=== PATIENT | male | born 1935 | race Caucasian/White ===

== ENCOUNTER 2024-01-05 01:02 | Emergency (ER) | payer MEDICARE, SELFPAY ==
[2024-01-05] VITALS (10 sets, daily range): BP systolic 138–168; BP diastolic 85–94; PULSE 66–81; TEMP 36.4; O2SAT 95–99; BMI 26.4
--- NOTE | 2024-01-05 01:16 | ECG_ITS ---
The [facility] Test Date: 2024-01-05 Pat Name: Thaddeus Marroquin Department: Room: - Gender: Male Ophthalmic Lens Inspector: : 1935 Requested By: Beatriz Almonte Order Number: [id number] Reading MD: AGUEDA LIN Measurements Intervals [place] Rate: 72 P: 43 OK: 208 QRS: -83 QRSD: 144 T: 55 QT: 440 QTc: 464 Interpretive Statements 1100 Sinus rhythm 1102 Sinus arrhythmia 2450 Right bundle branch block 2630 Left anterior fascicular block 9150 abnormal ECG No previous ECG available for comparison Electronically Signed On 01-05-2024 7:04:31 EDT by AGUEDA LIN
--- NOTE | 2024-01-05 01:17 | XR_ITS ---
The [address] [address] Patient Name: JACY NAVARRO MRN: [id number] date: 1935 Sex: M Assigned Patient Location: ER Current Patient Location: Accession/Order Number: [id number] Exam Date: 01/05/2024 01:32 Report Date: 01/05/2024 03:46 At the request of: PRANAV SAPP Procedure: XR chest 1V EXAM: XR chest 1V HISTORY: SOB COMPARISON: None. TECHNIQUE: One view of the chest was obtained. FINDINGS: The cardiac silhouette is normal in size. Aortic atherosclerotic disease is seen. There is no significant pneumothorax or pleural effusion. No acute osseous abnormality is seen. There are medial right basilar opacities. XR/XR chest 1V IMPRESSION: 1. Medial right basilar opacities that are felt to represent atelectasis. Otherwise, the lungs are clear. Electronically authenticated by: Eduard TURNER Date: 01/05/2024 03:46
--- NOTE | 2024-01-05 01:17 | ED.GENADUL1 ---
HPI HPI - General Adult General Chief complaint: Shortness of Breath/Dyspnea Stated complaint: sob Time Seen by Provider: 01/05/24 01:04 Source: patient Mode of arrival: Wheelchair Limitations: no limitations History of Present Illness HPI narrative: 88-year-old male presents for shortness of breath. He states it woke him up during the night. During the day yesterday he was outside working in the yard all day trimming branches with his son. He has not had a fever or cough and he denies any pain. He states he does not believe he has a history of any heart or lung problems. Related Data Home Medications ?Medication ?Instructions ?Recorded ?Confirmed amlodipine 5 mg tablet 5 mg PO DAILY 01/05/24 01/05/24 donepezil 10 mg tablet 10 mg PO BEDTIME 01/05/24 01/05/24 fluticasone propionate 50 2 spray intranasal DAILY 01/05/24 01/05/24 mcg/actuation nasal spray,suspension ketoconazole 2 % shampoo 1 applic topical Q14D 01/05/24 01/05/24 memantine 5 mg tablet 5 mg PO BID 01/05/24 01/05/24 rosuvastatin 5 mg tablet 5 mg PO DAILY 01/05/24 01/05/24 sulfasalazine 500 mg 0.5 g PO Q12H 01/05/24 01/05/24 tablet,delayed release Allergies Allergy/AdvReac Type Severity Reaction Status Date / Time No Known Drug Allergies Allergy Verified 01/05/24 01:05 Opioid HPI Opioid Management Most Recent Opioid Data: No Data to Display Review of Systems ROS Narrative A ten point review of systems is negative except as noted above. PFSH PFSH Social History Little interest or pleasure in doing things: not at all Feeling down, depressed, or hopeless: not at all Exam Narrative Exam Narrative: Nurses note and vital signs reviewed and patient is not hypoxic. General: The patient appears in no apparent distress. Patient is resting comfortably on cart. Skin: Warm, dry, no pallor noted. There is no rash noted. Head: Normocephalic, atraumatic Eye: Normal conjunctiva, no drainage Ears, Nose, Mouth, and Throat: oral mucosa is moist. Nares patent. Cardiovascular: Regular Rate and Rhythm Respiratory: Patient is in no distress, no accessory muscle use, lungs are clear to auscultation, no wheezing, rales or rhonchi Back: non-tender GI: Soft and nontender Musculoskeletal: The patient has no evidence of calf tenderness, no pitting edema, symmetrical pulses noted bilaterally Neurological: A&O, normal speech Psychiatric: Cooperative Constitutional Vital Signs, click to edit/add: Last Vital Signs Temp 97.6 F 01/05/24 01:05 Pulse 66 01/05/24 02:00 Resp 14 01/05/24 02:00 BP 140/85 01/05/24 02:00 Pulse Ox 95 01/05/24 02:00 O2 Del Method Room Air 01/05/24 01:19 Course Vital Signs Vital signs: Vital Signs Temperature 97.6 F 01/05/24 01:05 Pulse Rate 75 01/05/24 01:05 Respiratory Rate 14 01/05/24 01:05 Blood Pressure 168/87 H 01/05/24 01:05 Pulse Oximetry 97 01/05/24 01:05 Oxygen Delivery Method Room Air 01/05/24 01:05 Temperature 97.6 F 01/05/24 01:05 Pulse Rate 66 01/05/24 02:00 Respiratory Rate 14 01/05/24 02:00 Blood Pressure 140/85 01/05/24 02:00 Pulse Oximetry 95 01/05/24 02:00 Oxygen Delivery Method Room Air 01/05/24 01:19 Medical Decision Making MDM Narrative Medical decision making narrative: The patient's work appears negative. No evidence of pneumonia or heart failure or acute coronary syndrome. COVID and influenza test are negative. Without intervention his symptoms resolved completely and he is no longer short of breath at all. The possibility of anxiety was discussed with the patient. At this point I do not suspect a pulmonary embolism. He is able to be discharged home. Treatment diagnosis and follow-up were discussed with the patient. Differential Diagnosis Differential Diagnosis: Pneumonia, COVID, influenza, pneumothorax Lab Data Lab results reviewed: Yes I reviewed the patient's lab results Labs: Lab Results 01/05/24 01/05/24 Range/Units 01:16 01:17 WBC 6.0 (4.0-11.0) 10^3/uL RBC 3.68 L (4.70-6.10) 10^6/uL Hgb 11.8 L (14.0-18.0) g/dL Hct 35.3 L (42.0-54.0) % MCV 95.9 H (80.0-94.0) fL MCH 32.1 (25.9-34.0) pg MCHC 33.4 (29.9-35.2) g/dL RDW 12.7 (11.0-15.0) % Plt Count 187 (150-450) 10^3/uL MPV 9.4 L (9.5-13.5) fL Neut % (Auto) 48.5 (43.0-75.0) % Lymph % (Auto) 37.1 (20.5-60.0) % [place] % (Auto) 11.8 (1.7-12.0) % Eos % (Auto) 1.5 (0.9-7.0) % Baso % (Auto) 0.8 (0.2-2.0) % Neut # (Auto) 2.9 (1.4-6.5) 10^3/uL Lymph # (Auto) 2.2 (1.2-3.8) 10^3/uL [place] # (Auto) 0.7 (0.3-0.8) 10^3/uL Eos # (Auto) 0.1 (0.0-0.7) 10^3/uL Baso # (Auto) 0.1 (0.0-0.1) 10^3/uL Abs Immat Gran (auto) 0.02 (0.00-0.03) 10^3/uL Imm/Tot Granulo (auto) 0.3 (0.0-0.5) % Sodium 141 (136-145) mmol/L Potassium 3.7 (3.5-5.1) mmol/L Chloride 106 (98-107) mmol/L Carbon Dioxide 26.9 (21.0-32.0) mmol/L Anion Gap 11.8 BUN 13.0 (7.0-18.0) mg/dL Creatinine 0.94 (0.70-1.30) mg/dL Est GFR ( Amer) >60 (>=60 mL/min/1.73m^2) Est GFR (Non-Af Amer) >60 (>=60 mL/min/1.73m^2) BUN/Creatinine Ratio 13.8 Glucose 104 (74-106) mg/dL Calcium 9.1 (8.5-10.1) mg/dL Troponin I High Sens 16.1 (4.0-76.1) pg/mL NT-Pro-B Natriuret Pep 273.0 (<=1800.0) pg/mL Influenza Type A Ag Negative Influenza Type B Ag Negative SARS-CoV-2 Ag (CV2AG) Negative (NEGATIVE) Imaging Data Chest x-ray: My impression: No acute findings ECG Data Attestation: I personally reviewed and interpreted this ECG as follows: (EKG on my interpretation shows sinus rhythm with rate of 72 and a right bundle branch block) Discharge Plan Discharge Chief Complaint: Shortness of Breath/Dyspnea Clinical Impression: Dyspnea Patient Disposition: Home, Self-Care Time of Disposition Decision: 02:15 Condition: Good Mode of Transportation: Private Vehicle Prescriptions / Home Meds: No Action amlodipine 5 mg tablet 5 mg PO DAILY donepezil 10 mg tablet 10 mg PO BEDTIME fluticasone propionate 50 mcg/actuation spray,suspension 2 spray INTRANASAL DAILY ketoconazole 2 % shampoo 1 applic TOPICAL Q14D memantine 5 mg tablet 5 mg PO BID rosuvastatin 5 mg tablet 5 mg PO DAILY sulfasalazine 500 mg tablet,delayed release (DR/EC) 0.5 g PO Q12H Print Language: Guamanian Instructions: Dyspnea (ED) Referrals: MAYA CARSON [Primary Care Provider] - 1 week
[2024-01-05 01:25] LABS: Basophils Absolute Auto 0.1 10^3/uL (0.0-0.1); Basophils Percent Auto 0.8 % (0.2-2.0); Eosinophils Absolute Auto 0.1 10^3/uL (0.0-0.7); Eosinophils Percent Auto 1.5 % (0.9-7.0); Hematocrit 35.3 % (42.0-54.0); Hemoglobin 11.8 g/dL (14.0-18.0); Immature Granulocytes Abs Auto 0.02 10^3/uL (0.00-0.03); Immature Granulocytes Pct Auto 0.3 % (0.0-0.5); Lymphocytes Absolute Auto 2.2 10^3/uL (1.2-3.8); Lymphocytes Percent Auto 37.1 % (20.5-60.0); Mean Corpuscular HGB Conc 33.4 g/dL (29.9-35.2); Mean Corpuscular Hemoglobin 32.1 pg (25.9-34.0); Mean Corpuscular Volume 95.9 fL (80.0-94.0); Mean Platelet Volume 9.4 fL (9.5-13.5); Monocytes Absolute Auto 0.7 10^3/uL (0.3-0.8); Monocytes Percent Auto 11.8 % (1.7-12.0); Neutrophils Absolute Auto 2.9 10^3/uL (1.4-6.5); Neutrophils Percent Auto 48.5 % (43.0-75.0); Platelet Count 187 10^3/uL (150-450); Red Blood Count 3.68 10^6/uL (4.70-6.10); Red Cell Distribution Width 12.7 % (11.0-15.0)
[2024-01-05 01:33] LABS: Anion Gap 11.8; BUN Creatinine Ratio 13.8; Calcium 9.1 mg/dL (8.5-10.1); Carbon Dioxide 26.9 mmol/L (21.0-32.0); Chloride 106 mmol/L (98-107); Estimated GFR (African America >60 (>=60 mL/min/1.73m^2); Estimated GFR (Non-African Ame >60 (>=60 mL/min/1.73m^2); Glucose 104 mg/dL (74-106); Potassium 3.7 mmol/L (3.5-5.1); Sodium 141 mmol/L (136-145)
[2024-01-05 01:36] LABS: Influenza Virus A Antigen Negative; Influenza Virus B Antigen Negative; Internal Control Within Normal Limits; SARS-CoV-2 Ag NEGATIVE (NEGATIVE)
[2024-01-05 01:51] LABS: Troponin I High Sensitivity 16.1 pg/mL (4.0-76.1)
== END 2024-01-05 02:29 | disposition home or self-care (01) ==
PROVIDERS: Emergency Provider Emergency Medicine; PCP Family Medicine
DX: R06.00 Dyspnea, unspecified (principal); Z20.822 Contact with and (suspected) exposure to COVID-19
CPT/HCPCS: 36415; 71045; 80048; 83880; 84484; 85025; 87804; 87811; 93005; 99285

== ENCOUNTER 2024-08-11 10:12 | Outpatient (OUT) | payer MEDICARE, SELFPAY ==
--- OUTSIDE RECORDS SUMMARY | 2024-08-02 08:30 | XMS_ITS | Encounter Summary ---
Author Organization [facility] Address [address] [place] [address] Care Team Providers Care Edge Runner Name Role Phone Beatriz Almonte MD Unavailable [phone] Beatriz Almonte MD Primary Care Provider [phone] Reason for Visit * Rehabilitation - Outpatient (Routine) - Authorized Specialty Diagnoses / Procedures Referred By Wong ramsey Referred To Contact Physical Therapy Diagnoses Piriformis syndrome of right side Pain in right buttock Procedures [place] OFFICE/OUTPATIENT [facility] 60 MINUTES Marielena Herrera, DIRECTOR SOFTWARE QUALITY ASSURANCE [address] [place] [address] Phone: tel: fax: Dax Wolf, PT [address] [address] Phone: tel: fax: Referral ID Status Reason Start Date Expiration Date Visits Requested Visits Authorized [id number] Authorized Specialty Services Required 07/08/2024 03/23/2025 99 99 Encounter Details Date Type Department Care Team (Late st Contact Info) Description 08/02/2024 8:30 AM EDT Treatment [facility] [address] [facility] [address] [place] [address] Dax Wolf, PT [address] [address] Piriformis syndrome of right side (Primary Dx); Pain in right buttock; Acute bilateral low back pain without sciatica Social History Tobacco Use Types Packs/Day Years Used Date Smoking Tobacco: Never Passive Smoke Exposure: Past Smokeless Tobacco: Never Alcohol Use Standard Drinks/Week Comments Yes 0 (1 standard drink = 0.6 oz pur e alcohol) PHQ-2 Answer Date Recorded Patient Health Questionnaire-2 Score 0 03/01/2024 Sex and Gender Information Value Date Recorded Sex Assigned at Not on file Legal Sex Male 8:35 PM EDT Gender Identity Not on file Sexual Orientation Not on file documented as of this encounter Progress Notes * Dax Wolf, PT - 08/02/2024 8:30 AM EDT Images from the original note were not included. Physical Therapy Evaluation Visit Patient Name: Thaddeus Marroquin Today's Date: 08/02/2024 Encounter Diagnoses Name Primary? Piriformis syndrome of right side Yes Pain in right buttock Acute bilateral low back pain without sciatica Visit number: 3 Timed Code Treatment Minutes: 40 minutes Total Treatment Time: 40 minutes Time In: 0830 Time Out: 0910 History: Pt. Presents to PT with c/c right piriformis syndrome which started 2 months ago. No LEONIDAS. Pt. Reports of increased pain at night. Denies N/T. Pt. Reports he works out 4x per week. Precautions: as tolerated Subjective: Pt. Reports of bilateral butt pain today. Pain is limiting his ability to play golf. Pain: 3/10 Objective: PT Evaluation (07/14/24) Lumbar ROM: WFL Hip ROM: decreased hip ER/IR Flexibility: moderate - piriformis muscle tightness, normal hamstring Strength: core 5/5, lateral hip 4/5, extension 4+/5 Palpation: TTP piriformis at sacrum Treatment: PT evaluation Education: HEP education with demonstration, Educated on Eval Findings and POC Manual Therapy: (26 minutes) piriformis stretching; Passive ROM, Joint mobilization, Soft Tissue Mobilization, Myofascial Release, Muscle Energy Technique, Neural Mobilization, Myofascial Cupping, Dry Needling, IASTM, and Scar mobilization Therapeutic Exercise: (14 minutes) exercises in grid; Strength, Endurance, Flexibility, ROM, HEP, Neural Mobilization, Power, and Core Stability Therapeutic Activity: Exercises to improve dynamic activities, functional tasks, functional mobility to return to prior activity level Neuromuscular re-education: Balance Training, Muscle Facilitation, Dynamic Stability, Core Stabilization, and Blood Flow Restriction Training (BFRT) Modalities: Heat, Ice, Electrical Stimulation, Ultrasound, Cervical Mechanical Traction, Lumbar Mechanical Traction, Iontophoresis, and Fluidotherapy Assessment: Pt. Has participated in 3 PT session with start of POC on 07/14/24 for piriformis muscle tightness.Pt. Will benefit from skilled PT services. Performed more manual techniques to lumbar spine today to help decrease piriformis symptoms today. Outcome Measure: in chart Short Term Goal: To be met in 2 weeks Goal 1: Pt to be instructed in home exercise program. Halfway Goals: To be met in 10 weeks Goal 1: Pt to report independence and compliance with home program. Goal 2: Pt. Will report of 0/10 right piriformis muscle pain while performing daily tasks. Goal 3: Pt. Will demonstrate normal piriformis muscle flexibility to help decrease pain. Goal 4: Pt. Will demonstrate 5/5 right lateral hip strength to help decrease pain. Plan: Pt. Will be placed on hold for up to 30 days. Pt. Is compliant with HEP. Pt will benefit from skilled PT for 1-2x/week from 07/14/24 to 09/22/24 to address the above impairments. I hereby deem this POC medically necessary. Please sign below. Date: documented in this encounter Plan of Treatment Upcoming Encounters Date Type Department Care Team (Late st Contact Info) Description 08/13/2024 8:30 AM EDT Ancillary Procedure [facility] [address] [place] [address] 08/18/2024 8:00 AM EDT Treatment [facility] [address] [facility] [address] [place] [address] Dax Wolf, PT [address] [place] [address] [place] [address] 08/19/2024 8:00 AM EDT Office Visit [facility] [address] [place] [address] Michael Patel MD [address], [place] [address] 08/20/2024 1:30 PM EDT Office Visit [facility] [address] [place] [phone] Marielena Herrera NP [address] [place] [address] documented as of this encounter Visit Diagnoses Diagnosis Piriformis syndrome of right side- Primary Pain in right buttock Unspecified myalgia and myositis Acute bilateral low back pain without sciatica documented in this encounter Care Teams Edge Runner Relationship Specialty Start Date End Date Beatriz Almonte MD [address] [facility] [place] [address] PCP - [employer] 03/24/22 Beatriz Almonte MD [address] [facility] [place] [address] PCP - General Family Medicine 08/23/22 documented as of this encounter
--- OUTSIDE RECORDS SUMMARY | 2024-08-02 14:00 | XMS_ITS | Encounter Summary ---
Author Organization [facility] Address [address] [facility] [place] [address] Care Team Providers Care Tufting Machine Operator Single Needle Name Role Phone Beatriz Almonte MD Unavailable [phone] Beatriz Almonte MD Primary Care Provider [phone] Reason for Visit * Imaging (Routine) - Closed Specialty Diagnoses / Procedures Referred By Wong ramsey Referred To Contact Radiology Diagnoses Occlusion and stenosis of bilateral carotid arteries Procedures Vascular US carotid artery duplex bilateral Marielena Herrera CLUB LOUNGE ATTENDANT [address] [place] [address] Phone: tel: fax: [facility] [address] [facility] [address] [place] [address] Phone: tel: fax: Referral ID Status Reason Start Date Expiration Date Visits Re quested Visits Authorized [id number] Closed 07/07/2024 01/03/2025 1 1 Encounter Details Date Type Department Care Team (Latest Contact Info) Description 08/02/2024 2:00 PM EDT Ancillary Procedure [facility] [address] [facility] [address] [place] [address] Occlusion and stenosis of bilateral carotid arteries Social History Tobacco Use Types Packs/Day Years [...] on file documented as of this encounter Plan of Treatment Upcoming Encounters Date Type Department Care Team (Late st Contact Info) Description 08/13/2024 8:30 AM EDT Ancillary Procedure [facility] [address] [facility] [address] [place] [address] 08/18/2024 8:00 AM EDT Treatment [facility] [address] [facility] [address] [place] [address] Dax Wolf, PT [address] [facility] [address] [place] [address] 08/19/2024 8:00 AM EDT Office Visit [facility] [address] [facility] [address] [place] [address] Michael Patle MD [address] [address] 08/20/2024 1:30 PM EDT Office Visit [facility] [address] [place] [phone] Marielena Herrera NP [address] [place] [address] documented as of this encounter Procedures Procedure Name Priority Date/Time Associated Diagnosis Comments [facility] US CAROTID ARTERY DUPLEX BILATERAL Routine 08/02/2024 2:29 PM EDT Occlusion and stenosis of bilateral carotid arteries documented in this encounter Results * Vascular US carotid artery duplex bilateral (08/02/2024 2:29 PM EDT) Anatomical Region Laterality Modality Neck Ultrasound 08/03/2024 4:40 PM EDT Narrative 08/03/2024 4:40 PM EDT EXAM: Carotid Artery Ultrasound: REASON FOR EXAM: Stenosis. COMPARISON: None. TECHNIQUE: Longitudinal and transverse grayscale, color Doppler, and spectral wave analysis of extracranial carotid vertebral systems obtained. FINDINGS: Diffuse intimal thickening. Scattered foci of hypoechoic and echogenic shadowing plaque present. Velocities, ratios and waveforms are normal. Vertebral artery flow is antegrade bilaterally. Carotid Velocities in cm/sec: Right Peak Systole/End Diastole RCCA: 57.77/18.68 BULB: 42.13/11.73 KRISTA: Prox: 55.17/16.94 Mid: 97.73/35.18 Dist: 90.35/31.71 RECA: 0.63/9.73 RT VERT: 50.39/17.81, antegrade KRISTA/CCA RATIO = 1.69 Left Peak Systole/End Diastole LCCA: 55.17/13.03 BULB: 42.57/12.16 LICA: Prox: 62.12/18.68 Mid: 61.25/24.32 Dist: 63.85/23.46 LECA: 64.72/9.12 LT VERT: 36.49/18.47, antegrade LICA/CCA RATIO = 1.16 IMPRESSION: 1. Mild diffuse atheromatous disease. No hemodynamically significant stenosis sonographically. 2. Vertebral artery flow is antegrade bilaterally. This report is generated using voice recognition reporting ([employer]). On occasion, [employer] erroneously drops words from the report or replaces the spoken word with a similar sounding word. Please call with any questions/concerns regarding the report. Dictated and transcribed 08/03/2024/jf This report has been electronically signed and approved by the interpreting radiologist. Procedure Note Adrián Nolasco MD - 08/03/2024 EXAM: Carotid Artery Ultrasound: REASON FOR EXAM: Stenosis. COMPARISON: None. TECHNIQUE: Longitudinal and transverse grayscale, color Doppler, andspectral wave analysis of extracranial carotid vertebral systems obtained. FINDINGS: Diffuse intimal thickening. Scattered foci of hypoechoic and echogenicshadowing plaque present. Velocities, ratios and waveforms are normal. Vertebral artery flow is antegrade bilaterally. Carotid Velocities in cm/sec: Right Peak Systole/End Diastole RCCA: 57.77/18.68 BULB: 42.13/11.73 KRISTA: Prox: 55.17/16.94 Mid: 97.73/35.18 Dist: 90.35/31.71 RECA: 0.63/9.73 RT VERT: 50.39/17.81, antegrade KRISTA/CCA RATIO = 1.69 Left Peak Systole/End Diastole LCCA: 55.17/13.03 BULB: 42.57/12.16 LICA: Prox: 62.12/18.68 Mid: 61.25/24.32 Dist: 63.85/23.46 LECA: 64.72/9.12 LT VERT: 36.49/18.47, antegrade LICA/CCA RATIO = 1.16 IMPRESSION: 1. Mild diffuse atheromatous disease. No hemodynamically significantstenosis sonographically. 2. Vertebral artery flow is antegrade bilaterally. This report is generated using voice recognition reporting ([employer]).On occasion, [employer] erroneously drops words from the report orreplaces the spoken word with a similar sounding word. Please call withany questions/concerns regarding the report. Dictated and transcribed 08/03/2024/alex This report has been electronically signed and approved by theinterpreting radiologist. us Marielena Herrera NP IMG US PROCEDURES Final Res ult documented in this encounter Visit Diagnoses Diagnosis Occlusion and stenosis of bilateral carotid arteries documented in this encounter Care Teams Tufting Machine Operator Single Needle Relationship Specialty Start Date End Date Beatriz Almonte MD [address] [place] [address] PCP - [employer] 03/24/22 Beatriz Almonte MD [address] [place] [address] PCP - General Family Medicine 08/23/22 documented as of this encounter
--- OUTSIDE RECORDS SUMMARY | 2024-08-10 09:30 | XMS_ITS | Encounter Summary ---
Author Organization [facility] Address [address] [place] [address] Care Team Providers Care Machine Container Washer Name Role Phone Beatriz Almonte MD Unavailable [phone] Beatriz Almonte MD Primary Care Provider [phone] Reason for Visit * Rehabilitation - Outpatient (Routine) - Authorized Specialty Diagnoses / Procedures Referred By Wong ramsey Referred To Contact Physical Therapy Diagnoses Piriformis syndrome of right side Pain in right buttock Procedures [place] OFFICE/OUTPATIENT [facility] 60 MINUTES Marielena Herrera, BOAT CARPENTER [address] [place] [address] Phone: tel: fax: Dax Wolf, PT [address] [address] Phone: tel: fax: Referral ID Status Reason Start Date Expiration Date Visits Requested Visits Authorized [id number] Authorized Specialty Services Required 07/08/2024 03/23/2025 99 99 Encounter Details Date Type Department Care Team (Late st Contact Info) Description 08/10/2024 9:30 AM EDT Treatment [facility] [address] [facility] [address] [place] [address] Dax Wolf, PT [address] [address] Piriformis syndrome of right side (Primary Dx); [...] Progress Notes * Dax Wolf, PT - 08/10/2024 9:30 AM EDT Images from the original note were not included. Physical Therapy Treatment Visit Patient Name: Thaddeus Marroquin Today's Date: 08/10/2024 Encounter Diagnoses Name Primary? Piriformis syndrome of right side Yes Pain in right buttock Acute bilateral low back pain without sciatica Visit number: 4 Timed Code Treatment Minutes: 40 minutes Total Treatment Time: 70 minutes Time In: 0910 Time Out: 1020 History: Pt. Presents to PT with c/c right piriformis syndrome which started 2 months ago. No LEONIDAS. Pt. Reports of increased pain at night. Denies N/T. Pt. Reports he works out 4x per week. Precautions: as tolerated Subjective: Pt. Reports of bilateral butt pain today. Pain is affecting his ability to sleep throughout the night. Increased right shoulder pain which is limiting his ability to play golf. Pt. Is going to take 2 weeks off from golfing. Pain: 5/10 sacrum pain, 7/10 right shoulder pain. Objective: PT Evaluation (07/14/24) Lumbar ROM: WFL [...] and Blood Flow Restriction Training (BFRT) Modalities: (15 minutes) prone: IFC with MHP to lumbar spine; Heat, Ice, Electrical Stimulation, Ultrasound, Cervical Mechanical Traction, Lumbar Mechanical Traction, Iontophoresis, and Fluidotherapy DN: right shoulder, 4x needles with 10 minute rest. Lateral deltoid Assessment: Pt. Has participated in 4 PT session with start of POC on 07/14/24 for piriformis muscle tightness.Pt. Will benefit from skilled PT services. Performed more manual techniques to lumbar spine today to help decrease piriformis symptoms today. Trial of DN to right shoulder to help decrease pain. TTP b ilateral sacrum today and L5/S1 segment. Outcome Measure: in chart Short Term Goal: To be met in 2 weeks Goal 1: Pt to be instructed in home exercise program. Penitentiary Goals: To be met in 10 weeks [...] Ancillary Procedure [facility] [address] [facility] [address] [facility] [address] 08/18/2024 8:00 AM EDT Treatment [facility] [address] [facility] [address] [place] [address] Dax Wolf, PT [address] [facility] [address] [place] [address] 08/19/2024 8:00 AM EDT Office Visit [facility] [address] [facility] [address] [place] [address] Michael Patel MD [address] [facility] [address] [facility] [place] [address] 08/20/2024 1:30 PM EDT Office Visit [facility] [address] [facility] [place] [address] Marielena Herrera BOAT CARPENTER [address] [facility] [place] [address] documented as of this encounter Visit Diagnoses Diagnosis Piriformis syndrome of right side- Primary Pain in right buttock Unspecified myalgia and myositis Acute bilateral low back pain without sciatica documented in this encounter Care Teams Machine Container Washer Relationship Specialty Start Date End Date Beatriz Almonte MD [address] [facility] [place] [address] PCP - [employer] 03/24/22 Beatriz Almonte MD [address] [facility] [place] [address] PCP - General Family Medicine 08/23/22 documented as of this encounter
--- OUTSIDE RECORDS SUMMARY | 2024-08-11 10:16 | XMS_ITS ---
Author Organization [employer] Address [id number] [address] 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 Primary hypertension 03/14/2022 Hyperlipidemia 03/14/2022 Nephrolithiasis 03/14/2022 Paroxysmal atrial fibrillation 02/22/2022 Iliac artery aneurysm, left 08/13/2021 Abdominal aortic aneurysm (AAA) without rupture 08/13/2021 Overweight 09/26/2019 07/23/2022 Age-related cognitive decline 02/01/2019 Chronic rhinitis 11/26/2018 07/23/2022 Mild left ventricular hypertrophy 07/27/2018 07/23/2022 Right bundle branch block 07/02/20182022 Bilateral sensorineural hearing loss 03/04/2018 07/23/2022 Reactive depression (situational) 12/19/2017 07/23/2022 Prostate cancer 07/16/2017 Cancer Staging:Clinical: cT1b, cN0, cM0, Grade Group: 4 - Signed by Lyndon Marquez MD on 07/16/2017 Overview (10/16/2021): 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 plan to check psa in Feb prior to leaving for [place]. 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 Past Treatment and Therapy Plans INFUSION TREATMENT Plan Name Start Date Discontinue Date Treatment Medications Discontinue Reason Plan Provider LEUPROLIDE 45 MG EVERY 6 MONTHS (LUPRON DEPOT) 09/03/2017 07/26/2022 leuprolide (LUPRON) Other Lyndon Marquez MD Radiation Treatments * Course C1 07/28/2017 - 04/27/2018 Treatment Period Energy Fraction Dose Fractions Total Dose Plans Planned prostate and seminal vesicles [Pros and SV] 04/27/2018 - 04/27/2018 250 28 / 28 7,000 Reference Points Delivered Rx prostate 04/27/2018 - 04/27/2018 7,000
--- OUTSIDE RECORDS SUMMARY | 2024-08-11 10:16 | XMS_ITS | Clinical Summary ---
Author Organization [employer] tem Address [id number] [address] [place] [address] Care Team Providers Care Livestock Brands Inspector Name Role Phone Beatriz Almonte MD Primary Care Provider [phone] Allergies No known active allergies Medications amLODIPine (NORVASC) 5 mg tablet Take 1 tablet (5 mg total) by mouth in the morning. Active M-17/NETTLE/PUM PK/SAW PALMET (PROSTATE THERAPY ORAL) Take by mouth. A ctive multivitamin (THERAGRAN) tablet Take 1 tablet by mouth in the morning. Active donepezil (ARICEPT) 5 mg tablet Take 2 tablets (10 mg total) by mouth nightly. Active acetaminophen (TYLENOL) 325 mg tablet Take 2 tablets (650 mg total) by mouth every 6 (six) hours as needed for pain. Active montelukast (SINGULAIR) 10 mg tablet Take 1 tablet (10 mg total) by mouth nightly. Active sulfaSALAzine (AZULFIDINE) 500 mg EC tablet Take 200 mg by mouth in the morning and 200 mg at noon and 200 mg in the evening. Active fluticasone propionate (FLONASE) 50 mcg/actuation nasal spray Administer 1 spray into each nostril in the morning. Active rosuvastatin (CRESTOR) 5 mg tablet Take 1 tablet (5 mg total) by mouth in the morning. Active Active Problems Problem Noted Date Diagnosed Date [...] psa in Feb prior to leaving for [place]. 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 07/23/2022 Disseminated idiopathic skeletal hyperostosis 07/23/2022 Anxiety 08/01/2015 07/23/2022 Family History Medical History Relation Name Comments Dementia Father No Known Problems Mother Relation Name Status Comments Brother Father Maternal Aunt Maternal Grandfather Maternal Grandmother Maternal Uncle Mother Paternal Aunt Paternal Grandfather Paternal Grandmother Paternal Uncle Sister Alive Social History Tobacco Use Types Packs/Day Years Used Date Smoking Tobacco: Never Smokeless Tobacco: Never Tobacco Cessation:Counseling Given: Not Answered Alcohol Use Standard Drinks/Week Comments Yes 0 (1 standard drink = 0.6 oz pur e alcohol) socially [employer] Utilities Answer Date Recorded In the past 12 months has th e electric, gas, oil, or water company threatened to shut off services in your home? No 11/02/2023 Social Connection and Isolat ion Panel [NHANES] Answer Date Recorded In a typical week, how many times do you talk on the phone with family, friends, or neighbors? Three times a week 11/06/2022 How often do you get togethe r with friends or relatives? Three times a week 11/06/2022 How often do you attend chur ch or congregational services? More than 4 times per year 11/06/2022 Do you belong to any clubs o r organizations such as jehovah's witness groups, unions, fraternal or athletic groups, or school groups? Yes 11/06/2022 How often do you attend meet ings of the clubs or organizations you belong to? More than 4 times per year 11/06/2022 Are you , , di vorced, , never , or living with a partner? 11/06/2022 AUDIT-C Answer Date Recorded Q1: How often do you have a drink containing alcohol? Monthly or less 11/06/2022 Q2: How many drinks containi ng alcohol do you have on a typical day when you are drinking? Patient does not drink Q3: How often do you have si x or more drinks on one occasion? Never 11/06/2022 Overall Financial Resource Strain (CARDIA) Answe r Date Recorded How hard is it for you to pa y for the very basics like food, housing, medical care, and heating? Not hard at all 11/06/2022 PHQ-2 Answer Date Recorded Total Score 0 11/06/2022 [facility] Occupat ional Health - Occupational Stress Questionnaire Answer Date Recorded Do you feel stress - tense, restless, nervous, or anxious, or unable to sleep at night because your mind is troubled all the time - these days? Not at all 11/06/2022 Exercise Vital Sign Answer Date Recorde d On average, how many days pe r week do you engage in moderate to strenuous exercise (like a brisk walk)? 3 days 11/06/2022 On average, how many minutes do you engage in exercise at this level? 90 min 11/06/2022 PRAPARE - Transportation Answer Date Re corded In the past 12 months, has l ack of transportation kept you from medical appointments or from getting medications? No 10/22 In the past 12 months, has l ack of transportation kept you from meetings, work, or from getting things needed for daily living? No 11/02/2023 Housing Instability Answer Date Recorde d Are you worried or concerned that in the next two months you may not have stable housing that you own, rent or stay in as a part of a household? No 11/02/2023 Childcare Answer Date Recorded Do problems getting child ca re make it difficult for you to work or study? No 11/06/2022 Employment Answer Date Recorded Do you need help finding a [employer] career center and/or a training program? No 11/06/2022 Hunger Screening Answer Date Recorded Within the past 12 months we worried whether our food would run out before we got money to buy more. Never True 02/28/2024 Within the past 12 months th e food we bought just didn't last and we didn't have money to get more. Never True 02/28/2024 Purpose - Life Answer Date Recorded I have a purpose and direction in my life. Strogarcia gly Agree 11/06/2022 Sex and Gender Information Value Date Recorded Sex Assigned at Not on file Legal Sex Male 11:45 AM EDT Gender Identity Not on file Sexual Orientation Not on file Last Filed Vital Signs Vital Sign Reading Time Taken Comments Blood Pressure 162/80 02/28/2024 10:38 AM EST Pulse 102 02/28/2024 10:38 AM EST Temperature 36.2 C (97.2 F) 02/28/2024 10:38 AM EST Respiratory Rate 20 02/28/2024 10:38 AM EST Oxygen Saturation 94% 02/28/2024 10:38 AM EST Inhaled Oxygen Concentration - - Weight 90.7 kg (200 lb) 02/28/2024 10:38 AM EST Height 182.9 cm (6') 02/28/2024 10:38 AM EST Body Mass Index 27.12 02/28/2024 10:38 AM EST Plan of Treatment Health Maintenance Due Date Last Done Comments Fall Risk Screening 2002 Depression Screening 11/07/2023 11/06/2022 COVID-19 Vaccine (7 - 2023-2 5 season) 2024 01/05/2024, 01/01/2023, 12/28/2021, Additional history exists Influenza Vaccine 11/22/2024 01/05/2024, , 12/03/2021, Additional history exists Tobacco Screening 02/27/2025 02/28/2024 DTaP,Tdap and Td Vaccines (4 - Td or Tdap) 07/01/2032 07/01/2022, 07/12/2020, 01/22/2010 Zoster (Shingles) Vaccine Completed 09/19/2022, 12/2022 Goals Goal Patient Goal Type Associated Problems Recent Progress Patient-Stated? Author home General Yes Rosalva Haynes LSW Note: Evaluation of progress towards goal: feeling better, hopes to go [place] today Medical Devices Not on file Insurance [employer] MEDICARE Advance Directives * Full Code (Latest Code Status on File) Date Activated Date Inactivated Comments 11/03/2023 9:21 AM 11/04/2023 3:18 PM * Full Code Date Activated Date Inactivated Comments 11/06/2022 11:46 AM 11/07/2022 5:30 PM Care Teams Livestock Brands Inspector Relationship Specialty Start Date End Date Beatriz Almonte MD [address] [place] [address] PCP - General Family Medicine 10/15/21
--- OUTSIDE RECORDS SUMMARY | 2024-08-11 10:16 | XMS_ITS ---
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 Atherosclerosis of aorta 05/22/2023 Hemorrhoids 05/22/2023 Diverticulosis 11/13/2022 Pulmonary nodule 11/13/2022 Renal cyst, left 11/13/2022 Alzheimer's dementia 11/06/2022 Dry eyes 09/03/2022 PCO (posterior capsular opacification), bilatera l 09/03/2022 Chronic low back pain 07/23/2022 Hip pain 07/23/2022 Gastroesophageal reflux disease 04/15/2022 Piriformis syndrome of right side 04/15/2022 Dizziness 04/15/2022 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 plan to check psa in Feb prior to leaving for [place]. 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 Past Treatment and Therapy Plans No past plan information found. Lifetime Dose Tracking * Chemical Lifetime Dose Automatic Entry Manual Entr y Radiation 20.97 mSv 20.97 mSv 0 mSv Resolved Problems Problem Noted Date Diagnosed Date Resolved Date Acute hypoxic respiratory failure 11/02/2023 11/11/2023 COVID-19 11/02/2023 03/01/2024 Backache 10/27/2023 03/01/2024 Right knee pain 10/27/2023 03/01/2024 Unsteadiness on feet 10/27/2023 024 Acute maxillary sinusitis 11/06/2022 Blepharitis of upper and low er eyelids of both eyes 09/03/2022 03/01/2024 Calculus of kidney 03/14/2022 equipment operator intermodal yard current use of ant icoagulant therapy 07/02/2018 12/16/2022 Paroxysmal atrial fibrillation 06/10/2018 12/16/2022
--- OUTSIDE RECORDS SUMMARY | 2024-08-11 10:16 | XMS_ITS | Encounter Summary ---
Author Organization [employer] Address [id number] [address] [place] [address] Care Team Providers Care Auditor Name Role Phone Beatriz Almonte MD Primary Care Provider [phone] Reason for Visit * Reason Onset Date Comments Medical Update 03/07/2022 Encounter Details Date Type Department Care Team (Late st Contact Info) Description 03/07/2022 Telephone [facility] [address] [place] [phone] Lamin Marques Medical Update Social History Tobacco Use Types Packs/Day Years Used Date Smoking Tobacco: Never Smokeless Tobacco: Never Alcohol Use Standard Drinks/Week Comments Yes 0 (1 standard drink = 0.6 oz pur e alcohol) socially Childcare Answer Date Recorded Childcare Unknown 09/02/2018 Employment Answer Date Recorded Employment Unknown 09/02/2018 Purpose - Life Answer Date Recorded Purpose and direction in life Unknown Sex and Gender Information Value Date Recorded Sex Assigned at Not on file Legal Sex Male 11:45 AM EDT Gender Identity Not on file Sexual Orientation Not on file COVID-19 Exposure Response Date Recorded In the last month, have you been in contact with someone who was confirmed or suspected to have Coronavirus / COVID-19? No / Unsure 02/22/2022 10:58 AM EST documented as of this encounter Miscellaneous Notes * Telephone Encounter - Lamin Marques - 03/07/2022 11:10 AM EST , Inés, wanted to give some of the symptoms: Short tempered Moving feet a lot Jerking Not remembering things A lot of things has changed. Daughter will like to speak to physician about patient as well: Silvia German: [phone] BROKER appt: 03/13/22 * Telephone Encounter - Jessica Banda CMA - 03/07/2022 11:10 AM EST From daughter as a FYI for visit: Fingertip to forehead when mad, will break things, being mean towards the ,unhealthy spending on things he thinks will help that he sees on the tv, comments about killing himself daughter states he wouldn't actually do it though, he continues to mess with his phone and nob's on the radio while d riving, he will joke as if everything is fine with his health. Daughter Silvia son Abhijit Cade And Inés will be at visit. * Telephone Encounter - Zaira Levi MD - 03/07/2022 11:10 AM EST This will be helpful when they eventually see me in clinic. Thanks documented in this encounter Plan of Treatment Not on file documented as of this encounter Visit Diagnoses Not on filedocumented in this encounter Additional Health Concerns Infection Onset Date Last Indicated Resolved Time COVID-19 Rule-Out 11/02/2023 11/02/2023 11/02/2023 7:13 AM EDT COVID-19 Positive 11/02/2023 11/02/2023 11/23/2023 11:13 PM EDT documented as of this encounter Care Teams Auditor Relationship Specialty Start Date End Date Gage, Beatriz Bush MD [address] [place] [address] PCP - General Family Medicine 10/15/21 documented as of this encounter
--- OUTSIDE RECORDS SUMMARY | 2024-08-11 10:16 | XMS_ITS | Encounter Summary ---
Author Organization [facility] Address [address] [facility] [place] [address] Care Team Providers Care Microphone Boom Operator Name Role Phone Beatriz Almonte MD Unavailable [phone] Beatriz Almonte MD Primary Care Provider [phone] Encounter Details Date Type Department Care Team (Latest Contact Info) Description 08/10/2024 Travel Social History Tobacco Use Types Packs/Day Years [...] ULTRASOUND [address] [place] [address] 08/18/2024 8:00 AM EDT Treatment [facility] [address] [facility] [address] [place] [address] Dax Wolf, PT [address] [place] [address] 08/19/2024 8:00 AM EDT Office Visit [facility] [address] [facility] Alexy Rust [address] [place] [phone] Michael Patel MD [address] [facility] [address] [place] [address] 08/20/2024 1:30 PM EDT Office Visit [facility] [address] [place] [phone] Marielena Herrera PRICE ACCURACY SUPERVISOR [address] [place] [address] documented as of this encounter Visit Diagnoses Not on filedocumented in this encounter Care Teams Microphone Boom Operator Relationship Specialty Start Date End Date Beatriz Almonte MD [address] [place], [place] [phone] PCP - [employer] 03/24/22 Beatriz Almonte MD [address] [place], [place] [phone] PCP - General Family Medicine 08/23/22 documented as of this encounter
--- OUTSIDE RECORDS SUMMARY | 2024-08-11 10:16 | XMS_ITS | Encounter Summary ---
Author Organization [facility] Address [address] [place] [address] Care Team Providers Care Oil Well Logger Name Role Phone Beatriz Almonte MD Unavailable [phone] Beatriz Almonte MD Primary Care Provider [phone] Encounter Details Date Type Department Care Team (Late Contact Info) Description 08/10/2024 Bamboo flowsheet [facility] [address] [facility] [address] [place] [address] Dax Wolf, PT [address] [facility] [address] [place] [address] Social History Tobacco Use Types Packs/Day Years [...] Encounters Date Type Department Care Team (Late Contact Info) Description 08/13/2024 8:30 AM EDT Ancillary Procedure [facility] [address] [place] [address] 08/18/2024 8:00 AM EDT Treatment [facility] [address] [facility] [address] [place] [address] Dax Wolf, PT [address] [facility] [address] [place] [address] 08/19/2024 8:00 AM EDT Office Visit [facility] [address] [facility] [address] [place] [address] Michael Patel MD [address] [facility] [address] [place] [address] 08/20/2024 1:30 PM EDT Office Visit [facility] [address] [place] [phone] Marielena Herrera, PROCESS LINE OPERATOR [address] [place] [address] documented as of this encounter Visit Diagnoses Not on filedocumented in this encounter Care Teams Oil Well Logger Relationship Specialty Start Date End Date Beatriz Almonte MD [address] [place] [address] PCP - [employer] 03/24/22 Beatriz Almonte MD [address] [place] [address] PCP - General Family Medicine 08/23/22 documented as of this encounter
--- OUTSIDE RECORDS SUMMARY | 2024-08-11 10:16 | XMS_ITS | Encounter Summary ---
Author Organization [employer] Address [id number] [address] [place] [address] Care Team Providers Care Cell Geneticist Name Role Phone Beatriz Almonte MD Primary Care Provider [phone] Encounter Details Date Type Department Care Team (Late st Contact Info) Description 02/12/2022 Orders Only [facility] [address] [facility] [address] [place] [address] External, Scanning Provider Social History Tobacco Use Types Packs/Day Years [...] have Coronavirus / COVID-19? No / Unsure 01/30/2022 10:54 AM EST documented as of this encounter Plan of Treatment Not on file documented as of this encounter Procedures Procedure Name Priority Date/Time Associated Diagnosis Comments ECHO DOPPLER Routine 03/25/2013 NUC STRESS EXERCISE Routine 02/04/2013 documented in this encounter Results * Echo Doppler (03/25/2013) Anatomical Region Laterality Modality Chest N/A Ultrasound us Scanning Provider External CV ECHO ORDERABLES Fi nal Result * Nuc stress exercise (02/04/2013) Anatomical Region Laterality Modality Chest N/A Nuclear Medicine us Scanning Provider External CV STRESS ORDERABLES Final Result documented in this encounter Visit Diagnoses Not on filedocumented in this encounter Additional Health Concerns Infection Onset Date Last Indicated Resolved Time COVID-19 Rule-Out 11/02/2023 11/02/2023 11/02/2023 7:13 AM EDT COVID-19 Positive 11/02/2023 11/02/2023 11/23/2023 11:13 PM EDT documented as of this encounter Care Teams Cell Geneticist Relationship Specialty Start Date End Date Beatriz Almonte MD [address] [place] [address] PCP - General Family Medicine 10/15/21 documented as of this encounter
--- OUTSIDE RECORDS SUMMARY | 2024-08-11 10:16 | XMS_ITS | Encounter Summary ---
Author Organization [employer] Address [id number] [address] [place] [address] Care Team Providers Care Abstract Checker Name Role Phone Beatriz Almonte MD Primary Care Provider [phone] Encounter Details Date Type Department Care Team (Late st Contact Info) Description 10/19/2021 [facility] [address] [place] [phone] External, Scanning Provider Social History Tobacco Use [...] have Coronavirus / COVID-19? No / Unsure 10/15/2021 11:58 AM EDT documented as of this encounter Plan of Treatment Not on file documented as of this encounter Procedures Procedure Name Priority Date/Time Associated Diagnosis Comments PROSTATIC SPECIFIC ANTIGEN, DIAGNOSTIC Routine 03/19/2017 documented in this encounter Results * Prostatic specific antigen, diagnostic (03/19/2017) Psa 5.010 MANUALLY TRANSCRIBED RESULTS 03/19/2017 us Scanning Provider External LAB BLOOD ORDERABLES Final Result MANUALLY TRANSCRIBED RESULTS documented in this encounter Visit Diagnoses Not on filedocumented in this encounter Additional Health Concerns Infection Onset Date Last Indicated Resolved Time COVID-19 Rule-Out 11/02/2023 11/02/2023 11/02/2023 7:13 AM EDT COVID-19 Positive 11/02/2023 11/02/2023 11/23/2023 11:13 PM EDT documented as of this encounter Care Teams Abstract Checker Relationship Specialty Start Date End Date Beatriz Almonte MD [address] [place] [address] PCP - General Family Medicine 10/15/21 documented as of this encounter
--- OUTSIDE RECORDS SUMMARY | 2024-08-11 10:16 | XMS_ITS | Encounter Summary ---
Author Organization [email or web address] Address [id number] [address] [place] [address] Care Team Providers Care Admissions Rn Name Role Phone Beatriz Almonte MD Primary Care Provider [phone] Encounter Details Date Type Department Care Team (Late st Contact Info) Description 08/08/2021 Telephone [facility] [address] [place] [phone] Yan Garcia MD [address] [facility] [place] [address] Social History Tobacco Use Types Packs/Day Years [...] Exposure Response Date Recorded In the last 10 days, have yo u been in contact with someone who was confirmed or suspected to have Coronavirus/COVID-19? No / Unsure 08/07/2021 9:06 AM EDT documented as of this encounter Miscellaneous Notes * Telephone Encounter - Aishwarya Chaudhary - 08/08/2021 8:52 AM EDT LMOM for the patient to call and schedule their new pt appointment with PPC. documented in this encounter Plan of Treatment Not on file documented as of this encounter Visit Diagnoses Not on filedocumented in this encounter Additional Health Concerns Infection Onset Date Last Indicated Resolved Time COVID-19 Rule-Out 08/20/2021 08/20/2021 08/20/2021 2:36 PM EDT COVID-19 Rule-Out 11/02/2023 11/02/2023 11/02/2023 7:13 AM EDT COVID-19 Positive 11/02/2023 11/02/2023 11/23/2023 11:13 PM EDT documented as of this encounter Care Teams Admissions Rn Relationship Specialty Start Date End Date Gage, Beatriz Bush MD [address] [place] [address] PCP - General Family Medicine 10/15/21 documented as of this encounter
--- OUTSIDE RECORDS SUMMARY | 2024-08-11 10:16 | XMS_ITS | Clinical Summary ---
Author Organization [facility] Address [address] [place] [id number] Care Team Providers Care Tubing Oiler Name Role Phone Beatriz Almonte MD Primary Care Provider [phone] Allergies No known active allergies Social History Tobacco Use Types Packs/Day Years Used Date Smoking Tobacco: Never Assessed Area Deprivation Index Answer Date Red rded National Score (1-100), lower number is lower ri sk 74 03/18/2023 State Score (1-10), lower number is lower risk 6 03/18/2023 Data from: https://www.neighborhoodatlas.medicine.[facility]/. Last address used for calculation [address] 03/18/2023 Sex and Gender Information Value Date Recorded Sex Assigned at Not on file Legal Sex Male 1:03 AM EST Gender Identity Not on file Sexual Orientation Not on file Last Filed Vital Signs Vital Sign Reading Time Taken Comments Blood Pressure 152/74 03/17/2023 3:00 AM EST Pulse 68 03/17/2023 3:00 AM EST Temperature 36.5 C (97.7 F) 03/17/2023 3:00 AM EST Respiratory Rate 18 03/17/2023 3:00 AM EST Oxygen Saturation 95% 03/17/2023 1:38 AM EST Inhaled Oxygen Concentration - - Weight 91 kg (200 lb 11.2 oz) 03/17/2023 1:38 AM EST Height - - Body Mass Index - - Plan of Treatment Health Maintenance Due Date Last Done Comments Anxiety Screening 1953 Depression Screening 1953 Pneumococcal Vaccine: 50+ (1 of 1 - PCV) 1987 RSV Vaccine (1 - 1-dose 75+ series) 2012 DTaP,Tdap,Td Vaccine (1 - Tdap) 07/13/2020 Covid-19 Vaccine (2023-2 5 season) 2023 01/01/2023, 12/28/2021, 07/17/2021, Additional history exists Advance Directive Discussion 03/24/2024 Influenza Vaccine (Season Ended) 2024 12/18/2022, 12/03/2021, 01/10/2021, Additional history exists Diabetes Screening 03/17/2026 03/17/2023, 0 11/07/2022, 11/06/2022, Additional history exists Shingrix Vaccine Completed 09/19/2022, 07/01/2022 Procedures Procedure Name Priority Date/Time Associated Diagnosis Comments BASIC METABOLIC PANEL STAT 03/17/2023 1:59 AM EST from Last 3 Months or Most Recently Relevant to Health Maintenance Results * (ABNORMAL) BASIC METABOLIC PNL (03/17/2023 1:59 AM EST) [facility] Signature Glucose 107(H) 74 - 99 mg/dL 03/17/2023 2:38 AM EST [facility] Comment: The [place] Diabetes Association (ADA) provides guidance for cutoff values for fasting glucose and random glucose. The ADA defines fasting as no caloric intake for at least 8 hours. Fasting plasma glucose results between 100 to 125 mg/dL indicate increased risk for diabetes (prediabetes). Fasting plasma glucose results greater than or equal to 126 mg/dL meet the criteria for diagnosis of diabetes. In the absence of unequivocal hyperglycemia, results should be confirmed by repeat testing. In a patient with classic symptoms of hyperglycemia or hyperglycemic crisis, random plasma glucose results greater than or equal to 200 mg/dL meet the criteria for diagnosis of diabetes. Reference: Standards of Medical Care in Diabetes 2016, [place] Diabetes Association. Diabetes Care. 2016.39(Suppl 1). BUN 16 9 - 24 mg/dL 03/17/2023 2:38 AM EST [facility] Creatinine 0.76 0.73 - 1.22 mg/dL 03/17/2023 2:38 AM EST [facility] Sodium 139 136 - 144 mmol/L 03/17/2023 2:38 AM EST [facility] Potassium 3.5(L) 3.7 - 5.1 mmol/L 03/17/2023 2:38 AM EST [facility] Chloride 104 97 - 105 mmol/L 03/17/2023 2:38 AM EST [facility] CO2 27 22 - 30 mmol/L 03/17/2023 2:38 AM EST [facility] Anion Gap 8(L) 9 - 18 mmol/L 03/17/2023 2:38 AM EST [facility] Calcium, Total 9.5 8.5 - 10.2 mg/dL 03/17/2023 2:38 AM EST [facility] Estimated Glomerular Filtration Rate 88 >=60 mL/min/1. 73m 03/17/2023 2:38 AM EST [facility] Comment:Estimated Glomerular Filtration Rate (eGFR) is calculated using the 2020 CKD-EPI creatinine equation. This equation utilizes serum creatinine, sex, and age as parameters. The creatinine assay has traceable calibration to isotope dilution- mass spectrometry. Refer to KDIGO guidelines for clinical interpretation. In patients with unstable renal function, e.g. those with acute kidney injury, the eGFR may not accurately reflect actual GFR. Blood BLOOD SPECIMEN / Unknown Venipuncture / Unknown 03/17/2023 1:59 AM EST 03/17/2023 2:19 AM EST us Karla Boyd DO LABORATORY Final Result [facility] [address] [place] [address], from Last 3 Months or Most Recently Relevant to Health Maintenance Insurance [employer] MEDICARE Care Teams Tubing Oiler Relationship Specialty Start Date End Date Wonderly, Beatriz Garcia MD [address] [place] [address] PCP - General Family Medicine 03/17/23
--- OUTSIDE RECORDS SUMMARY | 2024-08-11 10:17 | XMS_ITS | Encounter Summary ---
Author Organization [facility] Address [address] [place] [address] Care Team Providers Care Cop Name Role Phone Beatriz Almonte MD Unavailable [phone] Beatriz Almonte MD Primary Care Provider [phone] Reason for Visit * Reason Onset Date Comments Results 08/03/2024 Encounter Details Date Type Department Care Team (Late st Contact Info) Description 08/03/2024 Results Follow-Up [facility] [address] [place] [address] Marielena Herrera NP [address] [place] [address] Social History Tobacco Use Types Packs/Day Years [...] on file documented as of this encounter Miscellaneous Notes * Telephone Encounter - Rocio Saravia MA - 08/04/2024 11:46 AM EDT LM on - notified. ----- Message from Marielena Herrera NP sent at 08/03/2024 7:07 PM EDT ----- Please notify stable Carotid doppler, I will review in detail at his appt later this month. Please print for appt. Thank you documented in this encounter Plan of Treatment Upcoming Encounters Date Type Department Care Team (Late st Contact Info) Description 08/13/2024 8:30 AM EDT Ancillary Procedure [facility] ULTRASOUND 14[address] [facility] [address] [place] [address] 08/18/2024 8:00 AM EDT Treatment [facility] PT [address] [facility] 170 [place] [address] Dax Wolf, PT [address] [facility] 170 [place] [address] 08/19/2024 8:00 AM EDT Office Visit [facility] NEUR [address] [address] [place] [address] Michael Patel MD 0[address] [facility] [address] [address] 08/20/2024 1:30 PM EDT Office Visit [facility] FM [address] [place] [phone] Marielena Herrera HAND KISS SETTER [address] [place] [address] documented as of this encounter Visit Diagnoses Not on filedocumented in this encounter Care Teams Cop Relationship Specialty Start Date End Date Beatriz Almonte MD [address] [place] [address] PCP - [employer] 03/24/22 Beatriz Almonte MD [address] [place] [address] PCP - General Family Medicine 08/23/22 documented as of this encounter
--- OUTSIDE RECORDS SUMMARY | 2024-08-11 10:17 | XMS_ITS | Encounter Summary ---
Author Organization [facility] Address [address] [place] [address] Care Team Providers Care Lodge Sales Associate Name Role Phone Beatriz Almonte MD Unavailable [phone] Beatriz Almonte MD Primary Care Provider [phone] Encounter Details Date Type Department Care Team (Late st Contact Info) Description 07/21/2024 Telephone [facility] FM [address] [place] [address] Marielena Herrera NP [address] [place] [address] Social History Tobacco Use Types [...] encounter Miscellaneous Notes * Telephone Encounter - Marielena Herrera NP - 07/28/2024 6:15 PM EDT I tried to call pt and LM for pt that CT of chest was denied r/t nodule was small ie 2.[address] done09/13 -so per guideline no routine F/U needed. Will cancel CT. I then called his Inés to updateher. Pt does have open order for carotid U/S for him to do. I asked her if he has been back to Cardiology or Vascular, she didn't think he has, She said she is not sure he will do the U/S and not sure that he wants to go back to the specialists. She will talk to him and let us know. Inés thinks sheis due for an appt, I looked at her chart and her last appt was in Jan so she was due in June. Elaine call to set up an appt soon for herself * Telephone Encounter - Maren Gibson MA - 07/23/2024 1:15 PM EDT In looking into this, the denial was based on the size of pt's nodule, and per the guidelines, it was too small to warrant a follow up. I spoke to Radha about this. * Telephone Encounter - Marielena Herrera NP - 07/21/2024 5:[address] of chest documented in this encounter Plan of Treatment Upcoming Encounters Date Type Department Care Team (Late st Contact Info) Description 08/13/2024 8:30 AM EDT Ancillary Procedure [facility] ULTRASOUND [address] [place] [address] [place] [address] 08/18/2024 8:00 AM EDT Treatment [facility] PT [address] [facility] 170 [place] [address] Dax Wolf, PT [address] [facility] 170 [place] [address] 08/19/2024 8:00 AM EDT Office Visit [facility] NEUR [address] [facility] [address] [place] [address] Michael Patel MD 0890 [facility] [place] [address], [place] [address] 08/20/2024 1:30 PM EDT Office Visit [facility] FM [address] [place] [phone] Marielena Herrera MANAGER FASHION [address] [place], [place] [phone] documented as of this encounter Visit Diagnoses Not on filedocumented in this encounter Care Teams Lodge Sales Associate Relationship Specialty Start Date End Date Beatriz Almonte MD [address] [place], [place] [phone] PCP - [employer] 03/24/22 Beatriz Almonte MD [address] [place], [place] [address] PCP - General Family Medicine 08/23/22 documented as of this encounter
--- OUTSIDE RECORDS SUMMARY | 2024-08-11 10:17 | XMS_ITS | Encounter Summary ---
Author Organization [facility] Address [address] [place] [address] Care Team Providers Care Ux Architect Name Role Phone Beatriz Almonte MD Unavailable [phone] Beatriz Almonte MD Primary Care Provider Reason for Visit * Reason Comments Med Refill Encounter Details Date Type Department Care Team (Late Contact Info) Description 2023 Refill [facility] FM [address] [place] [address] Beatriz Almonte MD [address] [place], [place] [phone] Primary hypertension (CMS/HCC) (Primary Dx) Social History Tobacco Use Types Packs/Day Years Used Date Smoking Tobacco: Never Smokeless Tobacco: Never Alcohol Use Standard Drinks/Week Comments Never 0 (1 standard drink = 0.6 oz pur e alcohol) Sex and Gender Information Value Date Recorded Sex Assigned at Not on file Legal Sex Male 8:35 PM EDT Gender Identity Not on file Sexual Orientation Not on file documented as of this encounter Plan of Treatment Upcoming Encounters Date Type Department Care Team (Late Contact Info) Description 08/13/2024 8:30 AM EDT Ancillary Procedure [facility] ULTRASOUND [address] [facility] 130 [place] [address] 08/18/2024 8:00 AM EDT Treatment [facility] PT [address] [place] [address] [place] [address] Dax Wolf, PT 112 [facility] 170 [place] [address] 08/19/2024 8:00 AM EDT Office Visit [facility] NEUR [address] [facility] [address] [place] [address] Michael Patel MD [address] [facility] [address] [place] [address] 08/20/2024 1:30 PM EDT Office Visit [facility] FM [address] [place] [phone] Marielena Herrera, PHYSICIAN SPECIALIST [address] [place] [address] documented as of this encounter Visit Diagnoses Diagnosis Primary hypertension (CMS/HCC)- Primary Unspecified essential hypertension documented in this encounter Care Teams Ux Architect Relationship Specialty Start Date End Date Beatriz Almonte MD [address] [place] [address] PCP - Aecasimiro 03/24/22 Beatriz Almonte MD [address] [place] [address] PCP - General Family Medicine 08/23/22 documented as of this encounter
--- OUTSIDE RECORDS SUMMARY | 2024-08-11 10:17 | XMS_ITS | Encounter Summary ---
Author Organization [facility] Address [address] [place] [address] Care Team Providers Care Machine Operator Hop Picker Name Role Phone Beatriz Almonte MD Unavailable Beatriz Almonte MD Primary Care Provider [phone] Encounter Details Date Type Department Care Team (Late Contact Info) Description 11/11/2022 Abstract [facility] FM [address] [place] [address] Beatriz Almonte MD [address] [place], [place] [phone] Social History Tobacco Use Types Packs/Day Years Used Date Smoking Tobacco: Never Sex and Gender Information Value Date Recorded Sex Assigned at Not on file Legal Sex Male 8:35 PM EDT Gender Identity Not on file Sexual Orientation Not on file documented as of this encounter Plan of Treatment Upcoming Encounters Date Type Department Care Team (Late Contact Info) Description 08/13/2024 8:30 AM EDT Ancillary Procedure [facility] ULTRASOUND [address] [facility] 130 [place] [address] 08/18/2024 8:00 AM EDT Treatment [facility] PT [address] [facility] 170 [place] [address] Dax Wolf, PT [address] [facility] 170 [place] [address] 08/19/2024 8:00 AM EDT Office Visit [facility] NE[facility] [address] [facility] [address] [place] [address] Michael Patel MD [address] [facility] [address], [place] [address] 08/20/2024 1:30 PM EDT Office Visit [facility] FM [address] [place] [address] Marielena Herrera NP [address] [place] [address] documented as of this encounter Visit Diagnoses Not on filedocumented in this encounter Care Teams Machine Operator Hop Picker Relationship Specialty Start Date End Date Beatriz Almonte MD [address] [place], [place] [phone] PCP - [employer] 03/24/22 Beatriz Almonte MD [address] [place] [address] PCP - General Family Medicine 08/23/22 documented as of this encounter
--- OUTSIDE RECORDS SUMMARY | 2024-08-11 10:17 | XMS_ITS | Encounter Summary ---
Author Organization [facility] Address [address] [facility] [place] [address] Care Team Providers Care Monitoring Analyst Name Role Phone Beatriz Almonte MD Unavailable Beatriz Almonte MD Primary Care Provider [phone] Encounter Details Date Type Department Care Team (Late Contact Info) Description 11/06/2022 Abstract [facility] FM [address] [place] [address] Beatriz Almonte MD [address] [place], [place] [phone] Social History Tobacco Use Types Packs/Day Years [...] Ancillary Procedure [facility] ULTRASOUND [address] [facility] 130 [place] [address] 08/18/2024 8:00 AM EDT Treatment [facility] PT [address] [facility] 170 [place] [address] Dax Wolf, PT [address] [facility] 170 [place] [address] 08/19/2024 8:00 AM EDT Office Visit [facility] NEUR [address] [facility] [address] [place] [address] Michael Patel MD [address] [facility] [address], [place] [address] 08/20/2024 1:30 PM EDT Office Visit [facility] FM [address] [place] [address] Marielena Herrera NP [address] [place] [address] documented as of this encounter Visit Diagnoses Not on filedocumented in this encounter Care Teams Monitoring Analyst Relationship Specialty Start Date End Date Beatriz Almonte MD [address] [place], [place] [phone] PCP - [employer] 03/24/22 Beatriz Almonte MD [address] [place] [address] PCP - General Family Medicine 08/23/22 documented as of this encounter
--- OUTSIDE RECORDS SUMMARY | 2024-08-11 10:17 | XMS_ITS | Encounter Summary ---
Author Organization [facility] Address [address] [facility] [place] [address] Care Team Providers Care Maintenance Man Name Role Phone Beatriz Almonte MD Unavailable [phone] Beatriz Almonte MD Primary Care Provider [phone] Encounter Details Date Type Department Care Team (Late st Contact Info) Description 07/30/2024 Telephone [facility] [address] [place] [address] Maren Gibson MA Social History Tobacco Use Types Packs/Day Years [...] encounter Miscellaneous Notes * Telephone Encounter - Maren Gibson MA - 07/30/2024 3:53 PM EDT I received a call from Dayanara from imaging. She was concerned about patient and how confused he seemed. Pt had called radiology questioning his appt in imaging on Friday. Pt was saying his imaging was cancelled, but Dayanara tried to explain that his CT of his chest was cancelled, but Radha had also ordered 2 ultrasounds for pt and those were still scheduled. Then pt said he would be out here in the morning for his PT appt with lory. Dayanara tried to explain that PT was separate. Pt stated he normally goes to [facility] for his PT and Dayanara told him to go there in the morning, she could see in his chart he had an appt with them on Friday. Dayanara again tried to explain that he had the ultrasound orders for him here in the afternoon at 2 pm, but pt still seemed confused. Dayanara stated she could hear his yelling at him in the background while he was on the phone. Dayanara was just concerned that even though she explained to patient several times about his appointments, he still seemed confused and wanted to notify our office. I called pt's 's phone to explain to her about pt's appts, but I got her vm. I left her a detailed message notifying her that pt had an appt with PT in the morning and the imaging in our imaging department in the afternoon on Friday. BARTOLO Nichole sent a message through staff message, but it wont be saved in pt's chart, so I added her message below: Message ----- From: Dayanara Monaco Sent: 07/30/2024 3:38 PM EDT To: Beatriz Almonte MD Subject: US appointment and Patient called very confused on the text messages he had received. He see [facility] for PT Friday morning at 8:30 and comes here at 2 for US carotid and Arotic scans. Patient was having trouble understanding this and stated these were cancelled. I did explain that these were not cancelled and that the CT Chest [facility] order was the one cancelled as it was denied. I did talk with Maren and let her know all of this and she had just said to make an encounter with all this information. He has called 2 more times since confirming his appointment with us. I just wanted to make you aware. documented in this encounter Plan of Treatment Upcoming Encounters Date Type Department Care Team (Late st Contact Info) Description 08/13/2024 8:30 AM EDT Ancillary Procedure [facility] ULTRASOUND [address] [place] [address] [place] [address] 08/18/2024 8:00 AM EDT Treatment [facility] PT [address] [facility] 170 [place] [address] Marcianomathew Dax Yu, PT [address] [facility] 170 [place] [address] 08/19/2024 8:00 AM EDT Office Visit [facility] NEUR [address] [facility] 310 [place] [address] Michael Patel MD 8002 [facility] [address], [place] [address] 08/20/2024 1:30 PM EDT Office Visit [facility] FM 14[address] [place] [address] Marielena Herrera, QUILT MAKER [address] [place] [address] documented as of this encounter Visit Diagnoses Not on filedocumented in this encounter Care Teams Maintenance Man Relationship Specialty Start Date End Date Beatriz Almonte MD [address] [place] [address] PCP - [employer] 03/24/22 Beatriz Almonte MD [address] [place] [address] PCP - General Family Medicine 08/23/22 documented as of this encounter
--- OUTSIDE RECORDS SUMMARY | 2024-08-11 10:17 | XMS_ITS | Encounter Summary ---
Author Organization [facility] Address [address] [place] [address] Care Team Providers Care Agricultural Service Technician Name Role Phone Beatriz Almonte MD Unavailable [phone] Beatriz Almonte MD Primary Care Provider [phone] Reason for Visit * Reason Onset Date Comments Results 08/03/2024 Encounter Details Date Type Department Care Team (Late Contact Info) Description 08/03/2024 Telephone [facility] FM [address] [place] [address] Marielena Herrera NP [address] [place], [place] [phone] Results Social History Tobacco Use Types Packs/Day Years [...] Encounter - Rocio Saravia MA - 08/04/2024 11:49 AM EDT SEE OTHER NOTE - LM notified Stable per Beths note and that she will discuss at upcoming appt. * Telephone Encounter - Marielena Herrera NP - 08/03/2024 7:07 PM EDT Carotid duplex documented in this encounter Plan of Treatment Upcoming Encounters Date Type Department Care Team (Late st Contact Info) Description 08/13/2024 8:30 AM EDT Ancillary Procedure [facility] ULTRASOUND [address] [facility] 130 [place] [address] 08/18/2024 8:00 AM EDT Treatment [facility] CI PT [address] [facility] 170 [place] [address] Dax Wolf, PT [address] [place] [facility] 170 [place] [address] 08/19/2024 8:00 AM EDT Office Visit [facility] NEUR [address] [facility] 310 [place] [address] Michael Patel MD [address] [facility] [facility] [address], [place] [address] 08/20/2024 1:30 PM EDT Office Visit [facility] FM [address] [place] [address] Marielena Herrera NP [address] [place] [address] documented as of this encounter Visit Diagnoses Not on filedocumented in this encounter Care Teams Agricultural Service Technician Relationship Specialty Start Date End Date Beatriz Almonte MD [address] [place] [address] PCP - [employer] 03/24/22 Beatriz Almonte MD [address] [place] [address] PCP - General Family Medicine 08/23/22 documented as of this encounter
--- OUTSIDE RECORDS SUMMARY | 2024-08-11 10:17 | XMS_ITS | Clinical Summary ---
Author Organization [facility] Address [address] [place] [address] Phone Care Team Providers Care Head Bucker Name Role Phone Beatriz Almonte MD Primary Care Provider [phone] Social History Tobacco Use Types Packs/Day Years Used Date Smoking Tobacco: Never Assessed Sex and Gender Information Value Date Recorded Sex Assigned at Not on file Legal Sex Male 6:44 PM EST Gender Identity Not on file Sexual Orientation Not on file Plan of Treatment Health Maintenance Due Date Last Done Comments Lipid Panel 1935 Yearly Adult Physical 1935 DTaP/Tdap/Td Vaccines (1 - Tdap) 1959 Pneumococcal Vaccine (1 of 1 - PCV) 1987 Zoster Vaccines (1 of 2) 1987 RSV High Risk: (Elderly (60+ ) or Population) (1 - 1-dose 75+ series) 2012 COVID-19 Vaccine ( - 2023-2 5 season) 2023 Influenza Vaccine (Season Ended) 2024 HIB Vaccines Aged Out No longer eligi ble based on patient's age to complete this topic HPV Vaccines Aged Out No longer eligi ble based on patient's age to complete this topic Hepatitis A Vaccines Aged Out No long er eligible based on patient's age to complete this topic Hepatitis B Vaccines Aged Out No long er eligible based on patient's age to complete this topic IPV Vaccines Aged Out No longer eligi ble based on patient's age to complete this topic Meningococcal Vaccine Aged Out No drew marcus eligible based on patient's age to complete this topic Rotavirus Vaccines Aged Out No longer eligible based on patient's age to complete this topic Care Teams Head Bucker Relationship Specialty Start Date End Date Beatriz Almonte MD [address] [place] [address] PCP - General 07/22/18
--- OUTSIDE RECORDS SUMMARY | 2024-08-11 10:17 | XMS_ITS | Data Portability ---
Author Organization [place] - [employer], [employer], [facility] Address [address] [place] [address] Care Team Providers Care Air Sampler Name Role Phone MONTY MALIK Primary Care Provider MONTY MALIK Referring Provider [phone] Assessment Encounter Date Assessment Date Assessment LastModified by Organization Details LastModified Time 05/06/2022 05/06/2022 Assessment- Pt treated by a PT - no CQ modifier necessary. Continued with core flexion movements from the last treatment supplemented with lumbar mobility for treatment. Emphasis on TrA contraction. Standing shadi stretch with core flexion movements to decrease lumbar compression and possible nerve root entrapment. 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 Follow up appt in 3-4 weeks for revision to HEP and progression. Maintained HEP. No increase in pain with treatment. Goals: 1.) Pt . will be independent and compliant with comprehensive home exercise plan (HEP) to address impairment list stated above and subsequent functional loss. 2.) Pt. will report decreased pain to 2/10 at rest according to the visual analog scale; or subjective 70% improvement based on frequency and duration of symptoms throughout the day. 3.) Pt will demonstrate gross improvement to overall function demonstrated by an improvement to 61/64 limitation according to LEFS. 4.) Improve gross hip MMT to 4/5 with no pain. 5.) Negative shadi test by the time of d/c. 6.) Pt will report no pain with prolonged sitting or sleeping by the time of d/c. [email or web address] Not available 05/06/2022 08:29:05 Plan of Treatment Reminders Order Date Submit Date Provider Last Modified By Organization Details Last Modified Time Details Appointments None recorded. Lab lipid panel, serum 2023 024 [email or web address] [facility], [address], [place], [address], 5 06:51:28 CMP, serum or plasma 2023 024 [email or web address] s1 [facility], [address], [place], [address], 5 06:51:28 CBC 2023 024 [facility], [address], [place], [address], 5 06:51:28 TSH + free T4, serum 2023 024 [facility], [address], [place], [address], 5 06:51:28 urinalysis, complete 2023 024 [facility], [address], [place], [address], 5 06:51:28 HbA1c (hemoglobin A1c), blood 2023 024 [facility], [address], [place], [address], 5 06:51:28 PSA, serum or plasma 2023 024 [email or web address] s1 [facility], [address], [place], [address], 5 06:51:28 lipid panel, serum 2022 023 K[facility], [address], [place], [address], 3 11:19:12 urinalysis, complete 2022 023 [facility], [address], [place], [address], 3 14:32:44 CBC 2022 023 [facility], [address], [place], [address], 3 11:19:05 CMP, serum or plasma 2022 023 [facility], [address], [place], [address], 3 11:19:08 TSH, serum or plasma 2022 023 [facility], [address], [place], [address], 3 11:19:15 thyroid peroxidase (tpo) Ab, serum 2022 023 [facility], [address], [place], [address], 3 15:24:17 venipunctur e 2022 023 [facility], [address], [place], [address], 3 12:24:34 magnesium, serum or plasma 2022 023 [facility], [address], [place], [address], 3 05:45:00 iron + TIBC + ferritin, serum 2022 023 [facility], [address], [place], [address], 3 11:19:10 MYRA (antinuclea r antibodies) panel, serum 2022 023 [facility], [address], [place], [address], 15:24:16 Referral None recorded. Procedures None recorded. Surgeries None recorded. Imaging None recorded. Medication Orders None recorded. Patient TargetsNo targets recorded. Patient Instructions Encounter Date Encounter Id Patient Instructions Last Modified By Organization Details Last Modified Time 05/20/2022 [id number] high cholesterol : care instructions [email or web address] Not available 05/20/2022 11:17:10 05/22/2023 [id number] atrial fibrillat ion: care instructions Not available 05/22/2023 10:34:35 hemorrhoids: car e instructions Not available 05/22/2023 10:33:19 high cholesterol : care instructions Not available 05/22/2023 10:32:53 rtc 1 year or so cruz await fasting lab results call pt & reschd cont current meds Follow-up with primary [facility] [email or web address] Not available 05/22/2023 09:47:34 05/11/2024 [id number] atrial fibrillat ion: care instructions Not available 05/11/2024 09:46:39 gastroesophageal reflux disease (GERD): care instructions Not available 05/11/2024 09:46:13 high cholesterol : care instructions Not available 05/11/2024 09:46:[address] Lorena pete current meds Continue home stretching and exercises if no improvement will refer to physical therapy OBTAIN RECORDS FROM [facility] justin3 Not available 05/11/2024 10:08:22 Reason for Referral None Reported. Results Created Date Observation Date Name Description Value Unit Range Abnormal Flag Note LastModifiedBy Organization Detail LastModifiedTime 05/21/19 23 05/21/2022 URINA LYSIS , COMPL ETE W/ REFLE X TO CULTU RE color LIGHT YELLOW yellow Not Available [facility] [address], [place], [address], 05/21/2022 14:32:44 05/21/19 23 05/21/2022 URINA LYSIS , COMPL ETE W/ REFLE X TO CULTU RE appearance CLEAR clear Not Available [facility] [address] [place], [place] [address]y [address], [place], [address], 05/21/2022 14:32:44 05/21/19 23 05/21/2022 URINA LYSIS , COMPL ETE W/ REFLE X TO CULTU RE specific gravity 1.012 1.005- 1.030 Not Available [facility] [address] [place] [address] [address], [place], [address], 05/21/2022 14:32:44 05/21/19 23 05/21/2022 URINA LYSIS , COMPL ETE W/ REFLE X TO CULTU RE pH 5.50 5.00-8 .00 Not Available [facility] [address] [place] [address] [address], [place], [address], 05/21/2022 14:32:44 05/21/19 23 05/21/2022 URINA LYSIS , COMPL ETE W/ REFLE X TO CULTU RE glucose NEGATI VE mg/dL negati ve Not Available [facility] [address] [place], [place] [address]y [address], [place], [address], 05/21/2022 14:32:44 05/21/19 23 05/21/2022 URINA LYSIS , COMPL ETE W/ REFLE X TO CULTU RE bilirubin NEGATI VE mg/dL negati ve Not Available [facility] [address] [place] [address] [address], [place], [address], 05/21/2022 14:32:44 05/21/19 23 05/21/2022 URINA LYSIS , COMPL ETE W/ REFLE X TO CULTU RE ketone NEGATI VE mg/dL negati ve Not Available [facility] [address] [facility], [place], [address], 05/21/2022 14:32:44 05/21/19 23 05/21/2022 URINA LYSIS , COMPL ETE W/ REFLE X TO CULTU RE blood NEGATI VE mg/dL negati ve Micro scopi c is indic ated for trace blood , trace leuko cytes , + nitri radha, or 1+ prote in. All other s are consi dered negat praveena and no micro scopi c neede d. Not Available [facility] [address] [place] [address] [address] [facility], [place], [address], 05/21/2022 14:32:44 05/21/19 23 05/21/2022 URINA LYSIS , COMPL ETE W/ REFLE X TO CULTU RE urobilinogen NORMAL E.U./ dL 0.2 E.U./d L Not Available [facility] [address] [place] [address] [address] [facility], [place], [address], 05/21/2022 14:32:44 05/21/19 23 05/21/2022 URINA LYSIS , COMPL ETE W/ REFLE X TO CULTU RE protein NEGATI VE mg/dL negati ve Not Available [facility] [address], [place], [address], 05/21/2022 14:32:44 05/21/19 23 05/21/2022 URINA LYSIS , COMPL ETE W/ REFLE X TO CULTU RE nitrite NEGATI VE negati ve Not Available [facility] [address] [place] [address] [address] [place], [address], 05/21/2022 14:32:44 02/28/20 23 05/21/2022 URINA LYSIS , COMPL ETE W/ REFLE X TO CULTU RE leukocyte NEGATI VE sarah/u L negati ve A Cultu re will refle x when any of the follo wing crite huy is met: - Posit praveena Nitri te - Small , Moder ate or Large Leuko cytes - => 6 WBC/H PF - 4+ Bacte huy on micro scopi c exami natio n - Any amoun t of YEAST on micro scopi c exam Not Available [facility] [address] [facility] [address], [place], [address], 05/21/2022 14:32:44 05/21/1905/21/2022 CBC W/ AUTOD IFF, COMPL ETE BLOOD COUNT WBC_I 5.50 3.60-1 0.00 Not Available [facility] [address] [place], [place] [address]y [address], [place], [address], 05/22/2022 11:19:05 05/21/19 23 05/21/2022 CBC W/ AUTOD IFF, COMPL ETE BLOOD COUNT nucleated RBC 0.10 % 0.00-2 .00 Not Available [facility] [address], [place], [address], 05/22/2022 11:19:05 05/21/19 23 05/21/2022 CBC W/ AUTOD IFF, COMPL ETE BLOOD COUNT RBC 3.90 M/uL 4.10-5 .80 low Not Available [facility] [address] [facility] [address], [place], [address], 05/22/2022 11:19:05 05/21/19 23 05/21/2022 CBC W/ AUTOD IFF, COMPL ETE BLOOD COUNT hemoglobin 12.1 g/dL 13.2-1 7.0 low Not Available [facility] [address] [facility] [address], [place], [address], 05/22/2022 11:19:05 05/21/19 23 05/21/2022 CBC W/ AUTOD IFF, COMPL ETE BLOOD COUNT hematocrit 35.40 % 37.00- 51.00 low Not Available [facility] [address], [place], [address], 05/22/2022 11:19:05 05/21/19 23 05/21/2022 CBC W/ AUTOD IFF, COMPL ETE BLOOD COUNT MCV 90.9 fL 80.0-9 9.0 Not Available [facility] [address], [place], [address], 05/22/2022 11:19:05 05/21/19 23 05/21/2022 CBC W/ AUTOD IFF, COMPL ETE BLOOD COUNT MCH 31.1 pg 27.0-3 3.0 Not Available [facility] [address] [place] [address] [address], [place], [address], 05/22/2022 11:19:05 05/21/19 23 05/21/2022 CBC W/ AUTOD IFF, COMPL ETE BLOOD COUNT MCHC 34.2 g/dL 32.0-3 6.0 Not Available [facility] [address] [place] [address] [address], [place], [address], 05/22/2022 11:19:05 05/21/19 23 05/21/2022 CBC W/ AUTOD IFF, COMPL ETE BLOOD COUNT platelets 205 K/uL 140-44 0 Not Available [facility] [address], [place], [address], 05/22/2022 11:19:05 05/21/19 23 05/21/2022 CBC W/ AUTOD IFF, COMPL ETE BLOOD COUNT RDW_I 14.1 % 11.0-1 5.0 Not Available [facility] [address], [place], [address], 05/22/2022 11:19:05 05/21/19 23 05/21/2022 CBC W/ AUTOD IFF, COMPL ETE BLOOD COUNT MPV 7.8 fL 7.4-10 .4 Not Available [facility] [address], [place], [address], 05/22/2022 11:19:05 05/21/19 23 05/21/2022 CBC W/ AUTOD IFF, COMPL ETE BLOOD COUNT neutrophil, percentage 65.7 % 40.0-7 5.0 Not Available [facility] [address], [place], [address], 05/22/2022 11:19:05 05/21/19 23 05/21/2022 CBC W/ AUTOD IFF, COMPL ETE BLOOD COUNT lymphocyte, percentage 22.3 % 15.0-4 5.0 Not Available [facility] [address], [place], [address], 05/22/2022 11:19:05 05/21/19 23 05/21/2022 CBC W/ AUTOD IFF, COMPL ETE BLOOD COUNT monocyte, percentage 10.1 % Not Available [facility] [address], [place], [address], 05/22/2022 11:19:05 05/21/19 23 05/21/2022 CBC W/ AUTOD IFF, COMPL ETE BLOOD COUNT eosinophil, percentage 1.0 % 1.0-6. 0 Not Available [facility] [address], [place], [address], 05/22/2022 11:19:05 05/21/19 23 05/21/2022 CBC W/ AUTOD IFF, COMPL ETE BLOOD COUNT basophil, percentage 0.9 % 0.0-2. 0 Not Available [facility] [address] [place], [place] [address]y [address], [place], [address], 05/22/2022 11:19:05 05/21/19 23 05/21/2022 CBC W/ AUTOD IFF, COMPL ETE BLOOD COUNT neutrophil, absolute 3.6 K/uL 1.5-7. 5 Not Available [facility] [address] [place] [address] [address], [place], [address], 05/22/2022 11:19:05 05/21/19 23 05/21/2022 CBC W/ AUTOD IFF, COMPL ETE BLOOD COUNT lymphocyte, absolute 1.2 K/uL 0.8-4. 0 Not Available [facility] [address] [place], [place] [address]y [address], [place], [address], 05/22/2022 11:19:05 05/21/19 23 05/21/2022 CBC W/ AUTOD IFF, COMPL ETE BLOOD COUNT monocyte, absolute 0.6 K/uL 0.1-1. 0 Not Available [facility] [address] [place], [place] [address]y [address], [place], [address], 05/22/2022 11:19:05 05/21/19 23 05/21/2022 CBC W/ AUTOD IFF, COMPL ETE BLOOD COUNT eosinophil, absolute 0.1 K/uL 0.1-1. 0 Not Available [facility] [address] [place], [place] [address] [address], [place], [address], 05/22/2022 11:19:05 05/21/19 23 05/21/2022 CBC W/ AUTOD IFF, COMPL ETE BLOOD COUNT basophil, absolute 0.0 K/uL 0.0-0. 2 Not Available [facility] [address] [place], [place] [address] [address], [place], [address], 05/22/2022 11:19:05 05/21/19 23 05/21/2022 CMP, COMPR EHENS PRAVEENA METAB OLIC PANEL glucose 89 mg/dL 70-100 Not Available [facility] [address] [facility] [address], [place], [address], 05/22/2022 11:19:07 05/21/19 23 05/21/2022 CMP, COMPR EHENS PRAVEENA METAB OLIC PANEL BUN 17 mg/dL 7-25 Not Available [facility] [address] [place], [place] [address]y [address], [place], [address], 05/22/2022 11:19:07 05/21/19 23 05/21/2022 CMP, COMPR EHENS PRAVEENA METAB OLIC PANEL creatinine 0.7 mg/dL 0.6-1. 3 Not Available [facility] [address] [place] [address] [address] [place], [address], 05/22/2022 11:19:07 05/21/19 23 05/21/2022 CMP, COMPR EHENS PRAVEENA METAB OLIC PANEL BUN/creatini ne ratio 23 calc 10-25 Not Available [facility] [address] [place], [place] [address]y [address] [place], [address], 05/22/2022 11:19:07 05/21/19 23 05/21/2022 CMP, COMPR EHENS PRAVEENA METAB OLIC PANEL eGFR 131 mL/mi n/1.7 3m2 >60 THREE CONSE CUTIV E VALUE S <60 mL/mi n COULD BE INDIC ATIVE OF KIDNE Y DISEA SE. Not Available [facility] [address] [facility] [address] [place], [address], 05/22/2022 11:19:07 05/21/19 23 05/21/2022 CMP, COMPR EHENS PRAVEENA METAB OLIC PANEL eGFR non- 108 mL/mi n/1.7 3m2 >60 THREE CONSE CUTIV E VALUE S < 60 mL/mi n COULD BE INDIC ATIVE OF KIDNE Y DISEA SE Not Available [facility] [address], [place], [address], 05/22/2022 11:19:07 05/21/19 23 05/21/2022 CMP, COMPR EHENS PRAVEENA METAB OLIC PANEL sodium 142 mmol/ L 135-14 5 Not Available [facility] [address] [facility] [address], [place], [address], 05/22/2022 11:19:07 05/21/19 23 05/21/2022 CMP, COMPR EHENS PRAVEENA METAB OLIC PANEL potassium 4.8 mmol/ L 3.5-5. 5 Not Available [facility] [address] [facility] [address], [place], [address], 05/22/2022 11:19:07 05/21/19 23 05/21/2022 CMP, COMPR EHENS PRAVEENA METAB OLIC PANEL chloride 105 mmol/ L 100-11 5 Not Available [facility] [address] [facility] [address], [place], [address], 05/22/2022 11:19:07 05/21/19 23 05/21/2022 CMP, COMPR EHENS PRAVEENA METAB OLIC PANEL CO2 28 mmol/ L 21-33 Not Available [facility] [address] [facility] [address], [place], [address], 05/22/2022 11:19:07 05/21/19 23 05/21/2022 CMP, COMPR EHENS PRAVEENA METAB OLIC PANEL anion gap 8.7 calc 3.0-11 .0 Not Available [facility] [address], [place], [address], 05/22/2022 11:19:07 05/21/19 23 05/21/2022 CMP, COMPR EHENS PRAVEENA METAB OLIC PANEL calcium 9.7 mg/dL 8.8-10 .6 Not Available [facility] [address], [place], [address], 05/22/2022 11:19:07 05/21/19 23 05/21/2022 CMP, COMPR EHENS PRAVEENA METAB OLIC PANEL total protein 6.7 g/dL 6.2-8. 6 Not Available [facility], [place], [address], 05/22/2022 11:19:07 05/21/19 23 05/21/2022 CMP, COMPR EHENS PRAVEENA METAB OLIC PANEL albumin 4.1 g/dL 3.5-5. 7 Not Available [facility] [address], [place], [address], 05/22/2022 11:19:07 05/21/19 23 05/21/2022 CMP, COMPR EHENS PRAVEENA METAB OLIC PANEL globuln 2.6 g/dL 1.3-4. 0 Not Available [facility] [address], [place], [address], 05/22/2022 11:19:07 05/21/19 23 05/21/2022 CMP, COMPR EHENS PRAVEENA METAB OLIC PANEL A/G ratio 1.6 calc 1.0-2. 8 Not Available [facility] [address] [place], [place] [address]y [address], [place], [address], 05/22/2022 11:19:07 05/21/19 23 05/21/2022 CMP, COMPR EHENS PRAVEENA METAB OLIC PANEL AST (SGOT) 18 U/L 13-39 Not Available [facility], [place], [address], 05/22/2022 11:19:07 05/21/19 23 05/21/2022 CMP, COMPR EHENS PRAVEENA METAB OLIC PANEL ALT (SGPT) 15 U/L 7-52 Not Available [facility] [address], [place], [address], 05/22/2022 11:19:07 05/21/19 23 05/21/2022 CMP, COMPR EHENS PRAVEENA METAB OLIC PANEL alkaline phosphatase 60 U/L 20-[address] [facility] [address] [place], [place] [address], [place], [address], 05/22/2022 11:19:07 05/21/19 23 05/21/2022 CMP, COMPR EHENS PRAVEENA METAB OLIC PANEL total bilirubin 0.59 mg/dL 0.30-1 .00 Not Available [facility] [address] [place], [place] [address]y [address], [place], [address], 05/22/2022 11:19:07 05/21/19 23 05/21/2022 IRON, TIBC AND BINA TIN PANEL serum iron 82 ug/dL 45-210 Not Available [facility] [address] [place], [place] [address], [place], [address], 05/22/2022 11:19:10 05/21/19 23 05/21/2022 IRON, TIBC AND BINA TIN PANEL ferritin 357.0 NG/mL 16.0-2 43.0 high Not Available [facility] [address] [place] [address] [address] [place], [address], 05/22/2022 11:19:10 05/21/19 23 05/21/2022 IRON, TIBC AND BINA TIN PANEL iron binding capacity 256 ug/dL 250-45 0 Not Available [facility] [address] [place], [place] [address], [place], [address], 05/22/2022 11:19:10 05/21/19 23 05/21/2022 IRON, TIBC AND BINA TIN PANEL unsaturated iron binding capacity 174 ug/dL Not Available [facility] [address] [facility] [address], [place], [address], 05/22/2022 11:19:10 05/21/19 23 05/21/2022 IRON, TIBC AND BINA TIN PANEL % iron saturation 32.0 % 13.0-4 5.0 Not Available [facility] [address] [facility] [address], [place], [address], 05/22/2022 11:19:10 05/21/19 23 05/21/2022 LIPID PANEL W/ CALCU LATED LDL cholesterol 111 mg/dL 20-180 Expec eloisa Range for Adult s: Total April stero l: Risk Class ifica tion: <200 mg/dl Sonia able 200-2 39 mg/dl Borde rline high > 240 mg/dl High Not Available [facility] [address] [facility] [address], [place], [address], 05/22/2022 11:19:12 05/21/19 23 05/21/2022 LIPID PANEL W/ CALCU LATED LDL triglyceride 124 mg/dL 30-150 Not Available [facility] [address] [facility] [address], [place], [address], 05/22/2022 11:19:12 05/21/19 23 05/21/2022 LIPID PANEL W/ CALCU LATED LDL HDL cholesterol 28 mg/dL 23-92 Not Available [facility] [address] [facility] [address] [place], [address], 05/22/2022 11:19:12 05/21/19 23 05/21/2022 LIPID PANEL W/ CALCU LATED LDL chol/HDL risk ratio 4 calc <3.5 is OPTIM AL Not Available [facility] [address] [facility] [address], [place], [address], 05/22/2022 11:19:12 05/21/19 23 05/21/2022 LIPID PANEL W/ CALCU LATED LDL non-HDL cholesterol 83 mg/dL SONIA ABLE IS <130 mg/dl Not Available [facility] [address], [address], 05/22/2022 11:19:12 05/21/19 23 05/21/2022 LIPID PANEL W/ CALCU LATED LDL VLDL cholesterol 24.80 mg/dL Not Available [facility] [address], [address], 05/22/2022 11:19:12 05/21/19 23 05/21/2022 LIPID PANEL W/ CALCU LATED LDL LDL calculated 58 mg/dL 0-99 Not Available [facility] [address] [place] [address], [address], 05/22/2022 11:19:12 05/21/19 23 05/21/2022 TSH W/REF DIONE TO FT4 TSH 3.8600 uIU/m L 0.2700 -4.200 0 Not Available [facility] [address] [place] [address], [address], 05/22/2022 11:19:15 05/21/19 23 05/23/2022 MAGNE SIUM, SERUM magnesium 2.1 mg/dL 1.5-2. 5 normal Not Available [facility] [address] [place] [address], [address], 05/23/2022 05:45:00 05/21/19 23 05/24/2022 MYRA MULTI PLEX W/ AB anachoice(R) screen NEGATI VE negati ve normal A negat praveena MYRA Multi plex, with Refle x to 11 Antib thu [place] indic ates the absen ce of detec table antib odies to compo nent angelia radha consi sting of doubl e stran ded DNA (dsDN A), chrom atin, ribon ucleo prote in (SEISMOGRAPH SHOOTER) , Lafleur /SEISMOGRAPH SHOOTER (Sm/R CENTRIFUGAL EXTRACTOR OPERATOR), Lafleur (Sm), SS-A, SS-B, Nevin-1, centr omere B, Scl-7 0 and ribos omal P. A negat praveena resul t shoul d be inter prete d in the dale xt of the clini sivakumar and labor atory findi ngs and does not rule out autoi mmune disea se felicity cteri zed by other autoa ntibo dy speci ficit ies such as rheum atoid arthr itis, autoi mmune hepat itis, prima ry bilia ry cirrh osis, autoi mmune thyro iditi s, [place] on's disea se, perni cious anemi a, autoi mmune neuro pathi es, vascu litis , alex c disea se, and bullo us disea se. For addit ional infor haydee turcios e refer to http: //[email or web address] stDia gnost ics.c om/fa q/FAQ 177 (This link is being provi ded for infor blaine lowe/ educa tata quesada purpo ses only. ) Not Available [facility] [address] [facility] [address] [place], [address], 05/24/2022 15:24:15 05/21/19 23 05/24/2022 THYRO ID PEROX IDASE AND THYRO GLOBU NIYA ANT thyroglobuli n antibodies <1 IU/mL < or = 1 normal Not Available [facility] [address] [facility] [address] [place], [address], 05/24/2022 15:24:17 05/21/19 23 05/24/2022 THYRO ID PEROX IDASE AND THYRO GLOBU NIYA ANT thyroid peroxidase antibodies 1 IU/mL <9 normal Not Available [facility] [address] [facility] [address] [place], [address], 05/24/2022 15:24:17 05/21/19 23 05/21/2022 VENIP UNCTU RE results Compl ete Not Available [facility] [address] [place], [address], 05/21/2022 12:24:34 05/01/19 23 05/01/2022 US, carot id arter y INDICA TION: R42 Dizzin ess and giddin ess. TECHNI QUE: Graysc gonzalo and Dopple r ultras ound imagin g of the bilate ral common caroti d, internet e commerce specialist al caroti d, transit operations supervisor al caroti d and verteb ral arteri es was perfor med. COMPAR AYLA: None FINDIN GS: Right side: Mild plaque visual ized. Peak veloci ties: Common caroti d artery peak systol ic veloci ty: 74.8 cm/sec Software Publisher al caroti d artery peak systol ic veloci ty: 141 cm/sec Software Publisher al caroti d artery peak end-di astoli c veloci ty: 55.5 cm/sec Pairing Machine Operator al caroti d artery peak systol ic veloci ty: 55.1 cm/sec Verteb ral artery peak systol ic veloci ty: 43 cm/sec ICA to CCA ratio: 1.89 Left side: Mild plaque visual ized. Peak veloci ties: Common caroti d artery peak systol ic veloci ty: 69.3 cm/sec Software Publisher al caroti d artery peak systol ic veloci ty: 71.4 cm/sec Software Publisher al caroti d artery peak end-di astoli c veloci ty: 33.8 cm/sec Pairing Machine Operator al caroti d artery peak systol ic veloci ty: 54 cm/sec Verteb ral artery peak systol ic veloci ty: 39.9 cm/sec ICA to CCA ratio: 109 IMPRES SINTIA: Findin gs sugges t 50-69% stenos is in the right internet e commerce specialist al caroti d artery . Findin gs sugges t less than 50% stenos is in the left internet e commerce specialist al caroti d artery . Estima tion of caroti d stenos is based on valida eloisa veloci ty criter ia as define d by the Societ y of Radiol ogists in Ultras ound Consen mame Confer ence, Radiol ogy 2003; 229; 340-34 6 and by criter ia simila r to NASCET . Electr onical ly Signed By: Tara rodríguez M.D., Pop Sign Date: [id number] [facility] Imaging All Locations, [place], [address], 02/13/2024 19:44:36 05/01/19 23 05/01/2022 MRI, brain , w/o contr ast INDICA TION: R42 Dizzin ess and giddin ess. TECHNI QUE: MRI BRAIN WITHOU T CONTRA ST. Multip lanar multis equenc e exam. COMPAR AYLA: None FINDIN GS: No acute hemorr lorenzo or infarc t. The ventri cles and cortic al sulci are modera tely promin ent, consis tent with age-re lated cerebr al atroph y. Region s of increa sed T2/FLA IR signal within the subcor tical and perive ntricu lar white matter , a nonspe cific findin g most often seen with chroni c microv ascula r ischem ic diseas e. Evalua tion for small intrac ranial lesion s is limite d withou t intrav enous contra st. No apprec iable mass effect or midlin e shift. The major intrac ranial arteri al flow voids appear mainta ined. Bilate ral catara ct surger y. Minima l mucosa l thicke jimenez of the maxill richard sinuse s bilate rally. IMPRES SINTIA: Modera te cerebr al atroph y. No acute intrac ranial abnorm alitie s. Electr onical ly Signed By: Ashley hernandez M.D., Angel Sign Date: [id number] [facility] Imaging All Locations, [place], [address], 02/13/2024 19:39:13 06/19/19 23 06/18/2022 CT, abdom en + pelvi s, w/wo contr ast INDICA TION: abdomi nal pain TECHNI QUE: CT ABDOME N AND PELVIS WITHOU T AND WITH CONTRA ST. Omnipa que 75ml were admini stered intrav enousl y. Multip lanar reform ats were obtain ed. Radiat ion dose optimi zation techni que was utiliz ed. COMPAR AYLA: FINDIN GS: Lung bases: Unrema rkable Vascul ar: Abdomi nal aorta 29 mm There are velasquez ry calcif icatio ns identi fied. Liver The liver is unrema rkable withou t domina nt mass. Ducts are unrema rkable . Gallbl adder: There are no calcul i. The wall is not thicke melanie. Pancre as: There is no mass. The duct is normal in calibe r. Spleen : The spleen is not enlarg ed, there is no mass. Adrena l glands : There is no mass. Kidney s: There is no signif icant renal mass or hydron ephros is. There are bilate ral renal calcul us 4 mm mid to lower pole right 3 mm lower pole left Lymph nodes: Unrema rkable Pelvis : The prosta te is grossl y unrema rkable . The bladde r is grossl y unrema rkable . Bowel: There is a large amount of stool in the colon withou t obstru ction. There is mild-t o-mode rate divert iculos is, no divert iculit is Osseou s struct ures: There are no acute findin gs are promin ent. T there are promin ent spurs . IMPRES SINTIA: Modera te divert iculos is and large amount stool in colon. 2. Nonobs tructi ve bilate ral renal calcul i. Electr onical ly Signed By: Josh Shearer James Sign Date: [id number] [facility] Imaging All Locations, [place], [address], 02/13/2024 19:35:35 Result Notes None recorded. Problems Name Problem SNOMED Code Status Onset Date Resolution Date Notes Provider Name and Address Organization Details Recorded Time Dizziness 094954798 Active 2022 RICHARD ROBLES, CONGRESSIONAL REPRESENTATIVE [address], [place], [address] , [facility], [facility] 20:22:36 Right-sided piriformis syndrome 8380086622538 08 Active 2022 RICHARD ROBLES APRN [address], [place], [address], [facility], [facility] 3 20:22:37 Atrial fibrillatio n 43234361 Active 2022 RICHARD ROBLES APRN [address], [place], [address], [facility], [facility] 3 20:22:39 Benign essential hypertensio n 8489051 Active 2022 RICHARD ROBLES APRN [address], [place], [address], [facility], [facility] 3 20:22:39 Dementia 49456522 Active 2022 RICHARD ROBLES APRN [address], [place], [address], [facility], [facility] 3 20:22:42 Hyperlipide giselle 52982905 Active 2022 RICHARD ROBLES APRN [address], [place], [address], [facility], [facility] 3 20:22:43 Gastroesoph ageal reflux disease 990805142 Active 2022 RICHARD ROBLES APRN [address], [place], [address], [facility], [facility] 3 20:22:47 Hemorrhoids 51636517 Active 2023 MICHEL Oneill [address], [place], [address], [facility] Physician [facility], [facility] 4 10:33:07 Abdominal aortic ectasia 2530553178379 01 Active 2023 MICHEL Oneill [address], [place], [address], [facility], [facility] 4 10:34:29 Atheroscler osis of aorta 37238666 Active 2023 MICHEL Oneill [address], [place], [address], [facility], [facility] 4 10:34:30 Pain of right shoulder region Active 2024 MICHEL Oneill [address], [place], [address], [facility], [facility] 5 09:54:49 Backache 014568997 Active Tiffany Matt DO [address], [place], [address], [facility], [facility] 5 07:46:31 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 Tiffany Matt DO [address], [place], [address], [facility], [facility] 5 07:46:31 Allergic rhinitis 22665346 Active Tiffany Matt, DO [address], [place], [address], [facility], [facility] 5 07:46:31 Malignant neoplasm of skin 817772646 Active Tiffany Matt DO [address], [place], [address], [facility], [facility] 5 07:46:31 Abdominal aortic aneurysm 007646817 Active 3.2 Tiffany Matt, DO [address], [place], [address], [facility], [facility] 5 13:06:02 Diverticula r disease 119530966 Active Tiffany Matt, DO [address], [place], [address], [facility], [facility] 5 08:31:14 Problem Notes None recorded. Procedures Surgical History Date Name Laterality Status Provider Name and Address Organization Details Recorded Time 05/06/19 23 [place] [address]: Therapeutic Exercise completed ELIDA DOWD, PT [address], [place], [address], [place] [employer], [employer] 05/06/2022 08:15:10 05/06/19 23 G0283: Estim (Medicare) completed CAMLON NILE, PT [address], [place], [address], [place] [employer], [employer] 05/06/2022 08:15:10 05/02/19 23 PT 16489: Therapeutic Exercise completed ELIDA DOWD, PT [address], [place], [address], [place] [employer], [employer] 05/02/2022 09:19:56 05/02/19 23 G0283: Estim (Medicare) completed ELIDA DOWD, PT [address], [place], [address], [place] [employer], [employer] 05/02/2022 09:19:56 04/29/19 23 PT 28804: Therapeutic Exercise completed ELIDA DOWD, PT [address], [place], [address], [place] [employer], [employer] 04/29/2022 08:20:19 04/29/19 23 G0283: Estim (Medicare) completed ELIDA DOWD, PT [address], [place], [address], [place] [employer], [employer] 04/29/2022 08:19:33 04/25/19 23 PT 88647: Therapeutic Exercise completed ELIDA DOWD, PT [address], [place], [address], [place] [employer], [employer] 04/25/2022 09:27:55 04/25/19 23 PT 26825: Neuromuscular Re-Education completed ELIDA DOWD, PT [address], [place], [address], [place] [facility] [employer] [facility], [employer] 04/25/2022 09:28:01 04/25/19 23 G0283: Estim (Medicare) completed ELIDA DOWD, PT [address], [place], [employer], [address], [place] [facility], [employer] 04/25/2022 09:16:59 04/22/19 23 PT 12264: Therapeutic Exercise completed ELIDA DOWD, PT [address], [place], [employer], [address], [facility] [employer] [facility], [employer] 04/22/2022 07:55:58 04/22/19 23 G0283: Estim (Medicare) completed ELIDA DOWD, PT [address], [place], [employer], [address], [place] [facility], [employer] 04/22/2022 07:54:50 04/19/19 23 PT 46405: Therapeutic Exercise completed ELIDA DOWD, PT [address], [place], [employer], [address], [place] [facility], [employer] 04/19/2022 12:35:08 04/19/19 23 G0283: Estim (Medicare) completed ELIDA DOWD, PT [address], [place], [address], [facility], [employer] 04/19/2022 09:22:16 04/16/19 23 PT 16967: PT Evaluation: Low Complexity completed ELIDA DOWD, PT [address], [place], [address], [facility], [employer] 04/16/2022 09:30:45 04/16/19 23 PT 72326: Therapeutic Exercise completed ELIDA DOWD, PT [address], [place], [employer], [address], [place] [facility], [employer] 04/16/2022 09:30:33 02/22/20 22 [facility] 04/15/2022 13:47:31 01/01/20 18 [facility] 04/15/2022 13:47:43 03/24/18 Laminectomy completed Radha Drake [facility], [facility] 05/25/2014 08:15:59 [facility] 04/15/2022 13:40:09 Back surgery completed [facility], [facility] 04/15/2022 13:40:09 Arthroscopy completed [facility], [facility] 04/15/2022 13:40:08 Imaging Results Imaging Date Name Status LastModified by [facility] Details LastModified Time 05/01/2022 US, carotid artery completed [id number] [facility] Imaging All Locations, [place], [address], 02/13/2024 19:44:36 05/01/2022 MRI, brain, w/o contrast completed [id number] [place] [address] Imaging All Locations, [place], [address], 02/13/2024 19:39:13 06/18/2022 CT, abdomen + pelvis, w/wo contrast completed [id number] [facility] Imaging All Locations, [place], [address], 02/13/2024 19:35:35 Procedure Notes None recorded. Medical Equipment None Reported. Allergies No known drug allergies Medications Name Sig Start Date Stop Date Status Note LastModified by Organization Details LastModified Time ketoconazol e 2 % shampoo APPLY TO AFFECTED AREA TOPICALLY 2 TIMES A WEEK active Not Available Not Available No t Available donepezil 10 mg tablet TAKE 1 TABLET BY MOUTH AT BEDTIME active Not Available Not Available No t Available sulfasalazi ne 500 mg tablet,yfn yed release TAKE 2 TABLETS BY MOUTH TWICE DAILY active Not Available Not Available No t Available metronidazo le 500 mg tablet active Not Available Not Available Not Available amlodipine 5 mg tablet TAKE 1 TABLET BY MOUTH DAILY' active Not Available Not Available No t Available ciprofloxac in 500 mg tablet active Not Available Not Available Not Available hydrocortis one 2.5 % topical cream with perineal applicator INSERT into the rectum FOUR TIMES DAILY NEEDED active Not Available Not Available No t Available amoxicillin 875 mg tablet active Not Available Not Available Not Available alprazolam 0.25 mg tablet Take 1 tablet 3 times a day by oral route. completed Not Available Not Available Not Available meclizine 25 mg tablet take 1 tablet by mouth twice a day if needed for dizziness active Not Available Not Available No t Available montelukast 10 mg tablet Take 1 tablet every day by oral route. active Not Available Not Available No t Available ipratropium bromide 42 mcg (0.06 %) nasal spray instill 2 (TWO) sprays IN EACH NOSTRIL FOUR TIMES DAILY NEEDED active Not Available Not Available No t Available ondansetron 4 mg disintegrat ing tablet active Not Available Not Available N ot Available fluticasone propionate 50 mcg/actuati on nasal spray,suspe nsion instill 2 (TWO) sprays IN EACH NOSTRIL DAILY (Shake gently. Before first use, prime pump. After use, clean tip and replace cap) active Not Available Not Available No t Available rosuvastati n 5 mg tablet TAKE 1 TABLET BY MOUTH DAILY active Not Available Not Available No t Available memantine 10 mg tablet TAKE 1 TABLET TWICE A DAY IN THE MORNING AND AT BEDTIME 05/11 completed Not Available Not Available Not Available memantine 5 mg tablet TAKE 2 TABLETS BY MOUTH DAILY (1 IN THE MORNING, 1 AT BEDTIME) 05/11 completed Not Available Not Available Not Available Vitamin B12 active Not Available Not A vailable Not Available Vit 3 take 1,00 iu once daily active Not Available Not Available No t Available cetirizine 10 mg capsule Take by oral route. completed Not Available Not Available Not Available Xarelto 20 mg tablet Take 1 tablet every day by oral route. 04/29 completed Not Available Not Available Not Available Fluzone High-Dose (PF) 180 mcg/0.5 mL intramuscul ar syringe active Not Available Not Available N ot Available Prostate Health active Not Available Not Available Not Available Centrum Adult 50 Plus Fresh-Fruit y 120 mcg chewable tablet Take by oral route. active Not Available Not Available No t Available Neuriva Plus Brain Performance active Not Available Not Available Not Available Clenpiq 10 mg-3.5 gram-12 gram/175 mL oral solution DRINK dose 1 AT 3PM and dose 2 AT 9PM as directed THE DAY BEFORE THE COLONOSCO PY 05/11 completed Not Available Not Available Not Available Vitals Date Recorded Body height Body mass index (BMI) Body weight Body temperature Oxygen saturation Oxygen saturation in Arterial blood by Pulse oximetry Heart rate Systolic blood pressure Diastolic blood pressure Provider Name and Address Organization Details Last Updated DateTime 3 182.88 cm 26.3 kg/m2 78870.9 2 g 97.8 [degF] 98 % 98 % 79 /min 118 mm[Hg] 60 mm[Hg] Edu Nathan [facility], [facility] 3 13:24:25 Date Recorded Body height Body mass index (BMI) Body weight Body temperature Oxygen saturation Oxygen saturation in Arterial blood by Pulse oximetry Heart rate Systolic blood pressure Diastolic blood pressure Provider Name and Address Organization Details Last Updated DateTime 3 182.88 cm 26.4 kg/m2 02596.5 1 g 97.3 [degF] 96 % 96 % 80 /min 136 mm[Hg] 64 mm[Hg] Edu Nathan [facility], [facility] 3 10:37:25 Date Recorded Body weight Body temperature Oxygen saturation Oxygen saturation in Arterial blood by Pulse oximetry Heart rate Systolic blood pressure Diastolic blood pressure Provider Name and Address Organization Details Last Updated DateTime 4 89772.1 9 g 97.6 [degF] 96 % 96 % 63 /min 112 mm[Hg] 62 mm[Hg] Macie [employer] [facility], [facility] 4 09:15:41 Date Recorded Body weight Oxygen saturation Oxygen saturation in Arterial blood by Pulse oximetry Heart rate Body temperature Systolic blood pressure Diastolic blood pressure Provider Name and Address Organization Details Last Updated DateTime 5 79965.1 9 g 97 % 97 % 77 /min 98.4 [degF] 132 mm[Hg] 80 mm[Hg] Macie [employer] [facility], [facility] 5 09:46:16 Social History Question Answer Notes LastModified by Organizat ion Details LastModified Time Tobacco Smoking Status Never Smoker [facility], [facility] 05/25/2014 08:15:59 Do You Have An Advance Directive? Yes Information not available 04/15/2022 Is Blood Transfusion Acceptable In An Emergency? Yes Information not available 04/15/2022 What Is Your Level Of Caffeine Consumption? Occasional Information not available 04/15/2022 How Much Tobacco Do You Chew? None Information not available 05/25/2014 What Type Of Diet Are You Following? REGULAR Information not available 04/15/2022 What Is The Highest Grade Or Level Of School You Have Completed Or The Highest Degree You Have Received? [id number] Information not available 04/15/2022 AWV 01/22/2023 Subseq Information n ot available 05/22/2023 Alcohol Use 1-2 Per Week Informatio n not available 05/25/2014 Marital Status Informat ion not available 04/15/2022 What Was The Date Of Your Most Recent Tobacco Screening? 05/22/2023 Information not available 05/22/2023 What Is Your Relationship Status? Information not available 04/15/2022 Do You Use Your Seat Belt Or Car Seat Routinely? Yes Information not available 05/22/2023 Are You Sexually Active? No Information not available 04/15/2022 Has Tobacco Cessation Counseling Been Provided? No Information not available 05/22/2023 Sex: Male Functional Status Question Answer Note LastModified by Organizat ion Details LastModified Time Do you use any illicit or recreational drugs? No Information not available 04/15/2022 What is your level of alcohol consumption? Occasional Information not available 04/15/2022 Do you or have you ever used smokeless tobacco? Never used smokeless tobacco Information not available 04/15/2022 Are you currently employed? No Information not available 05/22/2023 What is your exercise level? Moderate Information not available 05/25/2014 Mental Status None recorded. Family History Relationship Description Onset Age of this Age Resolved Age Notes LastModified by Organization Details LastModified Time Mother Natural 96 Not available 13:39:59 Unspecified Relation Squamous cell carcinoma Not available 13:39:59 Unspecified Relation Anxiety Not available 03/25 13:39:59 Unspecified Relation Basal cell carcinoma of skin Not available 13:39:59 Medical History Condition Response Cancer (location) N Other N Gout N Thyroid Disease N Kidney Stones N Measles/Mumps N Emphysema/COPD N Sexually Transmitted Disease N Depression N Prostate Problems N Vascular Disease N Rash/Skin Condition N Amputation (location) N Parkinson's N Paralysis N Headaches/Migraines N Cardiac Pacemaker/defibrillator N Nerve Damage / Neuropathy N Arthritis N Sleep disorder/Insomnia N Heart disease / Heart Attack N Crohn's Disease N HIV/AIDS N Stroke/TIA N Colon Problems N High Cholesterol N Serious Injuries N Kidney Disease N Memory Loss/Alzheimer's N Gallbladder disease N High blood pressure Y Congestive heart failure N Falls N Alcohol Overuse N Blood Thinner Treatment N Hormone Replacement N Nervous Breakdown N Cowan's Esophagus N Anemia N Urinary Problems N Colon Polyps N Gastritis N Hospitalizations (other than operations) N Back pain N Diabetes N Rheumatic Fever N Bleeding Disorder N Cardiac Arrhythmias /irregular heart rat e N Osteopenia/Osteoporosis N Anxiety/Stress N Asthma N Vision Problems N Erectile / Sexual Dysfunction N Ostomies (location) N Seizures N Jaundice N Hepatitis N Cirrhosis N GERD/Ulcer N Chicken Pox N Allergies (other than meds) N Immunizations Vaccine Type Date Status Note Provider Nam e and Address Organization Details Recorded Time Influenza, recombinant, trivalent, PF 4 completed Tiffany Matt DO [address], [place], [address], [facility], [facility] 05/25/2014 08:32:10 pneumococcal, unspecified formulation 4 completed DO Felice Castrejon[address], [place], [address], [place] [facility], [facility] 05/25/2014 08:32:10 zoster recombinant 3 completed Macie Tiffanie null, [facility], [facility] 05/22/2023 09:05:27 COVID-19 vaccine, vector-nr, rS-Ad26, PF, 0.5 mL 1 completed Macie Tiffanie null, [facility], [facility] 05/22/2023 09:05:27 Pneumococcal conjugate PCV20, polysaccharide DSV840 conjugate, adjuvant, PF 3 completed Macie Tiffanie null, [facility], [facility] 05/22/2023 09:05:27 Tdap 3 completed Macie Tiffanie null, [facility], [facility] 05/22/2023 09:05:27 Past Encounters Encounter ID Performer Location Encounter Start Date Encounter Closed Date Diagnosis/Indication Diagnosis SNOMED-CT Code Diagnosis ICD10 Code Diagnosis Note [id number] Tiffany Matt DO [facility] [address] [place] [address] 05/25/2014 07:41:11 05/25/2014 09:14:16 Abdominal aortic aneurysm 460373319 co Chronic, stable, needs monitoring Medical necessity and recommenda tions for surveilanc e to evaluate progressio n of disease for aneurysm diameter 3-4 cm is repeat US every 12 months (J Vasc Surg 2004;39:26 7-9) Dizziness 932585915 hist ory of vascular disease== will check labs and carotids Benign ess ential hypertension 0539838 low sodium diet continue with amlodipine 5 mg-- monitor BP stressed need for good blood pressure control [id number] RICHARD ROBLES APRN [facility] [address] [place] [address] 04/15/2022 13:12:32 04/15/2022 14:33:20 Dizziness 613346646 R42 Chronic/Wo rseningWil l send for ultrasound carotid arteries CT brain without contrast-P atient has seen neurology but did not have any further imaging completed- Recommend follow-up once patient returns back up [facility] her recommenda tions pending results Right-side d piriformis syndrome [id number] 61860 M54.31 AcuteDiscu ssed progressio n and typical recovery time. Patient is in minimal discomfort and has good ROM.Recomm end rotating Ice (after activity) and heat applicatio n, gential stretching , massage and muscle rubs. Patient may also use NSAIDS like Ibuprofen 600-800mg BID with food to help reduce inflammati on.Discuss ed further imaging and the possible need for PT if symptoms continue. Patient verbalized understand ing and is agreeable to plan. Atrial fibrillation 4943 6004 I48.91 Chronic/st ablePatien t reports 1 episode of A. fib many years agoPatient has had no new episodes-P atient recently had Holter monitor completed to see if he is stopped taking XareltoPat ient is not on any rate control medication Benign ess ential hypertension [id number] I10 Chronic/st able/contr olledSTOP Amlodipine -patient believes symptoms started shortly after starting amlodipine . Blood pressure has been well controlled if not on the low side. Patient has been taking amlodipine every other day without any increase in blood pressure. We will stop the amlodipine patient to monitor blood pressure for 2 weeks if blood pressure starts to increase will need to start a new antihypert ensive medication .-Patient recently had Holter monitor completed bp @ target of less than 140/90 Recommend low-sodium diet, less than 2 grams daily. Check outpatient readings every 2 weeks. Blood pressure check 6 weeks if needed. Daily aerobic exercise of 20 minuets 3-5 times per week Continue medication management as documented in medication list. Patient recommende d to call with any questions, or concerns. =Reviewed medication s and vitals, along with lab results. F/U in 1 month Allergic rhinitis 301050 04 J30.9 Chronic/un controlled Recommend flonase daily along with OTC cetirizine and continue montelukas t.Try to avoid known allergens, dust and vacuum frequently . Consider an air purifier to help limit house hold allergens. If symptoms are not controlled consider allergy testing in the future.Diz ziness could be in relation to chronic allergic rhinitis if CT/ultraso und carotid arteries is negative would consider ENT referral Dementia [id number] F03.90 Chronic/st ablePatien t reports he was having a difficult time with short-term memory recall. 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 (< 50g/meal, <25g/snack ) Continue medication and documented below Gastroesop hageal reflux disease [id number] K21.00 Chronic, stable,Javid l continue with current treatment per GI recommend to improve symptoms: limit fat, caffeine, spicy food and alcohol. Avoid eating/dri nking within 3 to 4 hrs before going to bed. Avoid tobacco smoke whether direct or 2nd hand smoke. [id number] ELIDA DOWD, PT [facility] [address] [facility] [place] [place] [address] 04/16/2022 08:44:10 04/16/2022 14:09:38 Pain of hip region 19835187 M25.559 Low back pain 886117982 M54.50 [id number] ELIDA DOWD PT [facility] [address] [address],JANA [facility] [place] [address] 04/19/2022 09:12:19 04/19/2022 13:29:24 Pain of hip region 87889982 M25.559 Low back pain 671512021 M54.50 [id number] ELIDA DOWD PT [facility] [address] [address] [place] [address] 04/22/2022 07:54:31 04/22/2022 12:22:15 Pain of hip region 23258775 M25.559 Low back pain 147297992 M54.50 [id number] ELIDA DOWD PT [facility] [place] [address] [facility] [place] [address] 04/25/2022 08:49:56 04/25/2022 14:09:51 Pain of hip region 23920199 M25.559 Low back pain 264236364 M54.50 [id number] ELIDA DOWD, PT [facility] [address] [place] [address] 04/29/2022 08:13:37 04/29/2022 15:51:19 Pain of hip region 02759038 M25.559 Low back pain 824684574 M54.50 [id number] Sherman Kim, [facility] [address] N [address] [place] [address] 04/29/2022 09:00:00 04/29/2022 09:37:31 Benign essential hypertension 7327085 I10 Chronic/st able/contr olled STOP Amlodipine -patient believes symptoms started shortly after starting amlodipine . Blood pressure has been well controlled if not on the low side. Patient has been taking amlodipine every other day without any increase in blood pressure. We will stop the amlodipine patient to monitor blood pressure for 2 weeks if blood pressure starts to increase will need to start a new antihypert ensive medication . -Patient recently had Holter monitor completed bp @ target of less than 140/90Reco mmend low-sodium diet, less than 2 grams daily.Chec k outpatient readings every 2 weeks.Bloo d pressure check 6 weeks if needed.Andreea ly aerobic exercise of 20 minuets 3-5 times per weekContin ue medication management as documented in medication list. F/U in 1 month [id number] ELIDA DOWD PT [facility] [address] [place] [address] 05/02/2022 08:43:29 05/02/2022 15:00:33 Pain of hip region 10058466 M25.559 Low back pain 602217109 M54.50 [id number] ELIDA DOWD, PT [facility] [address] [address] [place] [address] 05/06/2022 07:53:05 05/06/2022 13:14:13 Pain of hip region 29641967 M25.559 Low back pain 487822207 M54.50 [id number] LYNN ORNELAS [address] [place] [address] 05/10/2022 13:05:59 05/10/2022 14:08:54 Dizziness 461640302 R42 Chronic/Wo rsening1> pt states when he gets up in the morning he feels dizzy.Has been going on for years. Patient states is a constant dizziness/ fullness he notes in his head. Patient denies any vertigo/pa in sensation. Patient is seeing a neurologis t for dementia however no further testing was never completed- - Patient recently completed MRI of brain and US carotids-- Patient is already being treated for dementiaMR IIMPRESSIO N: Moderate cerebral atrophy. No acute intracrani al abnormalit ies. 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 No significan t changes in imaging.-W e will continue to monitor blood pressure closely-Mansoor efra is going to check with to see when his last blood work was. [id number] RICHARD ROBLES APRN [facility] [address] [place] [address] 05/20/2022 10:13:42 05/20/2022 11:21:20 Benign essential hypertension 9514170 I10 Chronic/st able/contr olledSTOP Amlodipine -. We will stop the amlodipine patient to monitor blood pressure for 2 weeks if blood pressure starts to increase will need to start a new antihypert ensive medication .-Patient recently had Holter monitor completedb p @ target of less than 140/90Reco mmendlow-s odium diet, less than 2 grams daily.Chec k outpatient readings every 2 weeks.Bloo d pressure check 6 weeks if needed.Andreea demarcus aerobic exercise of 20 minuets 3-5 times per weekContin ue medication management as documented in medication list.Patie nt recommende d to call with any questions, or concerns.= Reviewed medication s and vitals, along with lab results.F/ U pending results Hyperlipidemia 97917212 E78.5 Chronic/un known LDL: Goal under 100, at or below 70 for DM or increased CVD risk patients GFR: >60 Update labs in 6 months-eze conner reports blood work was last completed about 3 months ago Maintain healthy, low cholestero l diet. (< 50g/meal, <25g/snack ) Continue medication and documented below Dizziness 906727539 R42 Chronic/Wo rsening-In crease water intake We will send patient for blood work follow-up pending resultsPat ient will be going back [place] in June-I would like patient to follow-up with his neurologis t when he returns back to [place]. Diarrhea 83423168 R19.7 AcuteFocus on hydrationD iscussed this could be early viral gastritis, given the symptoms just recently started monitor closely. Patient is taking sulfasalaz ine for chronic GI issuesDisc ussed red flag symptoms and what would warrant urgent evaluation [id number] MICHEL Oneill [facility] [address] [place] [address] 05/22/2023 08:51:37 05/22/2023 16:16:31 Benign essential hypertension 0600585 I10 Stable blood pressure at goal continue amlodipine 5 mg once a day chronic, at goal, continue same regimen as noted. Continue therapeuti c lifestyle changes. recheck as scheduled. Plan of care will be to use therapeuti c lifestyle changes and/or medication s with periodic follow up visits to maintain a safe blood pressure goal of 140/90. Hyperlipidemia 23056477 E78.5 Unchanged last panel April 2022 at goal; continue rosuvastat in 5 mg once a day chronic, at goal. Continue regimen as before. Recheck as scheduled. Will use therapeuti c lifestyle changes and/or medication s to maintain a healthy lipid panel. Periodic visits and labs and appropriat e therapeuti c changes will occur to help meet this goal to minimize risk of atheroscle rotic disease. Dementia 27571572 F03.90 Unchanged continues donepezil 10 mg once a day Hemorrhoids 78945198 K64 .9 Unchanged patient will follow-up with GI up [place] continues Preparatio n H Atrial fibrillation 4943 6004 I48.91 Stable presently no medication s no anticoagul ation therapy follow closely Atheroscle rosis of aorta 01656020 I70.0 Unchanged picked up on CAT scan follow closely Abdominal aortic ectasia [id number] 97615 I77.811 Unchanged picked up on CAT scan follow closely [id number] MICHEL Oneill [facility] [address] [facility] [address] [place] [address] 05/11/2024 09:30:55 05/11/2024 10:17:31 Hyperlipidemia 72432009 E78.5 Unchanged last panel April 2022 at goal; continue rosuvastat in 5 mg once a day chronic, at goal. Continue regimen as before. Recheck as scheduled. Will use therapeuti c lifestyle changes and/or medication s to maintain a healthy lipid panel. Periodic visits and labs and appropriat e therapeuti c changes will occur to help meet this goal to minimize risk of atheroscle rotic disease. Dementia 99636615 F03.90 Unchanged continues donepezil 10 mg once a day Gastroesop hageal reflux disease 783485826 K21.00 Stable presently followed closely Benign ess ential hypertension 0720703 I10 Stable blood pressure at goal continue amlodipine 5 mg once a day chronic, at goal, continue same regimen as noted. Continue therapeuti c lifestyle changes. recheck as scheduled. Plan of care will be to use therapeuti c lifestyle changes and/or medication s with periodic follow up visits to maintain a safe blood pressure goal of 140/90. Atrial fibrillation 4943 6004 I48.91 Stable presently no medication s no anticoagul ation therapy follow closely Right-side d piriformis syndrome [id number] 45785 M54.31 Unchanged right sciatica discomfort patient has seen physical therapy in the past doing home exercises presently and stretching follow closely patient also uses Voltaren gel ice and heat Pain of ri ght shoulder region 4053192604 M25.511 Unchanged using ice heat Voltaren gel followed closely Health Concerns Section Related Observation LastModified by Organization Detai ls LastModified Time None Recorded Concern Status LastModified by Organization Details LastModified Time None Recorded Advance Directives Directive Y: Payers Insurance Date Sequence Insurance Name Policy Number Policy Mcocy Covered Member ID Mccoy Member ID Guarantor Name 04/15/2022 1 MEDICARE-[place] (MEDICARE) Thaddeus Marroquin [id number] Thaddeus Marroquin 04/15/2022 1 [facility]: [facility] [id number] Thaddeus Marroquin [id number] Thaddeus Marroquin 05/27/2024 1 [employer] (MEDICARE REPLACEMENT/ ADVANTAGE - PPO) [id number] Thaddeus Marroquin [id number] Thaddeus Marroquin Notes Date Note Type Note Provider Name and Address Organization Details Recorded Time 05/06/2022 text/html Pt presents to t he clinic with reports of continued pain at the low back and hip with lying at night. He has been compliant with the HEP. He denies any questions or concerns. ELIDA DOWD, PT [address], [place], [address], [employer] 05/06/2022 12:36:02 05/10/2022 text/html 1> pt states whe n he gets up in the morning he feels dizzy.Has been going on for years. Patient states is a constant dizziness/fullness he notes in his head. Patient denies any vertigo/pain sensation.Patient is seeing a neurologist for dementia however no further testing was never completed-- Patient recently completed MRI of brain and US carotids-- Patient is already being treated for dementiaMRIIMPRESSIO N:Moderate cerebral atrophy. No acute intracranial abnormalities. 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 RICHARD ROBLES, CONGRESSIONAL REPRESENTATIVE [address], [place] [place], [address], [employer] 05/15/2022 22:14:05 05/20/2022 text/html 1> patient and w neri present today for follow-up. Patient states yesterday he had a really great day ate a very large breakfast with his -did not have any dizzy or fuzzy sensation all day yesterdayHowever this morning he woke up and had a large breakfast again and is now feeling very fuzzy and has also developed diarrhea.Has been going on for years. Patient states is a constant dizziness/fullness he notes in his head. Patient denies any vertigo/pain sensation.Patient is seeing a neurologist for dementia however no further testing was never completed-- Patient recently completed MRI of brain and US carotids-- Patient is already being treated for dementiaWife believes patient last had blood work completed in December of last year MRIIMPRESSION:Modera te cerebral atrophy. No acute intracranial abnormalities. 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 HTN-patient has not taking amlodipine blood pressures have remained consistently 130/60-70 RICHARD ROBLES, CONGRESSIONAL REPRESENTATIVE [address], [place] [place], [address], [employer], [employer] 05/20/2022 12:11:58 05/22/2023 text/html 88-year-old seas onal male presents to be established with a new provider and further management medical conditions and concerns as below to include hypertension hyperlipidemia dementiapt only concern is the history of hemorrhoids; pt has to push back up ;they prolaspe & slightly painful & pt uses preparation _H patient wants to follow-up with up [place]; MICHEL Oneill [address], [place], [address], [employer], [employer] 05/22/2023 10:34:53 05/11/2024 text/html 89 y/o seasonal resident; patient presents with his ; patient has primary up [place]; last labs January 2024 will obtain recordspt c/o bilateral glute pain [id number] using Voltaren/ requesting PT referral MICHEL Oneill [address], [place], [address], [employer], [employer] 05/11/2024 10:08:35
--- OUTSIDE RECORDS SUMMARY | 2024-08-11 10:17 | XMS_ITS | Encounter Summary ---
Author Organization [facility] Address [address] [facility] [place] [address] Care Team Providers Care Legal Aid Name Role Phone Beatriz Almonte MD Unavailable [phone] Beatriz Almonte MD Primary Care Provider [phone] Encounter Details Date Type Department Care Team (Latest Contact Info) Description 08/02/2024 Travel Social History Tobacco Use Types Packs/Day [...] ULTRASOUND [address] [place] [address] 08/18/2024 8:00 AM EDT Treatment [facility] [address] [facility] [address] [place] [address] Dax Wolf, PT [address] [place] [address] 08/19/2024 8:00 AM EDT Office Visit [facility] [address] [facility] [address] [facility] [address] [place] [address] Michael Patel MD [address] [facility] [address] [place] [address] 08/20/2024 1:30 PM EDT Office Visit [facility] [address] [place] [address] Marielena Herrera SOCKET PULLER [address] [place] [address] documented as of this encounter Visit Diagnoses Not on filedocumented in this encounter Care Teams Legal Aid Relationship Specialty Start Date End Date Beatriz Almonte MD [address] [place], [place] [id number] PCP - [employer] 03/24/22 Beatriz Almonte MD [address] [place], [place] [phone] PCP - General Family Medicine 08/23/22 documented as of this encounter
--- OUTSIDE RECORDS SUMMARY | 2024-08-11 10:17 | XMS_ITS | Encounter Summary ---
Author Organization [facility] Address [address] [place] [address] Care Team Providers Care Member Of Congress Name Role Phone Beatriz Almonte MD Unavailable [phone] Beatriz Almonte MD Primary Care Provider [phone] Encounter Details Date Type Department Care Team (Late Contact Info) Description 01/05/2024 Orders Only [facility] [address] [place] [address] Unallocated, [facility] Provider, [address] [place] [address] Social History Tobacco Use Types Packs/Day Years [...] Ancillary Procedure [facility] [address] [facility] [address] [place] [address] 08/18/2024 8:00 AM EDT Treatment [facility] [address] [place] [address] Dax Wolf, PT [address] [place] [address] 08/19/2024 8:00 AM EDT Office Visit [facility] [address] [facility] [address] [place] [address] Michael Patel MD [address] [facility] [address] [place], [place] [id number] 08/20/2024 1:30 PM EDT Office Visit [facility] [address] [place] [phone] Marielena Herrera NP [address] [place], [place] [id number] documented as of this encounter Procedures Procedure Name Priority Date/Time Associated Diagnosis Comments XR CHEST 1 VIEW Routine 01/05/2024 9:47 AM EDT documented in this encounter Results * XR chest 1 view (01/05/2024 9:47 AM EDT) Anatomical Region Laterality Modality Chest Radiographic Mary ging us [facility]oms Provider Unallocated IMG XR PROCEDURES F inal Result documented in this encounter Visit Diagnoses Not on filedocumented in this encounter Care Teams Member Of Congress Relationship Specialty Start Date End Date Beatriz Almonte MD [address] [facility] [place] [address] PCP - [employer] 03/24/22 Beatriz Almonte MD [address] [facility] [place] [address] PCP - General Family Medicine 08/23/22 documented as of this encounter
--- OUTSIDE RECORDS SUMMARY | 2024-08-11 10:17 | XMS_ITS | Clinical Summary ---
Author Organization [facility] Healthcare Address [address] [place] [address] Care Team Providers Care Mechanical Handyman Name Role Phone Beatriz Almonte MD Unavailable [phone] Beatriz Almonte MD Primary Care Provider [phone] Allergies No known active allergies Medications acetaminophen (Tylenol) 325 MG tablet Take 650 mg by mouth every 6 (six) hours if needed. Active Multiple Vitamin (Multi-Vitamin) tablet Take 1 tablet by mouth in the morning. Active sulfaSALAzine (Azulfidine) 500 MG tablet Take 1,000 mg by mouth in the morning and 1,000 mg before bedtime. 08/07/19 23 Active ketoconazole (NIZOral) 2 % shampoo Apply topically 2 (two) times a week. Active NON FORMULARY Prostate vitamin Active azelastine (Astelin) 0.1 % nasal spray Administer 1 spray into each nostril in the morning and 1 spray before bedtime. Use in each nostril as directed. Active fluticasone (Flonase) 50 MCG/ACT nasal sprayIndications: Nasal obstruction Administer 2 sprays into each nostril Daily Shake gently. Before first use, prime pump. After use, clean tip and replace cap. 48 g 3 10/27/19 24 2024 Active hydrocortisone (Anusol-HC) 2.5 % rectal creamIndications: Bleeding hemorrhoid INSERT into the rectum FOUR TIMES DAILY NEEDED 30 g 1 11/05/19 24 Active rosuvastatin (Crestor) 5 MG tabletIndications :Hyperlipidemia, unspecified hyperlipidemia type (CMS/HCC) Take 1 tablet (5 mg) by mouth Daily 90 tablet 3 11/07/19 24 2024 Active meclizine (Antivert) 25 MG tablet Take 25 mg by mouth 2 (two) times a day as needed for dizziness Active ketoconazole (NIZOral) 2 % shampooIndication s:Contact dermatitis of scalp Apply topically 2 (two) times a week 120 mL 3 01/26/20 24 Active memantine (Namenda) 10 MG tabletIndications :MCI (mild cognitive impairment) with memory loss Take 1 tablet (10 mg) by mouth in the morning and 1 tablet (10 mg) before bedtime. 60 tablet 11 01/27/20 24 Active donepezil (Aricept) 10 MG tabletIndications :Age-related cognitive decline TAKE 1 TABLET BY MOUTH AT BEDTIME 90 tablet 3 01/31/20 24 Active amLODIPine (Norvasc) 5 MG tabletIndications :Primary hypertension (CMS/HCC) TAKE 1 TABLET BY MOUTH DAILY' 90 tablet 1 07/20/19 25 Active amLODIPine (Norvasc) 5 MG tabletIndications :Primary hypertension (CMS/HCC) TAKE 1 TABLET BY MOUTH DAILY 90 tablet 1 01/12/20 24 2024 Discontinued Active Problems Problem Noted Date Diagnosed Date [...] psa in Feb prior to leaving for [place]. 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 salvage determiner current use of ant icoagulant therapy 07/02/2018 12/16/2022 Paroxysmal atrial fibrillation 06/10/2018 12/16/2022 Encounters Date Type Department Care Team Description 08/10/2024 9:30 AM EDT Treatment [facility] [address] [place] [address] Dax Wolf T, PT Piriformis syndrome of right side (Primary Dx); Pain in right buttock; Acute bilateral low back pain without sciatica 08/10/2024 Bamboo flowsheet [facility] [address] [facility] [address] [place] [address] Dax Wolf, PT 08/10/2024 Travel 08/03/2024 Telephone [facility] [address] [place] [address] Marielena Herrera NP Results 08/03/2024 Results Follow-Up [facility] [address] [place] [address] Marielena Herrera NP 08/02/2024 2:00 PM EDT Ancillary Procedure [facility] [address] [facility] [address] [place] [address] Occlusion and stenosis of bilateral carotid arteries 08/02/2024 8:30 AM EDT Treatment [facility] [address] [facility] [address] [place] [address] Dax Wolf, PT Piriformis syndrome of right side (Primary Dx); Pain in right buttock; Acute bilateral low back pain without sciatica 08/02/2024 Bamboo flowsheet [facility] [address] [facility] [address] [place] [address] Dax Wolf, PT 08/02/2024 Travel 07/30/2024 Telephone [facility] [address] [facility] [place] [address] Maren Gibson MA 07/22/2024 11:00 AM EDT Treatment [facility] [address] [place] [address] Dax Wolf, PT Piriformis syndrome of right side (Primary Dx); Pain in right buttock 07/22/2024 Bamboo flowsheet [facility] [address] [place] [address] Dax Wolf, PT 07/22/2024 Travel 07/21/2024 Telephone [facility] [place] [address] [place] [address] Marielena Herrera NP 07/18/2024 Refill [facility] [place] [address] [facility] [place] [address] Marielena Herrera, KATHARINE Primary hypertension (CMS/HCC) 07/14/2024 3:00 PM EDT Evaluation [facility] [address] [address] [place] [address] Dax Wolf, PT Pain in right buttock (Primary Dx); Piriformis syndrome of right side 07/14/2024 Plan of Care Documentation [facility] [address] [address] [place] [address] 07/14/2024 Bamboo flowsheet [facility] [address] [address] [place] [address] Dax Wolf, PT 07/14/2024 Travel 07/08/2024 Telephone [facility] [address] [place] [address] [place] [address] Dax Wolf, PT PT Initial Eval ($40.00 copay / Med Nec); Call Back 07/07/2024 9:00 AM EDT Office Visit [facility] [place] [address] [place] [address] Marielena Herrera NP Primary hypertension (CMS/HCC) (Primary Dx); Iliac artery aneurysm, left (CMS/HCC); Abdominal aortic aneurysm (AAA) without rupture, unspecified part (CMS/HCC); Atherosclerosis of aorta (CMS/HCC); Peripheral arterial disease (CMS/HCC); Hyperlipidemia, unspecified hyperlipidemia type (CMS/HCC); Right bundle branch block; Occlusion and stenosis of bilateral carotid arteries; Piriformis syndrome of right side; Amnestic 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); Pulmonary nodule; Dizziness; Advanced age 0407/07/2024 Telephone [facility] [place] [address] [place] [address] Marielena Herrera NP 07/07/2024 Bamboo flowsheet [facility] [address] [place] [address] Marielena Herrera NP 07/07/2024 Travel 05/24/2024 Telephone [facility] [address] [facility] [place] [address] Beatriz Almonte MD from Last 3 Months Immunizations Immunization Administration Dates Next Due Influenza, High Dose Seasona l, Preservative Free 01/05/2024,12/05/2019,01/14/2017,01/11 Influenza, High-dose Seasona l, Quadrivalent, Preservative Free 12/18/2022,12/03/2021,01/10/2021 Influenza, Recombinant, inje ctable, preservative free 12/06/2013 Influenza, injectable, quadr ivalent, preservative free 12/21/2018,12/19/2017 Influenza, seasonal, injecta ble, preservative free 02/02/2014 Pneumococcal Conjugate PCV 13 03/04/2014 Pneumococcal Conjugate PCV 20 07/01/2022 Pneumococcal Polysaccharide PPSV23 01/22/2011 Pneumococcal, Unspecified 09/05/2013 RSV, recombinant, protein espinoza bunit RSVpreF, adjuvant reconstitu, 120mcg/0.5mL, PF (Arexvy) 07/07/2023 TD (adult), 2 Lf tetanus tox oid, preservative free, adsorbed 01/22/2010 Td (adult), 5 Lf tetanus tox oid, preservative free, adsorbed 07/12/2020 Tdap 07/01/2022 Zoster, Recombinant 09/19/2022,07/01/2022 Family History Medical History Relation Name Comments Heart attack Niece/Nephew Cataracts Sister Relation Name Status Comments Niece/Nephew Alive Sister Social History Tobacco Use Types Packs/Day Years Used Date Smoking Tobacco: Never Passive Smoke Exposure: Past Smokeless Tobacco: Never Tobacco Cessation:Counseling Given: Not [...] Sign Reading Time Taken Comments Blood Pressure 124/70 07/07/2024 8:36 AM EDT Pulse 76 07/07/2024 8:36 AM EDT Temperature 36.5 C (97.7 F) 11/05/2023 9:51 AM EDT Respiratory Rate - - Oxygen Saturation 96% 01/06/2024 2:53 PM EDT Inhaled Oxygen Concentration - - Weight 90.1 kg (198 lb 9.6 oz) 07/07/2024 8:36 A M EDT Height 180.3 cm (5' 11 ) 03/01/2024 8:33 AM EST Body Mass Index 27.7 03/01/2024 8:33 AM EST Plan of Treatment Upcoming Encounters Date Type Department Care Team (Late st Contact Info) Description 08/13/2024 8:30 AM EDT Ancillary Procedure [facility] [address] [facility] [address] [place] [address] 08/18/2024 8:00 AM EDT Treatment [facility] [address] [facility] [address] [place] [address] Dax Wolf, PT [address] [facility] [address] [place] [address] 08/19/2024 8:00 AM EDT Office Visit [facility] [address] [facility] [address] [place] [address] Michael Patel MD [address] [facility] [address] [place] [address] 08/20/2024 1:30 PM EDT Office Visit [facility] [address] [place] [address] Marielena Herrera NP [address] [place], [place] [phone] Health Maintenance Due Date Last Done Comments Pneumococcal Vaccine: 65+ Years Completed 07/01/2022, 03/04/2014, 09/05/2013, Additional history exists Influenza Vaccine Completed 01/05/2024, , 12/03/2021, Additional history exists Procedures Procedure Name Priority Date/Time Associated Diagnosis Comments VASC US CAROTID ARTERY DUPLEX BILATERAL Routine 08/02/2024 2:29 PM EDT Occlusion and stenosis of bilateral carotid arteries from Last 3 Months Results * Vascular US carotid artery duplex [...] report is generated using voice recognition reporting ([employer]). On occasion, PowerScribe erroneously drops words from the report or replaces the spoken word with a similar sounding word. Please call with any questions/concerns regarding the report. Dictated and transcribed 08/03/2024/ This report has been electronically signed and [...] report is generated using voice recognition reporting ([employer]).On occasion, Power[employer]ribe erroneously drops words from the report orreplaces the spoken word with a similar sounding word. Please call withany questions/concerns regarding the report. Dictated and transcribed 08/03/2024/ This report has been electronically signed and approved by theinterpreting radiologist. us Marielena Herrera NP IMG US PROCEDURES Final Res ult from Last 3 Months Insurance [employer] MED[employer]ARE [employer]VANTAGE Care Teams Mechanical Handyman Relationship Specialty Start Date End Date Beatriz Almonte MD [address] [place] [address] PCP - Aetdileep 03/24/22 Beatriz Almonte MD [address] [place] [address] PCP - General Family Medicine 08/23/22
--- OUTSIDE RECORDS SUMMARY | 2024-08-11 10:17 | XMS_ITS | Encounter Summary ---
Author Organization [facility] Address [address] [place] [address] Care Team Providers Care Generator Switchboard Operator Name Role Phone Beatriz Almonte MD Unavailable [phone] Beatriz Almonte MD Primary Care Provider [phone] Encounter Details Date Type Department Care Team (Late Contact Info) Description 09/22/2023 Orders Only [facility] [address] [place] [address] Yesy Jarquin MD [address] [facility] [address] [place] [address] Social History Tobacco Use Types Packs/Day Years [...] Ancillary Procedure [facility] [address] [facility] [address] [place] [address] 08/18/2024 8:00 AM EDT Treatment [facility] [address] [facility] [address] [place] [address] Dax Wolf, PT [address] [facility] [address] [place] [address] 08/19/2024 8:00 AM EDT Office Visit [facility] [address] [facility] [address] [place] [address] Michael Patel MD [address] [facility] [address] [place] [address] 08/20/2024 1:30 PM EDT Office Visit [facility] [address] [place] [address] Marielena Herrera NP [address] [place] [address] documented as of this encounter Procedures Procedure Name Priority Date/Time Associated Diagnosis Comments COLONOSCOPY Routine 09/19/2023 10:06 AM EDT documented in this encounter Results * Hm Colonoscopy (09/19/2023 10:06 AM EDT) Anatomical Region Laterality Modality Other Yesy Jarquin MD HEALTH MAINTENANCE Final Result documented in this encounter Visit Diagnoses Not on filedocumented in this encounter Care Teams Generator Switchboard Operator Relationship Specialty Start Date End Date Beatriz Almonet MD [address] [place] [address] PCP - [employer] 03/24/22 Beatriz Almonte MD [address] [place] [address] PCP - General Family Medicine 08/23/22 documented as of this encounter
--- OUTSIDE RECORDS SUMMARY | 2024-08-11 10:17 | XMS_ITS | Encounter Summary ---
Author Organization [facility] Address [address] [place] [address] Care Team Providers Care Loom Checker Name Role Phone Beatriz Almonte MD Unavailable [phone] Beatriz Almonte MD Primary Care Provider [phone] Encounter Details Date Type Department Care Team (Late Contact Info) Description 08/02/2024 Bamboo flowsheet [facility] [address] [facility] [address] [place] [address] Dax Wolf, PT [address] [facility] [address] [place] [address] Social History Tobacco Use Types Packs/Day Years [...] ULTRASOUND [address] [place] [address] [place] [address] 08/18/2024 8:00 AM EDT Treatment [facility] [address] [facility] [address] [place] [address] Dax Wolf, PT [address] [facility] [address] [place] [address] 08/19/2024 8:00 AM EDT Office Visit [facility] [address] [facility] [address] [place] [address] Michael Patel MD [address] [facility] [address] [place] [address] 08/20/2024 1:30 PM EDT Office Visit [facility] [address] [place] [address] Marielena Herrera, DOCTOR NATUROPATHIC [address] [place] [address] documented as of this encounter Visit Diagnoses Not on filedocumented in this encounter Care Teams Loom Checker Relationship Specialty Start Date End Date Beatriz Almonte MD [address] [place] [address] PCP - [employer] 03/24/22 Beatriz Almonte MD [address] [place] [address] PCP - General Family Medicine 08/23/22 documented as of this encounter
--- OUTSIDE RECORDS SUMMARY | 2024-08-11 10:17 | XMS_ITS | Encounter Summary ---
Author Organization [facility] Address [address] [place] [id number] Phone Care Team Providers Care Internship Name Role Phone Beatriz Almonte MD Primary Care Provider [phone] Encounter Details Date Type Department Care Team (Late st Contact Info) Description 02/01/2020 Orders Only [facility] [address] [place] [address] Conversion, Onbase Social History Tobacco Use Types Packs/Day Years Used Date Smoking Tobacco: Never Assessed Sex and Gender Information Value Date Recorded Sex Assigned at Not on file Legal Sex Male 6:44 PM EST Gender Identity Not on file Sexual Orientation Not on file documented as of this encounter Plan of Treatment Scheduled Orders Name Type Priority Associated Diagnoses Orde r Schedule OUTSIDE LAB SCAN Lab Ordered: 02/01/2020 documented as of this encounter Visit Diagnoses Not on filedocumented in this encounter Care Teams Internship Relationship Specialty Start Date End Date Beatriz Almonte MD [address] [place] [address] PCP - General 07/22/18 documented as of this encounter
--- OUTSIDE RECORDS SUMMARY | 2024-08-11 10:17 | XMS_ITS | Encounter Summary ---
Author Organization [facility] Address [address] [place] [address] Care Team Providers Care Bias Cutting Machine Operator Vertical Name Role Phone Beatriz Almonte MD Unavailable Beatriz Almonte MD Primary Care Provider [phone] Encounter Details Date Type Department Care Team (Late Contact Info) Description 11/08/2022 Abstract [facility] [address] [place] [address] Beatriz Almonte MD [address] [place], [place] [phone] Social History Tobacco Use Types Packs/Day Years [...] Ancillary Procedure [facility] [address] [facility] [address] [place] [address] 08/18/2024 8:00 AM EDT Treatment [facility] [address] [facility] [address] [place] [address] Dax Wolf, PT [address] [facility] [address] [place] [address] 08/19/2024 8:00 AM EDT Office Visit [facility] [address] [facility] [address] [place] [address] Michael Patel MD [address] [facility] [address], [place] [address] 08/20/2024 1:30 PM EDT Office Visit [facility] [address] [place] [address] Marielena Herrera NP [address] [place] [address] documented as of this encounter Visit Diagnoses Not on filedocumented in this encounter Care Teams Bias Cutting Machine Operator Vertical Relationship Specialty Start Date End Date eBatriz Almonte MD [address] [place], [place] [phone] PCP - [employer] 03/24/22 Beatriz Almonte MD [address] [place] [address] PCP - General Family Medicine 08/23/22 documented as of this encounter
--- OUTSIDE RECORDS SUMMARY | 2024-08-11 10:18 | XMS_ITS | CCD ---
Author Organization [facility] Care Team Providers Care King Maker Name Role Phone PHYSICIAN, DEFAULT Unavailable Unavailable PHYSICIAN, DEFAULT Unavailable Unavailable Beatriz Carson Unavailable Unavailable Unavailable DR BEATRIZ CARSON Primary Care Unavailable MISC, DR DEMPSEY Consulting Unavailable MISC, DR DEMPSEY Attending Unavailable MISC, DR DEMPSEY Admitting Unavailable BÁRBARA CRUZ Admitting Unavailable BÁRBARA CRUZ Consulting Unavailable BÁRBARA CRUZ Attending Unavailable SYBIL, DR SANDY Ventura Consulting Unavailable YAMILETH, DR BEATRIZ Bush Primary Care Unavailable SYBIL, DR SANDY Ventura Attending Unavailable SYBIL, DR SANDY Ventura Admitting Unavailable Adalberto Wood Unavailable [phone] Skye Petersen Unavailable MD Adalberto Wood Attending Provider MD Beatriz Carson Primary Care Provider [phone] Unavailable Unavailable BEATRIZ CARSON BETH Primary Care Unavailable LEDY LAGUERRE Attending Unavaila MD Beatriz Steele Primary Care Provider MD Yesy Jarquin Attending Provider Beatriz Carson Primary Care Unavailable Asaad, Imad Admitting Unavailable Kareemad Imad Attending Unavailable Beatriz Carson Primary Care Unavailable Asaad, Imad Admitting Unavailable Asaad, Imad Attending Unavailable Beatriz Carson MD Unavailable [phone] Beatriz Carson MD Primary Care Provider BEATRIZ CARSON Primary Care Unavailable JACY MALONE Attending Unavailable MALIA POZO Admitting Unavailable JACY MALONE Attending Unavailable JACY MALONE Referring Unavailable BEATRIZ CARSON Primary Care Unavailable BEATRIZ CARSON Primary Care Unavailable MICHELLE MALONE Attending Unavailable Beatriz Carson MD Unavailable [phone] Beatriz Carson MD Primary Care Provider Beatriz Carson MD Primary Care Provider JAVIER, MARIELENA A Attending Unavailable MAGNUS WOLFEMY Aimee Attending Unavailable JAVIERJEAN LOUISMARIELENA A Referring Unavailable BEATRIZ CARSON Attending Unavailable SHRADDHA WOLF Attending Unavailable JAVIER, MARIELENA A Referring Unavailable BLACKSTONSHRADDHA Attending Unavailable JAVIER, MARIELENA A Referring Unavailable JAVIER, MARIELENA A Referring Unavailable PUMP, SKYE Attending Unavailable BEATRIZ CARSON Referring Unavailable MARIELENA HERRERA Attending Unavailable BEATRIZ CARSON Attending Unavailable GERMÁN ALDANA Attending Unavailable YAMILETH, BEATRIZ Bush Referring Unavailable HENRY GUEVARA Attending Unavailable BEATRIZ CARSON Referring Unavailable KIZZY CANONN Attending Unavailable BEATRIZ CARSON Referring Unavailable BEATRIZ CARSON Attending Unavailable BEATRIZ CARSON Attending Unavailable MACIE PATEL Attending Unavailable BEATRIZ CARSON Referring Unavailable MARIELENA HERRERA Attending Unavailable MACIE PATEL Attending Unavailable PUMP, SKYE Attending Unavailable Medications Current Medications Medication Drug Class(es) Dates Sig (Normalized) Sig (Original) acetaminophen 325 mg oral tablet (20 sources) take 2 tablets by mouth every six hours as needed acetaminophen (Tylenol) 325 MG tablet Take 650 mg by mouth every 6 (six) hours if needed. Active ALPRAZolam (3 sources) Benzodiazepine ALPRAZolam Activ e amLODIPine 5 mg oral tablet (20 sources) Dihydropyridine Calcium Channel Mark Start: 03-12-2022 End: 07-19-2024 take 1 tablet by mouth once daily amLODIPine (Norvasc) 5 MG tablet Indications: Primary hypertension (CMS/HCC) TAKE 1 TABLET BY MOUTH DAILY' 90 tablet 1 07/19/2024 Active amLODIPine Besyl ate Active azelastine hydrochloride 0.137 mg/actuat metered dose nasal spray (20 sources) Histamine-1 Receptor Antagonist take 1 spray(s) nasal route in the morning azelastine (Astelin) 0.1 % nasal spray Administer 1 spray into each nostril in the morning and 1 spray before bedtime. Use in each nostril as directed. Active Calcium (3 sources) Phosphate Binder, Calcium Calcium Active Calcium Carbonate / vitamin D3 (1 source) calcium carbonate/vitamin D3 (CALCIUM 600 WITH VITAMIN D3 ORAL) Take by mouth. D3 (800 international units) 0 Active cholecalciferol, vitamin D3, (VITAMIN D3 ORAL) (1 source) cholecalciferol, vitamin D3, (VITAMIN D3 ORAL) Take 25 mcg by mouth. 0 Active Co Q 10 (3 sources) Co Q 10 Active donepezil hydrochloride 10 mg oral tablet (20 sources) Start: 03-12-20 22 End: 01-31-20 24 take 1 tablet by mouth at bedtime donepezil (Aricept) 10 MG tablet Indications: Age-related cognitive decline TAKE 1 TABLET BY MOUTH AT BEDTIME 90 tablet 3 01/31/2024 Active take 2 tablets by mouth once aguilar ly donepezil (ARICEPT) 5 mg tablet Take 2 tablets (10 mg total) by mouth nightly. 0 Active take 0.5 tablet by mouth at bedt dave Donepezil HCl - 10 MG Oral Tablet Take 1/2 tablet PO HS Quantity: 0 Refills: 0 Ordered: 26-Jul-2021 DO Active Donepezil HCl Ac tive fluticasone propionate 0.05 mg/actuat metered dose nasal spray (20 sources) Corticosteroid Start: 10-27-2023 End: 10-26-2024 take 2 spray(s) nasal route once daily fluticasone (Flonase) 50 MCG/ACT nasal spray Indications: Nasal obstruction Administer 2 sprays into each nostril Daily Shake gently. Before first use, prime pump. After use, clean tip and replace cap. 48 g 3 10/27/2023 10/26/2024 Active take 1 spray(s) nasa l route in the morning fluticasone propionate (FLONASE) 50 mcg/actuation nasal spray Administer 1 spray into each nostril in the morning. 0 Active hydrocortisone 25 mg/ml rectal cream (20 sources) Corticosteroid Start: 11-05-2023 hydrocortisone (Anusol-HC) 2.5 % rectal cream Indications: Bleeding hemorrhoid INSERT into the rectum FOUR TIMES DAILY NEEDED 30 g 1 11/05/2023 Active ketoconazole 20 mg/ml medicated shampoo (20 sources) Azole Antifungal Start: 01-26-2024 ketoconazole (NIZOral) 2 % shampoo Indications: Contact dermatitis of scalp Apply topically 2 (two) times a week 120 mL 3 01/26/2024 Active ketoconazole (NI ZOral) 2 % shampoo Apply topically 2 (two) times a week. Active M-17/NETTLE/PUMPK/SAW PALMET (PROSTATE THERAPY ORAL) (1 source) M-17/NETTLE/PUMP K/SAW PALMET (PROSTATE THERAPY ORAL) Take by mouth. 0 Active meclizine hydrochloride 25 mg oral tablet (20 sources) Antiemetic Start: 2023 End: 2023 take 1 tablet by mouth twice daily as needed for dizziness meclizine (Antivert) 25 MG tablet Indications: Vertigo Take 1 tablet (25 mg) by mouth 2 (two) times a day as needed for dizziness 90 tablet 09/03/2023 12/02/2023 Active take 1 tablet by fredy th every twelve hours Meclizine HCl 25 MG 1 tablet as needed Orally every 12 hrs Active memantine hydrochloride 5 mg oral tablet (20 sources) V-jsqjjr-W-aspartate Receptor Antagonist Start: 08-05-2024 take 1 tablet by mouth twice daily Memantine 5 mg tablet Active 5 MG PO Twice daily August 05, 2024 12:00am Start: 01-27-2024 End: 02-26-2024 take 1 tablet by mouth in the morning memantine (Namenda) 10 MG tablet Indications: MCI (mild cognitive impairment) with memory loss Take 1 tablet (10 mg) by mouth in the morning and 1 tablet (10 mg) before bedtime. 60 tablet 11 01/27/2024 Active Start: 11-17-2023 End: 01-27-2024 take 1 tablet by mouth in the morning memantine (Namenda) 5 MG tablet Indications: MCI (mild cognitive impairment) with memory loss Take 1 tablet (5 mg) by mouth in the morning and 1 tablet (5 mg) before bedtime. 60 tablet 11/17/2023 01/27/2024 Discontinued (Reorder) methylPREDNISolone 4 mg oral tablet (2 sources) Corticosteroid Start: 02-07-2022 methylPREDNISolone 4 MG as directed Orally for daily dose take half with breakfast, half with dinner for 6 days Jan, Active Multiple Vitamin (Multi-Vitamin) tablet (20 sources) take 1 tablet by mouth in the morning Multiple Vitamin (Multi-Vitamin) tablet Take 1 tablet by mouth in the morning. Active multivitamin (THERAGRAN) tablet (1 source) take 1 tablet by mouth in the morning multivitamin (THERAGRAN) tablet Take 1 tablet by mouth in the morning. 0 Active Multivitamin preparation (7 sources) Start: 03-12-2022 take 1 tablet by mouth once daily Multivitamin Active 1 TAB PO Daily March 12, 2022 1:00am Multivitamin Act gabriela Multivitamin Tablet (1 source) Start: 03-12-2022 take 1 tablet by mouth once daily Multivitamin Tablet Active 1 TAB PO Daily March 12, 2022 1:00am NON FORMULARY (20 sources) NON FORMULARY Prostate vitamin Active rosuvastatin calcium 5 mg oral tablet (20 sources) HMG-CoA Reductase Inhibitor Start: 03-12-2022 End: 11-06-2024 take 1 tablet by mouth once daily rosuvastatin (Crestor) 5 MG tablet Indications: Hyperlipidemia, unspecified hyperlipidemia type (CMS/HCC) Take 1 tablet (5 mg) by mouth Daily 90 tablet 3 11/07/2023 11/06/2024 Active Rosuvastatin Bowen cium Active sulfaSALAzine 500 mg oral tablet (20 sources) Aminosalicylate Start: 08-06-2022 take 2 tablets by mouth in the morning sulfaSALAzine (Azulfidine) 500 MG tablet Take 1,000 mg by mouth in the morning and 1,000 mg before bedtime. 08/06/2022 Active Start: 06-12-2022 take 2 tablets by mo ut in the morning, then take 2 tablets by mouth at bedtime sulfaSALAzine (AZULFIDINE) 500 mg EC tablet Take 2 tablets (1,000 mg total) by mouth in the morning and 2 tablets (1,000 mg total) before bedtime. 0 06/12/2022 Active Start: 03-12-2022 take 1 g by mouth twice daily Sulfasalazine Active 1 GM PO Twice daily 120 March 12, 2022 1:00am Sulfasalazine 500 mg tablet,delayed release (DR/EC) (4 sources) Start: 07-05-2024 take 1 g by mouth twice daily Sulfasalazine 500 mg tablet,delayed release (DR/EC) Active 1 GM PO Twice daily 120 July 05, 2024 2:07pm Start: 05-05-2024 End: 07-05-2024 take 1 g by mouth twice daily Sulfasalazine 500 mg tablet,delayed release (DR/EC) Discontinued 1 GM PO Twice daily 120 May 05, 2024 12:21pm July 05, 2024 2:08pm Start: 10-22-2023 End: 05-05-2024 take 1 g by mouth twice daily Sulfasalazine 500 mg tablet,delayed release (DR/EC) Discontinued 1 GM PO Twice daily 120 October 22, 2023 11:04am May 05, 2024 12:29pm Start: 03-12-2022 End: 10-22-2023 take 1 g by mouth twice daily Sulfasalazine 500 mg tablet,delayed release (DR/EC) Discontinued 1 GM PO Twice daily 120 March 12, 2022 1:00am October 22, 2023 11:05am TENS Unit (1 source) TENS Unit Use as directed. Active Vitamin D3 (1 source) Vitamin D3 Activ e Completed/Discontinued Medications Medication Drug Class(es) Dates Sig (Normalized) Sig (Original) Apoaequorin (Prevagen) 10 MG capsule (20 sources) End: 07-07-2024 Apoaequorin (Prevagen) 10 MG capsule Take by mouth 07/07/2024 Discontinued (Discontinued by another clinician) Apoaequorin (Pre vagen) 10 MG capsule Take by mouth Active calcium carbonate 1500 mg / cholecalciferol 0.01 mg oral tablet (5 sources) Vitamin D Start: 03-12-2022 End: 09-05-2023 take 1 tablet by mouth once daily Calcium Carbonate-Vitamin D3 (Calcium 600 + D(3)) 600 mg-10 mcg (400 unit) Tablet Discontinued 1 TAB PO Daily March 12, 2022 1:00am September 05, 2023 2:03pm Calcium 600+D 60 0-800 MG-UNIT TABS take po as directed Quantity: 0 Refills: 0 Ordered: 26-Jul-2021 DO Active ipratropium bromide 0.042 mg/actuat metered dose nasal spray (13 sources) Anticholinergic Start: 10-20-2023 End: 01-26-2024 take 2 spray(s) nasal route four times daily as needed for congestion ipratropium (Atrovent) 0.06 % nasal spray Indications: Rhinorrhea Administer 2 sprays into each nostril 4 (four) times a day as needed for rhinitis (nasal congestion) 15 mL 1 10/20/2023 01/26/2024 Discontinued (Therapy completed) Ketorolac (10 sources) Nonsteroidal Anti-inflammatory Drug, Cyclooxygenase Inhibitor Start: 01-17-2020 Toradol per 15 mg Dec, 30 mg Start: 01-05-2020 Toradol per 15 mg Dec, 30 mg loratadine 10 mg oral tablet (8 sources) Start: 03-12-2022 End: 09-05-2023 take 1 tablet by mouth once daily Loratadine 10 mg Tablet Discontinued 10 MG PO Daily March 12, 2022 1:00am September 05, 2023 2:02pm Loratadine Activ e montelukast 10 mg oral tablet (7 sources) Leukotriene Receptor Antagonist Start: 09-05-2023 End: 08-05-2024 take 1 tablet by mouth once daily Montelukast 10 mg tablet Discontinued 10 MG PO Daily September 05, 2023 12:00am August 05, 2024 8:16am take 1 tablet by mouth once nicki y montelukast (SINGULAIR) 10 mg tablet Take 1 tablet (10 mg total) by mouth nightly. 0 Active Multi Vitamin Oral Tablet (2 sources) take 1 tablet by mouth once daily Multi Vitamin Oral Tablet take 1 tablet po daily Quantity: 0 Refills: 0 Ordered: 26-Jul-2021 DO Active Nasacort AQ AERO (2 sources) Nasacort AQ AERO 10 GM; USE INTRANASALLY DIRECTED Quantity: 0 Refills: 0 Ordered: 26-Jul-2021 DO Active Prevagen 10 MG Oral Capsule (2 sources) take 1 capsule by mouth once daily Prevagen 10 MG Oral Capsule Take 1 capsule PO daily Quantity: 0 Refills: 0 Ordered: 26-Jul-2021 DO Active Prostate CAPS (2 sources) take 1 capsule by mouth twice daily Prostate CAPS TAKE 1 CAPSULE po bid Quantity: 0 Refills: 0 Ordered: 26-Jul-2021 DO Active rivaroxaban 20 mg oral tablet (9 sources) Factor Xa Inhibitor Start: End: take 1 tablet by mouth once daily Rivaroxaban (Xarelto) 20 mg tablet Discontinued 20 MG PO Daily March 12, 2022 1:00am September 05, 2023 2:01pm Xarelto Active Saw-Vit E-Sod Prs-Jot-Cmqa-Pyg (Prostate Health) 160-100-100 mg-unit-mcg Tablet (3 sources) Start: 03-12-2022 End: 09-05-2023 take 1 tablet by mouth once daily Saw-Vit E-Sod Pty-Fmx-Dpxk-Pyg (Prostate Health) 160-100-100 mg-unit-mcg Tablet Discontinued 1 TAB PO Daily March 12, 2022 1:00am September 05, 2023 2:01pm sertraline 50 mg oral tablet (2 sources) Serotonin Reuptake Inhibitor take 1 tablet by mouth once daily Sertraline HCl - 50 MG Oral Tablet TAKE 1 TABLET PO DAILY. Quantity: 30 Refills: 11 Ordered: 26-Jul-2021 DO Active Sod Picosulf-Mag Ox-Citric Ac (3 sources) Start: 08-13-2023 End: 09-19-2023 take 1 dose by mouth once daily Sod Picosulf-Mag Ox-Citric Ac (Clenpiq) 10 mg-3.5 gram- 12 gram/175 mL solution Discontinued 175 ML PO Daily 350 0 August 13, 2023 12:00am September 19, 2023 10:41am take first dose at 3PM evening before colonoscopy; 2nd dose at 9pm the night before colonoscopy Start: 08-13-2023 take 1 dose by mouth once daily Sod Picosulf-Mag Ox-Citric Ac (Clenpiq) 10 mg-3.5 gram- 12 gram/175 mL solution Active 175 ML PO Daily 350 0 August 13, 2023 12:00am take first dose at 3PM evening before colonoscopy; 2nd dose at 9pm the night before colonoscopy tadalafil 20 mg oral tablet (13 sources) Phosphodiesterase 5 Inhibitor End: 01-26-2024 tadalafil (Cialis) 20 MG tablet 1 tablet Orally prn 01/26/2024 Discontinued (Therapy completed) Triamcinolone (5 sources) Corticosteroid Start: 01-05-2020 KENALOG - 10 mg Dec, 40 mg ubidecarenone 200 mg oral capsule (2 sources) CoQ10 200 MG Ora l Capsule take po as directed Quantity: 0 Refills: 0 Ordered: 26-Jul-2021 DO Active vitamin b12 1 mg oral tablet (9 sources) Vitamin B12 Start: 03-12-2022 End: 09-05-2023 take 1 tablet by mouth once daily Cyanocobalamin (Vitamin B-12) (Vitamin B-12) 1,000 mcg Tablet Discontinued 1000 MCG PO Daily March 12, 2022 1:00am September 05, 2023 2:03pm Vitamin B12 Acti ve warfarin sodium 5 mg oral tablet (3 sources) Vitamin K Antagonist Start: 03-01-2021 take 1-2 tablets by mouth once daily Warfarin Sodium 5 MG Oral Tablet 1-2 tablets once daily or as directed by NO Quantity: 90 Refills: 1 Ordered: 01-Mar-2021 Mat Gresham MD Start : 01-Mar-2021 Active Problems Active Problems Problem Classification Problem Date Documented Da te Episodic/Chronic Abdominal pain (1 source) Unspecified abdominal pain Episodic Adjustment disorders (20 sources) Family tension; Translations: [Reaction to severe stress, unspecified] Onset: 4 10-27-2023 Chronic Anal and rectal conditions (1 source) Rectal pain Onset: 4 Episodic Anxiety disorders (20 sources) Anxiety; Translations: [Anxiety disorder, unspecified] Onset: 6 11-13-2022 Chronic Aortic; peripheral; and visceral artery aneurysms (20 sources) Abdominal aortic aneurysm without rupture; Translations: [Abdominal aortic aneurysm (AAA) without rupture] Onset: 6 11-13-2022 Chronic Cancer of prostate (20 sources) Malignant tumor of prostate; Translations: [Malignant neoplasm of prostate] Onset: 8 11-13-2022 Chronic Cataract (20 sources) After-cataract of bilateral eyes; Translations: [Other secondary cataract, bilateral] Onset: 3 09-03-2022 Chronic Conduction disorders (20 sources) Right bundle branch block; Translations: [Right bundle branch block] Onset: 9 10-27-2023 Chronic Deficiency and other anemia (1 source) Anemia, unspecified; Translations: [Anemia, unspecified type] Onset: 3 Episodic Deficiency and other anemia (4 sources) Anemia; Translations: [Anemia, unspecified] 01-06-2024 Episodic Delirium, dementia, and amnestic and other cognitive disorders (20 sources) Age-related cognitive decline; Translations: [Age-related cognitive decline] Onset: 9 11-13-2022 Chronic Disorders of lipid metabolism (20 sources) Hyperlipidemia; Translations: [Other and unspecified hyperlipidemia] Onset: 2 10-27-2023 Chronic Diverticulosis and diverticulitis (20 sources) Diverticular disease; Translations: [Diverticulosis of intestine, part unspecified, without perforation or abscess without bleeding] Onset: 3 11-13-2022 Chronic Esophageal disorders (20 sources) Gastroesophageal reflux disease; Translations: [Gastro-esophageal reflux disease without esophagitis] Onset: 3 10-27-2023 Chronic Essential hypertension (20 sources) Essential hypertension; Translations: [Essential (primary) hypertension] Onset: 2 10-27-2023 Chronic Fluid and electrolyte disorders (2 sources) Hypokalemia; Translations: [Hypokalemia] 03-01-2024 Episodic Gastrointestinal hemorrhage (6 sources) Rectal hemorrhage; Translations: [Hemorrhage of anus and rectum] Onset: 2 Resolved: 2 Episodic Mood disorders (20 sources) Reactive depression (situational); Translations: [Major depressive disorder, single episode, unspecified] Onset: 8 11-13-2022 Chronic Nausea and vomiting (1 source) Nausea Episodic Occlusion or stenosis of precerebral arteries (20 sources) Carotid artery stenosis; Translations: [Occlusion and stenosis of carotid artery without mention of cerebral infarction] Onset: 0 11-13-2022 Chronic Open wounds of head; neck; and trunk (4 sources) Scalp laceration; Translations: [Open wound of scalp, without mention of complication] Episodic Other aftercare (1 source) alf (current) use of anticoagulants; Translations: [CORRECTION CURRNT USE ANTICOAGULANTS] Onset: 1 Episodic Other aftercare (1 source) Other mcc (current) drug therapy; Translations: [OTH CORRECTION CURRENT DRUG THERAPY] Onset: 1 Episodic Other and ill-defined heart disease (20 sources) Cardiomegaly; Translations: [Cardiomegaly] Onset: 9 11-13-2022 Chronic Other connective tissue disease (20 sources) Pain in buttock; Translations: [Myalgia, other site] Onset: 4 10-29-2023 Episodic Other ear and sense organ disorders (20 sources) Sensorineural hearing loss, bilateral; Translations: [Sensorineural hearing loss, bilateral] Onset: 8 11-13-2022 Chronic Other gastrointestinal disorders (5 sources) H/O: gastrointestinal disease; Translations: [Personal history of other diseases of the digestive system] Episodic Other gastrointestinal disorders (2 sources) Personal history of other diseases of the digestive system Onset: 2 Resolved: 2 Episodic Other gastrointestinal disorders (1 source) Diarrhea, unspecified Episodic Other gastrointestinal disorders (2 sources) Constipation, unspecified; Translations: [Constipation, unspecified constipation type] Onset: 3 Episodic Other hereditary and degenerative nervous system conditions (20 sources) Mild cognitive impairment, so stated; Translations: [Mild cognitive impairment, so stated] Onset: 2 11-13-2022 Chronic Other lower respiratory disease (2 sources) Dyspnea; Translations: [Shortness of breath] 01-06-2024 Episodic Other nervous system disorders (20 sources) Right-sided piriformis syndrome; Translations: [Lesion of sciatic nerve, right lower limb] Onset: 3 10-27-2023 Chronic Other non-traumatic joint disorders (20 sources) Polyarthropathy; Translations: [Polyarthritis, unspecified] Onset: 4 10-27-2023 Chronic Other non-traumatic joint disorders (14 sources) Pain in right shoulder; Translations: [Pain in joint, shoulder region] Onset: 5 07-06-2024 Episodic Other nutritional; endocrine; and metabolic disorders (20 sources) Lipoprotein deficiency disorder; Translations: [Lipoprotein deficiency] Onset: 7 11-13-2022 Chronic Other screening for suspected conditions (not mental disorders or infectious disease) (2 sources) Electrocardiogram abnormal; Translations: [Nonspecific abnormal electrocardiogram [ECG] [EKG]] Episodic Other upper respiratory disease (20 sources) Allergic rhinitis; Translations: [Allergic rhinitis, unspecified] Onset: 8 11-13-2022 Chronic Other upper respiratory disease (3 sources) Chronic rhinitis; Translations: [Chronic rhinitis] Onset: 9 11-11-2023 Chronic Other upper respiratory infections (1 source) Chronic sinusitis, unspecified; Translations: [CHRONIC SINUSITIS UNSPECIFIED] Onset: 1 Chronic Peripheral and visceral atherosclerosis (20 sources) Peripheral vascular disease, unspecified; Translations: [Peripheral vascular disease, unspecified] Onset: 2 11-13-2022 Chronic Regional enteritis and ulcerative colitis (20 sources) Chronic ulcerative proctitis; Translations: [Ulcerative (chronic) proctitis without complications] Onset: 4 Chronic Spondylosis; intervertebral disc disorders; other back problems (20 sources) Disseminated idiopathic skeletal hyperostosis; Translations: [Ankylosing hyperostosis [[place]], site unspecified] Onset: 6 11-13-2022 Chronic Spondylosis; intervertebral disc disorders; other back problems (20 sources) Chronic low back pain; Translations: [Chronic low back pain] Onset: 3 Resolved: 4 11-13-2022 Episodic Sprains and strains (1 source) Strain of muscle and tendon of front wall of thorax, initial encounter Episodic Unclassified (3 sources) CONTACT W/AND (SUSP) EXPOS COVID-19; Translations: [CONTACT W/AND (SUSP) EXPOS COVID-19] Onset: 1 Unclassified (1 source) COUGH, UNSPECIFIED; Translations: [COUGH, UNSPECIFIED] Onset: 1 Unclassified (1 source) dizzy, lightheaded Onset: 4 Viral infection (5 sources) COVID-19; Translations: [COVID-19] Onset: 1 Past or Other Problems Problem Classification Problem Date Documented Da te Episodic/Chronic Calculus of urinary tract (20 sources) Kidney stone; Translations: [Calculus of kidney] Onset: 03-14-2022 Resolved: 03-01-2024 11-13-2022 Episodic Cardiac dysrhythmias (20 sources) Atrial fibrillation; Translations: [Atrial fibrillation] Onset: 06-10-2018 Resolved: 12-16-2022 12-16-2022 Chronic Conditions associated with dizziness or vertigo (20 sources) Lightheadedness; Translations: [Dizziness and giddiness] Onset: 04-15-2022 09-03-2023 Episodic Hemorrhoids (20 sources) Unspecified hemorrhoids; Translations: [Hemorrhoids] Onset: 11-28-2021 Resolved: 11-28-2021 Episodic Immunizations and screening for infectious disease (1 source) Encounter for immunization; Translations: [ENCOUNTER FOR IMMUNIZATION] Onset: 01-17-2021 Episodic Inflammation; infection of eye (except that caused by tuberculosis or sexually transmitteddisease) (20 sources) Blepharitis of upper and lower eyelids of bilateral eyes; Translations: [Unspecified blepharitis right eye, upper and lower eyelids] Onset: 09-03-2022 Resolved: 03-01-2024 09-03-2022 Episodic Malaise and fatigue (1 source) Other fatigue; Translations: [OTHER FATIGUE] Onset: 12-30-2020 Episodic Mood disorders (1 source) Mood disorders Onset: 11-06-2022 11-06-2022 Nonspecific chest pain (18 sources) Chest pain; Translations: [Chest pain, unspecified] Onset: 11-06-2022 11-07-2023 Episodic Other aftercare (20 sources) Long-term current use of anticoagulant; Translations: [alf (current) use of anticoagulants] Onset: 07-02-2018 Resolved: 12-16-2022 12-16-2022 Episodic Other diseases of kidney and ureters (20 sources) Cyst of kidney; Translations: [Cyst of kidney, acquired] Onset: 11-13-2022 11-13-2022 Episodic Other eye disorders (20 sources) Dry eyes; Translations: [Dry eye syndrome of bilateral lacrimal glands] Onset: 09-03-2022 09-03-2022 Episodic Other lower respiratory disease (20 sources) Nodule of lung; Translations: [Solitary pulmonary nodule] Onset: 11-13-2022 11-13-2022 Episodic Other lower respiratory disease (1 source) Hypoxemia; Translations: [Hypoxemia] Onset: 11-02-2023 Episodic Other lower respiratory disease (1 source) Shortness of breath; Translations: [Shortness of breath] Onset: 11-02-2023 Episodic Other nervous system disorders (20 sources) Unsteady when standing; Translations: [Unsteadiness on feet] Onset: 10-27-2023 Resolved: 03-01-2024 10-27-2023 Episodic Other non-epithelial cancer of skin (20 sources) Squamous cell carcinoma of skin; Translations: [Squamous cell carcinoma of skin, unspecified] Onset: 12-16-2016 11-13-2022 Episodic Other non-traumatic joint disorders (20 sources) Pain in right knee; Translations: [Pain in joint, lower leg] Onset: 10-27-2023 Resolved: 03-01-2024 10-27-2023 Episodic Other non-traumatic joint disorders (20 sources) Hip pain; Translations: [Pain in unspecified hip] Onset: 07-23-2022 11-07-2023 Episodic Other nutritional; endocrine; and metabolic disorders (20 sources) Overweight; Translations: [Overweight] Onset: 09-26-2019 10-27-2023 Episodic Other upper respiratory infections (20 sources) Acute pharyngitis, unspecified; Translations: [Acute maxillary sinusitis] Onset: 03-20-2021 Resolved: 03-01-2024 Episodic Residual codes; unclassified (2 sources) Amnesia; Translations: [Other amnesia] 11-17-2023 Episodic Respiratory failure; insufficiency; arrest (adult) (20 sources) Acute respiratory failure; Translations: [Acute respiratory failure with hypoxia] Onset: 11-02-2023 Resolved: 11-11-2023 11-11-2023 Episodic Unclassified (1 source) CONTACT W/AND (SUSP) EXPOS COVID-19; Translations: [CONTACT W/AND (SUSP) EXPOS COVID-19] Onset: 12-27-2020 Unclassified (1 source) Onset: 03-14-2022 03-14-2022 Viral infection (20 sources) Disease caused by 2019-nCoV; Translations: [COVID-19] Onset: 11-02-2023 Resolved: 03-01-2024 11-07-2023 Episodic Results Test Name Value Interpretation Reference Range Facility [facility] US CAROTID ARTERY DUPLE X BILATERALon 08-02-2024 [facility] US CAROTID ARTERY DUPLEX BILATERAL EXAM: Carotid Artery Ultrasound: REASON FOR EXAM: [...] report is generated using voice recognition reporting ([facility]). On occasion, [facility] erroneously drops words from the report or replaces the spoken word with a similar sounding word. Please call with any questions/concerns regarding the report. Dictated and transcribed 08/03/2024/alex This report has been electronically signed and approved by the interpreting radiologist. Normal Not Available XR ABDOMEN AP 1 VWon 024 XR ABDOMEN AP 1 VW XR ABDOMEN AP 1 VW Abdomen single view Clinical history:eval for stool ball vs obstruction abdominal pain Comparison: None. Findings: AP supine view of the abdomen. Nonobstructive bowel gas pattern. There is a mild to moderate amount of gas and stool seen throughout the colon. Degenerative change of the thoracolumbar spine. Degenerative changes of both hips. Impression: Mild to moderate amount of gas and stool seen throughout the colon. Nonobstructive bowel gas pattern. Finalized by David Lopez MD on 02/28/2024 11:02 AM Normal [facility] CBC AND AUTO DIFFon 11-04-19 24 ABSOLUTE BASOPHIL 0.0 X10E9/L Normal 0.0-0.2 [facility] Comment on above: Performed By: #### C BCA, BMP, 18883-4, PINR, 97755-4, 88936-7 #### [facility] ([id number]) [address] [place] [address] 40816 ABSOLUTE NEUTROPHIL 2.3 X10E9/L Normal 1.5-6.6 [facility] Comment on above: Performed By: #### C BCA, BMP, 33715-1, PINR, 13934-3, 15821-3 #### [facility] ([id number]) [address] [place] [address] 80548 Basophils/100 WBC (Bld) 0.5 % Normal [facility] Comment on above: Performed By: #### C BCA, BMP, 99052-9, PINR, 08693-1, 86554-1 #### [facility] ([id number]) [address] [place] [address] 16063 Eosinophils (Bld) [#/Vol] 0.0 10*3/uL Normal 0.0-0.4 [facility] Comment on above: Performed By: #### C BCA, BMP, 67648-4, PINR, 09513-9, 19584-7 #### [facility] ([id number]) [address] [place] [address] 94733 Eosinophils/100 WBC (Bld) 0.4 % Normal [facility] Comment on above: Performed By: #### C BCA, BMP, 40896-6, PINR, 02112-1, 26130-6 #### [facility] ([id number]) [address] [place] [address] 03040 Erythrocyte distribution width (RBC) [Ratio] 13.2 % Normal 11.5-15.0 [facility] Comment on above: Performed By: #### C BCA, BMP, 53272-6, PINR, 43634-4, 83662-8 #### [facility] ([id number]) [address] [place] [address] 37138 Hematocrit (Bld) [Volume fraction] 32.1 % Low 39-49 [facility] Comment on above: Performed By: #### C BCA, BMP, 28323-7, PINR, 46534-6, 93136-9 #### [facility] ([id number]) [address] [place] [address] 66612 Hemoglobin (Bld) [Mass/Vol] 10.8 g/dL Low 13.0-17.0 [facility] Comment on above: Performed By: #### C BCA, BMP, 15758-6, PINR, 17162-8, 81664-4 #### [facility] ([id number]) [address] [place] [address] 30898 Lymphocytes (Bld) [#/Vol] 1.3 10*3/uL Normal 1.0-3.5 [facility] Comment on above: Performed By: #### C BCA, BMP, 72228-2, PINR, 93536-1, 52630-4 #### [facility] ([id number]) [address] [place] [address] 24677 Lymphocytes/100 WBC (Bld) 30.1 % Normal [facility] Comment on above: Performed By: #### C BCA, BMP, 70392-5, PINR, 67661-3, 06518-0 #### [facility] ([id number]) [address] [place] [address] 41760 MCH (RBC) [Entitic mass] 31.6 pg Normal 27-34 [facility] Comment on above: Performed By: #### C BCA, BMP, 01931-3, PINR, 21001-7, 39785-7 #### [facility] ([id number]) [address] [place] [address] 29964 MCHC (RBC) [Mass/Vol] 33.7 g/dL Normal 32-36 [facility] Comment on above: Performed By: #### C BCA, BMP, 53543-8, PINR, 66837-7, 09591-3 #### [facility] ([id number]) [address] [place] [address] 09422 MCV (RBC) [Entitic vol] 94 fL Normal 80-100 [facility] Comment on above: Performed By: #### C BCA, BMP, 91972-6, PINR, 88123-6, 96063-6 #### [facility] ([id number]) [address] [place] [address] 43814 Monocytes (Bld) [#/Vol] 0.7 10*3/uL Normal 0-0.9 [facility] Comment on above: Performed By: #### C BCA, BMP, 26942-1, PINR, 15357-4, 88529-3 #### [facility] ([id number]) [address] [place] [address] 75491 Monocytes/100 WBC (Bld) 16.6 % Normal [facility] Comment on above: Performed By: #### C BCA, BMP, 88891-9, PINR, 70954-9, 15912-7 #### [facility] ([id number]) [address] [place] [address] 02023 Neutrophils/100 WBC (Bld) 52.4 % Normal [facility] Comment on above: Performed By: #### C BCA, BMP, 50012-7, PINR, 85263-9, 57058-5 #### [facility] ([id number]) [address] [place] [address] 41289 Platelet mean volume (Bld) [Entitic vol] 8.0 fL Normal 7-12 [facility] Comment on above: Performed By: #### C BCA, BMP, 30175-8, PINR, 27043-3, 25779-9 #### [facility] ([id number]) [address] [place] [address] 70513 Platelets (Bld) [#/Vol] 162 10*3/uL Normal 150-450 [facility] Comment on above: Performed By: #### C BCA, BMP, 54751-5, PINR, 15875-5, 30929-8 #### [facility] ([id number]) [address] [place] [address] 71771 RBC COUNT 3.43 X10E12/L Low 4.10-5.70 [facility] Comment on above: Performed By: #### C BCA, BMP, 60261-6, PINR, 85274-5, 44366-2 #### [facility] ([id number]) [address] [place] [address] 06688 WBC (Bld) [#/Vol] 4.4 10*3/uL Normal 4.0-11.0 [facility] Comment on above: Performed By: #### C BCA, BMP, 11929-4, PINR, 67901-8, 69622-1 #### [facility] ([id number]) [address] [place] [address] 93567 COMPREHENSIVE METABOLIC PANE Mohan 11-04-2023 Albumin [Mass/Vol] 3.5 g/dL Normal 3.2-5.3 [facility] Comment on above: Performed By: #### C BCA, BMP, 42843-0, PINR, 40565-6, 05266-0 #### [facility] ([id number]) [address] [place] [address] 80735 ALP [Catalytic activity/Vol] 58 U/L Normal 39-130 [facility] Comment on above: Performed By: #### C BCA, BMP, 11641-0, PINR, 54210-3, 11740-0 #### [facility] ([id number]) [address] [place] [address] 18291 ALT [Catalytic activity/Vol] 18 U/L Normal 0-40 [facility] Comment on above: Performed By: #### C BCA, BMP, 61178-8, PINR, 61400-6, 69773-7 #### [facility] ([id number]) [address] [place] [address] 39538 Anion gap [Moles/Vol] 6 mmol/L Normal 5-15 [facility] Comment on above: Performed By: #### C BCA, BMP, 31847-6, PINR, 56766-4, 50890-7 #### [facility] ([id number]) [address] [place] [address] 61574 AST [Catalytic activity/Vol] 23 U/L Normal 0-41 [facility] Comment on above: Performed By: #### C BCA, BMP, 50205-3, PINR, 31697-3, 92645-8 #### [facility] ([id number]) [address] [place] [address] 38836 Bilirubin [Mass/Vol] 0.7 mg/dL Normal 0.3-1.2 [facility] Comment on above: Performed By: #### C BCA, BMP, 22090-7, PINR, 12900-9, 41861-2 #### [facility] ([id number]) [address] [place] [address] 27169 Calcium [Mass/Vol] 8.6 mg/dL Normal 8.5-10.5 [facility] Comment on above: Performed By: #### C BCA, BMP, 67889-0, PINR, 81772-6, 76601-8 #### [facility] ([id number]) [address] [place] [address] 82389 Chloride [Moles/Vol] 105 mmol/L Normal 98-109 [facility] Comment on above: Performed By: #### C BCA, BMP, 53356-2, PINR, 05532-2, 24841-6 #### [facility] ([id number]) [address] [place] [address] 07842 CO2 [Moles/Vol] 24 mmol/L Normal 22-32 [facility] Comment on above: Performed By: #### C BCA, BMP, 23938-7, PINR, 86121-0, 83884-5 #### [facility] ([id number]) [address] [place] [address] 74473 Creatinine [Mass/Vol] 0.67 mg/dL Low 0.70-1.20 [facility] Comment on above: Result Comment: METH OD TRACEABLE TO IDMS STANDARD Performed By: #### C BCA, BMP, 65521-6, PINR, 17498-4, 29387-0 #### [facility] ([id number]) [address] [place] [address] 84770 eGFR (CKD-EPI) NON-RACE DEPENDENT >90 Normal >59 [facility] Comment on above: Result Comment: Reported eGFR is based on the CKD-EPI 2020 equation that does not use a race coefficient. Performed By: #### C BCA, BMP, 29130-4, PINR, 74853-1, 47739-4 #### [facility] ([id number]) [address] [place] [address] 40214 Glucose [Mass/Vol] 90 mg/dL Normal 65-99 [facility] Comment on above: Performed By: #### C BCA, BMP, 90422-6, PINR, 19997-0, 63725-2 #### [facility] ([id number]) [address] [place] [address] 85036 Potassium [Moles/Vol] 3.3 mmol/L Low 3.5-5.0 [facility] Comment on above: Performed By: #### C BCA, BMP, 02804-7, PINR, 33548-6, 84365-6 #### [facility] ([id number]) [address] [place] [address] 85932 Protein [Mass/Vol] 6.5 g/dL Normal 6.0-8.0 [facility] Comment on above: Performed By: #### C BCA, BMP, 77207-2, PINR, 26597-5, 70862-2 #### [facility] ([id number]) [address] [place] [address] 12438 Sodium [Moles/Vol] 135 mmol/L Normal 134-146 [facility] Comment on above: Performed By: #### C BCA, BMP, 16109-8, PINR, 84283-7, 68796-3 #### [facility] ([id number]) [address] [place] [address] 89843 Urea nitrogen [Mass/Vol] 19 mg/dL Normal 5-27 [facility] Comment on above: Performed By: #### C BCA, BMP, 18058-9, PINR, 49722-5, 05180-8 #### [facility] ([id number]) [address] [place] [address] 91445 CBC AND AUTO DIFFon 11-02- 24 ABSOLUTE BASOPHIL 0.0 X10E9/L Normal 0.0-0.2 [facility] Comment on above: Performed By: #### C BCA, CMP #### [facility] ([id number]) [address] [place] [address] 69643 ABSOLUTE NEUTROPHIL 3.3 X10E9/L Normal 1.5-6.6 [facility] Comment on above: Performed By: #### C BCA, CMP #### [facility] ([id number]) [address] [place] [address] 18428 Basophils/100 WBC (Bld) 0.3 % Normal [facility] Comment on above: Performed By: #### C BCA, CMP #### [facility] ([id number]) [address] [place] [address] 67677 Eosinophils (Bld) [#/Vol] 0.0 10*3/uL Normal 0.0-0.4 [facility] Comment on above: Performed By: #### C BCA, CMP #### [facility] ([id number]) [address] [place] [address] 63518 Eosinophils/100 WBC (Bld) 0.0 % Normal [facility] Comment on above: Performed By: #### C RODRIGUEZ, CMP #### [facility] ([id number]) [address] [place] [address] 17418 Erythrocyte distribution width (RBC) [Ratio] 13.3 % Normal 11.5-15.0 [facility] Comment on above: Performed By: #### C RODRIGUEZ, CMP #### [facility] ([id number]) [address] [place] [address] 64792 Hematocrit (Bld) [Volume fraction] 31.2 % Low 39-49 [facility] Comment on above: Performed By: #### C RODRIGUEZ, CMP #### [facility] ([id number]) [address] [place] [address] 13380 Hemoglobin (Bld) [Mass/Vol] 10.6 g/dL Low 13.0-17.0 [facility] Comment on above: Performed By: #### C BCA, CMP #### [facility] ([id number]) [address] [place] [address] 29004 Lymphocytes (Bld) [#/Vol] 0.7 10*3/uL Low 1.0-3.5 [facility] Comment on above: Performed By: #### C BCA, CMP #### [facility] ([id number]) [address] [place] [address] 81983 Lymphocytes/100 WBC (Bld) 15.3 % Normal [facility] Comment on above: Performed By: #### C BCA, CMP #### [facility] ([id number]) [address] [place] [address] 21202 MCH (RBC) [Entitic mass] 32.3 pg Normal 27-34 [facility] Comment on above: Performed By: #### C BCA, CMP #### [facility] ([id number]) [address] [place] [address] 72260 MCHC (RBC) [Mass/Vol] 34.0 g/dL Normal 32-36 [facility] Comment on above: Performed By: #### C RODRIGUEZ, CMP #### [facility] ([id number]) [address] [place] [address] 73006 MCV (RBC) [Entitic vol] 95 fL Normal 80-100 [facility] Comment on above: Performed By: #### C RODRIGUEZ, CMP #### [facility] ([id number]) [address] [place] [address] 26368 Monocytes (Bld) [#/Vol] 0.7 10*3/uL Normal 0-0.9 [facility] Comment on above: Performed By: #### C BCA, CMP #### [facility] ([id number]) [address] [place] [address] 08921 Monocytes/100 WBC (Bld) 14.9 % Normal [facility] Comment on above: Performed By: #### C BCA, CMP #### [facility] ([id number]) [address] [place] [address] 80279 Neutrophils/100 WBC (Bld) 69.5 % Normal [facility] Comment on above: Performed By: #### C BCA, CMP #### [facility] ([id number]) [address] [place] [address] 00717 Platelet mean volume (Bld) [Entitic vol] 7.6 fL Normal 7-12 [facility] Comment on above: Performed By: #### C BCA, CMP #### [facility] ([id number]) [address] [place] [address] 78016 Platelets (Bld) [#/Vol] 148 10*3/uL Low 150-450 [facility] Comment on above: Performed By: #### C BCA, CMP #### [facility] ([id number]) [address] [place] [address] 31828 RBC COUNT 3.29 X10E12/L Low 4.10-5.70 [facility] Comment on above: Performed By: #### C RODRIGUEZ, CMP #### [facility] ([id number]) [address] [place] [address] 69336 WBC (Bld) [#/Vol] 4.8 10*3/uL Normal 4.0-11.0 [facility] Comment on above: Performed By: #### C RODRIGUEZ, CMP #### [facility] ([id number]) [address] [place] [address] 62697 COMPREHENSIVE METABOLIC PANE Mohan 11-03-2023 Albumin [Mass/Vol] 3.8 g/dL Normal 3.2-5.3 [facility] Comment on above: Performed By: #### C RODRIGUEZ, BMP, 89545-8, PINR, 43995-8, 58259-4 #### [facility] ([id number]) [address] [place] [address] 58991 ALP [Catalytic activity/Vol] 60 U/L Normal 39-130 [facility] Comment on above: Performed By: #### C RODRIGUEZ, BMP, 11811-7, PINR, 41573-9, 97585-6 #### [facility] ([id number]) [address] [place] [address] 89305 ALT [Catalytic activity/Vol] 18 U/L Normal 0-40 [facility] Comment on above: Performed By: #### C BCA, BMP, 13616-8, PINR, 52212-4, 57157-3 #### [facility] ([id number]) [address] [place] [address] 83591 Anion gap [Moles/Vol] 7 mmol/L Normal 5-15 [facility] Comment on above: Performed By: #### C BCA, BMP, 23573-7, PINR, 89759-2, 11339-1 #### [facility] ([id number]) [address] [place] [address] 04074 AST [Catalytic activity/Vol] 19 U/L Normal 0-41 [facility] Comment on above: Performed By: #### C BCA, BMP, 52002-8, PINR, 47596-9, 26977-6 #### [facility] ([id number]) [address] [place] [address] 15704 Bilirubin [Mass/Vol] 0.6 mg/dL Normal 0.3-1.2 [facility] Comment on above: Performed By: #### C BCA, BMP, 51523-6, PINR, 62082-7, 96846-2 #### [facility] ([id number]) [address] [place] [address] 98680 Calcium [Mass/Vol] 8.6 mg/dL Normal 8.5-10.5 [facility] Comment on above: Performed By: #### C BCA, BMP, 27536-2, PINR, 98237-6, 98682-7 #### [facility] ([id number]) [address] [place] [address] 07229 Chloride [Moles/Vol] 106 mmol/L Normal 98-109 [facility] Comment on above: Performed By: #### C BCA, BMP, 56042-1, PINR, 75630-8, 48366-6 #### [facility] ([id number]) [address] [place] [address] 62401 CO2 [Moles/Vol] 24 mmol/L Normal 22-32 [facility] Comment on above: Performed By: #### C BCA, BMP, 09134-7, PINR, 94605-0, 83475-2 #### [facility] ([id number]) [address] [place] [address] 20272 Creatinine [Mass/Vol] 0.77 mg/dL Normal 0.70-1.20 [facility] Comment on above: Result Comment: METH OD TRACEABLE TO IDMS STANDARD Performed By: #### C BCA, BMP, 61616-3, PINR, 01108-2, 22079-3 #### [facility] ([id number]) [address] [place] [address] 43195 GFR/1.73 sq M.predicted among non-blacks MDRD (S/P/Bld) [Vol rate/Area] 87 mL/min/{1.73_m2} Normal >59 [facility] Comment on above: Result Comment: Reported eGFR is based on the CKD-EPI 2020 equation that does not use a race coefficient. Performed By: #### C BCA, BMP, 16212-2, PINR, 92135-4, 81539-1 #### [facility] ([id number]) [address] [place] [address] 86290 Glucose [Mass/Vol] 101 mg/dL High 65-99 [facility] Comment on above: Performed By: #### C BCA, BMP, 84195-1, PINR, 52017-2, 19240-5 #### [facility] ([id number]) [address] [place] [address] 30310 Potassium [Moles/Vol] 3.8 mmol/L Normal 3.5-5.0 [facility] Comment on above: Performed By: #### C BCA, BMP, 75738-8, PINR, 98505-8, 34471-6 #### [facility] ([id number]) [address] [place] [address] 05412 Protein [Mass/Vol] 6.6 g/dL Normal 6.0-8.0 [facility] Comment on above: Performed By: #### C BCA, BMP, 06684-6, PINR, 74139-8, 11552-7 #### [facility] ([id number]) [address] [place] [address] 94133 Sodium [Moles/Vol] 137 mmol/L Normal 134-146 [facility] Comment on above: Performed By: #### C BCA, BMP, 21497-6, PINR, 49502-2, 37330-7 #### [facility] ([id number]) [address] [place] [address] 67966 Urea nitrogen [Mass/Vol] 12 mg/dL Normal 5-27 [facility] Comment on above: Performed By: #### C BCA, BMP, 41656-0, PINR, 84837-0, 70627-6 #### [facility] ([id number]) [address] [place] [address] 57295 BASIC METABOLIC PANLon 11-01 Anion gap [Moles/Vol] 7 mmol/L Normal 5-15 [facility] Comment on above: Performed By: #### C BCA, BMP, 80751-9, PINR, 28135-3, 95513-1 #### [facility] ([id number]) [address] [place] [address] 74062 Calcium [Mass/Vol] 9.1 mg/dL Normal 8.5-10.5 [facility] Comment on above: Performed By: #### C BCA, BMP, 01306-8, PINR, 75918-6, 95564-3 #### [facility] ([id number]) [address] [place] [address] 17165 Chloride [Moles/Vol] 105 mmol/L Normal 98-109 [facility] Comment on above: Performed By: #### C BCA, BMP, 17771-9, PINR, 30196-4, 27579-7 #### [facility] ([id number]) [address] [place] [address] 08140 CO2 [Moles/Vol] 24 mmol/L Normal 22-32 [facility] Comment on above: Performed By: #### C BCA, BMP, 22052-1, PINR, 33208-7, 99027-2 #### [facility] ([id number]) [address] [place] [address] 08893 Creatinine [Mass/Vol] 0.86 mg/dL Normal 0.70-1.20 [facility] Comment on above: Result Comment: METH OD TRACEABLE TO IDMS STANDARD Performed By: #### C BCA, BMP, 93934-9, PINR, 08218-0, 89560-4 #### [facility] ([id number]) [address] [place] [address] GFR/1.73 sq M.predicted among non-blacks MDRD (S/P/Bld) [Vol rate/Area] 84 mL/min/{1.73_m2} Normal >59 [facility] Comment on above: Result Comment: Reported eGFR is based on the CKD-EPI 1 equation that does not use a race coefficient. Performed By: #### C BCA, BMP, 44449-5, PINR, 74605-1, 05481-9 #### [facility] ([id number]) [address] [place] [address]651 Glucose [Mass/Vol] 110 mg/dL High 65-99 [facility] Comment on above: Performed By: #### C BCA, BMP, 37348-5, PINR, 26568-4, 14418-5 #### [facility] ([id number]) [address] [place] [address]3536 Potassium [Moles/Vol] 3.6 mmol/L Normal 3.5-5.0 [facility] Comment on above: Performed By: #### C BCA, BMP, 88766-1, PINR, 33847-0, 00173-9 #### [facility] ([id number]) [address] [place] [address]118 Sodium [Moles/Vol] 136 mmol/L Normal 134-146 [facility] Comment on above: Performed By: #### C BCA, BMP, 73302-6, PINR, 71825-9, 63228-0 #### [facility] ([id number]) [address] [place] [address] 29759 Urea nitrogen [Mass/Vol] 12 mg/dL Normal 5-27 [facility] Comment on above: Performed By: #### C BCA, BMP, 56268-3, PINR, 68179-6, 13285-8 #### [facility] [facility] ([id number]) [address] [place] [address] 94760 CBC AND AUTO DIFFon 11-02-19 24 ABSOLUTE BASOPHIL 0.0 X10E9/L Normal 0.0-0.2 [facility] Comment on above: Performed By: #### C BCA, BMP, 27507-0, PINR, 86886-0, 58596-7 #### [facility] ([id number]) [address] [place] [address] 70681 ABSOLUTE NEUTROPHIL 4.9 X10E9/L Normal 1.5-6.6 [facility] Comment on above: Performed By: #### C BCA, BMP, 91195-1, PINR, 16464-0, 52653-8 #### [facility] ([id number]) [address] [place] [address] 97225 Basophils/100 WBC (Bld) 0.6 % Normal [facility] Comment on above: Performed By: #### C BCA, BMP, 30153-2, PINR, 88333-9, 05529-2 #### [facility] ([id number]) [address] [place] [address] 50267 Eosinophils (Bld) [#/Vol] 0.0 10*3/uL Normal 0.0-0.4 [facility] Comment on above: Performed By: #### C BCA, BMP, 33049-3, PINR, 94265-6, 72280-9 #### [facility] ([id number]) [address] [place] [address] 76834 Eosinophils/100 WBC (Bld) 0.5 % Normal [facility] Comment on above: Performed By: #### C BCA, BMP, 88145-3, PINR, 42338-2, 70284-2 #### [facility] ([id number]) [address] [place] [address] 33695 Erythrocyte distribution width (RBC) [Ratio] 13.2 % Normal 11.5-15.0 [facility] Comment on above: Performed By: #### C BCA, BMP, 00465-7, PINR, 49901-5, 49472-1 #### [facility] ([id number]) [address] [place] [address] 73541 Hematocrit (Bld) [Volume fraction] 35.7 % Low 39-49 [facility] Comment on above: Performed By: #### C BCA, BMP, 20824-6, PINR, 87946-9, 92070-6 #### [facility] ([id number]) [address] [place] [address] 96653 Hemoglobin (Bld) [Mass/Vol] 12.0 g/dL Low 13.0-17.0 [facility] Comment on above: Performed By: #### C BCA, BMP, 14579-7, PINR, 36066-4, 06525-7 #### [facility] ([id number]) [address] [place] [address] 44871 Lymphocytes (Bld) [#/Vol] 0.6 10*3/uL Low 1.0-3.5 [facility] Comment on above: Performed By: #### C BCA, BMP, 30653-6, PINR, 42040-2, 29555-5 #### [facility] ([id number]) [address] [place] [address] 24314 Lymphocytes/100 WBC (Bld) 9.7 % Normal [facility] Comment on above: Performed By: #### C BCA, BMP, 31430-0, PINR, 26907-8, 30217-4 #### [facility] ([id number]) [address] [place] [address] 50364 MCH (RBC) [Entitic mass] 31.5 pg Normal 27-34 [facility] Comment on above: Performed By: #### C BCA, BMP, 20448-1, PINR, 19458-2, 57612-9 #### [facility] ([id number]) [address] [place] [address] 65872 MCHC (RBC) [Mass/Vol] 33.5 g/dL Normal 32-36 [facility] Comment on above: Performed By: #### C BCA, BMP, 06220-1, PINR, 19919-2, 01102-4 #### [facility] ([id number]) [address] [place] [address] 33626 MCV (RBC) [Entitic vol] 94 fL Normal 80-100 [facility] Comment on above: Performed By: #### C BCA, BMP, 12187-3, PINR, 71564-9, 00858-0 #### [facility] ([id number]) [address] [place] [address] 18811 Monocytes (Bld) [#/Vol] 0.7 10*3/uL Normal 0-0.9 [facility] Comment on above: Performed By: #### C BCA, BMP, 86793-6, PINR, 32982-9, 83160-7 #### [facility] ([id number]) [address] [place] [address] 75435 Monocytes/100 WBC (Bld) 10.8 % Normal [facility] Comment on above: Performed By: #### C BCA, BMP, 39728-1, PINR, 43044-5, 11036-1 #### [facility] ([id number]) [address] [place] [address] 17538 Neutrophils/100 WBC (Bld) 78.4 % Normal [facility] Comment on above: Performed By: #### C BCA, BMP, 88846-8, PINR, 14448-0, 54519-9 #### [facility] ([id number]) [address] [place] [address] 29490 Platelet mean volume (Bld) [Entitic vol] 7.5 fL Normal 7-12 [facility] Comment on above: Performed By: #### C BCA, BMP, 85973-3, PINR, 38294-7, 49797-6 #### [facility] ([id number]) [address] [place] [address] 05896 Platelets (Bld) [#/Vol] 174 10*3/uL Normal 150-450 [facility] Comment on above: Performed By: #### C BCA, BMP, 43415-6, PINR, 56578-3, 13387-7 #### [facility] ([id number]) [address] [place] [address] 13898 RBC COUNT 3.79 X10E12/L Low 4.10-5.70 [facility] Comment on above: Performed By: #### C BCA, BMP, 12824-4, PINR, 33490-4, 55908-7 #### [facility] ([id number]) [address] [place] [address] 26124 WBC (Bld) [#/Vol] 6.2 10*3/uL Normal 4.0-11.0 [facility] Comment on above: Performed By: #### C BCA, BMP, 72016-9, PINR, 05137-8, 48293-3 #### [facility] ([id number]) [address] [place] [address] 54577 Fibrin D-dimer DDU (PPP) [Ma ss/Vol]on 11-02-2023 D DIMER 220 ng/mL DDU Normal <255 [facility] Comment on above: Result Comment: Results <255 ng/mL DDU: The presence of a VTE can safely be excluded with a negative D-Dimer result and Wells score. A negative result doesn't exclude the possibility of DIC. The test be repeated along with other diagnostic tests if the patient's symptoms persist or worsen. [email or web address] Performed By: #### C BCA, BMP, 62832-9, PINR, 70414-5, 27746-5 #### [facility] ([id number]) [address] [place] [address] 44273 LIVER PANELon 11-02-2023 Albumin [Mass/Vol] 3.7 g/dL Normal 3.2-5.3 [facility] Comment on above: Performed By: #### L IVR #### [facility] ([id number]) [address] [place] [address] 08238 ALP [Catalytic activity/Vol] 55 U/L Normal 39-130 [facility] Comment on above: Performed By: #### L IVR #### [facility] ([id number]) [address] [place] [address] 68268 ALT [Catalytic activity/Vol] 16 U/L Normal 0-40 [facility] Comment on above: Performed By: #### L IVR #### [facility] ([id number]) [address] [place] [address] 78523 AST [Catalytic activity/Vol] 21 U/L Normal 0-41 [facility] Comment on above: Performed By: #### L IVR #### [facility] ([id number]) [address] [place] [address] 95101 Bilirubin [Mass/Vol] 0.7 mg/dL Normal 0.3-1.2 [facility] Comment on above: Performed By: #### L IVR #### [facility] ([id number]) [address] [place] [address] 52231 Bilirubin.direct [Mass/Vol] 0.1 mg/dL Normal 0.0-0.4 [facility] Comment on above: Performed By: #### L IVR #### [facility] ([id number]) [address] [place] [address] 93659 Protein [Mass/Vol] 6.2 g/dL Normal 6.0-8.0 [facility] Comment on above: Performed By: #### L IVR #### [facility] ([id number]) [address] [place] [address] 23351 PROTIME AND INRon 11-02-2023 INR Coag (PPP) [Relative time] 1.2 {INR} High 0.8-1.1 [facility] Comment on above: Performed By: #### C BCA, BMP, 79122-9, PINR, 87324-5, 03619-9 #### [facility] ([id number]) [address] [place] [address] 66659 PT Coag (PPP) [Time] 14.0 s High 9.8-13.2 [facility] Comment on above: Result Comment: NEW REFERENCE RANGE Performed By: #### C BCA, BMP, 05005-4, PINR, 95605-6, 75612-2 #### [facility] ([id number]) [address] [place] [address] SARS/FLU A+B/RSV by NAAT/Mol ecularon 11-02-2023 SARS/FLU A+B/RSV by NAAT/Molecular FLU A PCR Negative (qualifier value) FLU B PCR Negative (qualifier value) RSV by PCR Negative (qualifier value) SARS CoV 2 Detected (qualifier value) NOTE The Xpert Xpress SARS-CoV-2/Flu/RSV Plus test is a rapid, multiplexed real-time RT-PCR test intended for the simultaneous qualitative detection and differentiation of SARS-CoV-2, influenza A, influenza B and respiratory syncytial virus (RSV) viral RNA from individuals suspected of respiratory viral infection consistent with COVID-19 by their healthcare provider. This test has not been validated in asymptomatic patients. The Xpert Xpress SARS-CoV-2 test is intended for use by qualified and trained operators who are performing tests using either [employer] or [employer] systems and is limited to laboratories that meet the CLIA requirements to perform high and moderate complexity tests. The Xpert Xpress SARS-CoV-2/Flu/RSV Plus is only for use under the Food and Drug Administration's Emergency Use Authorization. Results are for the simultaneous detection and differentiation of SARS-CoV-2, influenza A, influenza B and RSV nucleic acids in clinical specimens. SARS-CoV-2, influenza A, influenza B and RSV RNA identified by this test are generally detectable in upper respiratory samples during the acute phase of infection. Positive results are indicative of the presence of the identified virus, but do not rule out bacterial infection or co-infection with other pathogens not detected by this test. Clinical correlation with patient history and other diagnostic information is necessary to determine patient infection status. The agent detected may not be the definite cause of disease. Negative results do not preclude SARS-CoV-2, influenza A, influenza B and RSV infection and should not be used as the sole basis for treatment or other patient management decisions. Negative results must be combined with clinical observations, patient history and epidemiological information. An Invalid result may occur with specimen-associated inhibition unable to be resolved with specimen repeat. Fact Sheet for Healthcare Providers: https://www.fda.gov/m edia/670668/download Fact Sheet for Patients: https://www.fda.gov/m edia/982227/download Normal [facility] Comment on above: Performed By: #### C OVFLR #### [facility] ([id number]) [address] [place] [address] 10671 Troponin I.cardiac High sens itivity method [Mass/Vol]on 11-02-2023 TROPONIN I, HIGH SENSITIVITY 7 ng/L Normal <21 [facility] Comment on above: Performed By: #### C BCA, BMP, 72537-0, PINR, 33184-3, 77835-7 #### [facility] ([id number]) [address] [place] [address] 05114 XR CHEST 1 VWon 11-02-2023 XR CHEST 1 VW XR CHEST 1 VW XR CHEST 1 VW HISTORY: Shortness of breath COMPARISON: 11/06/2022 FINDINGS: Low lung volumes contribute to mild central bronchovascular crowding. No pleural effusion, pneumothorax, or focal consolidative process. Cardiomediastinal silhouette appears stable and within normal limits given portable technique. IMPRESSION: * No evidence for acute pulmonary process. Approved by Resident: Ben Bone MD on 11/02/2023 7:04 AM IDavid MD have personally reviewed the image(s) and agree with and/or edited the report Finalized by David Lopez MD on 11/02/2023 7:10 AM Normal [facility] aPTT Coag (PPP) [Time]on aPTT Coag (Bld) [Time] 33 s Normal 26-37 [facility] Comment on above: Result Comment: NEW REFERENCE RANGE Performed By: #### C BCA BMP, 73842-5, PINR, 30620-2, 14643-8 #### [facility] ([id number]) [address] [facility] FIRST FLOOR [address] 09-19-2023 L Specimen: [id number] Received: 09/22/23 Status: MELVA Melgoza Num: [id number] Spec Type: Surgical Subm Dr: Yesy Jarquin MD Tissues: A Colon Biopsy (ASC POLYPS) B Colon Biopsy (TRANSV POLYP) Procedures: HE/4, Gross/Micro L4/2 Age/ Patient Sex Location Account Attending Physician LopezJacy Lacy 88/M [id number] Yesy Jarquin MD SPEC NUM: [id number] RECD: 09/22/23 STATUS: MELVA MELGOZA NUM: [id number] ANG: 09/19/23 DR: Yesy Jarquin MD ENTERED: 09/22/[address] [facility] [address]: SPEC TYPE: Surgical DEPT: S ORDERED: HE/4, Gross/Micro L4/2 ORDERED: HE/4, Gross/Micro L4/2 Pathological Diagnosis A. Polyps, ascending colon, biopsy: Tubular Adenomas. - Negative For High Grade Dysplasia And Malignancy. B. Polyp, transverse colon, biopsy: Tubular Adenoma. - Negative For High Grade Dysplasia And Malignancy. Clinical Information Ulcerative proctitis Gross Description Received are 2 formalin filled containers each labeled with the patient's name, date of and specific specimen site. A. Further labeled ascending polyps are multiple cox mucosal tissue fragments admixed with possible vegetable matter measuring in aggregate 2.0 x 0.7 x 0.3 cm, entirely submitted in A1. B. Further labeled transverse polyp are 2 cox polypoid tissue fragments admixed with possible vegetable matter measuring 0.4 x 0.3 x 0.1 cm and 0.3 x 0.2 x 0.1 cm, entirely submitted in B1. -------- Specimen: [id number] Received: 09/22/23 Status: SANYAAimee Melgoza Num: [id number] Spec Type: Surgical Subm Dr: Yesy Jarquin MD Tissues: A Colon Biopsy (ASC POLYPS) B Colon Biopsy (TRANSV POLYP) Procedures: DARBY Gross/Micro L4/2 -------- Patient: Jacy Marroquin [id number] (Continued) -------- Specimen: [id number] Received: 09/22/23 (Continued) Signed (signature on file) Angelica Gaines MD 09/23/23 1410 -------- Specimen: [id number] Received: 09/22/23 Status: MELVA Melgoza Num: [id number] Spec Type: Surgical Subm Dr: Yesy Jarquin MD Tissues: A Colon Biopsy (ASC POLYPS) B Colon Biopsy (TRANSV POLYP) Procedures: DARBY Gross/Micro L4/2 -------- Patient: Jacy Marroquin [id number] (Continued) -------- Specimen: [id number] Received: 09/22/23 (Continued) CPT Codes 82490 -------- -------- Specimen: [id number] Received: 09/22/23 Status: MELVA Melgoza Num: [id number] Spec Type: Surgical Subm Dr: Yesy Jarquin MD Tissues: A Colon Biopsy (ASC POLYPS) B Colon Biopsy (TRANSV POLYP) Procedures: HE/Marcos, Gross/Micro L4/2 -------- Patient: Jacy Marroquin [id number] (Continued) -------- Signed (signature on file) Angelica Gaines MD 09/23/23 1410 Normal [facility] C reactive protein [Mass/vol ume] in Serum or PlasmaOrdered By: Imad Asaad on 09-05-2023 CRP [Mass/Vol] < 0.5 mg/dL 0.0-0.5 [facility] C-Reactive Proteinon 024 CRP [Mass/Vol] mg/L Normal 0.0-0.5 [facility] Comment on above: Result Comment: PERF ORMED BY: [place] [address] PATHOLOGIST MOMD TEACHER MIRLANDE RUIZ M.D. Performed By: #### C RP #### [address] Calprotectin [Mass/mass] in StoolOrdered By: Imad Asaad on 09-05-2023 Calprotectin (Stl) [Mass/Mass] <5 ug/g 0-120 [facility] Comment on above: Concentration Interp retation Follow-Up< 5 - 50 ug/g Normal None>50 -120 ug/g Borderline Re-evaluate in 4-6 weeks >120 ug/g Abnormal Repeat as clinically indicatedPerformed at: - [facility] [id number] Director: Deep Reid MD, Phone: [phone] Calprotectin, Fecalon 2023 Calprotectin, Fecal <5 Normal 0-120 [facility] Comment on above: Result Comment: Conc entration Interpretation Follow-Up < 5 - 50 ug/g Normal None >50 -120 ug/g Borderline Re-evaluate in 4-6 weeks >120 ug/g Abnormal Repeat as clinically indicated Performed at: - [facility] [address] [id number] Rubber Mold Maker: Deep Reid MD, Phone: [phone] PERFORMED BY: [address] [place] [address] PATHOLOGIST MOMD TEACHER MIRLANDE RUIZ M.D. Performed By: #### C ALPROTECT #### [facility] , ALLIED HEALTHon 03-17-2023 ALLIED HEALTH HNO ID: [id number] Author: Claudia Sharp V RT(R) Service: Radiology Author Type: Technologist Type: Allied Health Filed: 03/17/2023 2:35 AM Note Text: Radiology Service Progress Note PATIENT NAME: Jacy Marroquin DATE OF SERVICE: March 17, 2023 TIME: 2:35 AM PATIENT IDENTITY VERIFICATION COMPLETED USING TWO (2) IDENTIFIERS: Name and Date of confirmed by patient verbally and Name and Date of confirmed by identification band. FALL SCREENING: Has the patient had 2 falls in the last year or 1 fall with injury or currently using an Ambulatory Assistive Device (Walker, Cane, Wheelchair, Crutches, etc.)? Emergency Room Patient: Screened in ED PATIENT GENDER DATA: Male PATIENT RELEVANT IMPLANT DATA REVIEWED: Not Applicable RADIOLOGY DEPARTMENT: General X-ray: Exam(s) Completed: Abdomen X-Ray: Abdomen PERIPHERAL IV DATA: Not applicable SIGNED BY: RT Mike(R) March 17, 2023 2:35 AM [facility] Basic metabolic 2000 panelon 03-17-2023 Anion gap [Moles/Vol] 8 mmol/L Low 9-18 [facility] Comment on above: Order Comment: Speci men Type: BLOOD SPECIMEN Ordering Facility: [facility] Address: [address] [place] [address] Performed By: #### 2 4321-2 #### [facility] CLIA [id number] [address] [place] [address] [place] Calcium [Mass/Vol] 9.5 mg/dL Normal 8.5-10.2 [facility] Comment on above: Order Comment: Speci men Type: BLOOD SPECIMEN Ordering Facility: [facility] Address: [address] [place] [address] Performed By: #### 2 4321-2 #### [facility] CLIA [id number] [address] [place] [address] [place] Chloride [Moles/Vol] 104 mmol/L Normal 97-105 [facility] Comment on above: Order Comment: Speci men Type: BLOOD SPECIMEN Ordering Facility: [facility] Address: [address] [place] [address] Performed By: #### 2 4321-2 #### [facility] CLIA [id number] [address] [place] [address] [place] CO2 [Moles/Vol] 27 mmol/L Normal 22-30 [facility] Comment on above: Order Comment: Speci men Type: BLOOD SPECIMEN Ordering Facility: [facility] Address: [address] [place] [address] Performed By: #### 2 4321-2 #### [facility] CLIA [id number] [address] [place] [address] [place] Creatinine [Mass/Vol] 0.76 mg/dL Normal 0.73-1.22 [facility] Comment on above: Order Comment: Speci men Type: BLOOD SPECIMEN Ordering Facility: [facility] Address: [address] [place] [address] Performed By: #### 2 4321-2 #### [facility] CLIA [id number] [address] [place] Creatinine and Glomerular filtration rate.predicted panel (S/P/Bld) 88 mL/min/1.73m??? Normal >=60 [facility] Comment on above: Order Comment: Speci men Type: BLOOD SPECIMEN Ordering Facility: [facility] Address: [address] [place] [address] Result Comment: Roseann mated Glomerular Filtration Rate (eGFR) is calculated using the 2020 CKD-EPI creatinine equation. This equation utilizes serum creatinine, sex, and age as parameters. The creatinine assay has traceable calibration to isotope dilution-mass spectrometry. Refer to KDIGO guidelines for clinical interpretation. In patients with unstable renal function, e.g. those with acute kidney injury, the eGFR may not accurately reflect actual GFR. Performed By: #### 2 4321-2 #### [facility] CLIA [id number] [address] [place] [address] [place] Glucose [Mass/Vol] 107 mg/dL High 74-99 [facility] Comment on above: Order Comment: Asia hawkins Type: BLOOD SPECIMEN Ordering Facility: [facility] Address: [address] [place] [address] Result Comment: The [place] Diabetes Association (ADA) provides guidance for cutoff [...] Standards of Medical Care in Diabetes 2016, [employer] Diabetes Association. Diabetes Care. 2016.39(Suppl 1). Performed By: #### 2 4321-2 #### [facility] CLIA [id number] [address] [place] [address] [place] Potassium [Moles/Vol] 3.5 mmol/L Low 3.7-5.1 [facility] Comment on above: Order Comment: Asia hawkins Type: BLOOD SPECIMEN Ordering Facility: [facility] Address: [address] [place] [address] Performed By: #### 2 4321-2 #### [facility] CLIA [id number] [address] [place] [address] [place] Sodium [Moles/Vol] 139 mmol/L Normal 136-144 [facility] Comment on above: Order Comment: Speci men Type: BLOOD SPECIMEN Ordering Facility: [facility] Address: [address] [place] [address] Performed By: #### 2 4321-2 #### [facility] CLIA [id number] [address] STATES OF [facility] Urea nitrogen [Mass/Vol] 16 mg/dL Normal 9-24 [facility] Comment on above: Order Comment: Speci men Type: BLOOD SPECIMEN Ordering Facility: [facility] Address: [address] [place] [address] Performed By: #### 2 4321-2 #### [facility] CLIA [id number] [address] [place] [facility] CBC W Auto Differential pane l (Bld)on 03-17-2023 Basophils (Bld) [#/Vol] 0.04 10*3/uL Normal <0.11 [facility] Comment on above: Order Comment: Speci men Type: BLOOD SPECIMEN Ordering Facility: [facility] Address: [address] [place] [address] Performed By: #### 5 7021-8 #### [facility] CLIA [id number] [address] [place] [facility] Basophils/100 WBC (Bld) 0.9 % Normal [facility] Comment on above: Order Comment: Speci men Type: BLOOD SPECIMEN Ordering Facility: [facility] Address: [address] [place] [address] Performed By: #### 5 7021-8 #### [facility] CLIA [id number] [address] [place] [facility] Differential cell count method Nom (Bld) Auto Normal [facility] Comment on above: Order Comment: Speci men Type: BLOOD SPECIMEN Ordering Facility: [facility] Address: [address] [place] [address] Performed By: #### 5 7021-8 #### [facility] CLIA [id number] [address] [place] Eosinophils (Bld) [#/Vol] 0.08 10*3/uL Normal <0.46 [facility] Comment on above: Order Comment: Speci men Type: BLOOD SPECIMEN Ordering Facility: [facility] Address: [address] [place] [address] Performed By: #### 5 7021-8 #### [facility] CLIA [id number] [address] [place] [address] [place] Eosinophils/100 WBC (Bld) 1.8 % Normal [facility] Comment on above: Order Comment: Speci men Type: BLOOD SPECIMEN Ordering Facility: [facility] Address: [address] [place] [address] Performed By: #### 5 7021-8 #### [facility] CLIA [id number] [address] [place] Erythrocyte distribution width (RBC) [Ratio] 12.5 % Normal 11.5-15.0 [facility] Comment on above: Order Comment: Speci men Type: BLOOD SPECIMEN Ordering Facility: [facility] Address: [address] [place] [address] Performed By: #### 5 7021-8 #### [facility] CLIA [id number] [address] [place] [address] [place] Hematocrit (Bld) [Volume fraction] 32.2 % Low 39.0-51.0 [facility] Comment on above: Order Comment: Speci men Type: BLOOD SPECIMEN Ordering Facility: [facility] Address: [address] [place] [address] Performed By: #### 5 7021-8 #### [facility] CLIA [id number] [address] [place] [address] [place] Hemoglobin (Bld) [Mass/Vol] 11.0 g/dL Low 13.0-17.0 [facility] Comment on above: Order Comment: Speci men Type: BLOOD SPECIMEN Ordering Facility: [facility] Address: [address] [place] [address] Performed By: #### 5 7021-8 #### [facility] CLIA [id number] [address] [place] [address] [place] Immature granulocytes (Bld) [#/Vol] 10*3/uL Normal <0.10 [facility] Comment on above: Order Comment: Speci men Type: BLOOD SPECIMEN Ordering Facility: [facility] Address: [address] [place] [address] Performed By: #### 5 7021-8 #### [facility] CLIA [id number] [address] Immature granulocytes/100 WBC (Bld) 0.4 % Normal [facility] Comment on above: Order Comment: Speci men Type: BLOOD SPECIMEN Ordering Facility: [facility] Address: [address] [place] [address] Performed By: #### 5 7021-8 #### [facility] CLIA [id number] [address] [place] Lymphocytes (Bld) [#/Vol] 1.36 10*3/uL Normal 1.00-4.00 [facility] Comment on above: Order Comment: Speci men Type: BLOOD SPECIMEN Ordering Facility: [facility] Address: [address] [place] [address] Performed By: #### 5 7021-8 #### [facility] CLIA [id number] [address] Lymphocytes/100 WBC (Bld) 30.2 % Normal [facility] Comment on above: Order Comment: Speci men Type: BLOOD SPECIMEN Ordering Facility: [facility] Address: [address] [place] [address] Performed By: #### 5 7021-8 #### [facility] CLIA [id number] [address] MCH (RBC) [Entitic mass] 32.7 pg Normal 26.0-34.0 [facility] Comment on above: Order Comment: Speci men Type: BLOOD SPECIMEN Ordering Facility: [facility] Address: [address] [place] [address] Performed By: #### 5 7021-8 #### [facility] CLIA [id number] [address] MCHC (RBC) [Mass/Vol] 34.2 g/dL Normal 30.5-36.0 [facility] Comment on above: Order Comment: Speci men Type: BLOOD SPECIMEN Ordering Facility: [facility] Address: [address] [place] [address] Performed By: #### 5 7021-8 #### [facility] CLIA [id number] [address] [place] [address] [place] MCV (RBC) [Entitic vol] 95.8 fL Normal 80.0-100.0 [facility] Comment on above: Order Comment: Speci men Type: BLOOD SPECIMEN Ordering Facility: [facility] Address: [address] [place] [address] Performed By: #### 5 7021-8 #### [facility] CLIA [id number] [address] [place] Monocytes (Bld) [#/Vol] 0.67 10*3/uL Normal <0.87 [facility] Comment on above: Order Comment: Speci men Type: BLOOD SPECIMEN Ordering Facility: [facility] Address: [address] [place] [address] Performed By: #### 5 7021-8 #### [facility] CLIA [id number] [address] [place] Monocytes/100 WBC (Bld) 14.9 % Normal [facility] Comment on above: Order Comment: Speci men Type: BLOOD SPECIMEN Ordering Facility: [facility] Address: [address] [place] [address] Performed By: #### 5 7021-8 #### [facility] CLIA [id number] [address] [place] [address] [place] Neutrophils (Bld) [#/Vol] 2.33 10*3/uL Normal 1.45-7.50 [facility] Comment on above: Order Comment: Speci men Type: BLOOD SPECIMEN Ordering Facility: [facility] Address: [address] [place] [address] Performed By: #### 5 7021-8 #### [facility] CLIA [id number] [address] [place] Neutrophils/100 WBC (Bld) 51.8 % Normal [facility] Comment on above: Order Comment: Speci men Type: BLOOD SPECIMEN Ordering Facility: [facility] Address: [address] [place] [address] Performed By: #### 5 7021-8 #### [facility] CLIA [id number] [address] [place] [address] [facility] [place] Nucleated RBC (Bld) [#/Vol] 10*3/uL Normal <0.01 [facility] Comment on above: Order Comment: Speci men Type: BLOOD SPECIMEN Ordering Facility: [facility] Address: [address] [place] [address] Performed By: #### 5 7021-8 #### [facility] CLIA [id number] [address] [place] Nucleated RBC/100 WBC (Bld) [Ratio] 0.0 /100 WBC Normal [facility] Comment on above: Order Comment: Speci men Type: BLOOD SPECIMEN Ordering Facility: [facility] Address: [address] [place] [address] Performed By: #### 5 7021-8 #### [facility] CLIA [id number] [address] [place] [address] [place] Platelet mean volume (Bld) [Entitic vol] 9.4 fL Normal 9.0-12.7 [facility] Comment on above: Order Comment: Speci men Type: BLOOD SPECIMEN Ordering Facility: [facility] Address: [address] [place] [address] Performed By: #### 5 7021-8 #### [facility] CLIA [id number] [address] [place] [address] [place] Platelets (Bld) [#/Vol] 169 10*3/uL Normal 150-400 [facility] Comment on above: Order Comment: Speci men Type: BLOOD SPECIMEN Ordering Facility: [facility] Address: [address] [place] [address] Performed By: #### 5 7021-8 #### [facility] CLIA [id number] [address] [place] [address] [place] RBC (Bld) [#/Vol] 3.36 10*6/uL Low 4.20-6.00 [facility] Comment on above: Order Comment: Speci men Type: BLOOD SPECIMEN Ordering Facility: [facility] Address: [address] [place] [address] Performed By: #### 5 7021-8 #### [facility] CLIA [id number] [address] WBC (Bld) [#/Vol] 4.50 10*3/uL Normal 3.70-11.00 [facility] Comment on above: Order Comment: Speci men Type: BLOOD SPECIMEN Ordering Facility: [facility] Address: [address] [place] [address] Performed By: #### 5 7021-8 #### [facility] CLIA [id number] [address] ED NOTEon 03-17-2023 ED NOTE HNO ID: [id number] Author: Silvina Spencer, ALISON Service: Nursing Author Type: Registered Nurse Type: ED Notes Filed: 03/17/2023 3:27 AM Note Text: Discharge instructions gone over with son and grandson, pt ambulated with steady gait with family Normal [facility] ED PROV NOTEon 03-17-2023 ED PROV NOTE HNO ID: [id number] Author: Ledy Laguerre DO Service: Emergency Medicine Author Type: Physician Type: ED Provider Notes Filed: 03/17/2023 5:25 AM Note Text: ED Provider Note Patient Name: Jacy Marroquin : 1935 SERVICE DATE: 03/17/23 History Patient presents with: Abdominal Pain: Started around 10:30pm, hasn't had a bowel mvment in 2 days. Attempted to go but unable to go. Jacy Marroquin is an 87-year-old male that presents for abdominal pain. He notes that he noticed last night that he had some discomfort. He states he feels very bloated. He last had a bowel movement yesterday. He tried to go to the bathroom twice but could not. He notes that he is 2 pills to firm up his bowels. He states has been on this for about 6 months because he had some diarrhea before hand. He notes that his obyfpurq-mi-rip gave him some other pills tonight to soften his bowels and he had a very small bowel movement before coming in. He states he still feels like there is more stool to come out. He was slightly nauseous but denies vomiting. He states he is not passing gas. He denies abdominal surgeries. No past medical history on file. No past surgical history on file. No family history on file. Social History Tobacco Use Smoking status: Not on file Smokeless tobacco: Not on file Substance and Sexual Activity Alcohol use: Not on file Drug use: Not on file Sexual activity: Not on file ALLERGIES No Known Allergies Review of Systems Constitutional: Negative for chills and fever. HENT: Negative for sore throat and trouble swallowing. Eyes: Negative for visual disturbance. Respiratory: Negative for cough and shortness of breath. Cardiovascular: Negative for chest pain and palpitations. Gastrointestinal: Positive for abdominal pain, constipation and nausea. Negative for diarrhea and vomiting. Endocrine: Negative for polyuria. Genitourinary: Negative for dysuria and flank pain. Musculoskeletal: Negative for back pain and neck pain. Skin: Negative for rash. Allergic/Immunologic: Negative for immunocompromised state. Neurological: Negative for dizziness and headaches. Hematological: Does not bruise/bleed easily. Psychiatric/Behaviora l: Negative for confusion and sleep disturbance. Physical Exam Vitals [03/17/23 0138] BP Pulse Temp Temp src Resp SpO2 Weight Height 158/77 75 36.5 ?C (97.7 ?F) Oral 18 95 % 91 kg (200 lb 11.2 oz) -- Physical Exam Vitals and nursing note reviewed. Constitutional: General: He is not in acute distress. Appearance: He is well-developed. He is not diaphoretic. HENT: Head: Normocephalic and atraumatic. Mouth/Throat: Pharynx: No oropharyngeal exudate. Eyes: General: No scleral icterus. Conjunctiva/sclera: Conjunctivae normal. Pupils: Pupils are equal, round, and reactive to light. Neck: Vascular: No JVD. Trachea: No tracheal deviation. Cardiovascular: Rate and Rhythm: Normal rate and regular rhythm. Heart sounds: Normal heart sounds. No murmur heard. No friction rub. No gallop. Pulmonary: Effort: Pulmonary effort is normal. No respiratory distress. Breath sounds: Normal breath sounds. No stridor. No wheezing or rales. Abdominal: General: Bowel sounds are normal. There is no distension. Palpations: Abdomen is soft. There is no mass. Tenderness: There is abdominal tenderness in the epigastric area. There is no guarding or rebound. Hernia: No hernia is present. Comments: Mild epigastric pain on palpation without rigidity or guarding Musculoskeletal: General: No deformity. Normal range of motion. Cervical back: Neck supple. Skin: General: Skin is warm and dry. Capillary Refill: Capillary refill takes less than 2 seconds. Findings: No erythema. Neurological: Mental Status: He is alert and oriented to person, place, and time. Psychiatric: Behavior: Behavior normal. Thought Content: Thought content normal. Judgment: Judgment normal. Diagnostic Testing ED Labs Ordered and Reviewed - No data to display Procedures ED Course / Clinical Impression ED Course as of 03/17/23 0524 Ledy Laguerre's Documentation Mon Mar 17, 2023 0254 Normal white count. Mild anemia with hemoglobin 11.0. BMP shows potassium 3.5 otherwise unremarkable. 0254 XR ABDOMEN 1V SUPINE Clinical Impressions as of 03/17/23 0524 Constipation, unspecified constipation type Anemia, unspecified type MDM / Disposition / Plan Course: Vital signs were reviewed. Triage records were reviewed. Medical records were reviewed. Nursing notes were reviewed and incorporated. Medical Decision Making: Jacy Marroquin is an 87-year-old male that presents for abdominal pain and constipation. On exam, he is in no distress. Afebrile nontoxic-appearing. Heart is regular rate rhythm. Lungs are clear. Abdomen is soft and nondistended. He has mild epigastric pain on palpation without rigidity or guarding. (more content not included)... Normal [facility] XR ABDOMEN 1V SUPINEon 03-17 XR ABDOMEN 1V SUPINE * * *Final Report* * * DATE OF EXAM: Mar 17 2023 2:34AM MDX [id number] - XR ABDOMEN 1V SUPINE / PROCEDURE REASON: Constipation * * * * Physician Interpretation * * * * EXAMINATION: XR ABDOMEN 1V SUPINE CLINICAL HISTORY: Constipation Technique: XR ABDOMEN 1V SUPINE -- NOT APPLICABLE with 1 views on 2 images Comparison: None RESULT: Moderate to large volume colonic stool. Bowel gas pattern is nonobstructive. Lung bases are clear. Multilevel degenerative changes of the spine. Rounded density projecting over the left ilium likely reflects a diverticulum or stool within a loop of bowel. IMPRESSION: Moderate to large volume colonic stool. Grievance Manager: PSCB Transcribe Date/Time: Mar 17 2023 2:35A Dictated by : LINO GONZALEZ MD This examination was interpreted and the report reviewed and electronically signed by: LINO GONZALEZ MD on Mar 17 2023 2:39AM EST [id number] Normal [facility] RAD EGD - documentation only do not orderon 03-12-2022 RAD EGD - documentation only do not order EVOFEM Other COVID-19 SOFIAOrdered By: Maribel Wood on 03-11-2022 SARS-CoV+SARS-CoV-2 (COVID-19) Ag IA.rapid Ql (Resp) Negative Negative [facility] Comment on above: This is a duplicate Mirna SARS Antigen (MINH) result to be used for statistical tracking purpose only. No Panel InformationOrdered By: Adalberto Wood on 03-11-2022 SARS Antigen (LFIA) [facility] Complete Blood Counton 08-17 Erythrocyte distribution width (RBC) [Ratio] 13.3 % Normal 11.0-15.0 [facility] Comment on above: Performed By: #### C MP, CBC #### [facility] [address] [place], [place] [id number] Hematocrit (Bld) [Volume fraction] 38.4 % Low 38.5-50.0 [facility] Comment on above: Performed By: #### C MP, CBC #### [facility] [address] [place], [place] [id number] Hemoglobin (Bld) [Mass/Vol] 12.6 g/dL Low 13.0-17.1 [facility] Comment on above: Performed By: #### C MP, CBC #### [facility] [address] [place], [place] [id number] MCH (RBC) [Entitic mass] 30.5 pg Normal 27.0-33.0 [facility] Comment on above: Performed By: #### C MP, CBC #### [facility] [address] [place], [place] [id number] MCHC (RBC) [Mass/Vol] 32.8 g/dL Normal 32.0-36.0 [facility] Comment on above: Performed By: #### C MP, CBC #### [facility] [address] [place], [place] [id number] MCV (RBC) [Entitic vol] 93 fL Normal 80-100 [facility] Special[facility] Comment on above: Performed By: #### C MP, CBC #### [facility] [address] [place], [place] [id number] Platelet mean volume (Bld) [Entitic vol] 9.70 fL Normal 7.50-12.50 [facility] Comment on above: Performed By: #### C MP, CBC #### [facility] [address] [place], [place] [id number] Platelets (Bld) [#/Vol] 200 10*3/uL Normal 140-400 [facility] Comment on above: Performed By: #### C MP, CBC #### [facility] [address] [place], [place] [id number] RBC (Bld) [#/Vol] 4.13 10*6/uL Low 4.20-5.80 [facility] Special[facility] Comment on above: Performed By: #### C MP, CBC #### [facility] [address] [place], [place] [id number] RDW-SD 45.5 fL Normal 37.0-50.0 [facility] Comment on above: Performed By: #### C MP, CBC #### [facility] [address] [place], [place] [id number] WBC (Bld) [#/Vol] 6.5 10*3/uL Normal 3.8-11.0 [facility] Comment on above: Performed By: #### C MP, CBC #### [facility] [address] [place], [place] [id number] Comprehensive [facility] 08-17-2021 Albumin [Mass/Vol] 4.3 g/dL Normal 3.6-5.1 [facility] Comment on above: Performed By: #### C MP, CBC #### [facility] [address] [place], [place] [id number] Albumin/Globulin [Mass ratio] 1.6 {ratio} Normal 1.0-2.5 [facility] Comment on above: Performed By: #### C MP, CBC #### [facility] [address] [place], [place] [id number] ALP [Catalytic activity/Vol] 82 U/L Normal 40-129 [facility] Comment on above: Performed By: #### C MP, CBC #### [facility] [address] [place], [place] [id number] ALT [Catalytic activity/Vol] 16 U/L Normal 9-46 [facility] Comment on above: Result Comment: 02/21 Female reference range changed. Performed By: #### C MP, CBC #### [facility] [address] [place], [place] [id number] Anion gap [Moles/Vol] 17 mmol/L Normal 12-20 [facility] Comment on above: Result Comment: Effe ctive 2019 reference range changed. Performed By: #### C MP, CBC #### [facility] [address] [place], [place] [id number] AST [Catalytic activity/Vol] 18 U/L Normal 10-40 [facility] Comment on above: Performed By: #### C MP, CBC #### [facility] [address] [place], [place] [id number] Bilirubin [Mass/Vol] 0.71 mg/dL Normal 0.30-1.20 [facility] Comment on above: Performed By: #### C MP, CBC #### [facility] [address] [place], [place] [id number] BUN/CREA 14 Ratio Normal 6-22 [facility] Comment on above: Performed By: #### C MP, CBC #### [facility] [address] [place], [place] [id number] Calcium [Mass/Vol] 9.9 mg/dL Normal 8.6-10.2 [facility] Comment on above: Performed By: #### C MP, CBC #### [facility] [address] [place], [place] [id number] Chloride [Moles/Vol] 103 mmol/L Normal 98-107 [facility] Comment on above: Performed By: #### C MP, CBC #### [facility] [address] [place], [place] [id number] CO2 [Moles/Vol] 25 mmol/L Normal 20-31 [facility] Comment on above: Performed By: #### C MP, CBC #### [facility] [address] [place], [place] [id number] Creatinine [Mass/Vol] 1.4 mg/dL Normal 0.7-1.4 [facility] Comment on above: Performed By: #### C MP, CBC #### [facility] [address] [place], [place] [id number] eGFRAA 61 mL/min/1.73m2 Normal >60 [facility] Special[facility] Comment on above: Performed By: #### C MP, CBC #### [facility] [address] [place], [place] [id number] eGFRNAA 50 mL/min/1.73m2 Low >60 [facility] Comment on above: Performed By: #### C MP, CBC #### [facility] [address] [place], [place] [id number] Globulin (S) [Mass/Vol] 2.7 g/dL Normal 1.9-3.7 [facility] Comment on above: Performed By: #### C MP, CBC #### [facility] [address] [place], [place] [id number] Glucose [Mass/Vol] 110 mg/dL High 65-99 [facility] Comment on above: Result Comment: For FASTING Glucose --- ADA reference ranges: Normal 65-99 mg/dl Prediabetes 100-125 Diabetes >/= 126 Performed By: #### C MP, CBC #### [facility] [address], [place] [id number] Potassium [Moles/Vol] 4.2 mmol/L Normal 3.5-5.5 [facility] Comment on above: Performed By: #### C MP, CBC #### [facility] [address] [place], [place] [id number] Protein [Mass/Vol] 7.0 g/dL Normal 6.1-8.1 [facility] Environmental Designer Comment on above: Performed By: #### C MP, CBC #### [facility] [address] [place], [place] [id number] Sodium [Moles/Vol] 141 mmol/L Normal 135-146 [facility] Specialist Comment on above: Performed By: #### C MP, CBC #### [facility] [address] [place], [place] [id number] Urea nitrogen [Mass/Vol] 19 mg/dL Normal 7-25 [facility] Comment on above: Performed By: #### C MP, CBC #### [facility] [address] [place], [place] [id number] [facility] SARS-CoV-2 (COVID-19) RNA PEPE+probe Ql (Unsp spec) Not detected Normal NOT DETECTED [facility] Comment on above: Result Comment: When diagnostic testing is negative, the possibility of a false negative should be considered in the context of a patient's recent exposures and the presence of clinical signs and symptoms consistent with SARS-CoV-2. This test is not yet approved or cleared by the [place] Food and Drug Administration (FDA). This test was developed by [employer], [place], [place]. The performance characteristics of this test were validated by [facility]. The results are not intended to be used as the sole means for clinical diagnosis or patient management decisions. [facility] is authorized under Clinical Laboratory Improvement Amendments (CLIA) to perform high- complexity testing. This test is not yet approved or cleared by the [place] FDA. When there are no FDA-approved or cleared tests available, and other criteria are met, FDA can make tests available under an emergency access mechanism called an Emergency Use Authorization (EUA). The EUA for this test is supported by the [employer] of Health and Human Service's declaration that circumstances exist to justify the emergency use of in vitro diagnostics for the detection and/or diagnosis of the virus that causes COVID-19. This EUA will remain in effect for the duration of the COVID-19 declaration justifying emergency of IVDs, unless it is terminated or revoked by the FDA (after which the test may no longer be used). Performed By: #### C VDTBH #### [facility] [address] [place], [place] [address] Dr. Dave Guzmán Covid-19 PCR ([facility])on SARS-CoV-2 (COVID-19) RNA PEPE+probe Ql (Unsp spec) Detected Critically abnormal NOT DETECTED [facility] Comment on above: Result Comment: This test is not yet approved or cleared by the [place] FDA. When there are no FDA-approved or cleared tests available, and other criteria are met, FDA can make tests available under an emergency access mechanism called an Emergency Use Authorization (EUA). The EUA for this test is supported by the [place] of Health and Human Service's (HHS's) declaration that circumstances exist to justify the emergency use of in vitro diagnostics for the detection and/or diagnosis of the virus that causes COVID-19. This EUA will remain in effect (meaning this test can be used) for the duration of the COVID-19 declaration justifying emergency of IVDs, unless it is terminated or revoked by FDA (after which the test may no longer be used). Performed By: #### C VDTB #### [facility] [address] [place] [id number] Dave Guzmán [facility] Carotid Artery Dupl ex Ultrasounon 02-11-2020 [facility] Carotid Artery Duplex Ultrasoun [address], [address], [place] [address] Vascular Lab Report Carotid Artery Duplex Ultrasound Patient Name: JACY Russo Physician: [id number] Jovan Wesley MD Study Date: 02/11/2020 Referring Physician: [id number] Elizabeth CNP MRN/PID: [id number] PCP: Beatrzi Carson Accession/Order#: [id number] Report to: Date of : 1935 Technologist: Mahnaz Gutiérrez RDMS, PILY, RVT Gender: M Technologist 2: Admission Status: Outpatient Location Performed: [facility] Diagnosis/ICD: Q68-Uospwrhuh and giddiness Indication: Lightheadedness, Afib, RBBB and Hyperlipidemia Procedure/CPT: 84101 Cerebrovascular Carotid Duplex scan complete-[id number] CONCLUSIONS: Right Carotid: Findings are consistent with 50 to 69% stenosis of the right proximal ICA. Laminar flow seen by color Doppler. Right external carotid artery appears patent with no evidence of stenosis. No evidence of hemodynamically significant stenosis of the right common carotid artery. The right vertebral artery is patent with antegrade flow. Left Carotid: Findings are consistent with less than 50% stenosis of the left proximal ICA. Laminar flow seen by color Doppler. Left external carotid artery appears patent with no evidence of stenosis. No evidence of hemodynamically significant stenosis of the left common carotid artery. The left vertebral artery is patent with antegrade flow. Imaging & Doppler Findings: Right Plaque Morph: The proximal right internal carotid artery demonstrates calcified plaque. The proximal right external carotid artery demonstrates calcified plaque. The distal right common carotid artery demonstrates calcified plaque. Left Plaque Morph: The proximal left internal carotid artery demonstrates intimal thickening plaque. The proximal left external carotid artery demonstrates calcified plaque. The distal left common carotid artery demonstrates calcified plaque. Right Left PSV EDV PSV EDV 86 cm/s 16 cm/s CCA P 95 cm/s 19 cm/s 102 cm/s 19 cm/s CCA M 84 cm/s 21 cm/s 75 cm/s 17 cm/s CCA D 77 cm/s 18 cm/s 136 cm/s 39 cm/s ICA P 80 cm/s 24 cm/s 97 cm/s 26 cm/s ICA M 83 cm/s 30 cm/s 81 cm/s 26 cm/s ICA D 114 cm/s 43 cm/s 79 cm/s 9 cm/s ECA 91 cm/s 14 cm/s 65 cm/s 19 cm/s Vertebral 84 cm/s 17 cm/s Right Left ICA/CCA Ratio 1.8 1.0 [id number] Jovan Wesley MD Final Normal [facility] Vital Signs Date Time Vital Sign Value Performing Clinician Facility 08-05-2024 08:13040 Body height 182.88 cm [facility] 08-05-2024 08:130400 Body mass index (BMI) [Ratio] 26.7 kg/m2 [facility] 08-05-2024 08:13-0400 Body weight 89.35 kg [facility] 08-05-2024 08:13-0400 Diastolic blood pressure 77 mm[Hg] [facility] 08-05-2024 08:13-0400 Heart rate 87 /min [facility] 08-05-2024 08:13-0400 Systolic blood pressure 139 mm[Hg] [facility] 07-07-2024 08:36-0400 Body mass index (BMI) [Ratio] 27.7 kg/m2 Marielena Herrera UTILITY SYSTEM OPERATOR Work Phone: [facility] 07-07-2024 08:36-0400 Body weight 90.08 kg Marielena Javier UTILITY SYSTEM OPERATOR Work Phone: [facility] 07-07-2024 08:36-0400 Diastolic blood pressure 70 mm[Hg] Marielena Sanchezel UTILITY SYSTEM OPERATOR Work Phone: [facility] 07-07-2024 08:36-0400 Heart rate 76 /min Marielena Sanchezel UTILITY SYSTEM OPERATOR Work Phone: [facility] 07-07-2024 08:36-0400 Systolic blood pressure 124 mm[Hg] Marielena Javier UTILITY SYSTEM OPERATOR Work Phone: [facility] 03-01-2024 08:33-0500 Body height 180.3 cm Skye Pump UTILITY SYSTEM OPERATOR Work Phone: [facility] 03-01-2024 08:33-0500 Body mass index (BMI) [Ratio] 27.53 kg/m2 Skye Pump UTILITY SYSTEM OPERATOR Work Phone: [facility] 03-01-2024 08:33-0500 Body weight 89.54 kg Skye Pump UTILITY SYSTEM OPERATOR Work Phone: [facility] 03-01-2024 08:33-0500 Diastolic blood pressure 70 mm[Hg] Skye Pump UTILITY SYSTEM OPERATOR Work Phone: [facility] 03-01-2024 08:33-0500 Heart rate 76 /min Skye Pump UTILITY SYSTEM OPERATOR Work Phone: [facility] 03-01-2024 08:33-0500 Systolic blood pressure 128 mm[Hg] Skye Pump UTILITY SYSTEM OPERATOR Work Phone: [facility] 01-06-2024 14:53-0400 Body mass index (BMI) [Ratio] 27.73 kg/m2 Marielena Herrera UTILITY SYSTEM OPERATOR Work Phone: [facility] 01-06-2024 14:53-0400 Body weight 90.17 kg Mraielena Herrera UTILITY SYSTEM OPERATOR Work Phone: [facility] 01-06-2024 14:53-0400 Diastolic blood pressure 64 mm[Hg] Marielena Herrera UTILITY SYSTEM OPERATOR Work Phone: [facility] 01-06-2024 14:53-0400 Heart rate 86 /min Marielena Herrera UTILITY SYSTEM OPERATOR Work Phone: [facility] 01-06-2024 14:53-0400 SaO2% (BldA) [Mass fraction] 96 % Marielena Herrera UTILITY SYSTEM OPERATOR Work Phone: [facility] 01-06-2024 14:53-0400 Systolic blood pressure 120 mm[Hg] Marielena Herrera UTILITY SYSTEM OPERATOR Work Phone: [facility] 11-17-2023 11:02-0400 Body height 180.3 cm Macie Patel MD Work Phone: [facility] 11-17-2023 11:02-0400 Body mass index (BMI) [Ratio] 27.06 kg/m2 Macie Patel MD Work Phone: [facility] 11-17-2023 11:02-0400 Body weight 88 kg Macie Patel MD Work Phone: [facility] 11-17-2023 11:02-0400 Diastolic blood pressure 68 mm[Hg] Macie Patel MD Work Phone: [facility] 11-17-2023 11:02-0400 Systolic blood pressure 122 mm[Hg] Macie Patel MD Work Phone: [facility] 11-11-2023 10:11-0400 Body mass index (BMI) [Ratio] 26.81 kg/m2 Beatriz Carson MD Work Phone: [facility] 11-11-2023 10:11-0400 Body weight 87.18 kg Beatriz Carson MD Work Phone: [facility] 11-11-2023 10:11-0400 Diastolic blood pressure 72 mm[Hg] Beatriz Carson MD Work Phone: [facility] 11-11-2023 10:11-0400 Heart rate 76 /min Beatriz Carson MD Work Phone: [facility] 11-11-2023 10:11-0400 Systolic blood pressure 124 mm[Hg] Beatriz Carson MD Work Phone: [facility] 09-19-2023 14:24-0400 Diastolic blood pressure 79 mm[Hg] MD Beatriz Carson Work Phone: [facility] 09-19-2023 14:24-0400 Heart rate 71 /min MD Beatriz Carson Work Phone: [facility] 09-19-2023 14:24-0400 Respiratory rate 18 /min MD Beatriz Carson Work Phone: [facility] 09-19-2023 14:24-0400 SaO2% (BldA) [Mass fraction] 95 % MD Beatriz Carson Work Phone: [facility] 09-19-2023 14:24-0400 Systolic blood pressure 120 mm[Hg] MD Beatriz Carson Work Phone: [facility] 09-19-2023 10:35-0400 Body height 182.88 cm MD Beatriz Carson Work Phone: [facility] 09-19-2023 10:35-0400 Body weight 89.35 kg MD Beatriz Carson Work Phone: [facility] 08-13-2023 15:08-0400 Body height 180.34 cm MD Beatriz Carson Work Phone: [facility] 08-13-2023 15:08-0400 Body mass index (BMI) [Ratio] 27.3 kg/m2 MD Beatriz Carson Work Phone: [facility] 08-13-2023 15:08-0400 Body weight 88.9 kg MD Beatriz Carson Work Phone: [facility] 01-15-2023 09:00-0400 Body height 181.61 cm Adalberto Nina Other [facility] Other 01-15-2023 09:00-0400 Body mass index (BMI) [Ratio] 26.87 kg/m2 Adalberto Nina Other [facility] Other 01-15-2023 09:00-0400 Body weight 88.63 kg Adalberto Nina Other [facility] Other 01-15-2023 09:00-0400 Diastolic blood pressure 78 mm[Hg] Adalberto Nina Other [facility] Other 01-15-2023 09:00-0400 Systolic blood pressure 138 mm[Hg] Adalberto Wood Other [facility] Other 07-16-2022 14:30-0400 Body height 181.61 cm Adalberto Wood Other [facility] Other 07-16-2022 14:30-0400 Body mass index (BMI) [Ratio] 27.5 kg/m2 Adalberto Nina Other [facility] Other 07-16-2022 14:30-0400 Body weight 90.72 kg Adalberto Wood Other [facility] Other 03-05-2022 14:15-0500 Body height 181.61 cm Adalberto Wood Other [facility] Other 03-05-2022 14:15-0500 Body mass index (BMI) [Ratio] 27.09 kg/m2 Adalberto Hessack Other [facility] Other 03-05-2022 14:15-0500 Body weight 89.36 kg Adalberto Wood Other [facility] Other 03-05-2022 14:15-0500 Diastolic blood pressure 74 mm[Hg] Adalberto Wood Other [facility] Other 03-05-2022 14:15-0500 Systolic blood pressure 134 mm[Hg] Adalberto Wood Other [facility] Other 02-07-2022 10:35-0500 Body height 181.61 cm Skye Petersen Other [facility] Other 02-07-2022 10:35-0500 Body mass index (BMI) [Ratio] 27.5 kg/m2 Skye Petersen Other [facility] Other 02-07-2022 10:35-0500 Body temperature 98.3 [degF] Skye Petersen Other [facility] Other 02-07-2022 10:35-0500 Body weight 90.72 kg Skye Petersen Other [facility] Other 02-07-2022 10:35-0500 Diastolic blood pressure 66 mm[Hg] Skye Petersen Other [facility] Other 02-07-2022 10:35-0500 Respiratory rate 18 /min Skye Petersen Other [facility] Other 02-07-2022 10:35-0500 SaO2% (BldA) [Mass fraction] 99 % Skye Petersen Other [facility] Other 02-07-2022 10:35-0500 Systolic blood pressure 120 mm[Hg] Skye Petersen Other [facility] Other 11-28-2021 10:45-0400 Body height 181.61 cm Adalberto Nina Other [facility] Other 11-28-2021 10:45-0400 Body mass index (BMI) [Ratio] 27.5 kg/m2 Adalberto Nina Other [facility] Other 11-28-2021 10:45-0400 Body weight 90.72 kg Adalberto Nina Other [facility] Other Encounters Encounter Date Encounter Type Care Provider Facility Start: 08-10-2024 End: 08-10-2024 Gautam Wolf PT Work Phone: [facility] Start: 08-10-2024 End: 08-10-2024 Gautam Wolf PT Work Phone: [facility] Start: 08-10-2024 End: 08-10-2024 ambulatory Shraddha Wolf PT Work Phone: [facility] Comment on above: Piriformis syndrome of right side (Primary Dx); Pain in right buttock; Acute bilateral low back pain without sciatica Start: 08-05-2024 End: 08-05-2024 ambulatory [facility] Work Phone: Start: 08-05-2024 End: 08-05-2024 Patient encounter procedure [facility] Work Phone: Start: 08-02-2024 End: 08-02-2024 Bamboo flowsheet Shraddha Wolf PT Work Phone: [facility] Start: 08-02-2024 End: 08-02-2024 Bamboo flowsheet Shraddha Wolf PT Work Phone: [facility] Start: 08-02-2024 End: 08-02-2024 ambulatory MARIELENA HERRERA Not Available Start: 08-02-2024 End: 08-02-2024 ambulatory Shraddha Aimee Marcianomathew PT Work Phone: [facility] Comment on above: Piriformis syndrome of right side (Primary Dx); Pain in right buttock; Acute bilateral low back pain without sciatica Start: 07-22-2024 End: 07-22-2024 Bamboo flowsheet Shraddha Wolf PT Work Phone: [facility] Start: 07-22-2024 End: 07-22-2024 Bamboo flowsheet Shraddha Wolf PT Work Phone: [facility] Start: 07-22-2024 End: 07-22-2024 ambulatory Shraddha Wolf PT Work Phone: [facility] Comment on above: Piriformis syndrome of right side (Primary Dx); Pain in right buttock Start: 07-21-2024 End: 07-29-2024 Telephone encounter Marielena Herrera UTILITY SYSTEM OPERATOR Work Phone: [facility] Start: 07-18-2024 End: 07-19-2024 Refill Marielena Herrera UTILITY SYSTEM OPERATOR Work Phone: [facility] Comment on above: Primary hypertension (CMS/HCC) Start: 07-14-2024 End: 07-14-2024 ambulatory Shraddha Aimee Maryann PT Work Phone: [facility] Comment on above: Pain in right buttoc k (Primary Dx); Piriformis syndrome of right side Start: 07-14-2024 End: 07-14-2024 Bamboo flowsheet Shraddha Wolf PT Work Phone: [facility] Start: 07-14-2024 End: 07-14-2024 Bamboo flowsheet Shraddha Wolf PT Work Phone: [facility] Start: 07-08-2024 End: 07-08-2024 Telephone encounter Shraddha Wolf PT Work Phone: [facility] Comment on above: PT Initial Eval ($40 .00 copay / Med Nec); Call Back Start: 07-07-2024 End: 07-07-2024 Bamboo flowsbenito Herrera UTILITY SYSTEM OPERATOR Work Phone: [facility] Start: 07-07-2024 End: 07-07-2024 Bamboo flowsbenito Herrera UTILITY SYSTEM OPERATOR Work Phone: [facility] Start: 07-07-2024 End: 07-07-2024 Office outpatient visit 25 minutes Marielena Herrera UTILITY SYSTEM OPERATOR Work Phone: [facility] Comment on above: Primary hypertension (CMS/HCC) (Primary Dx); Iliac artery aneurysm, left (CMS/HCC); Abdominal aortic aneurysm (AAA) without rupture, unspecified part (CMS/HCC); Atherosclerosis of aorta (CMS/HCC); Peripheral arterial disease (CMS/HCC); Hyperlipidemia, unspecified hyperlipidemia type (CMS/HCC); Right bundle branch block; Occlusion and stenosis of bilateral carotid arteries; Piriformis syndrome of right side; Amnestic 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); Pulmonary nodule; Dizziness; Advanced age Start: 07-07-2024 End: 07-07-2024 ambulatory MARIELENA HERRERA Not Available Start: 05-24-2024 End: 05-24-2024 Telephone encounter Beatriz Carson MD Work Phone: [facility] Start: 03-01-2024 End: 03-01-2024 Bamboo flowsheet Skye Pump UTILITY SYSTEM OPERATOR Work Phone: [facility] Start: 03-01-2024 End: 03-01-2024 Bamboo flowsheet Skye Pump UTILITY SYSTEM OPERATOR Work Phone: [facility] Start: 03-01-2024 End: 03-01-2024 Patient encounter procedure Skye Pump UTILITY SYSTEM OPERATOR Work Phone: [facility] Comment on above: Medicare annual [facility] visit, subsequent (Primary Dx); Alzheimer's dementia, unspecified dementia severity, unspecified timing of dementia onset, unspecified whether behavioral, psychotic, or mood disturbance or anxiety (CMS/HCC); Iliac artery aneurysm, left (CMS/HCC); Peripheral arterial disease (CMS/HCC); Atherosclerosis of aorta (CMS/HCC); Primary hypertension (CMS/HCC); Ulcerative proctitis with complication (CMS/HCC); Malignant neoplasm of prostate (CMS/HCC); Lipoprotein deficiency disorder (CMS/HCC); Reactive depression (CMS/HCC); Hyperlipidemia, unspecified hyperlipidemia type (CMS/HCC); Right bundle branch block; Hemorrhoids, unspecified hemorrhoid type; Mild left ventricular hypertrophy; Abdominal aortic aneurysm (AAA) without rupture, unspecified part (CMS/HCC); Amnestic 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); Pulmonary nodule; Occlusion and stenosis of bilateral carotid arteries; Diverticulosis; Gastroesophageal reflux disease, unspecified whether esophagitis present; Diverticular disease; Renal cyst, left; Ankylosing vertebral hyperostosis; Polyarthropathy; Pain in right buttock; Bilateral hip pain; Overweight; Dry eyes; PCO (posterior capsular opacification), bilateral; Allergic rhinitis, unspecified seasonality, unspecified trigger; Anxiety; Chronic bilateral low back pain with bilateral sciatica; Sensorineural hearing loss (SNHL) of both ears; Squamous cell carcinoma of skin; Vertigo; Advanced age; Dizziness; Piriformis syndrome of right side; Stress at home; Malignant neoplasm of skin; Hypokalemia; Anemia, unspecified type Start: 03-01-2024 End: 03-01-2024 ambulatory SKYE PUMP Not Available Start: 02-28-2024 End: 02-28-2024 Emergency department patient visit BEATRIZ CARSON [facility] Start: 01-30-2024 End: 01-31-2024 Refill Marielena Herrera UTILITY SYSTEM OPERATOR Work Phone: [facility] Comment on above: Age-related cognitiv e decline Start: 01-26-2024 End: 01-26-2024 Bamboo flowsheet Macie Patel MD Work Phone: [facility] Start: 01-26-2024 End: 01-26-2024 Bamboo flowsheet Macie Patel MD Work Phone: [facility] Start: 01-26-2024 End: 01-26-2024 Office outpatient visit 25 minutes Macie Patel MD Work Phone: [facility] Comment on above: Alzheimer's dementia , unspecified dementia severity, unspecified timing of dementia onset, unspecified whether behavioral, psychotic, or mood disturbance or anxiety (CMS/HCC) (Primary Dx); MCI (mild cognitive impairment) with memory loss Start: 01-26-2024 End: 01-26-2024 ambulatory MACIE PATEL Not Available Start: 01-09-2024 End: 01-12-2024 Refill Beatriz Carson MD Work Phone: [facility] Comment on above: Primary hypertension (CMS/HCC) Start: 01-06-2024 End: 01-06-2024 Office outpatient visit 25 minutes Marielena Herrera UTILITY SYSTEM OPERATOR Work Phone: [facility] Comment on above: SOB (shortness of br eath) (Primary Dx); Chest pain, unspecified type; Amnestic 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); Primary hypertension (CMS/HCC); Gastroesophageal reflux disease, unspecified whether esophagitis present; Advanced age; Dizziness; Anemia, unspecified type Start: 01-06-2024 End: 01-06-2024 ambulatory MARIELENA HERRERA Not Available Start: 01-06-2024 End: 01-06-2024 Bamboo flowsheet Marielena Herrera UTILITY SYSTEM OPERATOR Work Phone: [facility] Start: 01-06-2024 End: 01-06-2024 Bamboo flowsheet Marielena Herrera UTILITY SYSTEM OPERATOR Work Phone: [facility] Start: 11-17-2023 End: 11-17-2023 Bamboo flowsheet Macie Patel MD Work Phone: [facility] Start: 11-17-2023 End: 11-17-2023 Bamboo flowsheet Macie Patel MD Work Phone: [facility] Start: 11-17-2023 End: 11-17-2023 Office outpatient new 45 minutes Macie Patel MD Work Phone: [facility] Comment on above: MCI (mild cognitive impairment) with memory loss (Primary Dx); Memory loss; Amnestic 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) Start: 11-17-2023 End: 11-17-2023 ambulatory MACIE PATEL Not Available Start: 11-11-2023 End: 11-11-2023 Bamboo flowsheet Beatriz Carson MD Work Phone: [facility] Start: 11-11-2023 End: 11-11-2023 Bamboo flowsheet Beatriz Carson MD Work Phone: [facility] Start: 11-11-2023 End: 11-11-2023 Office outpatient visit 15 minutes Beatriz Carson MD Work Phone: [facility] Comment on above: COVID-19 (Primary Dx ); Primary hypertension (CMS/HCC); Pain in right buttock; Age-related cognitive decline; Chronic rhinitis Start: 11-11-2023 End: 11-11-2023 ambulatory BEATRIZ Bush WONDERDEMARCUS Not Available Start: 11-05-2023 End: 11-05-2023 ambulatory BEATRIZ Bush YAMILETH Not Available Start: 11-02-2023 End: 11-05-2023 Emergency department patient visit JACY Ramsey MALONE [facility] Start: 11-02-2023 End: 11-04-2023 Evaluation and management of [facility] Start: 10-31-2023 End: 10-31-2023 ambulatory KIZZY CANNON Not Available Start: 10-29-2023 End: 10-29-2023 ambulatory HENRY GUEVARA Not Available Start: 10-27-2023 End: 10-27-2023 ambulatory GERMÁN ALDANA Not Available Start: 10-20-2023 End: 10-20-2023 ambulatory BEATRIZ CARSON Not Available Start: 09-26-2023 End: 09-26-2023 ambulatory MARIELENA A JAVIER Not Available Start: 09-19-2023 Non-patient / Non-visit MD Deidre Carson Work Phone: [facility] Work Phone: Start: 09-19-2023 End: 09-19-2023 Admission to same day surgery center MD Beatriz Carson Work Phone: [facility] Work Phone: Start: 09-19-2023 End: 09-19-2023 ambulatory MD Beatriz Carson Work Phone: [facility] Work Phone: Start: 09-05-2023 End: 09-05-2023 Patient encounter procedure MD Beatriz Carson Work Phone: [facility] [employer] Work Phone: Start: 09-05-2023 End: 09-05-2023 ambulatory MD Beatriz Carson Work Phone: [facility] Work Phone: Start: 09-03-2023 End: 09-03-2023 ambulatory SKYE PUMP Not Available Start: 08-13-2023 End: 08-13-2023 Patient encounter procedure MD Beatriz Carson Work Phone: [facility] Work Phone: Start: 08-12-2023 End: 08-12-2023 ambulatory BEATRIZ Eleazar YAMILETH Not Available Start: 03-17-2023 End: 03-17-2023 Emergency department patient visit LUBNA YAMILETH Facility:[facility] Start: 03-14-2023 Telephone encounter Rocio Norman CMA [facility] Start: 01-15-2023 End: 01-15-2023 ambulatory Adalberto Wood Other [facility] Other Start: 01-15-2023 Office outpatient vi sit 15 minutes Adalberto Wood [facility] Start: 07-16-2022 End: 07-16-2022 ambulatory Adalberto Wood Other [facility] Other Start: 07-16-2022 Office outpatient vi sit 15 minutes Adalberto Wood [facility] Start: 03-27-2022 Rx Renewal Beatriz Verdin y Work Phone: [facility] DO Work Phone: Start: 03-11-2022 End: 03-11-2022 ambulatory MD Beatriz Carson Work Phone: [facility] Work Phone: Start: 03-11-2022 End: 03-11-2022 Patient encounter procedure MD Beatriz Carson Work Phone: [facility] Start: 03-05-2022 End: 03-05-2022 ambulatory Adalberto Wood Other [facility] Other Start: 03-05-2022 Office outpatient vi sit 25 minutes Adalberto Wood [facility] Start: 02-07-2022 End: 02-07-2022 ambulatory Skye Petersen Other [facility] Other Start: 02-07-2022 Office outpatient vi sit 15 minutes Skye Petersen [facility] [place] Start: 11-28-2021 End: 11-28-2021 ambulatory Adalberto Wood Other [facility] Other Start: 11-28-2021 Office outpatient ne w 45 minutes Adalberto Wood [facility] Start: 04-18-2021 AUDIT Beatriz Bush Jagdishl y Work Phone: [facility] [address] DO Work Phone: Start: 03-20-2021 End: 03-20-[address] SANDY DEVINE Facility:[facility] Start: 02-26-2021 AUDIT Beatriz Bush Velvet y Work Phone: [facility] 305 DO Work Phone: Start: 12-29-2020 End: 12-29-[address] BEATRIZ CARSON Facility:[facility] Start: 12-27-2020 End: 12-27-2020 ambulatory BÁRBARA CRUZ Facility:[facility] Start: 07-21-2017 End: 07-22-2017 Ambulatory DEFAULT PHYSICIAN Facility:[facility] Procedures Date Procedure Procedure Detail Performing Clinician Start: 09-19-2023 Colonoscopy MD Beatriz Germain erguloannedemarcus Work Phone: Start: 11-06-2022 Adult depression scr eening assessment Rocio Ester DRIVING INSTRUCTOR Biopsy of prostate Beatriz Germain nderly Work Phone: Biopsy of skin Beatriz Willis ly Work Phone: Excision of basal ce ll carcinoma Beatriz Carson Work Phone: Laminectomy Beatriz Carson Work Phone: Renal lithotripsy Beatriz brown Work Phone: SARS Antigen (LFIA) MD Beatriz Carson Work Phone: Tonsillectomy and adenoidectomy Beatriz Carson Work Phone: Tooth extraction Beatriz anand Work Phone: Total colonoscopy Beatriz brown Work Phone: Plan of Treatment Date Care Activity Detail Author Start: 07-12-2030 DTaP,Tdap and Td Vaccines (2 - Td or Tdap) DTaP,Tdap and Td Vaccines (2 - Td or Tdap) [employer] Start: 08-20-2024 End: 08-20-2024 Patient encounter procedure 08/20/2024 1:30 PM EDT Office Visit [facility] [address] [place] [phone] Marielena Herrera NP [address] [place], [place] [id number] [facility] Start: 08-19-2024 End: 08-19-2024 Patient encounter procedure 08/19/2024 8:00 AM EDT Office Visit [facility] [address] [facility] [address] [place] [address] Macie Patel MD [address] [facility] [address], [place] [id number] [facility] Start: 08-18-2024 End: 08-18-2024 ambulatory 08/18/2024 8:00 AM EDT Treatment [facility] [address] [facility] [email or web address] [address] [place] [address] Shraddha Wolf, PT [address] [facility] [address] [place] [address] [facility] Start: 08-13-2024 End: 08-13-2024 Professional / ancillary services management 08/13/2024 8:30 AM EDT Ancillary Procedure [facility] [address] [facility] [address] [place] [phone] [facility] Start: 08-10-2024 End: 08-10-2024 ambulatory [facility] Comment on above: Arrived Start: 08-02-2024 End: 08-02-2024 Professional / ancillary services management [facility] Start: 08-02-2024 End: 08-02-2024 ambulatory 08/02/2024 8:30 AM EDT Treatment [facility] [address] [facility] [email or web address]] [address] [place] [address] Shraddha Wolf, PT [address] [facility] [address] [place] [address] [facility] Start: 07-22-2024 End: 07-22-2024 ambulatory [facility] Comment on above: Arrived Start: 07-14-2024 End: 07-14-2024 ambulatory [facility] Comment on above: Piriformis syndrome of right side; Pain in right buttock Start: 07-07-2024 End: 07-07-2025 CT Chest WO contrast CT chest wo IV contrast Imaging Routine Pulmonary nodule Expected: 07/07/2024, Expires: 07/07/2025 [facility] Work Phone: Comment on above: Expected: 07/07/2024 , Expires: 07/07/2025 Start: 07-07-2024 End: 07-07-2025 US Thoracic and abdominal aorta limited Ultrasound abdominal aorta limited Imaging Routine Abdominal aortic aneurysm (AAA) without rupture, unspecified part (CMS/HCC) Expected: 07/07/2024, Expires: 07/07/2025 [facility] Comment on above: Expected: 07/07/2024 , Expires: 07/07/2025 Start: 07-07-2024 End: 07-07-2025 US.doppler Carotid arteries - bilateral Vascular US carotid artery duplex bilateral Imaging Routine Occlusion and stenosis of bilateral carotid arteries Expected: 07/07/2024, Expires: 07/07/2025 [facility] Comment on above: Expected: 07/07/2024 , Expires: 07/07/2025 Start: 07-07-2024 End: 07-07-2024 Patient encounter procedure 07/07/2024 9:00 AM EDT Office Visit [facility] [address] [place] [phone] Marielena Herrera NP [address] [place] [address] Primary hypertension (CMS/HCC) (Primary Dx); Iliac artery aneurysm, left (CMS/HCC); Atherosclerosis of aorta (CMS/HCC); Gastroesophageal reflux disease, unspecified whether esophagitis present; Malignant neoplasm of prostate (CMS/HCC); Piriformis syndrome of right side; Hyperlipidemia, unspecified hyperlipidemia type (CMS/HCC) [facility] Comment on above: Primary hypertension (CMS/HCC) (Primary Dx); Iliac artery aneurysm, left (CMS/HCC); Atherosclerosis of aorta (CMS/HCC); Gastroesophageal reflux disease, unspecified whether esophagitis present; Malignant neoplasm of prostate (CMS/HCC); Piriformis syndrome of right side; Hyperlipidemia, unspecified hyperlipidemia type (CMS/HCC) Start: 2024 End: 2024 Patient encounter procedure 2024 9:00 AM EST Office Visit [facility] [address] [place] [address] Macie Patel MD [address] [place] [address] [place] [id number] [facility] Start: 03-07-2024 Adult BMI Screening Adult BMI Screen [facility] Start: 03-01-2024 End: 03-01-2025 CBC W Auto Differential panel - Blood CBC and differential Lab Routine Medicare annual wellness visit, subsequent Primary hypertension (CMS/HCC) Anemia, unspecified type Expected: 03/01/2024 (Approximate), Expires: 03/01/2025 [facility] Comment on above: Expected: 03/01/2024 (Approximate), Expires: 03/01/2025 Start: 03-01-2024 End: 03-01-2025 Comprehensive metabolic 2000 panel - Serum or Plasma Comprehensive metabolic panel Lab Routine Medicare annual wellness visit, subsequent Primary hypertension (CMS/HCC) Hypokalemia Expected: 03/01/2024 (Approximate), Expires: 03/01/2025 [facility] Comment on above: Expected: 03/01/2024 (Approximate), Expires: 03/01/2025 Start: 03-01-2024 End: 03-01-2025 Lipid 1996 panel - Serum or Plasma Lipid panel Lab Routine Medicare annual wellness visit, subsequent Hyperlipidemia, unspecified hyperlipidemia type (CMS/HCC) Expected: 03/01/2024 (Approximate), Expires: 03/01/2025 [facility] Comment on above: Expected: 03/01/2024 (Approximate), Expires: 03/01/2025 Start: 03-01-2024 End: 03-01-2025 Prostate specific Ag [Mass/volume] in Serum or Plasma PSA Lab Routine Medicare annual wellness visit, subsequent Ulcerative proctitis with complication (CMS/HCC) Expected: 03/01/2024 (Approximate), Expires: 03/01/2025 [facility] Work Phone: Comment on above: Expected: 03/01/2024 (Approximate), Expires: 03/01/2025 Start: 03-01-2024 End: 03-01-2024 Patient encounter procedure [facility] Comment on above: Arrived Start: 01-26-2024 End: 01-26-2024 Patient encounter procedure [facility] Comment on above: Arrived Start: 01-06-2024 End: 01-06-2024 Patient encounter procedure 01/06/2024 3:00 PM EDT Office Visit [facility] [address] [place] [id number] Marielena Herrera NP [address] [place] [address] Arrived [facility] Comment on above: Arrived Start: 12-17-2023 Tobacco Screening Tobacco Screening [facility] Start: 11-23-2023 Influenza vaccination Influenza Vacc ine (#1) [facility] Start: 11-17-2023 End: 11-17-2023 Patient encounter procedure [facility] Comment on above: Memory loss Start: 11-11-2023 End: 11-11-2023 Patient encounter procedure 11/11/2023 10:30 AM EDT Office Visit [facility] [address] [place] [id number] Beatriz Carson MD [address] [place], [place] [id number] Arrived [facility] Comment on above: Arrived Start: 11-07-2023 Depression Screening Depression Scre ening [facility] Start: 09-19-2023 [facility] Start: 09-05-2023 [facility] Start: 03-18-2023 End: 03-18-2023 Patient encounter procedure 03/18/2023 10:45 AM EST Office Visit [facility] [address] [place] [address] Felicitas Esquivel MD [address] [place] [address] [facility] Start: 03-13-2023 Adult BMI Follow Up Plan Adult BMI F ollow Up Plan [facility] Start: 02-26-2023 COVID-19 Vaccine ( season) COVID-19 Vaccine () [facility] Start: 08-28-2021 FUV, Provider: Mat Gresham, Status: Pen, Time: 9:30 AM FUV, Provider: Mat Gresham, Status: Pen, Time: 9:30 AM [facility] 305 DO Work Phone: Start: 2002 Fall Risk Screening Fall Risk Screen ing [facility] Start: 1937 Medicare Annual Well ness Visit Medicare Annual Wellness Visit [facility] Patient Education Hemorrhoids (D C) Diverticulosis (DC) Colon Polypectomy (DC) Know your Meds [facility] Work Phone: [facility] Immunizations Immunization Date Immunization Notes Care Provider Fa cili 01-05-2024 influenza, high dose seasonal, preservative-free Marielena Herrera UTILITY SYSTEM OPERATOR Work Phone: [facility] 01-05-2024 influenza virus vacc ine, unspecified formulation Marielena Herrera UTILITY SYSTEM OPERATOR Work Phone: [facility] 07-07-2023 RSV, recombinant, pr otein subunit RSVpreF, adjuvant reconstitu, 120mcg/0.5mL, PF (Arexvy) Beatriz Carson MD Work Phone: [facility] 12-18-2022 Influenza, High-dose Seasonal, Quadrivalent, Preservative Free Beatriz Carson MD Work Phone: [facility] 12-18-2022 influenza virus vacc ine, unspecified formulation Beatriz Carson MD Work Phone: [facility] 09-19-2022 zoster vaccine recombinant Beatriz Carson MD Work Phone: [facility] 07-01-2022 Pneumococcal Conjuga te PCV 20 Macie Patel MD Work Phone: [facility] 07-01-2022 tetanus toxoid, redu byorn diphtheria toxoid, and acellular pertussis vaccine, adsorbed Macie Patel MD Work Phone: [facility] 07-01-2022 zoster vaccine recombinant Beatriz Carson MD Work Phone: [facility] 12-03-2021 Influenza, High-dose Seasonal, Quadrivalent, Preservative Free Beatriz Carson MD Work Phone: [facility] 01-10-2021 Influenza, High-dose Seasonal, Quadrivalent, Preservative Free Beatriz Carson MD Work Phone: [facility] 07-12-2020 tetanus and diphther ia toxoids, adsorbed, preservative free, for adult use (5 Lf of tetanus toxoid and 2 Lf of diphtheria toxoid) Beatriz Carson MD Work Phone: [facility] 12-05-2019 influenza, high dose seasonal, preservative-free Beatriz Carson MD Work Phone: [facility] 12-21-2018 influenza, injectabl e, quadrivalent, preservative free Beatriz Carson MD Work Phone: [facility] 12-19-2017 influenza, injectabl e, quadrivalent, preservative free Beatriz aCrson MD Work Phone: [facility] 01-14-2017 influenza, high dose seasonal, preservative-free Beatriz Carson MD Work Phone: [facility] 01-12-2016 influenza, high dose seasonal, preservative-free Beatriz Carson MD Work Phone: [facility] 03-04-2014 pneumococcal conjuga te vaccine, 13 valent Beatriz Carson MD Work Phone: [facility] 02-02-2014 influenza, seasonal, injectable, preservative free Beatriz Carson MD Work Phone: [facility] 12-06-2013 Seasonal, trivalent, recombinant, injectable influenza vaccine, preservative free Macie Patel MD Work Phone: [facility] 09-05-2013 pneumococcal vaccine , unspecified formulation Macie Patel MD Work Phone: [facility] 01-22-2011 pneumococcal polysaccharide vaccine, 23 valent Beatriz Carson MD Work Phone: [facility] 01-22-2010 tetanus and diphther ia toxoids, adsorbed, preservative free, for adult use (2 Lf of tetanus toxoid and 2 Lf of diphtheria toxoid) Beatriz Carson MD Work Phone: [facility] Payers Date Payer Category Payer Self-pay [id number] 2022 Medicaid [employer] MEDICARE A DVANTAGE [id number] 2022 Medicare [id number] 2022 Medicare [id number] 1959 Medicare [id number] 1959 Unknown [id number] 1937 Unknown [id number] 2.16.840.1.788794.3.579.2. 593 1937 Unknown [id number] 2.16.840.1.666740.3.579.2. 593 1937 Unknown [id number] 2.16.840.1.970944.3.579.2. 593 1937 Unknown [id number] 2.16.840.1.091959.3.579.2. 1286 1937 Unknown [id number] 2.16.840.1.500094.3.579.2. 128 1937 Unknown [id number] 2.16.840.1.740039.3.579.2. 128 1937 Unknown [id number] 2.16.840.1.289604.3.579.2. 125 1937 Unknown [id number] 2.16.840.1.450273.3.579.2. 125 1937 Unknown [id number] 2.16.840.1.086925.3.579.2. 125 1937 Unknown [id number] 2.16.840.1.616142.3.579.2. 1258 1937 Unknown [id number] 2.16.840.1.255332.3.579.2. 125 1937 Unknown [id number] 2.16.840.1.906857.3.579.2. 125 1937 Unknown [id number] 2.16.840.1.422422.3.579.2. 125 1937 Unknown [id number] 2.16.840.1.625579.3.579.2. 1258 1937 Unknown [id number] 2.16.840.1.259931.3.579.2. 125 1937 Unknown [id number] 2.16.840.1.755897.3.579.2. 125 1937 Unknown [id number] 2.16.840.1.787464.3.579.2. 1259 1937 Unknown [id number] 2.16.840.1.663161.3.579.2. 1259 1937 Unknown [id number] 2.16.840.1.181244.3.579.2. 1259 1937 Unknown [id number] 2.16.840.1.670206.3.579.2. 1258 1937 Unknown [id number] 2.16.840.1.953932.3.579.2. 1259 1937 Unknown [id number] 2.16.840.1.576194.3.579.2. 1258 1937 Unknown [id number] 2.16.840.1.166852.3.579.2. 1258 1937 Unknown [id number] 2.16.840.1.765315.3.579.2. 1259 Private Health Insurance [id number] 2.16.840.1.113998.19 Unknown Unknown [id number] 2.16.840.1.204560.3.579.2. 531 Unknown [id number] 2.16.840.1.825794.3.579.2. 531 Social History Date Type Detail Facility Start: 11-17-2023 End: 03-01-2024 Never a smoker Never a smoker [facility] 305 DO Work Phone: Start: 11-17-2023 End: 03-01-2024 Sex Assigned At [facility] [employer] Other Start: 1935 Sex Assigned At Male [facility] Start: 09-05-2023 End: 09-19-2023 Tobacco smoking status [facility]IS Ex-smoker (finding) [facility] Start: 02-28-2023 End: 03-01-2024 Tobacco smoking status [facility]IS Never smoked tobacco [facility] Start: 02-28-2023 End: 03-01-2024 Tobacco use and exposure Smokeless tobacco non-user [facility] Start: 11-17-2023 End: 07-07-2024 Alcoholic beverage intake Current drinker of alcohol (finding) [facility] Start: 1935 Sex assigned at Not on file [facility] History of tobacco use Passive smoker [facility] Start: 03-01-2024 Alcoholic beverage intake Ex-drinker (finding) [facility] Do you belong to any clubs or organizations such as sikhism groups, unions, fraternal or athletic groups, or school groups? Yes [facility] Are you now , , , , never or living with a partner? [facility] How often to you hav e a drink containing alcohol? Monthly or less [facility] How many standard dr inks containing alcohol do you have on a typical day? Patient does not drink [facility] How often do you hav e 6 or more drinks on 1 occasion? Never [facility] Do you feel stress - tense, restless, nervous, or anxious, or unable to sleep at night because your mind is troubled all the time - these days [OSQ] Not at all [facility] Start: 08-07-2021 Alcohol Comment socially [facility] Start: 08-05-2024 Sex Male (finding) [facility] Goals Date Patient Goal Desired Activity /State Personal health goal Comment on above: Formatting of this n ote might be different from the original. Evaluation of progress towards goal: safe transition from hospital to home with pt's and family support. Clinical Notes 11-28-2021 to 08-10-2024 Shraddha Wolf, PT - 08/10/2024 9:30 AM EDTShraddha Wolf, PT - 08/02/2024 8:30 AM EDTTelephone Encounter - Marielena Herrera, UTILITY SYSTEM OPERATOR - 07/28/2024 6:15 PM EDT Note Date & Type Note Facility 08-10-2024 History of Presen t illness Narrative Images from the original note were not included. Physical Therapy Treatment Visit Patient Name: Jacy Marroquin Today's Date: 08/10/2024 Encounter Diagnoses Name [...] of POC on 07/14/24 for piriformis muscle tightness. Pt. Will benefit from skilled PT services. Performed more manual techniques to lumbar spine today to help decrease piriformis symptoms today. Trial of DN to right shoulder to help decrease pain. TTP bilateral sacrum today and L5/S1 segment. Outcome Measure: in chart Short Term Goal: To be met in 2 weeks Goal 1: Pt to be instructed in home exercise program. Quality Control Clerk Goals: To be met in 10 weeks [...] sign below. Date: documented in this encounter [facility] 08-02-2024 History of Presen t illness Narrative Images from the original note were not included. Physical Therapy Evaluation Visit Patient Name: Jacy Marroquin Today's Date: 08/02/2024 Encounter Diagnoses Name Primary? Piriformis syndrome of right side Yes Pain in right buttock Acute bilateral low back pain without sciatica Visit number: 3 Timed Code Treatment Minutes: 40 minutes Total Treatment Time: 40 minutes Time In: 0830 Time Out: 09 History: Pt. Presents to PT with c/c [...] of POC on 07/14/24 for piriformis muscle tightness. Pt. Will benefit from skilled PT services. Performed more manual techniques to lumbar spine today to help decrease piriformis symptoms today. Outcome Measure: in chart Short Term Goal: To be met in 2 weeks Goal 1: Pt to be instructed in home exercise program. Quality Control Clerk Goals: To be met in 10 weeks [...] sign below. Date: documented in this encounter [facility] 07-28-2024 Telephone encount er Note I tried to call pt and LM for pt that CT of chest was denied r/t nodule was small ie 2.[address] done 09/13 -so per guideline no routine F/U needed. Will cancel CT. I then called his Inés to update her. Pt does have open order for carotid U/S for him to do. I asked her if he has been back to Cardiology or Vascular, she didn't think he has, She said she is not sure he will do the U/S and not sure that he wants to go back to the specialists. She will talk to him and let us know. Inés thinks she is due for an appt, I looked at her chart and her last appt was in Jan so she was due in June. She will call to set up an appt soon for herself [facility] 07-28-2024 Miscellaneous Notes Formattin g of this note might be different from the original. I tried to call pt and LM for pt that CT of chest was denied r/t nodule was small ie 2.[address] done 09/13 -so per guideline no routine F/U needed. Will cancel CT. I then called his Inés to update her. Pt does have open order for carotid U/S for him to do. I asked her if he has been back to Cardiology or Vascular, she didn't think he has, She said she is not sure he will do the U/S and not sure that he wants to go back to the specialists. She will talk to him and let us know. Inés thinks she is due for an appt, I looked at her chart and her last appt was in Jan so she was due in June. She will call to set up an appt soon for herself In looking into this, the denial was based on the size of pt's nodule, and per the guidelines, it was too small to warrant a follow up. I spoke to Radha about this. CT of chest documented in this encounter [facility] 07-23-2024 Telephone encount er Note In looking into this, the denial was based on the size of pt's nodule, and per the guidelines, it was too small to warrant a follow up. I spoke to Radha about this. [facility] 07-22-2024 History of Presen t illness Narrative Images from the original note were not included. Physical Therapy Evaluation Visit Patient Name: Jacy Marroquin Today's Date: 07/22/2024 Encounter Diagnoses Name Primary? Piriformis syndrome of right side Yes Pain in right buttock Visit number: 2 Timed Code Treatment Minutes: 53 minutes Total Treatment Time: 53 minutes Time In: 1100 Time Out: 1153 History: Pt. Presents to PT with c/c right piriformis syndrome which started 2 months ago. No LEONIDAS. Pt. Reports of increased pain at night. Denies N/T. Pt. Reports he works out 4x per week. Precautions: as tolerated Subjective: Pt. Reports hip is feeling over 90% better. Only has slight discomfort occasionally. Compliant with HEP. Pain: 0/10 Objective: PT Evaluation (07/14/24) Lumbar ROM: WFL [...] Needling, IASTM, and Scar mobilization Therapeutic Exercise: (27 minutes) exercises in grid; Strength, Endurance, Flexibility, [...] and Fluidotherapy Assessment: Pt. Has participated in 2 PT session with start of POC on 07/14/24 for piriformis muscle tightness. Pt. Will benefit from skilled PT services. Pt. Demonstrates normal piriformis and hamstring muscle flexibility. Added more hip strengthening exercises to HEP and POC today. Pt. Is compliant with HEP and will continue at home. Outcome Measure: in chart Short Term Goal: To be met in 2 weeks Goal 1: Pt to be instructed in home exercise program. Quality Control Clerk Goals: To be met in 10 weeks [...] sign below. Date: documented in this encounter [facility] 07-21-[address] Telephone encount er Note CT of chest [facility] 07-19-2024 Telephone encount er Note Rx sent [facility] 07-19-2024 Miscellaneous Notes Formattin g of this note might be different from the original. Rx sent documented in this encounter [facility] 07-14-2024 History of Presen t illness Narrative Images from the original note were not included. Physical Therapy Evaluation Visit Patient Name: Jacy Marroquin Today's Date: 07/14/2024 Encounter Diagnoses Name Primary? Pain in right buttock Yes Piriformis syndrome of right side Visit number: 1 Timed Code Treatment Minutes: 60 minutes Total Treatment Time: 60 minutes Time In: 1500 Time Out: 1600 History: Pt. Presents to PT with c/c right piriformis syndrome which started 2 months ago. No LEONIDAS. Pt. Reports of increased pain at night. Denies N/T. Pt. Reports he works out 4x per week. Precautions: as tolerated Subjective Pain: was 6-7/10 but feeling better and now 3/10 Objective: PT Evaluation (07/14/24) Lumbar ROM: WFL Hip ROM: decreased hip ER/IR Flexibility: moderate - piriformis muscle tightness, normal hamstring Strength: core 5/5, lateral hip 4/5, extension 4+/5 Palpation: TTP piriformis at sacrum Treatment: PT evaluation (20 minutes) Education: HEP education with demonstration, Educated on Eval Findings and POC Manual Therapy: (14 minutes) piriformis stretching; Passive ROM, Joint mobilization, Soft Tissue Mobilization, Myofascial Release, Muscle Energy Technique, Neural Mobilization, Myofascial Cupping, Dry Needling, IASTM, and Scar mobilization Therapeutic Exercise: (15 minutes) exercises in grid; Strength, Endurance, Flexibility, [...] and Fluidotherapy Assessment: Pt. Has participated in 1 PT session with start of POC on 07/14/24 for piriformis muscle tightness. Pt. Will benefit from skilled PT services. Outcome Measure: in chart Short Term Goal: To be met in 2 weeks Goal 1: Pt to be instructed in home exercise program. Group Home Goals: To be met in 10 weeks Goal 1: Pt to report independence and compliance with home program. Goal 2: Pt. Will report of 0/10 right piriformis muscle pain while performing daily tasks. Goal 3: Pt. Will demonstrate normal piriformis muscle flexibility to help decrease pain. Goal 4: Pt. Will demonstrate 5/5 right lateral hip strength to help decrease pain. Pt will benefit from skilled PT for 1-2x/week from 07/14/24 to 09/22/24 to address the above impairments. I hereby deem this POC medically necessary. Please sign below. Date: documented in this encounter [facility] 07-08-2024 Telephone encount er Note Scheduled PT Eval 07/14/24 w/ Shraddha Wolf PT. [facility] 07-08-2024 Miscellaneous Notes Formattin g of this note might be different from the original. Scheduled PT Eval 07/14/24 w/ Shraddha Wolf PT. Tried to contact to schedule PT Eval for Piriformis syndrome of right side and Pain in right buttock; had to lm requesting a call back. documented in this encounter [facility] 07-08-2024 Telephone encount er Note Tried to contact to schedule PT Eval for Piriformis syndrome of right side and Pain in right buttock; had to lm requesting a call back. [facility] 07-07-2024 History of Presen t illness Narrative Images from the original note were not included. Subjective Patient ID: Jacy Marroquin is a 89 y.o. male who presents for sciatica pain (Right side). HPI: Pt is having pain in right mid butt area , comes and goes, non radiating. Rates pain at 5/10 when flared. Pain has been present for approximate 1 year-still doing exercises he got from PT that he was given 1 year ago, Does workout 3 x per week at [employer] and plays golf once a week. Pt is taking Motrin 400 mg daily, and 2 Tylenol PM also to help sleep. Also has discomfort Sore in R heel 3-4/10, using Voltaren gel relieves pain. Irritation on top of head. Has shampoo at home that was prescribed for him, but not using that often-only weekly. Also using Hydrocortisone 10-for occ itching on head Review of Systems Constitutional: Positive for activity change. Negative for appetite change, chills, fatigue and fever. HENT: Positive for congestion (clear discharge using Flonase) and sore throat. Negative for postnasal drip, sinus pressure and sinus pain. Eyes: Positive for itching (intermittent, usinng eye drops). Respiratory: Negative for chest tightness and shortness of breath. Cardiovascular: Negative for chest pain and leg swelling. Gastrointestinal: Negative for abdominal pain and constipation (BM 1 or 2x per day). Bowels moving well Genitourinary: Negative for dysuria. Musculoskeletal: Positive for arthralgias (R shouder-from golfing-uses Voltaren gel). See HPI Skin: Negative for rash (quhrjzzw-hmrosya-tsdvt Cortisone-10). Has not seen Derm for awhile, enc F/U Psychiatric/Behavioral: Sleep interupted by pain if lays on right side 10/27/2023 7:58 AM 11/05/2023 9:51 AM 11/11/2023 10:11 AM 11/17/2023 11:02 AM 01/06/2024 2:53 PM 03/01/2024 8:33 AM 07/07/2024 8:36 AM Vitals BMI 27.34 kg/m2 26.58 kg/m2 26.81 kg/m2 27.06 kg/m2 27.73 kg/m2 27.53 kg/m2 27.7 kg/m2 BSA (m2) 2.11 m2 2.08 m2 2.09 m2 2.1 m2 2.13 m2 2.12 m2 2.12 m2 Systolic 135 110 124 122 120 128 124 Diastolic 73 66 72 68 64 70 70 Heart Rate 109 76 86 76 76 SpO2 99 % 96 % Temp 97.7 F Height (in) 5' 11 5' 11 5' 11 Weight (lb) 196 190.6 192.2 194 198.8 197.4 198.6 Visit Report Report Report Report Report Report Report Report Objective Physical Exam Vitals and nursing note reviewed. Constitutional: General: He is not in acute distress. Appearance: Normal appearance. He is not diaphoretic. Comments: Walked into the appt HENT: Head: Normocephalic and atraumatic. Right Ear: Tympanic membrane normal. Left Ear: Tympanic membrane normal. Nose: Nose normal. No congestion or rhinorrhea. Mouth/Throat: Mouth: Mucous membranes are moist. Eyes: Extraocular Movements: Extraocular movements intact. Conjunctiva/sclera: Conjunctivae normal. Cardiovascular: Rate and Rhythm: Normal rate and regular rhythm. Heart sounds: No murmur heard. Comments: No edema Pulmonary: Effort: No respiratory distress. Breath sounds: No wheezing or rales. Comments: No cough Abdominal: General: There is no distension. Palpations: Abdomen is soft. Musculoskeletal: General: No swelling. Cervical back: Neck supple. Comments: Pain in right buttock area, non radiating. PP palp. No N/T. Pt can feel my touch Right heel -no redness or increased warmth. Enc stretches, could get X-ray see Podiatry if not improving. Pt will let us know Skin: General: Skin is warm and dry. Coloration: Skin is not jaundiced or pale. Neurological: Mental Status: He is alert and oriented to person, place, and time. Mental status is at baseline. Psychiatric: Comments: Cooperative, well groomed. Occ gets up out of seat, repeats self, here by himself today I have reviewed and reconciled the history and medication list with the patient today. Assessment/Plan Diagnoses and all orders for this visit: Primary hypertension (CMS/HCC): Controlled Iliac artery aneurysm, left (CMS/HCC): Pt has seen Vascular Dr Sarah, last appt 08/12. Phone number given to pt to call/or have his call for appt. I will order U/S Abdominal aortic aneurysm (AAA) without rupture, unspecified part (CMS/HCC): As above Atherosclerosis of aorta (CMS/HCC): On statin. Sees Cardiology. Last appt I see was 12/14-phone number given to call for appt Peripheral arterial disease ([facility] Enc F/U with vascular Hyperlipidemia, unspecified hyperlipidemia type (CMS/HCC): Last LDL 46 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: Last Carotid U/S result obtained for chart-done 05/01/22- 50-69% stenosis right < 50% left Piriformis syndrome of right side: Can take Motrin (Ibuprofen) 4-200mg ie 800mg up to 3 times a day. It can bother stomach, so take with food, long tem use can affect kidneys. Tylenol 500mg or 650mg 1-2 tabs three times a day. Max is to 3000mg of Tylenol per 24 hours. Can alternate, heat or ice patches, rubs ie Tereso Blake, [place], Biofreeze, [place] patches. Pt would like referral to [facility] [place] 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): Pt sees Dr Patel Neurlogy, has appt 08/19/24-enc to keep appt Pulmonary nodule: Last CT of chest 2022-pt agreeable to repeating it. Order put it. Pt will do all testing at [facility]. Dizziness Advanced Age F/U PRN if symptoms worsen or fail to improve. PVU documented in this encounter [facility] 05-24-2024 Telephone encount er Note Patient calling to let you know that Abhijit went to the ER in [place] 3 days ago for shallow breathing. They took labs and chest xray. He feels perfectly fine today. She just wanted to speak with you. They will be home June 22. [facility] [phone]. Thank you. [facility] 05-24-2024 Miscellaneous Notes Formattin g of this note might be different from the original. Patient calling to let you know that Abhijit went to the ER in [place] 3 days ago for shallow breathing. They took labs and chest xray. He feels perfectly fine today. She just wanted to speak with you. They will be home June 22. [facility] [phone]. Thank you. documented in this encounter [facility] 03-01-2024 History of Presen t illness Narrative Images from the original note were not included. Jacy Marroquin is a 88 y.o. male presents with chief complaint of Medicare Annual Wellness Visit Subsequent, Dizziness (Feeling very dizzy this morning.), Constipation (Went to ER a few days ago for abdominal pain and could not pass BM. Was given fleets enema - was able to get some rock like BM out. Stopped Sulfasalazine because he thinks this caused the constipation), and Nasal Congestion HPI: Dizziness Associated symptoms include myalgias (bilateral buttocks). Pertinent negatives include no abdominal pain, chest pain, congestion, coughing, fatigue, fever, nausea, rash or sore throat. Constipation Associated symptoms include back pain. Pertinent negatives include no abdominal pain, diarrhea, fever or nausea. As above. He follows with neurology, has seen ENT and ortho, and cardiology. He states he sees Dr. Wood an Amad for GI too but it's been a while. He has seen PT and has in home stretches to do for his muscle pain and back. He states he gets fuzzy in his head when he takes his medicine. He states he is using his Flonase 5+ times a day for his sinus problems. [place] leaving for [place] in [place]. He sees the dentist regularly and the eye doctor yearly. SUBJECTIVE: MEDICATIONS: Current Outpatient Medications Medication Instructions acetaminophen (TYLENOL) 650 mg, Every 6 hours PRN amLODIPine (NORVASC) 5 mg, Oral, Daily Apoaequorin (Prevagen) 10 MG capsule Take by mouth azelastine (Astelin) 0.1 % nasal spray 1 spray, 2 times daily donepezil (ARICEPT) 10 mg, Oral, Nightly fluticasone (Flonase) 50 MCG/ACT nasal spray 2 sprays, Each Nostril, Daily, Shake gently. Before first use, prime pump. After use, clean tip and replace cap. hydrocortisone (Anusol-HC) 2.5 % rectal cream INSERT into the rectum FOUR TIMES DAILY NEEDED ketoconazole (NIZOral) 2 % shampoo 2 times weekly ketoconazole (NIZOral) 2 % shampoo Topical, 2 times weekly meclizine (ANTIVERT) 25 mg, 2 times daily PRN memantine (NAMENDA) 10 mg, Oral, 2 times daily Multiple Vitamin (Multi-Vitamin) tablet 1 tablet, Daily RT NON FORMULARY Prostate vitamin rosuvastatin (CRESTOR) 5 mg, Oral, Daily sulfaSALAzine (AZULFIDINE) 1,000 mg, 2 times daily ALLERGIES: No Known Allergies History: Past Medical History: Diagnosis Date A-fib ([facility]) Acute hypoxic respiratory failure ([facility]) 11/02/2023 Cataract Diverticulosis Hypercholesteremia ([facility]/HCC) Hypertension ([facility]) alf current use of anticoagulant therapy 07/02/2018 Paroxysmal atrial fibrillation ([facility]/HCC) 06/10/2018 Prostate cancer ([facility]) Past Surgical History: Procedure Laterality Date CATARACT EXTRACTION COLONOSCOPY 09/19/[address] ANGIOGRAM ABDOMEN PELVIS 05/30/2021 CT ANGIOGRAM ABDOMEN PELVIS 05/30/2021 Family History Problem Relation Name Age of Onset Cataracts Sister Heart attack Niece/Nephew Social History Socioeconomic History Marital status: Spouse name: Not on file Number of children: Not on file Years of education: Not on file Highest education level: Not on file Occupational History Not on file Tobacco Use Smoking status: Never Passive exposure: Past Smokeless tobacco: Never Vaping Use Vaping status: Never Used Substance and Sexual Activity Alcohol use: Not Currently Alcohol/week: 0.0 - 1.0 standard drinks of alcohol Drug use: Never Sexual activity: Defer Other Topics Concern Not on file Social History Narrative Not on file Social Drivers of Health Financial Resource Strain: Low Risk (11/06/2022) [facility] Financial Resource Strain (CARDIA) Difficulty of Paying Living Expenses: Not hard at all Food Insecurity: No Food Insecurity (02/28/2024) Received from [facility] Hunger Screening Within the past 12 months we worried whether our food would run out before we got money to buy more.: Never True Within the past 12 months the food we bought just didn't last and we didn't have money to get more.: Never True Transportation Needs: No Transportation Needs (11/02/2023) Received from [facility] PRAPARE - Transportation Lack of Transportation (Medical): No Lack of Transportation (Non-Medical): No Physical Activity: Sufficiently Active (11/06/2022) [facility] Exercise Vital Sign Days of Exercise per Week: 3 days Minutes of Exercise per Session: 90 min Stress: No Stress Concern Present (11/06/2022) [facility] [place] [facility] Occupational Health - Occupational Stress Questionnaire Feeling of Stress : Not at all Social Connections: Socially Integrated (11/06/2022) Received from [facility], [facility] Social Connection and Isolation Panel [NHANES] Frequency of Communication with Friends and Family: Three times a week Frequency of Social Gatherings with Friends and Family: Three times a week Attends Quaker Services: More than 4 times per year Active Member of Clubs or Organizations: Yes Attends Club or Organization Meetings: More than 4 times per year Marital Status: Intimate Partner Violence: Not on file Housing Stability: Low Risk (11/02/2023) Received from [employer] [facility] Housing Instability Are you worried or concerned that in the next two months you may not have stable housing that you own, rent or stay in as a part of a household?: No Over the past 2 weeks, how often have you been bothered by any of the following problems? Little interest or pleasure in doing things: Not at all Feeling down, depressed, or hopeless: Not at all Patient Health Questionnaire-2 Score: 0 Oh Fall Risk History of Falling, Immediate or Within 3 Months: No Secondary Diagnosis: No Ambulatory Aid: Walks without aid/bedrest/nurse assist Intravenous Therapy/Heparin Lock: No Gait/Transferring: Normal/bedrest/immobile Mental Status: Oriented to own ability Oh Fall Risk Score: 0 Health Risk Assessment Form Do you need help eating, bathing, using the toilet, dressing, or getting around your home?: No Can you prepare your own meals?: Yes Can you do your own housework without help?: Yes Can you shop for groceries or clothes without help?: Yes Do you exercise for about 20 minutes 3 or more days a week?: Yes How confident are you that you can control and manage most of your health problems?: Very confident Can you mange your money, credit cards and accounts, pay bills and taxes?: Yes Cognitive Screening Cognitive Screening Not Completed: Patient refuses cognitive assessment Pain Assessment Pain Score: 3 I have reviewed and reconciled the history and medication list with the patient today. REVIEW OF SYMPTOMS: Review of Systems Constitutional: Negative. Negative for fatigue and fever. HENT: Positive for postnasal drip and rhinorrhea. Negative for congestion, ear discharge, ear pain, sinus pressure, sinus pain, sneezing, sore throat and trouble swallowing. Eyes: Negative. Respiratory: Negative for cough, shortness of breath and wheezing. Cardiovascular: Negative. Negative for chest pain, palpitations and leg swelling. Gastrointestinal: Positive for constipation. Negative for abdominal distention, abdominal pain, blood in stool, diarrhea and nausea. Genitourinary: Negative. Musculoskeletal: Positive for back pain and myalgias (bilateral buttocks). Skin: Negative. Negative for rash. Neurological: Positive for dizziness (states he is not dizzy, he feels fuzzy). Psychiatric/Behavioral: Negative. Known memory issues OBJECTIVE: 10/20/2023 10:26 AM 10/27/2023 7:58 AM 11/05/2023 9:51 AM 11/11/2023 10:11 AM 11/17/2023 11:02 AM 01/06/2024 2:53 PM 03/01/2024 8:33 AM Vitals BMI 27.78 kg/m2 27.34 kg/m2 26.58 kg/m2 26.81 kg/m2 27.06 kg/m2 27.73 kg/m2 27.53 kg/m2 BSA (m2) 2.13 m2 2.11 m2 2.08 m2 2.09 m2 2.1 m2 2.13 m2 2.12 m2 Systolic 146 135 110 124 122 120 128 Diastolic 74 73 66 72 68 64 70 Heart Rate 80 109 76 86 76 SpO2 99 % 96 % Temp 97.7 F Height (in) 5' 11 5' 11 5' 11 Weight (lb) 199.2 196 190.6 192.2 194 198.8 197.4 Visit Report Report Report Report Report Report Report Report Physical Exam Vitals and nursing note reviewed. Constitutional: General: He is not in acute distress. Appearance: Normal appearance. He is not ill-appearing, toxic-appearing or diaphoretic. HENT: Head: Normocephalic and atraumatic. Right Ear: Tympanic membrane, ear canal and external ear normal. Left Ear: Tympanic membrane, ear canal and external ear normal. Nose: Rhinorrhea present. No congestion. Mouth/Throat: Mouth: Mucous membranes are moist. Pharynx: Oropharynx is clear. No oropharyngeal exudate or posterior oropharyngeal erythema. Eyes: Extraocular Movements: Extraocular movements intact. Conjunctiva/sclera: Conjunctivae normal. Pupils: Pupils are equal, round, and reactive to light. Neck: Vascular: No carotid bruit. Cardiovascular: Rate and Rhythm: Normal rate and regular rhythm. Pulses: Normal pulses. Heart sounds: Murmur (slight murmur noted) heard. No friction rub. No gallop. Pulmonary: Effort: Pulmonary effort is normal. No respiratory distress. Breath sounds: Normal breath sounds. No wheezing, rhonchi or rales. Chest: Chest wall: No tenderness. Abdominal: General: Bowel sounds are normal. There is no distension. Palpations: Abdomen is soft. Tenderness: There is no guarding. Musculoskeletal: General: No swelling or deformity. Normal range of motion. Cervical back: Normal range of motion and neck supple. Lymphadenopathy: Cervical: No cervical adenopathy. Skin: General: Skin is warm and dry. Capillary Refill: Capillary refill takes less than 2 seconds. Findings: No bruising, lesion or rash. Neurological: General: No focal deficit present. Mental Status: He is alert and oriented to person, place, and time. Mental status is at baseline. Motor: No weakness. Gait: Gait normal. Comments: Forgetful and impulsive. Psychiatric: Mood and Affect: Mood normal. Comments: He has random thoughts and he agitates easily with things like his sinuses and his muscle pain. He is impulsive with his actions as he jumps up or starts randomly stretching in office. ASSESSMENT AND PLAN: Assessment/Plan Diagnoses and all orders for this visit: Medicare annual wellness visit, subsequent Discussed height, weight and BMI. Encouraged healthy diet and regular exercise. Discussed vaccines and encouraged yearly flu shot. Reviewed preventative wellness plan with patient and discussed in detail. Scanned into chart. Updated patient problem list and reviewed all current medications with patient. Given time to ask questions. - PSA; Future - Lipid panel; Future - CBC and differential; Future - Comprehensive metabolic panel; Future Alzheimer's dementia, unspecified dementia severity, unspecified timing of dementia onset, unspecified whether behavioral, psychotic, or mood disturbance or anxiety ([facility]/HCC) Follows with neurology. Treated with Namenda and Aricept. He was recently started on Namendsa 5 mg twice daily. He follows with neurology Mar 29. Iliac artery aneurysm, left ([facility]/HCC) Was referred to vascular, has never followed up. Peripheral arterial disease (CMS/HCC) See above. Stable. Atherosclerosis of aorta ([facility]/HCC) See above. Will check labs including lipid panel. Primary hypertension (CMS/HCC) Controlled on current medication regimen. 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 He has stopped his sulfalazine. Discussed restarting it 1 twice a day and following up with GI. - PSA; Future Malignant neoplasm of prostate (CMS/[facility]) Will check PSA. 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 Hyperlipidemia, unspecified hyperlipidemia type (CMS/HCC) Will check labs. Discussed diet. With his mental status and alzheimer's, it is difficult for him to understand and retain information. - Lipid panel; Future Right bundle branch block Follows with cardiology. Due for an appointment Hemorrhoids, unspecified hemorrhoid type Stable. Last scope was in September this year. Mild left ventricular hypertrophy Follows with cardiology. Due for an appointment. Abdominal aortic aneurysm (AAA) without rupture, unspecified part (CMS/HCC) Has not followed up with vascular. On statin. 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 Pulmonary nodule Stable. Occlusion and stenosis of bilateral carotid arteries On statin therapy. Diverticulosis Has seen GI in the past. Last colonoscopy was in September this year. Gastroesophageal reflux disease, unspecified whether esophagitis present stable Diverticular disease See above Renal cyst, left Stable Ankylosing vertebral hyperostosis Stable. Has stretches provided by PT. Follows with ortho. Polyarthropathy Stable. Pain in right buttock Continues despite stretches. Following with ortho. Bilateral hip pain See above. Overweight Encouraged eating a heart healthy diet to help reduce total cholesterol and LDLc, lower blood sugars and triglycerides, and lower blood pressure. Encouraged to eat fruits, vegetables, whole grains, and lean animal protein and fish. Avoid/Limit intake of trans fats, red meats, processed meats, refined carbohydrates (white bread, white rice), baked goods and sweetened beverages. Dry eyes Follows with ophthalmology PCO (posterior capsular opacification), bilateral See above. Allergic rhinitis, unspecified seasonality, unspecified trigger Stable on antihistamine Anxiety He was started on escitalopram in July per Dr. Carson, he is not currently taking. Chronic bilateral low back pain with bilateral sciatica Following with ortho. Sensorineural hearing loss (SNHL) of both ears Has hearing aides, does not wear them. Squamous cell carcinoma of skin States he sees derm as needed Vertigo Has meclizine. Advanced age Dizziness States he is not dizzy but fuzzy. Has been using his Flonase 5+times a day. Was recently started on Nemenda per neuro. Sees them in Mar. Piriformis syndrome of right side Following with ortho. Stress at home Discussed his stress and his and kids want them to move to [place] closer to them. States they are selling their condo in [place] and their home in [place]. Malignant neoplasm of skin Hypokalemia K+ was 3.3 in Oct. Will recheck as he is having some leg cramps. - Comprehensive metabolic panel; Future Anemia, unspecified type Hgb 10 in Oct. Will recheck. Was supposed to be on a MVI with iron daily. He is not sure if he is taking it or not. - CBC and differential; Future Follow up in 6 months, please have or another family member accompany him as his comprehension and memory is too impaired to do an appointment alone. He cannot remember doctors, appointments, medical dx, etc. documented in this encounter [facility] 01-31-2024 Telephone encount er Note Rx sent [facility] 01-31-2024 Miscellaneous Notes Formattin g of this note might be different from the original. Rx sent documented in this encounter [facility] 01-26-2024 History of Presen t illness Narrative Images from the original note were not included. CHIEF COMPLAINT REASON FOR VISIT : Follow up HPI: Jacy Marroquin is a 88 y.o. male who presents for memory loss. He presents to appointment with . They are having to make list due to short memory loss. He has hearing aids but does not wear them. Family notices behavior changes and agitation. He gets very upset with spouse for being impatient or trivial things that he wants. He does not take anti anxiety medications but tells his family he takes them. He is current with Flu and Covid Vaccines CURRENT MEDICATIONS: ALLERGIES/DISCONTINUE MEDICATIONS Current Outpatient Medications Medication Instructions acetaminophen (TYLENOL) 650 mg, Every 6 hours PRN amLODIPine (NORVASC) 5 mg, Oral, Daily Apoaequorin (Prevagen) 10 MG capsule Take by mouth azelastine (Astelin) 0.1 % nasal spray 1 spray, 2 times daily donepezil (ARICEPT) 10 mg, Oral, Nightly fluticasone (Flonase) 50 MCG/ACT nasal spray 2 sprays, Each Nostril, Daily, Shake gently. Before first use, prime pump. After use, clean tip and replace cap. hydrocortisone (Anusol-HC) 2.5 % rectal cream INSERT into the rectum FOUR TIMES DAILY NEEDED ipratropium (Atrovent) 0.06 % nasal spray 2 sprays, Each Nostril, 4 times daily PRN ketoconazole (NIZOral) 2 % shampoo 2 times weekly meclizine (ANTIVERT) 25 mg, 2 times daily PRN memantine (NAMENDA) 5 mg, Oral, 2 times daily Multiple Vitamin (Multi-Vitamin) tablet 1 tablet, Daily RT NON FORMULARY Prostate vitamin rosuvastatin (CRESTOR) 5 mg, Oral, Daily sulfaSALAzine (AZULFIDINE) 1,000 mg, 2 times daily tadalafil (Cialis) 20 MG tablet 1 tablet Orally prn No Known Allergies There are no discontinued medications. PAST MEDICAL HISTORY: SURGICAL/SOCIAL/FAMILY HISTORY DEPRESSION SCREEN: Past Medical History: Diagnosis Date A-fib ([facility]) Acute hypoxic respiratory failure ([facility]) 11/02/2023 Cataract Diverticulosis Hypercholesteremia ([facility]) Hypertension ([facility]) terminologist current use of anticoagulant therapy 07/02/2018 Paroxysmal atrial fibrillation ([facility]) 06/10/2018 Prostate cancer ([facility]) Past Surgical History: Procedure Laterality Date CATARACT EXTRACTION COLONOSCOPY 09/19/[address] ANGIOGRAM ABDOMEN PELVIS 05/30/2021 CT ANGIOGRAM ABDOMEN PELVIS 05/30/2021 Social History Tobacco Use Smoking status: Never Smokeless tobacco: Never Vaping Use Vaping status: Never Used Substance Use Topics Alcohol use: Yes Drug use: Never Family History Problem Relation Name Age of Onset Cataracts Sister Depression: Not at risk (11/06/2022) Received from [facility], [facility] PHQ-2 Total Score: 0 REVIEW OF SYMPTOMS: Review of Systems Constitutional: Negative for chills, fatigue and fever. HENT: Negative for tinnitus. Eyes: Negative for photophobia. Respiratory: Negative for shortness of breath. Cardiovascular: Negative for chest pain. Gastrointestinal: Negative for nausea and vomiting. Genitourinary: Negative for frequency. Musculoskeletal: Negative for back pain, gait problem and neck pain. Neurological: Negative for dizziness, tremors, weakness, light-headedness, numbness and headaches. Psychiatric/Behavioral: Positive for agitation, behavioral problems and confusion. OBJECTIVE: 01/06/2024 2:53 PM 11/17/2023 11:02 AM 11/11/2023 10:11 AM Vitals BMI 27.73 kg/m2 27.06 kg/m2 26.81 kg/m2 BSA (m2) 2.13 m2 2.1 m2 2.09 m2 Systolic 120 122 124 Diastolic 64 68 72 Heart Rate 86 76 SpO2 96 % Height (in) 5' 11 Weight (lb) 198.8 194 192.2 Visit Report Report Report Report EXAM: Neurological ExamMental Status Oriented only to person. Speech is normal. Language is fluent with no aphasia. Cranial Nerves CN II: Visual acuity is normal. Visual valerio full to confrontation. CN III, IV, : Extraocular movements intact bilaterally. Normal lids and orbits bilaterally. Pupils equal round and reactive to light bilaterally. CN V: Facial sensation is normal. CN VII: Full and symmetric facial movement. CN VIII: Hearing is normal. CN XII: Tongue midline without atrophy or fasciculations. Motor Normal muscle bulk throughout. Normal muscle tone. Right Left Wrist flexion 5 5 Wrist extension 5 5 Right Left Deltoid 5 5 Biceps 5 5 Triceps 5 5 Wrist flexor 5 5 Wrist extensor 5 5 Glutei 5 5 Iliopsoas 5 5 Quadriceps 5 5 Gastrocnemius 5 5 Anterior tibialis 5 5 Posterior tibialis 5 5 Sensory Light touch is normal in upper and lower extremities. Pinprick is normal in upper and lower extremities. Vibration is normal in upper and lower extremities. Reflexes Right Left Brachioradialis 2+ 2+ Biceps 2+ 2+ Patellar 2+ 2+ Achilles 2+ 2+ Right Plantar: downgoing Left Plantar: downgoing Right pathological reflexes: Francoise's absent. Ankle clonus absent. Left pathological reflexes: Francoise's absent. Ankle clonus absent. Coordination [id number], rapid alternating movements and [id number] normal bilaterally without dysmetria. Gait Normal casual, toe, heel and tandem gait. Romberg is absent. PROCEDURE: NONE ASSESSMENT AND PLAN: Diagnoses and all orders for this visit: Alzheimer's dementia, unspecified dementia severity, unspecified timing of dementia onset, unspecified whether behavioral, psychotic, or mood disturbance or anxiety (CMS/[facility]): -Continue Aricept 10 at bedtime -Added Namenda 5 mg po BID will increase to 10 mg po BID. -I will order neuropsychiatric testing as this is essential for a patient with cognitive impairment to objectively assess the severity and nature of their cognitive deficits. This testing helps differentiate between various causes of cognitive decline, such as neurodegenerative disorders, mood disturbances, or reversible medical conditions. Early and accurate diagnosis is critical for developing an appropriate treatment plan, slowing progression, and improving the patient s quality of life. Additionally, the testing provides baseline data for monitoring changes over time. -I counseled the patient on the possible side effects and interactions of medications. documented in this encounter [facility] 01-12-2024 Telephone encount er Note Rx sent [facility] 01-12-2024 Miscellaneous Notes Formattin g of this note might be different from the original. Rx sent documented in this encounter [facility] 01-06-2024 History of Presen t illness Narrative Images from the original note were not included. Subjective Patient ID: Jacy Marroquin is a 88 y.o. male who presents for ER Follow-up (SOB). ER Follow-up Associated symptoms include fatigue and headaches. Pertinent negatives include no abdominal pain, chest pain, chills, coughing or fever. HPI: Friday went to get out of bed, felt like crap . Couldn't get a deep breath/SOB, positive left sided chest pain. No cough. No fever or chills. No headache Went to the ER. Had been working in yard with son trimming [employer], does not recall any injury. Pox 95-97% in ER. Flu and covid neg. EKG and CXR were done. They thought pt was anxious. Pt uses heating pad occ , no rub to chest. Pt is feeling better today. Sees Dr Jazmin TARANGO and he put him on medication (Sulfasalazine). Dizzy all the time, saw Dr Patel. They added Memantidine HCL 5mg 2 Am and in 1 PM. [place] foggy, so was told could just take 1 at HS for 1 week then go to the dose he suggested. Also on Donipezil 10mg. Had headache the other night posterior, now ok. Review of Systems Constitutional: Positive for fatigue. Negative for appetite change, chills and fever. Occ sl fatigue, Drinking fluids well HENT: WNL, except blows nose-unsure of color, don't look at it Respiratory: Negative for cough and shortness of breath. Cardiovascular: Negative for chest pain. Gastrointestinal: Negative for abdominal pain and blood in stool. No change in bowels. No GERD Genitourinary: Negative for difficulty urinating and dysuria. Musculoskeletal: See HPI Neurological: Positive for dizziness and headaches. See HPI Psychiatric/Behavioral: Sleeping ok with Tylenol PM. Mood is ok works out 4-5 times a week and feel good afterward. Likes to travel, wants to go to [facility] and [facility], doesn't want to go- that upsets me . Plans to drive to [place] by himself. We discussed this is not a good idea, he may get tired, mixed up on the route. Enc him to have someone go with him if he goes ie one of his children or a friend. Family wants pt/ to move closer to them. Objective Physical Exam Vitals and nursing note reviewed. Constitutional: General: He is not in acute distress. Appearance: He is not diaphoretic. Comments: Walked into the appt HENT: Head: Normocephalic and atraumatic. Right Ear: Tympanic membrane normal. Left Ear: Tympanic membrane normal. Nose: Nose normal. No congestion or rhinorrhea. Mouth/Throat: Mouth: Mucous membranes are moist. Eyes: Extraocular Movements: Extraocular movements intact. Conjunctiva/sclera: Conjunctivae normal. Cardiovascular: Rate and Rhythm: Normal rate and regular rhythm. Heart sounds: No murmur heard. Comments: No edema Pulmonary: Effort: No respiratory distress. Breath sounds: No wheezing or rales. Comments: No cough Abdominal: General: There is no distension. Palpations: Abdomen is soft. Musculoskeletal: General: No swelling. Cervical back: Neck supple. Comments: No chest tenderness with palpation, rechecked a second time and seemed to have slight soreness in left upper chest, but when I asked him about this, he said he was joking Skin: General: Skin is warm and dry. Coloration: Skin is not jaundiced or pale. Neurological: Mental Status: He is alert. Mental status is at baseline. Comments: Oritented to , year 2023, president [place], Her with first - [place], holiday halloween then thanksgiving Psychiatric: Comments: Cooperative, well groomed. Occ gets up out of seat, repeats self, is present 09/26/2023 10:54 AM 10/20/2023 10:26 AM 10/27/2023 7:58 AM 11/05/2023 9:51 AM 11/11/2023 10:11 AM 11/17/2023 11:02 AM 01/06/2024 2:53 PM Vitals BMI 27.78 kg/m2 27.34 kg/m2 26.58 kg/m2 26.81 kg/m2 27.06 kg/m2 27.73 kg/m2 BSA (m2) 2.13 m2 2.11 m2 2.08 m2 2.09 m2 2.1 m2 2.13 m2 Systolic 130 146 135 110 124 122 120 Diastolic 70 74 73 66 72 68 64 Heart Rate 80 109 76 86 SpO2 99 % 96 % Temp 97.7 F Height (in) 5' 11 5' 11 Weight (lb) 199.2 196 190.6 192.2 194 198.8 Visit Report Report Report Report Report Report Report I have reviewed and reconciled the history and medication list with the patient today. Assessment/Plan Diagnoses and all orders for this visit: SOB (shortness of breath) Comments: Reviewed ER report from 01/05/24. CBC: WBC 6.0-WNL, Hgb 11.8/Hematocrit 35.3-sl low. Platelets 187-WNL, BMP WNL, troponin WNL, Flu and covid negative. CXR: No significant pneumothorax, or pleural effusion. Medial right basilar opacities felt to represent atelectasis. EKG-Sinus rhythm with rate of 72, RBBB. Pox 95%. No fever or chills, lungs clear-do not suspect pneumonia, so will hold on ATB at this time. Enc pt to cough and deep breathe Chest pain, unspecified: Discussed chest wall may be inflamed. Can use heating pad, rub Amnestic 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) Comments: Sees Neurology Dr Patel. Enc routine F/U Primary hypertension (CMS/HCC): Controlled Gastroesophageal reflux disease, unspecified whether esophagitis present: Controlled Advanced age Dizziness Comments: Sees Dr Patel discussed Meclizine can have SE of dizziness Anemia, unspecified type Comments: Was taking a MVI with iron, has not beeing taking it for awhile enc to get back on it PRN if symptoms worsen or fail to improve and keep appt with Skye in Dec. Do not eat that morning, so lab that is due can be done documented in this encounter [facility] 11-17-2023 History of Presen t illness Narrative Images from the original note were not included. CHIEF COMPLAINT REASON FOR VISIT : Consultation for Memory Loss HPI: Jacy Marroquin is a 88 y.o. male who presents for consultation from Dr. Carson for memory loss. He presents to appointment with and patient son. They are having to make list due to short memory loss. He has hearing aids but does not wear them. Family notices behavior changes and agitation. He gets very upset with spouse for being impatient or trivial things that he wants. He does not take anti anxiety medications but tells his family he takes them. MOCA completed CURRENT MEDICATIONS: ALLERGIES/DISCONTINUE MEDICATIONS Current Outpatient Medications Medication Instructions acetaminophen (TYLENOL) 650 mg, Oral, Every 6 hours PRN amLODIPine (NORVASC) 5 mg, Oral, Daily Apoaequorin (Prevagen) 10 MG capsule Oral azelastine (Astelin) 0.1 % nasal spray 1 spray, Each Nostril, 2 times daily, Use in each nostril as directed donepezil (ARICEPT) 10 mg, Oral, Nightly fluticasone (Flonase) 50 MCG/ACT nasal spray 2 sprays, Each Nostril, Daily, Shake gently. Before first use, prime pump. After use, clean tip and replace cap. hydrocortisone (Anusol-HC) 2.5 % rectal cream INSERT into the rectum FOUR TIMES DAILY NEEDED ipratropium (Atrovent) 0.06 % nasal spray 2 sprays, Each Nostril, 4 times daily PRN ketoconazole (NIZOral) 2 % shampoo Topical, 2 times weekly meclizine (ANTIVERT) 25 mg, Oral, 2 times daily PRN Multiple Vitamin (Multi-Vitamin) tablet 1 tablet, Oral, Daily RT NON FORMULARY Prostate vitamin rosuvastatin (CRESTOR) 5 mg, Oral, Daily sulfaSALAzine (AZULFIDINE) 1,000 mg, Oral, 2 times daily tadalafil (Cialis) 20 MG tablet 1 tablet Orally prn No Known Allergies There are no discontinued medications. PAST MEDICAL HISTORY: SURGICAL/SOCIAL/FAMILY HISTORY DEPRESSION SCREEN: Past Medical History: Diagnosis Date A-fib ([facility]) Acute hypoxic respiratory failure ([facility]/HCC) 11/02/2023 Cataract Diverticulosis Hypercholesteremia ([facility]/HCC) Hypertension ([facility]/HCC) alf current use of anticoagulant therapy 07/02/2018 Paroxysmal atrial fibrillation ([facility]/HCC) 06/10/2018 Prostate cancer ([facility]) Past Surgical History: Procedure Laterality Date CATARACT EXTRACTION COLONOSCOPY 09/19/[address] ANGIOGRAM ABDOMEN PELVIS 05/30/2021 CT ANGIOGRAM ABDOMEN PELVIS 05/30/2021 Social History Tobacco Use Smoking status: Never Smokeless tobacco: Never Vaping Use Vaping status: Never Used Substance Use Topics Alcohol use: Yes Drug use: Never Family History Problem Relation Name Age of Onset Cataracts Sister Depression: Not at risk (11/06/2022) Received from Competitor, [facility] PHQ-2 Total Score: 0 REVIEW OF SYMPTOMS: Review of Systems Constitutional: Negative for chills, fatigue and fever. HENT: Negative for tinnitus. Eyes: Negative for photophobia. Respiratory: Negative for shortness of breath. Cardiovascular: Negative for chest pain. Gastrointestinal: Negative for nausea and vomiting. Genitourinary: Negative for frequency. Musculoskeletal: Negative for back pain, gait problem and neck pain. Neurological: Negative for dizziness, tremors, weakness, light-headedness, numbness and headaches. Psychiatric/Behavioral: Positive for agitation, behavioral problems and confusion. OBJECTIVE: 11/11/2023 10:11 AM 11/05/2023 9:51 AM 10/27/2023 7:58 AM Vitals BMI 26.81 kg/m2 26.58 kg/m2 27.34 kg/m2 BSA (m2) 2.09 m2 2.08 m2 2.11 m2 Systolic 124 110 135 Diastolic 72 66 73 Heart Rate 76 109 SpO2 99 % Temp 97.7 F Height (in) 5' 11 Weight (lb) 192.2 190.6 196 Visit Report Report Report Report EXAM: Neurological Exam Mental Status Oriented only to person. Speech is normal. Language is fluent with no aphasia. Cranial Nerves CN II: Visual acuity is normal. Visual valerio full to confrontation. CN III, IV, : Extraocular movements intact bilaterally. Normal lids and orbits bilaterally. Pupils equal round and reactive to light bilaterally. CN V: Facial sensation is normal. CN VII: Full and symmetric facial movement. CN VIII: Hearing is normal. CN XII: Tongue midline without atrophy or fasciculations. Motor Normal muscle bulk throughout. Normal muscle tone. Right Left Wrist flexion 5 5 Wrist extension 5 5 Right Left Deltoid 5 5 Biceps 5 5 Triceps 5 5 Wrist flexor 5 5 Wrist extensor 5 5 Glutei 5 5 Iliopsoas 5 5 Quadriceps 5 5 Gastrocnemius 5 5 Anterior tibialis 5 5 Posterior tibialis 5 5 Sensory Light touch is normal in upper and lower extremities. Pinprick is normal in upper and lower extremities. Vibration is normal in upper and lower extremities. Reflexes Right Left Brachioradialis 2+ 2+ Biceps 2+ 2+ Patellar 2+ 2+ Achilles 2+ 2+ Right Plantar: downgoing Left Plantar: downgoing Right pathological reflexes: Francoise's absent. Ankle clonus absent. Left pathological reflexes: Francoise's absent. Ankle clonus absent. Coordination [id number], rapid alternating movements and [id number] normal bilaterally without dysmetria. Gait Normal casual, toe, heel and tandem gait. Romberg is absent. PROCEDURE: NONE ASSESSMENT AND PLAN: Diagnoses and all orders for this visit: MCI (mild cognitive impairment) with memory loss - memantine (Namenda) 5 MG tablet; Take 1 tablet (5 mg) by mouth in the morning and 1 tablet (5 mg) before bedtime. Memory loss - Ambulatory referral to Neurology Amnestic 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): Jacy Marroquin is a 88 y.o. year old maler who presents with cognitive difficulty possibly due to a neurodegenerative process such as Alzheimer's disease or vascular dementia. Other considerations would be pseudodementia secondary to depression or an underlying sleep disorder. I will order neural scan to identify root cause of memory loss using EEG technology to map brain activity and to detect biomarkers that predict brain functionality in addition measuring other cognitive disorders, sleep disorders, depression and other stress related neurological conditions. I will order vital scan to evaluate for peripheral neuropathy, cardiovascular disease, peripheral artery disease, sudomotor dysfunction, endothelial dysfunction, autonomic dysfunctions including orthostatic hypotension and determining etiology of syncope. I will keep him on the Donepezil at 10 mg at bed and also add on Namenda 5 mg po BID for behavior and memory documented in this encounter [facility] 11-11-2023 History of Presen t illness Narrative Images from the original note were not included. Jacy Marroquin is a 88 y.o. male presents with chief complaint of Follow-up (Appetite is up and down. Feels like he is doing a lot better. Still feels fuzzy - severity depends on the day) HPI: Pt is here for covid follow up. Pt states he is feeling better. Pt is getting dizzy when talking his medication. Pt is not having chest pain. No dyspnea. No headache. Pt is having some lightheadedness. His appetite is better. Pt states his energy is better. He is working out now. SUBJECTIVE: MEDICATIONS: Current Outpatient Medications Medication Instructions acetaminophen (TYLENOL) 650 mg, Oral, Every 6 hours PRN amLODIPine (NORVASC) 5 mg, Oral, Daily Apoaequorin (Prevagen) 10 MG capsule Oral azelastine (Astelin) 0.1 % nasal spray 1 spray, Each Nostril, 2 times daily, Use in each nostril as directed donepezil (ARICEPT) 10 mg, Oral, Nightly fluticasone (Flonase) 50 MCG/ACT nasal spray 2 sprays, Each Nostril, Daily, Shake gently. Before first use, prime pump. After use, clean tip and replace cap. hydrocortisone (Anusol-HC) 2.5 % rectal cream INSERT into the rectum FOUR TIMES DAILY NEEDED ipratropium (Atrovent) 0.06 % nasal spray 2 sprays, Each Nostril, 4 times daily PRN ketoconazole (NIZOral) 2 % shampoo Topical, 2 times weekly meclizine (ANTIVERT) 25 mg, Oral, 2 times daily PRN montelukast (SINGULAIR) 10 mg, Oral, Nightly Multiple Vitamin (Multi-Vitamin) tablet 1 tablet, Oral, Daily RT NON FORMULARY Prostate vitamin rosuvastatin (CRESTOR) 5 mg, Oral, Daily sulfaSALAzine (AZULFIDINE) 1,000 mg, Oral, 2 times daily tadalafil (Cialis) 20 MG tablet 1 tablet Orally prn ALLERGIES: No Known Allergies History: Past Medical History: Diagnosis Date A-fib ([facility]) Cataract Diverticulosis Hypercholesteremia ([facility]/HCC) Hypertension ([facility]) alf current use of anticoagulant therapy 07/02/2018 Paroxysmal atrial fibrillation ([facility]/HCC) 06/10/2018 Prostate cancer ([facility]) Past Surgical History: Procedure Laterality Date CATARACT EXTRACTION COLONOSCOPY 09/19/[address] ANGIOGRAM ABDOMEN PELVIS 05/30/2021 CT ANGIOGRAM ABDOMEN PELVIS 05/30/2021 Family History Problem Relation Name Age of Onset Cataracts Sister Social History Socioeconomic History Marital status: Spouse name: Not on file Number of children: Not on file Years of education: Not on file Highest education level: Not on file Occupational History Not on file Tobacco Use Smoking status: Never Smokeless tobacco: Never Vaping Use Vaping status: Never Used Substance and Sexual Activity Alcohol use: Yes Drug use: Never Sexual activity: Defer Other Topics Concern Not on file Social History Narrative Not on file Social Determinants of Health Financial Resource Strain: Low Risk (11/06/2022) [facility] Overall Financial Resource Strain (CARDIA) Difficulty of Paying Living Expenses: Not hard at all Food Insecurity: No Food Insecurity (11/02/2023) Received from [facility]etitor Hunger Screening Within the past 12 months we worried whether our food would run out before we got money to buy more.: Never True Within the past 12 months the food we bought just didn't last and we didn't have money to get more.: Never True Transportation Needs: No Transportation Needs (11/02/2023) Received from [facility] PRAPARE - Transportation Lack of Transportation (Medical): No Lack of Transportation (Non-Medical): No Physical Activity: Sufficiently Active (11/06/2022) [facility], [facility] Exercise Vital Sign Days of Exercise per Week: 3 days Minutes of Exercise per Session: 90 min Stress: No Stress Concern Present (11/06/2022) Received from Competitor, [facility] [place] of Occupational Health - Occupational Stress Questionnaire Feeling of Stress : Not at all Social Connections: Socially Integrated (11/06/2022) Received from Competitor, [facility] Social Connection and Isolation Panel [NHANES] Frequency of Communication with Friends and Family: Three times a week Frequency of Social Gatherings with Friends and Family: Three times a week Attends Quaker Services: More than 4 times per year Active Member of Clubs or Organizations: Yes Attends Club or Organization Meetings: More than 4 times per year Marital Status: Intimate Partner Violence: Not on file Housing Stability: Low Risk (11/02/2023) Received from [facility]etitor Housing Instability Are you worried or concerned that in the next two months you may not have stable housing that you own, rent or stay in as a part of a household?: No REVIEW OF SYMPTOMS: Review of Systems Constitutional: Negative for chills, fatigue (improved), fever and unexpected weight change. HENT: Positive for congestion (some congestion but better). Negative for sore throat. Respiratory: Negative for cough, chest tightness and shortness of breath. Cardiovascular: Negative for chest pain, palpitations and leg swelling. Gastrointestinal: Negative for abdominal pain, blood in stool, constipation, diarrhea, nausea and vomiting. Appetite is improved Genitourinary: Negative for dysuria. Musculoskeletal: Pt is still having some buttocks pain Neurological: Positive for light-headedness. Negative for headaches. Psychiatric/Behavioral: Positive for confusion (pt is having some memory issues.). Negative for dysphoric mood. OBJECTIVE: 08/12/2023 11:14 AM 09/03/2023 10:13 AM 09/26/2023 10:54 AM 10/20/2023 10:26 AM 10/27/2023 7:58 AM 11/05/2023 9:51 AM 11/11/2023 10:11 AM Vitals BMI 27.89 kg/m2 28.03 kg/m2 27.78 kg/m2 27.34 kg/m2 26.58 kg/m2 26.81 kg/m2 BSA (m2) 2.13 m2 2.14 m2 2.13 m2 2.11 m2 2.08 m2 2.09 m2 Systolic 136 118 130 146 135 110 124 Diastolic 76 60 70 74 73 66 72 Heart Rate 68 76 80 109 76 SpO2 99 % Temp 97.7 F Height (in) 5' 11 Weight (lb) 200 201 199.2 196 190.6 192.2 Visit Report Report Report Report Report Report Report Physical Exam Vitals and nursing note reviewed. Constitutional: General: He is not in acute distress. Appearance: Normal appearance. He is not ill-appearing, toxic-appearing or diaphoretic. HENT: Head: Normocephalic and atraumatic. Right Ear: Tympanic membrane normal. Left Ear: Tympanic membrane normal. Nose: Congestion and rhinorrhea present. Mouth/Throat: Mouth: Mucous membranes are moist. Eyes: Conjunctiva/sclera: Conjunctivae normal. Cardiovascular: Rate and Rhythm: Normal rate and regular rhythm. Heart sounds: No murmur heard. Pulmonary: Effort: No respiratory distress. Breath sounds: Normal breath sounds. No wheezing, rhonchi or rales. Abdominal: General: Bowel sounds are normal. There is no distension. Palpations: Abdomen is soft. Tenderness: There is no abdominal tenderness. Musculoskeletal: Cervical back: Neck supple. Right lower leg: No edema. Left lower leg: No edema. Skin: General: Skin is warm and dry. Findings: No erythema or rash. Neurological: Mental Status: He is alert. Mental status is at baseline. Psychiatric: Mood and Affect: Mood normal. Behavior: Behavior normal. Thought Content: Thought content normal. Judgment: Judgment normal. 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 ASSESSMENT AND PLAN: Assessment/Plan Diagnosis Plan 1. COVID-19 resolved 2. Primary hypertension (CMS/HCC) b/p is controlled 3. Pain in right buttock declined orthopedics, pt states salon pas helps 4. Age-related cognitive decline Pt has an appt with Dr Velasco later this month 5. Chronic rhinitis improved but not controlled by nasal spray Pt has an appt with Dr Patel on 11/17/23. Pt states he is doing well from his covid. Pt looks back to his normal Follow up prn Pt brought in his med box to review. Pt is taking his statin daily . Pt is on an antihistamine. IS takig his aricept. 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 Patient reports controlled symptoms with sulfasalazine. Colonoscopy on 09/19/2023 showed colonic polyps(tubular adenomas), diverticulosis, internal hemorrhoids otherwise mucosa appeared normal. CRP and fecal calprotectin in 08/2023 were normal. 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 Patient reports controlled symptoms with sulfasalazine. Will evaluate disease activity, will check CRP fecal calprotectin arrange for colonoscopy. After testing will discuss with the patient the option to switch to mesalamine [facility] Work Phone: 1(224) 982-461412-22-2023 Miscellaneous Notes* Telephone Encounter - Rocio Norman CMA - 03/14/2023 8:58 AM EST Left message for patient to remind them to bring their most current medication list with them to their appointment. [facility] Note* Telephone Encounter - Rocio Norman CMA - 03/14/2023 8:58 AM EST Left message for patient to remind them to bring their most current medication list with them to their appointment. 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) Continue Sulfasalazine without change Follow up in 6 months [facility] Other 12-13-2022 Evaluation note* Encounter Date Diagnosis Assessment Notes Treatment Notes Treatment Clinical Notes Feb, History of diverticulosis (ICD-10 - Z87.19) Feb, Hemorrhoids (ICD-10 - K64.9) Feb, Nausea (ICD-10 - R11.0) START PRILOSEC OTC DAILY Feb, Abdominal pain (ICD-10 - R10.9) Feb, Diarrhea (ICD-10 - R19.7) PT TO DO 2 FLEET ENEMAS BEFORE [place] AT [facility] [place] [facility] Other 11-17-2022 Evaluation note* Encounter Date Diagnosis Assessment Notes Treatment Notes Treatment Clinical Notes Jan, Pectoralis muscle strain, initial encounter (ICD-10 - S29.011A) Discussed diagnosis with patient. Will send in rx of Medrol dose pack to use as directed. May in addition use Tylenol as directed as needed for discomfort. Instructed patient to follow up with PCP or ortho if sx do not improve in the next 5-7 days. Immediate eval by ER for warning s/sx as discussed. Patient verbalizes understanding and is agreeable to treatment plan Jan, Other Muscle strain material was printed [facility] Other 09-07-2022 Evaluation note* Encounter Date Diagnosis Assessment Notes Treatment Notes Treatment Clinical Notes Nov, History of diverticulosis (ICD-10 - Z87.19) Nov, Rectal bleeding (ICD-10 - K62.5) Nov, Hemorrhoids (ICD-10 - K64.9) patient has been using OTC medication to help this. recommended OTC [facility]icare [facility] [employer] Other Evaluation noteNo assessment information available [facility] Work Phone: Evaluation note* Diagnosis SOB (shortness of breath)- Primary Shortness of breath Chest pain, unspecified type Amnestic 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) Mild cognitive impairment, so stated Primary hypertension (CMS/HCC) Unspecified essential hypertension Gastroesophageal reflux disease, unspecified whether esophagitis present Advanced age Dizziness Dizziness and giddiness Anemia, unspecified type [facility] Primary hypertension (CMS/HCC) Unspecified essential hypertension [facility] Diagnosis Alzheimer's dementia, unspecified dementia severity, unspecified timing of dementia onset, unspecified whether behavioral, psychotic, or mood disturbance or anxiety (CMS/HCC)- Primary MCI (mild cognitive impairment) with memory loss Mild cognitive impairment, so stated documented [facility]* Diagnosis Age-related cognitive decline Memory loss documented in this encounter [facility]* Diagnosis Medicare annual wellness visit, subsequent- Primary Alzheimer's dementia, unspecified dementia severity, unspecified timing of dementia onset, unspecified whether behavioral, psychotic, or mood disturbance or anxiety ([facility]/HCC) Iliac artery aneurysm, left ([facility]/HCC) Aneurysm of iliac artery Peripheral arterial disease ([facility]/HCC) Unspecified peripheral vascular disease Atherosclerosis of aorta (CMS/HCC) Atherosclerosis of aorta Primary hypertension (CMS/HCC) Unspecified essential hypertension Ulcerative proctitis with complication ([facility]/HCC) Malignant neoplasm of prostate ([facility]/HCC) Malignant neoplasm of prostate 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) Hyperlipidemia, unspecified hyperlipidemia type (CMS/HCC) Right bundle branch block Hemorrhoids, unspecified hemorrhoid type Mild left ventricular hypertrophy Abdominal aortic aneurysm (AAA) without rupture, unspecified part (CMS/HCC) Amnestic 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) Mild cognitive impairment, so stated Pulmonary nodule Other diseases of lung, not elsewhere classified Occlusion and stenosis of bilateral carotid arteries Diverticulosis Diverticulosis of colon (without mention of hemorrhage) Gastroesophageal reflux disease, unspecified whether esophagitis present Diverticular disease Diverticulosis of colon (without mention of hemorrhage) Renal cyst, 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 Polyarthropathy Unspecified polyarthropathy or polyarthritis, site unspecified Pain in right buttock Unspecified myalgia and myositis Bilateral hip pain Pain in joint, pelvic region and thigh Overweight Dry eyes Unspecified tear film insufficiency PCO (posterior capsular opacification), bilateral Unspecified after-cataract Allergic rhinitis, unspecified seasonality, unspecified trigger Anxiety Anxiety state, unspecified 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 Other malignant neoplasm of skin, site unspecified Vertigo Dizziness and giddiness Advanced age Dizziness Dizziness and giddiness Piriformis syndrome of right side Stress at home Malignant neoplasm of skin Other malignant neoplasm of skin, site unspecified Hypokalemia Hypopotassemia Anemia, unspecified type documented in this encounter [facility]* Diagnosis COVID-19- Primary Primary hypertension (CMS/HCC) Unspecified essential hypertension Pain in right buttock Unspecified myalgia and myositis Age-related cognitive decline Memory loss Chronic rhinitis documented in this encounter [facility]* Diagnosis MCI (mild cognitive impairment) with memory loss- Primary Mild cognitive impairment, so stated Memory loss Amnestic 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) Mild cognitive impairment, so stated documented in this [facility]* Diagnosis Primary hypertension (CMS/HCC)- Primary Unspecified essential hypertension Iliac artery aneurysm, left (CMS/HCC) Aneurysm of iliac artery Abdominal aortic aneurysm (AAA) without rupture, unspecified part (CMS/HCC) Atherosclerosis of aorta (CMS/HCC) Atherosclerosis of aorta Peripheral arterial disease (CMS/HCC) Unspecified peripheral vascular disease Hyperlipidemia, unspecified hyperlipidemia type (CMS/HCC) 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 Piriformis syndrome of right side Amnestic 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) Mild cognitive impairment, so stated Pulmonary nodule Other diseases of lung, not elsewhere classified Dizziness Dizziness and giddiness Advanced age documented in this encounter [facility]* Diagnosis Pain in right buttock- Primary Unspecified myalgia and myositis Piriformis syndrome of right side documented in this encounter [facility]* Diagnosis Primary hypertension (CMS/HCC) Unspecified essential hypertension documented in this [facility]* Diagnosis Piriformis syndrome of right side- Primary Pain in right buttock Unspecified myalgia and myositis documented in this [facility]* Diagnosis Piriformis syndrome of right side- Primary Pain in right buttock Unspecified myalgia and myositis Acute bilateral low back pain without sciatica documented in this [facility]* Diagnosis Piriformis syndrome of right side- Primary Pain in right buttock Unspecified myalgia and myositis Acute bilateral low back pain without sciatica documented in this [facility] Author Yesy Jarquin [facility] September 19, 2023 1:17pm Note Date/Time September 19, 2023 1:[address] [facility] [address] [place] [address] Gastroenterology H&P Signed Patient: Jacy Marroquin MR#: [id number] : 1935 Acct:[id number] Age/Sex: 88 / M Adm Date: 4 Loc: Room: Type: [facility] Attending Dr: Yesy Jarquin MD Copies to: MD Beatriz Finch MD~ Date of Service: 09/19/2023 HISTORY & PHYSICAL: Patient's history with special attention to the cardiovascular, pulmonary systems and the current problem was reviewed with the patient immediately prior to the procedure. Present medications and doses reviewed in the EMR. Allergies and pertinent laboratory tests were also reviewedat this time in the EMR. The physical examination, as below, was then performed. 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 No PHYSICAL EXAMINATION General appearance: NAD Skin: No jaundice Head: NC/AT Eyes: Anicteric Neck: Supple Lungs: Normal respiratory effort, no use of accessory muscles Abdomen: nondistended Neuro: Ox3. REVIEW OF SYSTEMS Constitutional: Denies malaise, fevers Cardiovascular: Denies chest pain, palpitations Respiratory: Denies shortness of breath, wheezing Gastrointestinal: As per HPI Genitourinary: Denies dysuria, polyuria Musculoskeletal: Denies joint swelling, joint stiffness Neurological: Denies confusion, numbness, tingling Endocrine: Denies fatigue Written informed consent obtained from the patient. Risks (including but not limited to perforation, infection, bloating, bleeding, need for emergent surgeryand loss of life), benefits and alternatives explained and questions answered. The patient verbalized understanding. Based on history patient is an appropriate candidate for the procedure. Yesy Jarquin M.D. Documented By: Yesy Jarquin MD 09/19/23 1317 Signed By: <Electronically signed by Yesy Jarquin MD> 09/19/23 1317 [facility] Work Phone: History general Narrative - Reported* Type Description Date Medical History prostate cancer Medical History A flutter Medical History hypercholesterolemia Medical History Brain cancer Surgical History prostate biopsy Hospitalization History see above Hospitalization History A fib EVOFEM Other InstructionsNot on filedocumented in this encounter [facility] NarrativeREFERRED BY MARIELENA HERRERA FOR HX OF DIVERTICULOSIS, (REFERRAL NOTE RECEIVED)EVOFEM Other Reason for visit Narrative* Consultation (Routine) - Closed Specialty Diagnoses / Procedures Referred By Wong ramsey Referred To Contact Neurology Diagnoses Memory loss Procedures [place] OFFICE/OUTPATIENT NEW HIGH MDM 60 MINUTES Beatriz Carson MD [address] [place] [address] Macie Patel MD [address] [facility] [address] [place] [address] Referral ID Status Reason Start Date Expiration Date V isits Requested Visits Authorized [id number] Closed Specialty Services Required 08/22/2023 02/18/2024 1 1 [facility] HealthcareReason for visit Narrative* Rehabilitation - Outpatient (Routine) - Authorized Specialty Diagnoses / Procedures Referred By Wong ramsey Referred To Contact Physical Therapy Diagnoses Piriformis syndrome of right side Pain in right buttock Procedures NV OFFICE/OUTPATIENT NEW HIGH MDM 60 MINUTES Marielena Herrera NP [address] [place] [address] Phone: tel: fax: Shraddha Wolf, PT [address] [facility] [address] [place] [address] Phone: tel: fax: Referral ID Status Reason Start Date Expiration Date Visits Requested Visits Authorized [id number] Authorized Specialty Services Required 07/08/2024 01/04/2025 99 99 [facility] HealthcareReason for visit Narrative* Rehabilitation - Outpatient (Routine) - Authorized Specialty Diagnoses / Procedures Referred By Wong ramsey Referred To Contact Physical Therapy Diagnoses Piriformis syndrome of right side Pain in right buttock Procedures NV OFFICE/OUTPATIENT NEW HIGH MDM 60 MINUTES Marielena Herrera NP [address] [place] [address] Phone: tel: fax: Shraddha Wolf, PT [address] [address] Phone: tel: fax: Referral ID Status Reason Start Date Expiration Date Visits Requested Visits Authorized [id number] Authorized Specialty Services Required 07/08/2024 03/23/2025 99 99 [facility] Healthcare Summary Purpose Family History Unknown Family Member Name Dates Details : Mother, Father Status:Active Family history of cardiac di sorder: Mother(V17.49, Z82.49) Status:Active Relationship Condition Age at Onset Recorded Date/T dave father Dementia Unknown Unknown Not Specified Unknown Relationship Condition Age at Onset Recorded Date/T dave father Dementia Unknown Unknown mother Unknown Advance Directives Advance Directive Response Recorded Date/ Time Advance Directives No September 12 1:58pm Advance Directive Response Recorded Date/ Time Advance Directives No September 12 2:58pm Latest Code Status on File Code Status Date Activated Date Inactivated Comments Full Code 11/06/2022 11:46 AM 11/07/2022 5:30 PM Chief Complaint and Reason for Visit Chief Complaint abd pain, nausea, di arrhea Chief Complaint 1 YR FOLLOW UP-ULCER ATIVE PROCTOTIS k51.20 Reason for Visit Ulcerative proctitis Chief Complaint 1 YR FOLLOW UP-ULCER ATIVE PROCTOTIS k51.20 ulcerative proctitis ulcerative proctitis Reason for Visit Ulcerative proctitis Chief Complaint Admit Date Over do Follow up August 05, 2024 8:11a m Reason for Visit Admit Date Ulcerative proctitis August 05, 2024 8:11 am Additional Source Comments (unrecognized sect ion and content) No Status Records FoundNo Status Records FoundNo Status Records FoundNo Status Records FoundNo Status Records FoundNo Status Records FoundNo Status Records FoundNo Status Records Found INFORMATION SOURCE (unrecogn ized section and content) DATE CREATED AUTHOR 09/11/2017 [facility] DATE CREATED AUTHOR AUTHOR'S ORGANIZ ATION 02/12/2020 [facility] DATE CREATED AUTHOR AUTHOR'S ORGANIZ ATION 05/12/2021 [facility] DATE CREATED AUTHOR AUTHOR'S ORGANIZ ATION 08/18/2021 [facility] dical Specialist DATE CREATED AUTHOR AUTHOR'S ORGANIZ ATION 03/19/2023 [facility] DATE CREATED AUTHOR AUTHOR'S ORGANIZ ATION 09/25/2023 [facility] DATE CREATED AUTHOR AUTHOR'S ORGANIZ ATION 03/02/2024 [facility] DATE CREATED AUTHOR AUTHOR'S ORGANIZ ATION 08/07/2024 [facility] dical Specialists EPIC REASON FOR VISIT (unrecogniz ed section and content) Reason Comments ER Follow-up SOB Reason Comments Med Refill Reason Comments Medicare Annual Wellness Visit Subsequen t Dizziness Feeling very dizzy t his morning. Constipation Went to ER a few day s ago for abdominal pain and could not pass BM. Was given fleets enema - was able to get some rock like BM out. Stopped Sulfasalazine because he thinks this caused the constipation Nasal Congestion Reason Comments Follow-up Appetite is up and d own. Feels like he is doing a lot better. Still feels fuzzy - severity depends on the day Reason Comments sciatica pain Right side Reason Onset Date Comments PT Initial Eval 07/08/2024 $40.00 copay / M ed Nec Call Back 07/08/2024 Care Teams (unrecognized sec tion and content) Team Status: Inactive Member Role Status Dates Adalberto Wood MD Attending Provider Active Beatriz Carson MD Primary Care Provider Active Team Status: Active Member Role Status Dates Beatriz Carson MD Primary Care Provider Active Team Status: Inactive Member Role Status Dates Beatriz Carson MD Primary Care Provider Active Start: August 13, 2023 End: August 13, 2023 Yesy Jarquin MD Attending Provider Active Start: August 13, 2023 End: August 13, 2023 Team Status: Inactive Member Role Status Dates Beatriz Carson MD Primary Care Provider Active Start: September 05, 2023 End: September 05, 2023 Yesy Jarquin MD Attending Provider Active Start: September 05, 2023 End: September 05, 2023 Team Status: Inactive Member Role Status Dates Beatriz Carson MD Primary Care Provider Active Start: September 19, 2023 End: September 19, 2023 Yesy Jarquin MD Attending Provider Active Start: September 19, 2023 End: September 19, 2023 Team Status: Active Member Role Status Dates Beatriz Carson MD Primary Care Provider Active Start: September 19, 2023 Yesy Jarquin MD Attending Provider, Other Provider Act gabriela Start: September 19, 2023 King Maker Relationship Specialty Start Date End Date Beatriz Carson MD [address] [place] [address] PCP - [employer] 03/24/22 Beatriz Carson MD [address] [place] [address] PCP - General Family Medicine 08/23/22 King Maker Relationship Specialty Start Date End Date Beatriz Carson MD [address] [place] [address] PCP - [employer] 03/24/22 Beatriz Carson MD [address] [place] [address] PCP - General Family Medicine 08/23/22 King Maker Relationship Specialty Start Date End Date Beatriz Carson MD [address] [place] [address] PCP - [employer] 03/24/22 Beatriz Carson MD [address] [place] [address] PCP - General Family Medicine 08/23/22 King Maker Relationship Specialty Start Date End Date Beatriz Carson MD [address] [place] [address] PCP - [employer] 03/24/22 Beatriz Carson MD [address] [place] [address] PCP - General Family Medicine 08/23/22 King Maker Relationship Specialty Start Date End Date Beatriz Carson MD [address] [place] [address] PCP - [employer] 03/24/22 Beatriz Carson MD [address] [place] [address] PCP - General Family Medicine 08/23/22 King Maker Relationship Specialty Start Date End Date Beatriz Carson MD [address] [place] [address] PCP - [employer] 03/24/22 Beatriz Carson MD [address] [place] [address] PCP - General Family Medicine 08/23/22 King Maker Relationship Specialty Start Date End Date Beatriz Carson MD [address] [place] [address] PCP - [employer] 03/24/22 Beatriz Carson MD [address] [place] [address] PCP - General Family Medicine 08/23/22 King Maker Relationship Specialty Start Date End Date Beatriz Carson MD [address] [place] [address] PCP - [employer] 03/24/22 Beatriz Carson MD [address] [place] [address] PCP - General Family Medicine 08/23/22 King Maker Relationship Specialty Start Date End Date Beatriz Carson MD [address] [place] [address] PCP - [employer] 03/24/22 Beatriz Carson MD [address] [place] [address] PCP - General Family Medicine 08/23/22 King Maker Relationship Specialty Start Date End Date Beatriz Carson MD [address] [place] [address] PCP - [employer] 03/24/22 Beatriz Carson MD [address] [place] [address] PCP - General Family Medicine 08/23/22 King Maker Relationship Specialty Start Date End Date Beatriz Carson MD [address] [place] [address] PCP - General Family Medicine 10/15/21 King Maker Relationship Specialty Start Date End Date Beatriz Carson MD [address] [place] [address] PCP - [employer] 03/24/22 Beatriz Carson MD [address] [place] [address] PCP - General Family Medicine 08/23/22 King Maker Relationship Specialty Start Date End Date Beatriz Carson MD [address] [place] [address] PCP - [employer] 03/24/22 Betariz Carson MD [address] [place] [address] PCP - General Family Medicine 08/23/22 King Maker Relationship Specialty Start Date End Date Beatriz Carson MD [address] [place] [address] PCP - [employer] 03/24/22 Beatriz Carson MD [address] [place] [address] PCP - General Family Medicine 08/23/22 King Maker Relationship Specialty Start Date End Date Beatriz Carson MD [address] [place] [address] PCP - [employer] 03/24/22 Beatriz Carson MD [address] [place] [address] PCP - General Family Medicine 08/23/22 King Maker Relationship Specialty Start Date End Date Beatriz Crason MD [address] [place] [address] PCP - [employer] 03/24/22 Beatriz Carson MD [address] [place] [address] PCP - General Family Medicine 08/23/22 King Maker Relationship Specialty Start Date End Date Beatriz Carson MD [address] [place] [address] PCP - [employer] 03/24/22 Beatriz Carson MD [address] [place] [address] PCP - General Family Medicine 08/23/22 King Maker Relationship Specialty Start Date End Date Beatriz Carson MD [address] [place] [address] PCP - [employer] 03/24/22 Beatriz Carson MD [address] [place] [address] PCP - General Family Medicine 08/23/22 King Maker Relationship Specialty Start Date End Date Beatriz Carson MD [address] [place] [address] PCP - [employer] 03/24/22 Beatriz Carson MD [address] [place] [address] PCP - General Family Medicine 08/23/22 King Maker Relationship Specialty Start Date End Date Beatriz Carson MD [address] [place] [address] PCP - [employer] 03/24/22 Beatriz Carson MD [address] [place] [address] PCP - General Family Medicine 08/23/22 King Maker Relationship Specialty Start Date End Date Beatriz Carson MD [address] [place] [address] PCP - [employer] 03/24/22 Beatriz Carson MD [address] [place] [address] PCP - General Family Medicine 08/23/22 Team Status: Inactive Member Role Status Dates Beatriz Carson MD Primary Care Provider Active Start: August 05, 2024 End: August 05, 2024 Yesy Jarquin MD Attending Provider Active Start: August 05, 2024 End: August 05, 2024 King Maker Relationship Specialty Start Date End Date Beatriz Carson MD [address] [place] [address] PCP - [employer] 03/24/22 Beatriz Carson MD [address] [facility] [place] [address] PCP - General Family Medicine 08/23/22 Goals (unrecognized section and content) Goals may be documented in a n alternate section FOR RECORDS PERTAINING TO PATIENTS WHO ARE OR HAVE BEEN ENROLLED IN A CHEMICAL DEPENDENCY/SUBSTANCEABUSE PROGRAM, SOME INFORMATION MAY BE OMITTED. This clinical summary was aggregated from multiple sources. Caution should be exercised in using it in the provision of clinical care. This summary normalizes information from multiple sources, and as a consequence, information in this document may materially change the coding, format and clinical context of patient data. In addition, data may be omitted in some cases. CLINICAL DECISIONS SHOULD BE BASED ON THE PRIMARY CLINICAL RECORDS. [employer] [facility] provides no warranty or guarantee of the accuracy or completeness of information in this document.
[2024-08-11 11:02] LABS: C Reactive Protein <0.50 mg/dL (<=0.50)
[2024-08-13 07:07] LABS: Calprotectin, Fecal 14 ug/g (0-120)
== END 2024-08-11 10:13 | disposition home or self-care (01) ==
PROVIDERS: PCP Family Medicine; Visit Provider Internal Medicine
DX: K51.20 Ulcerative (chronic) proctitis without complications (principal)
CPT/HCPCS: 36415; 83993; 86140

== ENCOUNTER 2025-01-12 06:47 | Emergency (ER) | payer MEDICARE, SELFPAY ==
[2025-01-12 06:50] VITALS: PULSE 62; O2SAT 94
[2025-01-12 06:52] VITALS: BP 158/83; PULSE 69; TEMP 36.7; O2SAT 99; BMI 26.9
--- OUTSIDE RECORDS SUMMARY | 2025-01-12 06:56 | XMS_ITS | Clinical Summary ---
Author Organization [employer] [facility] Address [id number] [place] [address] Care Team Providers Care Electromechanical Inspector Name Role Phone Beatriz Almonte MD Primary Care Provider Yu lable Allergies No known active allergies Medications MedicationSigDispense QuantityRefillsLast FilledStart DateEnd DateStatus amLODIPine (NORVASC) 5 mg tablet Take 1 tablet (5 mg total) by mouth in the morning.Active M-17/NETTLE/PUMPK/SAW PALMET (PROSTATE THERAPY ORAL) Take by mouth.Active multivitamin (THERAGRAN) tablet Take 1 tablet by mouth in the morning.Active donepezil (ARICEPT) 5 mg tablet Take 2 tablets (10 mg total) by mouth nightly.Active acetaminophen (TYLENOL) 325 mg tablet Take 2 tablets (650 mg total) by mouth every 6 (six) hours as needed for pain. Active montelukast (SINGULAIR) 10 mg tablet Take 1 tablet (10 mg total) by mouth nightly.Active sulfaSALAzine (AZULFIDINE) 500 mg EC tablet Take 200 mg by mouth in the morning and 200 mg at noon and 200 mg in the evening.06/12/2022ctive fluticasone propionate (FLONASE) 50 mcg/actuation nasal spray Administer 1 spray into each nostril in the morning.Active rosuvastatin (CRESTOR) 5 mg tablet Take 1 tablet (5 mg total) by mouth in the morning.Active Active Problems ProblemNoted DateDiagnosed DateAspiration of foreign body5COVID-19 4Chest pain, unspecified type11/06/2022lzheimer's ylpgmhgt09/16/2023 Hip pain07/23/2022hronic low back pain07/23/2022eripheral arterial disease 03/14/2022mnestic 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)03/14/2022 Primary /22/0673Wwepamchfltakc48/22/6531Qqjwqvlyhmwcfdi89/22/2022 Paroxysmal atrial /02/2022Iliac artery aneurysm, left08/13/2021 Abdominal aortic aneurysm (AAA) without thramtk8508/13/20218515Envttpcbwa69/05/2020 07/23/2022ge-related cognitive hjvdmsj07hronic rhinitis Mild left ventricular fshaufodrlt20Right bundle branch blockilateral sensorineural hearing loss 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 plan to check psa in Feb prior to leaving for [place]. 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 idiopathic skeletal hyperostosis nxiety Resolved Problems ProblemNoted DateDiagnosed DateResolved DateAcute hypoxic respiratory failure 5Acute maxillary ozrgqhira18 Encounters DateTypeDepartmentCare SscqXqpnsqkapaf70/07/2025Telephone [facility] [address] [place] [address] Jeffery RadhaCLARITZA 12/27/2024 10:00 AM EDT - 12/27/2024 11:59 PM EDTHospital Encounter [facility] [address] [place] [address] LVH (left ventricular hypertrophy); Abnormal EKG; RBBB Discharge Disposition: Home12/27/20246628Sqjrlk93/02/2025 9:45 AM EDTOffice Visit [facility] [address] [place] [phone] Lina Puga, Aspiration of foreign body, sequela (Primary Dx)12/23/2024Telephone [facility] [address] [address] Roselia Jones LPN 12/22/2024Telephone [facility] [address] [phone] Claudine Hong, ALISON 12/22/2024Telephone [facility] [address] [phone] Claudine Hong, ALISON 12/21/2024Results Follow-Up [facility] [address] [phone] chest without iuysxocf19/29/2025 12:43 PM EDT - 12/20/2024 11:59 PM EDT Hospital Encounter [facility] - CT Imaging [address] [place] [address] Romain Ray MD Abnormal CXR Discharge Disposition: Home12/20/20245097Tcsbfd02/26/2025Telephone [facility] [address] [place] [phone] Roselia Jones LPN 12/16/2024Telephone [facility] [address] [phone] Claudine Hong RN 12/15/2024 12:20 PM EDT - 12/15/2024 11:59 PM EDTHospital Encounter [facility] [address] [place] [address] Other chest pain Discharge Disposition: Home12/15/2024 12:10 PM EDTAncillary Procedure [facility] [employer] [address] [place] [phone] Pain12/15/2024Travelfrom Last 3 Months Family History Medical HistoryRelationNameCommentsDementiaFatherNo Known ProblemsMotherRelation NameStatusCommentsBrotherDeceasedFatherDeceasedMaternal AuntDeceasedMaternal GrandfatherDeceasedMaternal GrandmotherDeceasedMaternal UncleDeceasedMother DeceasedPaternal AuntDeceasedPaternal GrandfatherDeceasedPaternal Grandmother DeceasedPaternal UncleDeceasedSisterAlive Social History Tobacco UseTypesPacks/DayYears UsedDateSmoking Tobacco: NeverSmokeless Tobacco: Never Tobacco Cessation:Counseling Given: Not Answered Alcohol UseStandard Drinks/WeekCommentsYes0 (1 standard drink = 0.6 oz pure alcohol)sociallyAHC UtilitiesAnswerDate RecordedIn the past 12 months has the [employer], oil, or water [employer] threatened to shut off services in your home?No11/02/2023Social Connection and Isolation PanelAnswerDate RecordedIn a typical week, how many times do you talk on the phone with family, friends, or neighbors?Three times a week11/06/2022How often do you get together with friends or relatives?Three times a week11/06/2022How often do you attend hoahaoism or mosque services?More than 4 times per year11/06/2022o you belong to any clubs or organizations such as hoahaoism groups, unions, fraternal or athletic makenzie ups, or school groups?Yes11/06/2022How often do you attend meetings of the clubs or organizations you belong to?More than 4 times per year11/06/2022re you , , , , never , or living with a partner? Tmsdzkp8611/06/2022UDIT-CAnswerDate RecordedQ1: How often do you have a drink containing alcohol?Monthly or less11/06/2022Q2: How many drinks containing alcohol do you have on a typical day when you are drinking?Patient does not drink11/06/2022Q3: How often do you have six or more drinks on one occasion? Never11/06/2022Overall Financial Resource Strain (CARDIA)AnswerDate RecordedHow hard is it for you to pay for the very basics like food, housing, medical care, and heating?Not hard at all11/06/2022HQ-2AnswerDate RecordedTotal Score0 11/06/2022Finlifepoint hospitals [facility] Occup[facility] - Occupational Stress QuestionnaireAnswerDate RecordedDo you feel stress - tense, restless, nervous, or anxious, or unable to sleep at night because yourmind is troubled all the time - these days?Not at all11/06/2022Exercise Vital SignAnswerDate RecordedOn average, how many days per week do you engage in moderate to strenuous exercise (like a brisk walk)?3 days11/06/2022On average, how many minutes do you engage in exercise at this level?90 min11/06/2022RAPARE - TransportationAnswerDate RecordedIn the past 12 months, has lack of transportation kept you from medical appointments or from getting medications?No11/02/2023In the past 12 months, has lack of transportation kept you from meetings, work, or from getting things needed for daily living?No11/02/2023Housing InstabilityAnswerDate RecordedAre you worried or concerned that in the next two months you may not have stable housing that you own, rent or stay in as a part of a household?No11/02/2023 ChildcareAnswerDate RecordedDo problems getting child development specialist make it difficult for you to work or study?No11/06/2022EmploymentAnswerDate RecordedDo you need help finding a local career center and/or a training program?No11/06/2022Hunger ScreeningAnswerDate RecordedWithin the past 12 months we worried whether our food would run out before we got money to buy more.Never True02/28/2024Within the past 12 months the food we bought just didn't last and we didn't have money to get more.Never True02/28/2024urpose - LifeAnswerDate RecordedI have a purpose and direction in my life.Strongly Agree11/06/2022Sex and Gender InformationValueDate RecordedSex Assigned at BirthNot on fileLegal SexMale 10/27/2014 11:45 AM EDTGender IdentityNot on fileSexual OrientationNot on file Last Filed Vital Signs Vital SignReadingTime TakenCommentsBlood Ozgecpss674/6712/23/2024 9:48 AM EDT Uoajx814712/23/2024 9:48 AM WWSNicfdasmajj37.2 ??C (97.2 ??F)02/28/2024 10:38 AM ESTRespiratory Rbmp716804/30/2023 10:38 AM ESTOxygen Yvxssjyojh80%12/23/2024 9:48 AM EDTInhaled Oxygen Concentration--Yfcatq89.1 kg (196 lb 8 oz)12/23/2024 9:48 AM XNUKblzxr308.9 cm (6')12/23/2024 9:48 AM EDTBody Mass Index26.6512/23/2024 9:48 AM EDT Plan of Treatment DateTypeDepartmentCare Team (Latest Contact Info)Eshtblcpsvt44/05/2025 2:15 PM ESTOffice Visit [facility] [address] [facility] [address] [place] [address] Hannah Luciano MD [address] [place] [address] 06/30/2025 9:45 AM EDTOffice Visit [facility] [address] [place] [address] Lina Puga M, DO [address] [facility] [address] [place] [address] Health MaintenanceDue DateLast DoneCommentsFall Risk Vdiqfhrdl38/06/2003 Depression Ilxnrhopp84/OVID-19 Vaccine (2023- season) /, 01/01/2023, 12/28/2021, Additional history existsInfluenza Iukstiw65/, 12/18/2022, 12/03/2021, Additional history exists Tobacco Gechofzck01/04/2024DTaP,Tdap and Td Vaccines (4 - Td or Tdap) /12/2022, 07/12/2020, 01/22/2010Zoster (Shingles) VaccineCompleted 09/19/2022, 07/01/2022 Goals GoalPatient Goal TypeAssociated ProblemsRecent ProgressPatient-Stated?Author home Rosalva Ayers LSW Note: Evaluation of progress towards goal: feeling better, hopes to go DC today Medical Devices Not on file Procedures Procedure NamePriorityDate/TimeAssociated DiagnosisCommentsECHO COMPLETE WO UEFDTHMCRuufpof84/06/2025 10:38 AM EDT LVH (left ventricular hypertrophy) Abnormal EKG RBBB CT CHEST WO UCICYVHO47/29/2025 1:17 PM EDT Abnormal CXR ECG 12-HUNBOpjqyhl48/24/2025 12:34 PM EDT Other chest pain XR CHEST 2 PFLTlcjerv85/24/2025 12:10 PM EDT Pain from Last 3 Months Results * Echo complete W/O contrast (12/27/2024 10:38 AM EDT)ComponentValueRef Range Test MethodAnalysis TimePerformed AtPathologist SignatureLVOT stroke volume 74.81mlXCELERALV Systolic Wvnulo97.09yINJJRVJFOG58%MMVYNAESG7797 - 44 %XCELERA LV Diastolic Havrcw955.15lFDIWXCKYXAJTa9.26zxBHWWVIWDNDHu6.58onQNUTMBURPW1.35 0.6 - 1.1 cmXCELERAPW1.280.6 - 1.1 cmXCELERALVOT diameter2.09rpSSDOQNWQQA4.91 cm/sXCELERAMV TDI E' (medial)5.25cm/sXCELERALA Volume Index43.1mL/s9QUFRHIHP/A ratio0.55XCELERAE wave deceleration oecw987.00msecXCELERAMV Peak E Vel62.40 cm/sXCELERAMV Peak A Zjg082.00cm/sXCELERALA size3.80cmXCELERAAortic root3.80cm XCELERALA .04kk9LIFBXKXVT diastolic dimension (basal)36.8mmXCELERA TAPSE3.01cmXCELERAAV peak opo713.00cm/sXCELERALVOT peak vel0.87m/sXCELERAAV VTI47.10cmXCELERALVOT peak VTI21.60cmXCELERAAV mean gradient9.00mmHgXCELERAAV peak asrxzvis74.54mmHgXCELERAAV valve area1.59XCELERAValve area - Index0.7 XCELERAMV pressure 1/2 aqne443.00msXCELERAMV valve area p 1/2 method2.00cm2 XCELERATR Peak Vel2.4m/sXCELERATR peak fzachklq91.09mmHgXCELERALV ESV A2C 121.00mLXCELERALV ESV A4C65.30mLXCELERALV RWT 2D43.85XCELERAEcho EF Estimated 55%XCELERAAV Velocity Ratio0.46XCELERALeft Ventricle Rmsk489.958235523410982k XCELERAInterventricular Septum Diastolic Thickness by 2D11.5cmXCELERAEst. RA zhdtwlrx6uqLjWGNHVJSKS Peak Systolic Jzydluil03diUmOUGVIALSE max vel2.40m/s XCELERAMV E' average6.0cm/eFUPFQDDAUET94.0cm/sXCELERARA area19.6qp8IWJAWSD Anatomical RegionLateralityModalityChestN/AUltrasoundSpecimen (Source) Anatomical Location / LateralityCollection Method / VolumeCollection Time Received Time Narrative 12/27/2024 11:14 AM EDT Left Ventricle: Left ventricle appears normal in size. Systolic function is normal with an ejection fraction of 55-60%. The quantitative EF by 2D Sy biplane is 55%. No obvious regional wall motion abnormalities. ?Tricuspid??Valve: There is no pulmonary hypertension. ?Right??Ventricle: Systolic function is normal. ?Mitral??Valve: There is mild to moderate regurgitation. There is no evidence of mitral valve stenosis. Left Ventricle Left ventricle appears normal in size. There is mild increased wall thickness/hypertrophy. Systolicfunction is normal with an ejection fraction of 55-60%. The quantitative EF by 2D Sy biplane is 55%. No obvious regional wall motion abnormalities. Diastolic function assessment is indeterminate. Lateral E' is 6.91 cm/s. Medial E' is 5.25 cm/s. Average E' is 6.0 cm/s. Right Ventricle Right ventricular size appears normal. The right ventricular basal diameter is 36.8 mm. Systolic function is normal. Left Atrium Left atrium volume index is moderately increased. The left atrial volume index is 43.1 mL/m2. Right Atrium Right atrium is mildly dilated. The right atrial area is 19.0 cm2. IVC/SVC The right atrial pressure is estimated at 3 mmHg. IVC appears normal. There is normal collapse withdeep inspiration. Mitral Valve The leaflets are mildly thickened. There is mild to moderate regurgitation. There is no evidence ofmitral valve stenosis. Tricuspid Valve Tricuspid valve appears to be normal. There is mild regurgitation. RVSP calculated at 25 mmHg. RVSPis based on RA pressure of 3 mmHg. There is no pulmonary hypertension. Aortic Valve The aortic valve is trileaflet. The leaflets are mildly thickened. There is sclerosis. There is trace regurgitation. There is no evidence of aortic valve stenosis. Pulmonic Valve Pulmonic valve structure is grossly normal. There is mild to moderate regurgitation. Ascending Aorta The ascending aorta is mildly dilated. Pericardium There is no pericardial effusion. Study Details A complete echo was performed using complete 2D, color flow Doppler and spectral Doppler. Overall the study quality was adequate. Wall Scoring Baseline Score Index: 1.00 The left ventricular wall motion is normal. Authorizing ProviderResult TypeResult StatusSamanlelia Mg LACQUER SPRAY BOOTH OPERATOR-CNPCV ECHO ORDERABLESFinal Result * CT chest without contrast (12/20/2024 1:17 PM EDT)Anatomical RegionLaterality ModalityBody, Lung, Chest, Body CoveraN/AComputed TomographySpecimen (Source) Anatomical Location / LateralityCollection Method / VolumeCollection Time Received Time12/20/2024 1:30 PM EDT Narrative 12/20/2024 1:[address] CHEST WO CONT CLINICAL INDICATION: Abnormal CXR COMPARISON: CT chest 08/28/2022 TECHNIQUE: Noncontrast CT chest was performed. Coronal and sagittal reformatted images were generated and reviewed. Automated exposure control was utilized. FINDINGS: Lower Neck & Thyroid: Unremarkable. Airway, Pleura, & Lungs: Linear metallic density foreign body in the distal airway at the medial base of the right lower lobe corresponding to the radiographic abnormality (2/113, 400/49). Foreign body measures 1.8 cm in length. Central airway is patent. No pleural effusion or pneumothorax. No pneumonia. No suspicious pulmonary nodules. Benign intrafissural lymph nodes. Thoracic Aorta & Great Vessels: Borderline dilated ascending thoracic aorta measuring up to 4.0cm. Mild to moderate atherosclerotic calcification. Pulmonary Arteries: Unremarkable. Heart & Pericardium: Severe coronary arterial calcification. Unremarkable cardiac morphology and pericardium. Lymph Nodes: No enlarged thoracic lymph nodes. Mediastinum & Esophagus: Unremarkable. Visualized Upper Abdomen: Nonobstructing 0.6 cm right renal calculus. Layering gallstones or sludge. Bones & Chest Wall: Degenerative changes with normal thoracic vertebral body heights. No destructive lytic or sclerotic lesions. IMPRESSION: 1. ??Linear metallic density foreign body in the distal airway at the right lower lobe base. The finding is new since the CT of 08/28/2022. 2. Severe coronary artery calcifications. All CT scans at this facility use dose modulation, iterative reconstruction, and/or weight based dosing when appropriate to reduce radiation dose to as low as reasonably achievable. Finalized by Hemant Guido MD on 12/20/2024 1:42 PM Procedure Note Hemant Guido MD - 12/20/2024 CT CHEST WO CONT CLINICAL INDICATION: Abnormal CXR COMPARISON: CT chest 08/28/2022 TECHNIQUE: Noncontrast CT chest was performed. Coronal and sagittalreformatted images were generated and reviewed. Automated exposure controlwas utilized. FINDINGS: Lower Neck & Thyroid: Unremarkable. Airway, Pleura, & Lungs: Linear metallic density foreign body in thedistal airway at the medial base of the right lower lobe corresponding tothe radiographic abnormality (2/113, 400/49). Foreign body measures 1.8 cmin length. Central airway is patent. No pleural effusion or pneumothorax.No pneumonia. No suspicious pulmonary nodules. Benign intrafissural lymphnodes. Thoracic Aorta & Great Vessels: Borderline dilated ascending thoracicaorta measuring up to 4.0 cm. Mild to moderate atheroscleroticcalcification. Pulmonary Arteries: Unremarkable. Heart & Pericardium: Severe coronary arterial calcification. Unremarkablecardiac morphology and pericardium. Lymph Nodes: No enlarged thoracic lymph nodes. Mediastinum & Esophagus: Unremarkable. Visualized Upper Abdomen: Nonobstructing 0.6 cm right renal calculus.Layering gallstones or sludge. Bones & Chest Wall: Degenerative changes with normal thoracic vertebralbody heights. No destructive lytic or sclerotic lesions. IMPRESSION: 1. Linear metallic density foreign body in the distal airway at the rightlower lobe base. The finding is new since the CT of 08/28/2022. 2. Severe coronary artery calcifications. All CT scans at this facility use dose modulation, iterativereconstruction, and/or weight based dosing when appropriate to reduceradiation dose to as low as reasonably achievable. Finalized by Hemant Guido MD on 12/20/2024 1:42 PM Authorizing ProviderResult TypeResult StatusRomain Ray MDIMG CT ORDERABLES Final Result * ECG 12 lead (12/15/2024 12:34 PM EDT)Specimen (Source)Anatomical Location / LateralityCollection Method / VolumeCollection TimeReceived Time12/15/2024 12:34 PM EDT Narrative [facility] - 12/16/2024 2:40 PM EDT Authorizing ProviderResult TypeResult StatusSakeenanloy Mg LACQUER SPRAY BOOTH OPERATOR-CNPECG ORDERABLESFinal ResultPerforming OrganizationAddressCity/State/ZIP CodePhone Number [facility] * X-ray chest 2 views (12/15/2024 12:10 PM EDT)Specimen (Source)Anatomical Location / LateralityCollection Method / VolumeCollection TimeReceived Time Narrative Authorizing ProviderResult TypeResult StatusScanning Provider ExternalIMG DIAGNOSTIC IMAGING ORDERABLESFinal Result from Last 3 Months Insurance Advance Directives * Full Code (Latest Code Status on File) Date ActivatedDate InactivatedComments11/03/2023 9:21 AM11/04/2023 3:18 PM * Full Code Date ActivatedDate InactivatedComments11/06/2022 11:46 AM11/07/2022 5:30 PM Care Teams Team MemberRelationshipSpecialtyStart DateEnd Beatriz Lara MD PCP - GeneralFamily Medicine10/15/21
--- OUTSIDE RECORDS SUMMARY | 2025-01-12 06:56 | XMS_ITS | Clinical Summary ---
Author Organization [facility] Address [address] [place] [address] Care Team Providers Care Rn Document Improvement Specialist Name Role Phone Beatriz Almonte MD Primary Care Provider [phone] Allergies No known active allergies Social History Tobacco UseTypesPacks/DayYears UsedDateSmoking Tobacco: Never AssessedArea Deprivation IndexAnswerDate RecordedNational Score (1-100), lower number is lower cxne3363State Score (1-10), lower number is lower qaoj81205/19/2022 Data from: https://www.neighborhoodatlas.[facility].edu/. Last address used for vcvfweiapzb[address]03/18/2023Sex and Gender InformationValueDate Recorded Sex Assigned at BirthNot on fileLegal UdyVmvz00/25/2023 1:03 AM ESTGender IdentityNot on fileSexual OrientationNot on file Last Filed Vital Signs Vital SignReadingTime TakenCommentsBlood Fdcpjytb685/7403/17/2023 3:00 AM EST Owqkt047703/17/2023 3:00 AM SECRsrpdndclxf84.5 ??C (97.7 ??F)03/17/2023 3:00 AM ESTRespiratory Mwgk498205/18/2022 3:00 AM ESTOxygen Sxzxopjryc00%03/17/2023 1:38 AM ESTInhaled Oxygen Concentration--Zklkxf39 kg (200 lb 11.2 oz)03/17/2023 1:38 AM ESTHeight--Body Mass Index-- Plan of Treatment Health MaintenanceDue DateLast DoneCommentsAnxiety Ntcbkeckn48/06/1956Depression Gpgzvnwbl95/06/1954Pneumococcal Vaccine: 50+ (1 of 1 - PCV)1987RSV Vaccine (1 - 1-dose 75+ series)2012DTaP,Tdap,Td Vaccine (1 - Tdap)07/13/2020 07/12/2020dvance Directive Vzfzfaqehn84/01/2025ovid-19 Vaccine ( season)/01/2023, 12/28/2021, 07/17/2021, Additional history exists Influenza Vaccine (#1)/, 12/03/2021, 01/10/2021, Additional history existsDiabetes Rgkdfxzey73, 11/07/2022, 11/06/2022, Additional history existsShingrix WnzmmkuBkjhcagbl01/29/2023, 07/01/2022 Procedures Procedure NamePriorityDate/TimeAssociated DiagnosisCommentsBASIC METABOLIC PANEL STAT105/18/2022 1:59 AM EST from Last 3 Months or Most Recently Relevant to Health Maintenance Results * (ABNORMAL) BASIC METABOLIC PNL (03/17/2023 1:59 AM EST)ComponentValueRef Range Test MethodAnalysis TimePerformed AtPathologist QmtluegxlXmgsoqq762(H)74 - 99 mg/dL03/17/2023 2:38 AM ESTMEDINA LABORATORYComment: The [place] Diabetes Association (ADA) provides guidance for cutoff values for fasting glucose andrandom glucose. The ADA defines fasting as no [...] Standards of Medical Care in Diabetes 2016, [place] Diabetes Association. Diabetes Care. 2016.39(Suppl 1). OSS937 - 24 mg/dL03/17/2023 2:38 AM ESTMEDINA LABORATORYCreatinine0.760.73 - 1.22 mg/dL03/17/2023 2:38 AM ESTMEDINA LJYWVVXOPHVwdlya792082 - 144 mmol/L 03/17/2023 2:38 AM ESTMEDINA LABORATORYPotassium3.5(L)3.7 - 5.1 mmol/L105/18/2022 2:38 AM ESTMEDINA YZWLVLUHZTVyyjcueb38260 - 105 mmol/L105/18/2022 2:38 AM EST DUNN CMAUKLPHAQEU11387 - 30 mmol/L105/18/2022 2:38 AM ESTMEDINA LABORATORYAnion Gap8(L)9 - 18 mmol/L105/18/2022 2:38 AM ESTMEDINA LABORATORYCalcium, Total9.58.5 - 10.2 mg/dL03/17/2023 2:38 AM ESTMEDINA LABORATORYEstimated Glomerular Filtration Rate88>=60 mL/min/1.73m 03/17/2023 2:38 AM ESTMEDINA LABORATORYComment:Estimated Glomerular Filtration Rate (eGFR) is calculated using the 2020 CKD-EPI creatinine equation. This equation utilizes serum creatinine, sex, and age as parameters. The creatinine assay has traceable calibration to isotope dilution-mass spectrometry. Refer to KDIGO guidelines for clinical interpretation. In patients with unstable renal function, e.g. those with acute kidney injury, the eGFRmay not accurately reflect actual GFR.Specimen (Source)Anatomical Location / LateralityCollection Method / VolumeCollection TimeReceived TimeBloodBLOOD SPECIMEN / Unknown Venipuncture / Hpbgeze0503/17/2023 1:59 AM EST03/17/2023 2:19 AM EST Narrative Authorizing ProviderResult TypeResult StatusMichelle Khadijahwesley Boyd DOLABORATORY Final ResultPerforming OrganizationAddressCity/State/ZIP CodePhone Number [facility] [address] [place] [address], from Last 3 Months or Most Recently Relevant to Health Maintenance Insurance Care Teams Team MemberRelationshipSpecialtyStart DateEnd Date WonderBeatriz tracy MD PCP - GeneralFamily Lhecldkk16/25/23
--- OUTSIDE RECORDS SUMMARY | 2025-01-12 06:56 | XMS_ITS | Clinical Summary ---
Author Organization [facility] Address [address] [place] [address] Care Team Providers Care Desulphurizer Operator Name Role Phone Beatriz Almonte MD Unavailable [phone] Gordo Dean MD Primary Care Provider [phone] Allergies No known active allergies Medications MedicationSigDispense QuantityRefillsLast FilledStart DateEnd DateStatus acetaminophen (Tylenol) 325 MG tablet Take 650 mg by mouth every 6 (six) hours if neededActive Multiple Vitamin (Multi-Vitamin) tablet Take 1 tablet by mouth in the morning.Active sulfaSALAzine (Azulfidine) 500 MG tablet Take 1,000 mg by mouth in the morning and 1,000 mg before bedtime.08/06/2022 Active ketoconazole (NIZOral) 2 % shampoo Apply topically 2 (two) times a weekActive NON FORMULARY Prostate vitaminActive azelastine (Astelin) 0.1 % nasal spray Administer 1 spray into each nostril in the morning and 1 spray before bedtime. Use in each nostrilas directed.Active fluticasone (Flonase) 50 MCG/ACT nasal spray Indications:Nasal obstructionAdminister 2 sprays into each nostril Daily Shake gently. Before first use, prime pump. After use, clean tip and replace cap. 48 g 3084Active hydrocortisone (Anusol-HC) 2.5 % rectal cream Indications:Bleeding hemorrhoidINSERT into the rectum FOUR TIMES DAILY NEEDED 30 g 1084Active meclizine (Antivert) 25 MG tablet Take 25 mg by mouth as needed in the morning and 25 mg as needed in the evening for dizziness.Active amLODIPine (Norvasc) 5 MG tablet Indications:Primary hypertensionTake 1 tablet (5 mg) by mouth Daily 90 tablet 5Active rosuvastatin (Crestor) 5 MG tablet Indications:Hyperlipidemia, unspecified hyperlipidemia typeTake 1 tablet (5 mg) by mouth Daily 90 tablet 306//191288/6Active magnesium lactate CR (Magtab) 84 MG (7MEQ) ER tablet Take 84 mg by mouth DailyActive QUEtiapine (SEROquel) 25 MG tablet Indications:Alzheimer's dementia, unspecified dementia severity, unspecified timing of dementia onset, unspecified whether behavioral, psychotic, or mood disturbance or anxiety (HCC),IrritabilityTake 0.5 tablets (12.5 mg) by mouth at bedtime 15 tablet 5Active donepezil (Aricept) 10 MG tablet Indications:Age-related cognitive declineTake 1 tablet (10 mg) by mouth in the morning and 1 tablet (10 mg) before bedtime. 60 tablet 1105Active memantine (Namenda) 10 MG tablet Indications:MCI (mild cognitive impairment) with memory lossTake 1 tablet (10 mg) by mouth in the morning and 1 tablet (10 mg) before bedtime. 60 tablet 1105Active Active Problems ProblemNoted DateDiagnosed KlwtWtrfja62/29/2025Pain in right niizflgf68/18/2025 Diverticular mbqsnsn9711/17/2023ain in right apwhqxy5110/29/2023dvanced age 0810/27/2023Malignant neoplasm of skin10/27/20232042Bzxnsyanoemcilt12/05/2024Stress at home10/27/20238003Mcynxuz86/12/2024Ulcerative qemezwjzl56/23/2024therosclerosis of aorta05/22/20238949Wpeytwhlzfl37/29/0589Ilygilcfmvijoj18/23/2023ulmonary nodule 11/13/2022Renal cyst, left11/13/2022lzheimer's lacvilkt92/16/2023ry eyes 09/03/2022CO (posterior capsular opacification), kxuqhsygm88/13/2023hronic low back pain07/23/2022Hip pain07/23/2022astroesophageal reflux jyfmzpy0604/15/2022 Piriformis syndrome of right side04/15/20229593Evmievwhp71/23/2023MCI (mild cognitive impairment) with memory loss03/14/2022eripheral arterial disease 03/14/20222307Humgjgxormpolp41/22/2022rimary dlgrfyiwltyn94/22/2022Iliac artery aneurysm, left2Occlusion and stenosis of bilateral carotid arteries 02/21/20204765Dbokfkxnxu95/05/2020Mild left ventricular fivjlhhhxao48/06/2019Right bundle branch block07/02/2018Sensorineural hearing loss (SNHL) of both ears 03/04/2018Allergic hwbtsodi70/30/2018Reactive fmrzdwglsi43/28/2018Malignant neoplasm of bmlbhraw24/12/2018 Overview (11/13/2022): 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 plan to check psa in Feb prior to leaving for [place]. Recheck 1 year Squamous cell carcinoma of skin12/16/2016Lipoprotein deficiency disorder 09/10/2016Ankylosing vertebral qsdtsxxyqsni22/23/3305Dokiryk60/10/2016Abdominal aortic aneurysm (AAA) without cszjeds1207/31/2015 Resolved Problems ProblemNoted DateDiagnosed DateResolved DateAcute hypoxic respiratory failure OVID-190/0550Joyfzxer57/05/202412/11/2023 Right knee painUnsteadiness on feet/cute maxillary dcrrubsda01/lepharitis of upper and lower eyelids of both eyes/alculus of gmriox06/11/2023Long term current use of anticoagulant lasbgyj29aroxysmal atrial jlafceeedrca92/20/530403/ Encounters DateTypeDepartmentCare PxheZodobnzwkfo07/07/2025Telephone [facility] [address] [place] [address] Maren Gibson MA Results (echo)12/23/2024Telephone [facility] [address] [place] [address] Maren Gibson MA 12/22/2024Telephone [facility] [address] [place] [address] Isis Cisse MA 12/20/2024Orders Only [facility] [address] [place] [address] Other chest pain12/17/2024Telephone [facility] [address] [place] [address] Isis Cisse MA 12/17/2024Telephone [facility] [address] [place] [address] Isis Cisse MA 12/16/2024Telephone [facility] [address] [place] [address] Gordo Dean MD 12/15/2024 11:30 AM EDTOffice Visit [facility] [address] [place] [address] Brianna Mg NP Other chest pain (Primary Dx); Alzheimer's dementia, unspecified dementia severity, unspecified timing of dementia onset, unspecified whether behavioral, psychotic, or mood disturbance or anxiety (HCC); Anxiety; Advanced age; Primary hypertension ; 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); Major depressive disorder, recurrent, mild ; Unspecified atrial fibrillation (HCC)12/15/2024 11:15 AM EDTAncillary Procedure [facility] [address] [place] [address] Other chest pain12/15/2024Results Follow-Up [facility] [address] [place] [phone] Isis Cisse MA XR chest 2 views, ECG 12 lead, Comprehensive metabolic panel, Additional followed-up results: 4644Xtitvk99/24/2025Telephone [facility] [address] [place] [address] Gordo Dean MD 12/01/2024 8:30 AM EDTOffice Visit [facility] [address] [place] [phone] Gordo Dean MD Gluteal pain (Primary Dx); Ischial bursitis of right side12/01/2024[facility] [address] [place] [phone] Gordo Dean MD 12/01/20241130Sexiyr85/03/2025 9:20 AM EDTOffice Visit [facility] [address] [address] [place] [phone] Michael Patel MD Alzheimer's dementia, unspecified dementia severity, unspecified timing of dementia onset, unspecified whether behavioral, psychotic, or mood disturbance or anxiety (HCC); Irritability; Age-related cognitive decline; MCI (mild cognitive impairment) with memory loss11/24/2024[facility] flow[facility] [address] [place] [address] Michael Patel MD 11/24/20246890Shjoch17/27/2025[facility]phone [facility] [address] [place] [phone] Beatriz Almonte MD Lleereaolhu90/30/2025Telephone [facility] [address] [facility] [place] [address] Ayla Santos MA 10/19/2024 2:30 PM EDTOffice Visit [facility] [address] [facility] [address] Brianna Mg NP Scalp pain (Primary Dx); Murmur; Alzheimer's dementia, unspecified dementia severity, unspecified timing of dementia onset, unspecified whether behavioral, psychotic, or mood disturbance or anxiety (HCC); Advanced age0710/19/2024amboo flowsheet [facility] [address] [place] [phone] Brianna Mg NP 10/19/20244221Lwesde09/23/2025Telephone [facility] [address] [place] [phone] Melissa Duenas, PT CX PT 10/18; pending call back to [facility]; Visited in person (He stopped in and noted that way he isfeeling, he is needing no more PT; both [facility] and he is happy w/ status & progress made.)from Last 3 Months Immunizations ImmunizationAdministration DatesNext DueInfluenza, High Dose Seasonal, Preservative Free01/05/2024,12/05/2019,01/14/2017,01/12/2016Influenza, High-dose Seasonal, Quadrivalent, Preservative Free12/18/2022,12/03/2021,01/10/2021 Influenza, Recombinant, injectable, preservative free12/06/2013Influenza, injectable, quadrivalent, preservative free12/21/2018,12/19/2017Influenza, seasonal, injectable, preservative free02/02/2014Pneumococcal Conjugate PCV 13 03/04/2014Pneumococcal Conjugate PCV 3Pneumococcal Polysaccharide WWOT219503/24/2010Pneumococcal, Emznazupqjk32/15/2014RSV, recombinant, protein subunit RSVpreF, adjuvant reconstitu, 120mcg/0.5mL, PF (Arexvy)07/07/2023TD (adult), 2 Lf tetanus toxoid, preservative free, pwzgjmuy59/01/2010Td (adult), 5 Lf tetanus toxoid, preservative free, pdatraak73/21/7462Vceo44Zoster, Fqsvymbqlzb19/29/2023,07/01/2022 Family History Medical HistoryRelationNameCommentsHeart attackNiece/NephewCataractsSister RelationNameStatusCommentsNiece/NephewAliveSister Social History Tobacco UseTypesPacks/DayYears UsedDateSmoking Tobacco: NeverPassive Smoke Exposure: PastSmokeless Tobacco: Never Tobacco Cessation:Counseling Given: Not Answered Alcohol UseStandard Drinks/WeekCommentsYes0 (1 standard drink = 0.6 oz pure alcohol)1 beer once a monthPHQ-2AnswerDate RecordedPatient Health Questionnaire- 2 Mcihd01505/02/2023Sex and Gender InformationValueDate RecordedSex Assigned at BirthNot on fileLegal WlvErkj3307/22/2022 8:35 PM EDTGender IdentityNot on file Sexual OrientationNot on file Last Filed Vital Signs Vital SignReadingTime TakenCommentsBlood Deludpqz762/6809 10:42 AM EDT Jmfem4618 10:42 AM VLKMjsvxekfkku32.5 ??C (97.7 ??F)11/05/2023 9:51 AM EDTRespiratory Jkin130611/24/2024 9:27 AM EDTOxygen Xnofjqqihk60%12/15/2024 10:42 AM EDTInhaled Oxygen Concentration--Hwfrmr21.9 kg (200 lb 6.4 oz)12/15/2024 10:42 AM AOEMcehcg354.3 cm (5' 11 )12/15/2024 10:42 AM EDTBody Mass Index27.95 12/15/2024 10:42 AM EDT Plan of Treatment DateTypeDepartmentCare Team (Latest Contact Info)Qvqsyrkrvxl98/03/2025 9:30 AM ESTOffice Visit [facility] [address] [place] [address] Michael Patel MD [address] [facility] [address] [place] [address] 03/03/2025 8:30 AM ESTOffice Visit [facility] [address] [facility] [address] [facility] [place] [address] Gordo Dean MD [address] [facility] [address] [place], [place] [phone] Health MaintenanceDue DateLast DoneCommentsInfluenza Vaccine (#1)11/22/2024 01/05/2024, 12/18/2022, 12/03/2021, Additional history existsPneumococcal Vaccine: 65+ TtbenCodvlsepy56/10/2023, 03/04/2014, 09/05/2013, Additional history exists Procedures Procedure NamePriorityDate/TimeAssociated DiagnosisCommentsXR CHEST 2 VIEWS Rmcsayq7312/15/2024 12:03 PM EDT Other chest pain TROPONIN JRvxwjsx21/24/2025 11:27 AM EDT T4, YAWZFtvabep54/24/2025 11:27 AM EDT Other chest pain ULAUgkcjik57/24/2025 11:27 AM EDT Other chest pain D-DIMER, EEQRJJFJXOYOTgglegu38/24/2025 11:27 AM EDT Other chest pain B-TYPE NATRIURETIC WLTVQCSRuyqjpb38/24/2025 11:27 AM EDT Other chest pain PXDCwwyzmx46/24/2025 11:27 AM EDT Other chest pain COMPREHENSIVE METABOLIC SRUEAVjinmsr07/24/2025 11:27 AM EDT Other chest pain ECG 12-BHCMOkkxrdf38/24/2025 9:24 AM EDT Other chest pain from Last 3 Months Results * XR chest 2 views (12/15/2024 12:03 PM EDT)Anatomical RegionLateralityModality ChestRadiographic ImagingSpecimen (Source)Anatomical Location / Laterality Collection Method / VolumeCollection TimeReceived Time12/15/2024 12:58 PM EDT Impressions 12/15/2024 1:01 PM EDT No radiographic evidence of acute intrathoracic process. ELECTRONICALLY SIGNED BY: Jet Pérez DO Narrative 12/15/2024 1:01 PM EDT EXAMINATION: XR CHEST 2 VIEWS HISTORY: Left-sided chest pain TECHNIQUE: Frontal and lateral views of the chest. COMPARISON: Chest CT August 28, 2022. Lumbar spine radiographs October 05, 2024 FINDINGS: Cardiomediastinal silhouette is within normal limits. No pneumothorax, pleural effusion, or consolidation. Thin linear metallic structure measuring approximately 2 cm projects over the medial right lung base, concerning for foreign body, unchanged from prior radiographs. Hyperinflation of the lungsand increased bronchovascular markings suggesting COPD. No acute osseous abnormality. Procedure Note Jet Pérez DO - 12/15/2024 EXAMINATION: XR CHEST 2 VIEWS HISTORY: Left-sided chest pain TECHNIQUE: Frontal and lateral views of the chest. COMPARISON: Chest CT August 28, 2022. Lumbar spine radiographs September FINDINGS: Cardiomediastinal silhouette is within normal limits. No pneumothorax,pleural effusion, or consolidation. Thin linear metallic structuremeasuring approximately 2 cm projects over the medial right lung base,concerning for foreign body, unchanged from prior radiographs.Hyperinflation of the lungs and increased bronchovascular markingssuggesting COPD. No acute osseous abnormality. IMPRESSION: No radiographic evidence of acute intrathoracic process. ELECTRONICALLY SIGNED BY: Jet Pérez DO Authorizing ProviderResult TypeResult StatusSajj Mg NPIMG XR PROCEDURESFinal Result * Troponin I (12/15/2024 11:27 AM EDT)ComponentValueRef RangeTest MethodAnalysis TimePerformed AtPathologist SignatureTROPONIN I6< OR = 47 ng/LQUESTComment: In accord with published recommendations, serial testing of troponin I at intervals of 2 to 4 hours for up to 12 to 24 hours is suggested in order to corroborate a single troponin I result. An elevated troponin alone is not sufficient to make the diagnosis of TN. Specimen (Source)Anatomical Location / LateralityCollection Method / Volume Collection TimeReceived Time12/15/2024 11:27 AM EDT12/15/2024 11:28 AM EDT Narrative Resulting Agency Comment Performing Organization Information ?Site ID: QPT ?Name: [facility] ?Address: [address] [place] [address], [address] [place], [place] [phone] ?Director: Kam Bustos MD Authorizing ProviderResult TypeResult StatusSamanlelia Mg [facility] BLOOD ORDERABLESFinal ResultPerforming OrganizationAddressCity/State/ZIP CodePhone Number [facility]ST * (ABNORMAL) D-dimer, quantitative (12/15/2024 11:27 AM EDT)ComponentValueRef RangeTest MethodAnalysis TimePerformed AtPathologist SignatureD-DIMER, QUANTITATIVE0.64(H)<0.50 mcg/mL FEUQUESTComment: Elevated D-dimer levels are associated with DIC, malignancies, inflammation, sepsis, surgery, trauma, and . A D-dimer result less than 0.5 mcg/mL FEU, in conjunction with a non-high clinical pre-test probability assessment model, excludes deep vein thrombosis and pulmonary embolism. However, since D-dimer values increase with age, the [employer] recommends an age-adjusted cut-off value in patients older than 50. The calculation for an age adjusted cut-off value is age (years) x 0.01 mcg/mL FEU. For example, the cut-off for a 70-year-old patient would be 70 x 0.01 mcg/mL FEU. For additional information, please refer to http://education.Medafor.R[employer] Resources/faq/KQV793 (This link is being provided for informational/educational purposes only.) Specimen (Source)Anatomical Location / LateralityCollection Method / Volume Collection TimeReceived TimeBloodVenous blood specimen / Sapooms9712/15/2024 11:27 AM EDT12/15/2024 11:28 AM EDT Narrative Resulting Agency Comment Performing Organization Information ?Site ID: QPT ?Name: [facility] ?Address: [address] [place] [address], [address] [place] [phone] ?Director: Kam Bustos MD Authorizing ProviderResult TypeResult StatusBrianna Mg [facility] BLOOD ORDERABLESFinal ResultPerforming OrganizationAddressCity/State/ZIP CodePhone Number [facility] * (ABNORMAL) CBC (12/15/2024 11:27 AM EDT)ComponentValueRef RangeTest Method Analysis TimePerformed AtPathologist SignatureWHITE BLOOD CELL COUNT4.93.8 - 10.8 Thousand/uLQUESTRED BLOOD CELL COUNT3.77(L)4.20 - 5.80 Million/uLQUEST UOESIJVCUG64.1(L)13.2 - 17.1 g/kEHSOPDEUSKEFLLJK08.7(L)38.5 - 50.0 %QUESTMCV 97.380.0 - 100.0 cSARTTZTBB20.127.0 - 33.0 wtINTFTLRJS40.032.0 - 36.0 g/dL QUESTComment: For adults, a slight decrease in the calculated MCHC value (in the range of 30 to 32 g/dL) is most likely not clinically significant; however, it should be interpreted with caution in correlation with other red cell parameters and the patient's clinical condition. RDW13.011.0 - 15.0 %QUESTPLATELET DKLUG587098 - 400 Thousand/uLQUESTMPV9.67.5 - 12.5 fLQUESTSpecimen (Source)Anatomical Location / LateralityCollection Method / VolumeCollection TimeReceived TimeBloodVenous blood specimen / Ssurrcn2812/15/2024 11:27 AM EDT12/15/2024 11:28 AM EDT Narrative Resulting Agency Comment Performing Organization Information ?Site ID: QPT ?Name: [facility] ?Address: [address] [place] [phone] ?Director: Kam Bustos MD Authorizing ProviderResult TypeResult StatusBrianna Mg [facility] BLOOD ORDERABLESFinal ResultPerforming OrganizationAddressCity/State/ZIP CodePhone Number [facility] * TSH (12/15/2024 11:27 AM EDT)ComponentValueRef RangeTest MethodAnalysis Time Performed AtPathologist SignatureTSH3.280.40 - 4.50 mIU/LQUESTSpecimen (Source)Anatomical Location / LateralityCollection Method / VolumeCollection TimeReceived TimeBloodVenous blood specimen / Hccezcp7712/15/2024 11:27 AM EDT 12/15/2024 11:28 AM EDT Narrative Resulting Agency Comment Performing Organization Information ?Site ID: QPT ?Name: [facility] ?Address: [address] [place] [address], [address] [place] [address] ?Director: Kam Bustos MD Authorizing ProviderResult TypeResult StatusSajj Mg [facility] BLOOD ORDERABLESFinal ResultPerforming OrganizationAddressCity/State/ZIP CodePhone Number [facility]ST * T4, free (12/15/2024 11:27 AM EDT)ComponentValueRef RangeTest MethodAnalysis TimePerformed AtPathologist SignatureT4, FREE0.80.8 - 1.8 ng/dLQUESTSpecimen (Source)Anatomical Location / LateralityCollection Method / VolumeCollection TimeReceived TimeBloodVenous blood specimen / Jhdggcu7612/15/2024 11:27 AM EDT 12/15/2024 11:28 AM EDT Narrative Resulting Agency Comment Performing Organization Information ?Site ID: QPT ?Name: [facility] ?Address: [address] [place] [address], [address] [place] [address] ?Director: Kam Bustos MD Authorizing ProviderResult TypeResult StatusSajj Mcdonaldman NPLAB BLOOD ORDERABLESFinal ResultPerforming OrganizationAddressty/State/ZIP CodePhone Number [facility]ST * B-type natriuretic peptide (12/15/2024 11:27 AM EDT)ComponentValueRef Range Test MethodAnalysis TimePerformed AtPathologist SignatureB TYPE NATRIURETIC PEPTIDE (BNP)77<100 pg/mLQUESTComment: BNP levels increase with age in the general population with the highest values seen in individuals greater than 75 years of age. Reference: J. Am. Victor M. Cardiol. 2002; 40:976-982. Specimen (Source)Anatomical Location / LateralityCollection Method / Volume Collection TimeReceived TimeBloodVenous blood specimen / Womwbul1312/15/2024 11:27 AM EDT12/15/2024 11:28 AM EDT Narrative Resulting Agency Comment Performing Organization Information ?Site ID: QPT ?Name: [facility] ?Address: [facility] , [address] [place] [phone] ?Director: Kam Bustos MD Authorizing ProviderResult TypeResult StatusSamanlelia Mg NPLAB BLOOD ORDERABLESFinal ResultPerforming OrganizationAddressCity/State/ZIP CodePhone Number [facility] * Comprehensive metabolic panel (12/15/2024 11:27 AM EDT)ComponentValueRef Range Test MethodAnalysis TimePerformed AtPathologist RklaebcmqAvaywdb0789 - 99 mg/dLQUESTComment: ? Fasting reference interval BYW947 - 25 mg/dLQUESTCreatinine0.790.70 - 1.22 mg/iAMEQYJCDNO92> OR = 60 mL/min/1.49h5SHGACGLI/CREATININE RATIOSEE NOTE: (calc)QUESTComment: ?? Not Reported: BUN and Creatinine are within ?? reference range. ? Fgputa323495 - 146 mmol/LQUESTPotassium, Bld3.63.5 - 5.3 mmol/PWEGQNAjvvcsrf231 98 - 110 mmol/LQUESTCarbon Kohxwjz5193 - 32 mmol/LQUESTCalcium9.28.6 - 10.3 mg/dLQUESTPROTEIN, TOTAL6.86.1 - 8.1 g/dLQUESTALBUMIN4.33.6 - 5.1 g/dLQUEST GLOBULIN2.51.9 - 3.7 g/dL (calc)QUESTALBUMIN/GLOBULIN RATIO1.71.0 - 2.5 (calc) QUESTBILIRUBIN, TOTAL0.60.2 - 1.2 mg/dLQUESTALKALINE QUIYAAUAKRV1488 - 144 U/L GOBPVQVN3335 - 35 U/QGXGVTWUI198 - 46 U/LQUESTSpecimen (Source)Anatomical Location / LateralityCollection Method / VolumeCollection TimeReceived TimeBlood Venous blood specimen / Smxuryz9912/15/2024 11:27 AM EDT12/15/2024 11:28 AM EDT Narrative Resulting Agency Comment Performing Organization Information ?Site ID: QPT ?Name: [facility] ?Address: [address] [place] [address], [address] [place] [phone] ?Director: Kam Bustos MD Authorizing ProviderResult TypeResult StatusBrianna Mg NPLAB BLOOD ORDERABLESFinal ResultPerforming OrganizationAddressCity/State/ZIP CodePhone Number [facility] * ECG 12 lead (12/15/2024 9:24 AM EDT) Narrative Authorizing ProviderResult TypeResult StatusSajj Mg NPECG ORDERABLES Final ResultPerforming OrganizationAddressty/State/ZIP CodePhone Number [facility] [address] [place] [address], from Last 3 Months Insurance Care Teams Team MemberRelationshipSpecialtyStart DateEnd Date Beatriz Almonte MD PCP - [employer]03/24/22 Gordo Dean MD [address] [place] [address] [facility]11/25/24
--- OUTSIDE RECORDS SUMMARY | 2025-01-12 06:56 | XMS_ITS | Clinical Summary ---
Author Organization [facility] Address [address] [place] [address] Phone Care Team Providers Care Police Chief Deputy Name Role Phone Beatriz Almonte MD Primary Care Provider Jaclyn vailable Social History Tobacco UseTypesPacks/DayYears UsedDateSmoking Tobacco: Never AssessedSex and Gender InformationValueDate RecordedSex Assigned at BirthNot on fileLegal Sex Male02/16/2022 6:44 PM ESTGender IdentityNot on fileSexual OrientationNot on file Plan of Treatment Health MaintenanceDue DateLast DoneCommentsLipid Panel1937Yearly Adult Nemrsadt76/06/1938DTaP/Tdap/Td Vaccines (1 - Tdap)1959Pneumococcal Vaccine (1 of 1 - PCV)1987Zoster Vaccines (1 of 2)1987RSV High Risk: (Elderly (60+) or Population) (1 - 1-dose 75+ series)2012 Influenza Vaccine (#1)2024OVID-19 Vaccine ( - season)2024 HIB VaccinesAged OutNo longer eligible based on patient's age to complete this topicHPV VaccinesAged OutNo longer eligible based on patient's age to complete this topicHepatitis A VaccinesAged OutNo longer eligible based on patient's age to complete this topicHepatitis B VaccinesAged OutNo longer eligible based on patient's age to complete this topicIPV VaccinesAged OutNo longer eligible based on patient's age to complete this topicMeningococcal VaccineAged OutNo longer eligible based on patient's age to complete this topicRotavirus VaccinesAged Out No longer eligible based on patient's age to complete this topic Care Teams Team MemberRelationshipSpecialtyStart DateEnd Date Wonderly, Beatriz Garcia MD PCP - General07/22/18
--- OUTSIDE RECORDS SUMMARY | 2025-01-12 06:56 | XMS_ITS ---
Author Organization [employer] [facility] Address [id number] 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)03/14/2022 Primary asvxjuwubfpc73/22/4209Emmgauzhkderaf40/22/3366Pffzdzudunrtmhi92/22/2022 Paroxysmal atrial pqufgikifalh47/02/2022Iliac artery aneurysm, left08/13/2021 Abdominal aortic aneurysm (AAA) without vlbrogi1008/13/20210163Igwfgwvibi13/05/2020 07/23/2022ge-related cognitive fsxykky54hronic rhinitis Mild left ventricular raajdqzxtor85Right bundle branch blockilateral sensorineural hearing loss Reactive depression (situational) Prostate paxqps8507/16/2017 Cancer Staging: Clinical: cT1b, cN0, cM0, Grade Group: 4 - Signed by Lyndon Marquez MD on 07/16/2017 Overview (10/16/2021): 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 plan to check psa in Feb prior to leaving for [place]. 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 Past Treatment and Therapy Plans Plan NameStart DateDiscontinue DateTreatment MedicationsDiscontinue ReasonPlan ProviderLEUPROLIDE 45 MG EVERY 6 MONTHS (LUPRON DEPOT)* leuprolide (LUPRON) OtherDavid A MD Jimmy Radiation Treatments * Treatment PeriodEnergyFraction DoseFractionsTotal DosePlansPlannedprostate and seminal vesicles [Pros and SV]04/27/2018 - 04/27/201825028 / 287,000Reference PointsDeliveredRx fvsdfujp65/04/2019 - 04/27/2018?7,000 Resolved Problems ProblemNoted DateDiagnosed DateResolved DateAcute hypoxic respiratory failure /5Acute maxillary czwjxeesl95
--- OUTSIDE RECORDS SUMMARY | 2025-01-12 06:56 | XMS_ITS ---
Author Organization [facility] Address [address] [place] [address] Care Team Providers Care Complaint Clerk Name Role Phone Beatriz Almonte MD Unavailable [phone] Gordo Dean MD Primary Care Provider [phone] Active Problems ProblemNoted DateDiagnosed RoxcWrtwmx07/29/2025Pain in right nkxlatkw89/18/2025 Diverticular lceqgdw56/26/2024Pain in right ozzywad6510/29/2023dvanced age 0810/27/2023Malignant neoplasm of skin10/27/20237537Nlaeypklmkfysid30/05/2024Stress at home10/27/20237855Xdzitxh91/12/2024Ulcerative ypgqhtgiv75/23/2024therosclerosis of aorta05/22/20236820Wmtpwdtwlfr98/29/1015Piedghmluwtadw04/23/2023ulmonary nodule 11/13/2022Renal cyst, left11/13/2022lzheimer's /16/2023ry eyes 09/03/2022CO (posterior capsular opacification), /13/2023hronic low back pain07/23/2022Hip pain07/23/2022astroesophageal reflux mhklcqt5704/15/2022 Piriformis syndrome of right side04/15/20223423Olvmkqepd75/23/2023MCI (mild cognitive impairment) with memory loss03/14/2022eripheral arterial disease 03/14/20225720Yejjabcxdugjra54/22/2022rimary myxgasezmwbq25/22/2022Iliac artery aneurysm, left2Occlusion and stenosis of bilateral carotid arteries 02/21/20204263Ljlpahnxkb25/05/2020Mild left ventricular qrcsufjzoxi03/06/2019Right bundle branch block07/02/2018Sensorineural hearing loss (SNHL) of both ears 03/04/2018Allergic rilshuoy39/30/2018Reactive /28/2018Malignant neoplasm of buegzaty05/12/2018 Overview (11/13/2022): 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 plan to check psa in Feb prior to leaving for [place]. Recheck 1 year Squamous cell carcinoma of skin12/16/2016Lipoprotein deficiency disorder 09/10/2016Ankylosing vertebral xnmrzfknpyvq28/23/1051Wxxtmkw76/10/2016Abdominal aortic aneurysm (AAA) without marbljh3007/31/2015 Current Treatment and Therapy Plans No current plan information found. Past Treatment and Therapy Plans No past plan information found. Lifetime Dose Tracking * ChemicalLifetime DoseAutomatic EntryManual JydewBcetdjdkw62.97 mSv20.97 mSv0 mSv Resolved Problems ProblemNoted DateDiagnosed DateResolved DateAcute hypoxic respiratory failure OVID-190ackache Right knee painUnsteadiness on feetcute maxillary feufqrfgw95lepharitis of upper and lower eyelids of both eyesalculus of fjhlnw58Long term current use of anticoagulant fpkxdit40aroxysmal atrial zhnivkkpioin31
--- OUTSIDE RECORDS SUMMARY | 2025-01-12 06:57 | XMS_ITS | CCD ---
Author Organization [facility] Care Team Providers Care Store Receiver Name Role Phone PHYSICIAN, DEFAULT Unavailable Unavailable PHYSICIAN, DEFAULT Unavailable Unavailable Beatriz Carson Unavailable Unavailable Unavailable DR BEATRIZ CARSON Primary Care Unavailable MISC, DR DEMPSEY Consulting Unavailable MISC, DR DEMPSEY Attending Unavailable MISC, DR DEMPSEY Admitting Unavailable BRIANNA CRUZ Admitting Unavailable NANCY, BRIANNA Consulting Unavailable BRIANNA CRUZ Attending Unavailable SYBIL, DR SANDY Ventura Consulting Unavailable YAMILETH, DR BEATRIZ Bush Primary Care Unavailable SYBIL, DR SANDY [place] Attending Unavailable SYBIL, DR SANDY [place] Admitting Unavailable Adalberto Graves Unavailable Skye Petersen Unavailable MD Adalberto Graves Attending Provider MD Beatriz Carson Primary Care Provider Unavailable Unavailable BEATRIZ CARSON Primary Care Unavailable LEDY LAGUERRE Attending Unavaila ble MD Beatriz Carson Primary Care Provider MD Yesy Jarquin Attending Provider Beatriz Carson MD Unavailable Beatriz Carson MD Primary Care Provider Beatriz Carson MD Unavailable [phone] Beatriz Carson MD Primary Care Provider Beatriz Carson MD Primary Care Provider Beatriz Carson MD Unavailable [phone] Beatriz Carson MD Primary Care Provider Beatriz Carson MD Primary Care Provider Yesy Jarquin MD Attending Provider Beatriz Carson MD Primary Care Provider Wonderanastasia, Beatriz Primary Care Unavailable Yesy Jarquin Attending Unavailable Yesy Jarquin Admitting Unavailable Gordo Lynn MD Primary Care Provider [phone] WONDERLY, BEATRIZ B Referring Unavailable WONDERLY, BEATRIZ B Primary Care Unavailable WONDERLY, BEATRIZ B Referring Unavailable WONDERLY, BEATRIZ B Primary Care Unavailable LINA PUGA Attending Unavailable WONDERLY, BEATRIZ B Referring Unavailable WONDERLY, BEATRIZ B Primary Care Unavailable Beatriz Carson MD Primary Care Provider JAVIER, MARIELENA A Attending Unavailable BLACKSTONSHRADDHA Attending Unavailable JAVIER, MARIELENA Daigle Referring Unavailable BLACKSTONSHRADDHA Attending Unavailable JAVIER, MARIELENA Daigle Referring Unavailable BLACKSTONSHRADDHA Attending Unavailable JAVIER, MARIELENA Daigle Referring Unavailable JAVIER, MARIELENA Daigle Referring Unavailable BLACKSTONSHRADDHA Attending Unavailable JAVIER, MARIELENA Daigle Referring Unavailable JAVIER, MARIELENA Daigle Referring Unavailable BLACKSTONSHRADDHA Attending Unavailable JAVIER, MARIELENA Daigle Referring Unavailable PATELMACIE Attending Unavailable JAVIER, MARIELENA Daigle Attending Unavailable JAVIER, MARIELENA Daigle Referring Unavailable BLACKSTONSHRADDHA Attending Unavailable JAVIER, MARIELENA Daigle Referring Unavailable ROZINA WHITAKER Attending Unavailable JAVIER, MARIELENA Daigle Referring Unavailable KAMRENA CASTRO Attending Unavailable JAVIER, MARIELENA Daigle Attending Unavailable PATELMACIE SHIN Attending Unavailable SKYE DYSON Attending Unavailable KAMPFER, RENA Referring Unavailable BRIANNA CRUZ Attending Unavailable MACIE PATEL Attending Unavailable GORDO LYNN Attending Unavailable BRIANNA CRUZ Attending Unavailable BRIANNA CRUZ Referring Unavailable WONDERLY, BEATRIZ B Primary Care Unavailable MICHELLE MALONE Attending Unavailable WONDERANASTASIA, BEATRIZ B Referring Unavailable WONDERLY, BEATRIZ B Primary Care Unavailable DENICE BISHOP Attending Unavailable DENICE BISHOP Referring Unavailable WONDERANASTASIA, BEATRIZ Bush Primary Care Unavailable BRIANNA CRUZ Referring Unavailable YAMILETH, BEATRIZ B Primary Care Unavailable Beatrzi Carson MD Primary Care Provider Unavai lable Medications Current Medications MedicationDrug Class(es)DatesSig (Normalized)Sig (Original)acetaminophen 325 mg oral tablet (20 sources)take 2 tablets by mouth every six hours as needed for pain acetaminophen (TYLENOL) 325 mg tablet Take 2 tablets (650 mg total) by mouth every 6 (six) hours asneeded for pain. ActiveALPRAZolam (3 sources)BenzodiazepineALPRAZolam ActiveamLODIPine 5 mg oral tablet (20 sources)Dihydropyridine Calcium Channel BlockerStart: 24-04-9261mklz 1 tablet by mouth once dailyamLODIPine (Norvasc) 5 MG tablet Indications: Primary hypertension Take 1 tablet (5 mg) by mouth Daily 90 tablet 1 08/13/2024 Active Start: 03-12-2022 End: 78-68-1119fapi 1 tablet by mouth once dailyamLODIPine (Norvasc) 5 MG tablet Indications: Primary hypertension Take 1 tablet (5 mg) by mouth Daily 90 tablet 1 08/13/2024 ActiveamLODIPine Besylate Activeazelastine hydrochloride 0.137 mg/actuat metered dose nasal spray (20 sources)Histamine-1 Receptor Antagonisttake 1 spray(s) nasal route in the morningazelastine (Astelin) 0.1 % nasal spray Administer 1 spray into each nostril in the morning and 1 spray before bedtime. Use in each nostril as directed. ActiveCalcium (3 sources)Phosphate Binder, CalciumCalcium ActiveCalcium Carbonate / vitamin D3 (1 source)calcium carbonate/vitamin D3 (CALCIUM 600 WITH VITAMIN D3 ORAL) Take by mouth. D3 (800 international units) 0 Activecholecalciferol, vitamin D3, (VITAMIN D3 ORAL) (1 source)cholecalciferol, vitamin D3, (VITAMIN D3 ORAL) Take 25 mcg by mouth. 0 ActiveCo Q 10 (3 sources)Co Q 10 Activedonepezil hydrochloride 10 mg oral tablet (20 sources)Start: 03-12-2022 End: 55-42-6651mufx 1 tablet by mouth in the morningdonepezil (Aricept) 10 MG tablet Indications: Age-related cognitive decline Take 1 tablet (10 mg) by mouth in the morning and 1 tablet (10 mg) before bedtime. 60 tablet 11 11/24/2024 Activetake 2 tablets by mouth once dailydonepezil (ARICEPT) 5 mg tablet Take 2 tablets (10 mg total) by mouth nightly. Activetake 0.5 tablet by mouth at bedtimeDonepezil HCl - 10 MG Oral Tablet Take 1/2 tablet PO HS Quantity: 0 Refills: 0 Ordered: 26-Jul-2021 DO ActiveDonepezil HCl Activefluticasone propionate 0.05 mg/actuat metered dose nasal spray (20 sources)CorticosteroidStart: 10-27-2023 End: 57-77-6275xtrd 2 spray(s) nasal route once dailyfluticasone (Flonase) 50 MCG/ACT nasal spray Indications: Nasal obstruction Administer 2 sprays into each nostril Daily Shake gently. Before first use, prime pump. After use, clean tip and replace cap. 48 g 3 10/27/2023 Activetake 1 spray(s) nasal route in the morningfluticasone propionate (FLONASE) 50 mcg/actuation nasal spray Administer 1 spray into each nostril in the morning. Activehydrocortisone 25 mg/ml rectal cream (20 sources)CorticosteroidStart: 03-81-4545ublmsvzaomhign (Anusol-HC) 2.5 % rectal cream Indications: Bleeding hemorrhoid INSERT into the rectum FOUR TIMES DAILY NEEDED 30 g 1 11/05/2023 ActiveM-17/NETTLE/PUMPK/SAW PALMET (PROSTATE THERAPY ORAL) (3 sources)M-17/NETTLE/PUMPK/SAW PALMET (PROSTATE THERAPY ORAL) Take by mouth. ActiveM-17/NETTLE/PUMPK/SAW PALMET (PROSTATE THERAPY ORAL) Take by mouth. 0 Activemagnesium lactate 84 mg extended release oral tablet (16 sources)take 1 tablet by mouth once dailymagnesium lactate CR (Magtab) 84 MG (7MEQ) ER tablet Take 84 mg by mouth Daily Activemeclizine hydrochloride 25 mg oral tablet (20 sources)AntiemeticStart: 09-03-2023 End: 09-21-4696juba 1 tablet by mouth twice daily as needed for dizziness meclizine (Antivert) 25 MG tablet Indications: Vertigo Take 1 tablet (25 mg) by mouth 2 (two) timesa day as needed for dizziness 90 tablet 09/03/2023 12/02/2023 Activetake 1 tablet by mouth every twelve hoursMeclizine HCl 25 MG 1 tablet as needed Orally every 12 hrs Activememantine hydrochloride 10 mg oral tablet (20 sources)J-xtxskh-Q-aspartate Receptor AntagonistStart: 30-81-6151tffn 1 tablet by mouth twice dailyStart: 01-27-2024 End: 32-08-0971yxza 1 tablet by mouth in the morningmemantine (Namenda) 10 MG tablet Indications: MCI (mild cognitive impairment) with memory loss Take1 tablet (10 mg) by mouth in the morning and 1 tablet (10 mg) before bedtime. 60 tablet 11 11/24/2024 ActiveStart: 11-17-2023 End: 26-60-0603bvpq 1 tablet by mouth in the morningmemantine (Namenda) 5 MG tablet Indications: MCI (mild cognitive impairment) with memory loss Take 1 tablet (5 mg) by mouth in the morning and 1 tablet (5 mg) before bedtime. 60 tablet 11 11/17/2023 01/27/2024 Discontinued (Reorder)methylPREDNISolone 4 mg oral tablet (2 sources)CorticosteroidStart: 59-86-8637eplxanXUFZWCIhqaii 4 MG as directed Orally for daily dose take half with breakfast, half with dinner for 6 days Jan, ActiveMultiple Vitamin (Multi-Vitamin) tablet (20 sources)take 1 tablet by mouth in the morningMultiple Vitamin (Multi- Vitamin) tablet Take 1 tablet by mouth in the morning. Activemultivitamin (THERAGRAN) tablet (3 sources)take 1 tablet by mouth in the morningmultivitamin (THERAGRAN) tablet Take 1 tablet by mouth in the morning. Activetake 1 tablet by mouth in the morningmultivitamin (THERAGRAN) tablet Take 1 tablet by mouth in the morning. 0 ActiveMultivitamin preparation (7 sources)Start: 53-93-1433subs 1 tablet by mouth once dailyMultivitamin Active 1 TAB PO Daily March 12, 2022 1:00amMultivitamin ActiveMultivitamin Tablet (2 sources)Start: 33-10-3233jwmo 1 tablet by mouth once dailyStart: 03-12-2022 take 1 tablet by mouth once dailyMultivitamin Tablet Active 1 TAB PO Daily March 12, 2022 1:00amNON FORMULARY (20 sources)NON FORMULARY Prostate vitamin ActiveQUEtiapine 25 mg oral tablet (20 sources)Atypical AntipsychoticStart: 08-18-2024 End: 54-24-2431vggy 0.5 tablet by mouth at bedtimeQUEtiapine (SEROquel) 25 MG tablet Indications: Alzheimer's dementia, unspecified dementia severity, unspecified timing of dementia onset, unspecified whether behavioral, psychotic, or mood disturbance or anxiety (HCC) , Irritability Take 0.5 tablets (12.5 mg) by mouth at bedtime 15 tablet 3 11/24/2024 Activerosuvastatin calcium 5 mg oral tablet (20 sources)HMG-CoA Reductase InhibitorStart: 03-12-2022 End: 24-95-0646hmok 1 tablet by mouth once dailyrosuvastatin (Crestor) 5 MG tablet Indications: Hyperlipidemia, unspecified hyperlipidemia type Take 1 tablet (5 mg) by mouth Daily 90 tablet 3 09/01/2024 09/01/2025 Active Rosuvastatin Calcium ActivesulfaSALAzine 500 mg oral tablet (20 sources)AminosalicylateStart: 73-22-1366tdfw 2 tablets by mouth in the morningsulfaSALAzine (Azulfidine) 500 MG tablet Take 1,000 mg by mouth in the morning and 1,000 mg before bedtime. 08/06/2022 ActiveStart: 06-12-2022 sulfaSALAzine (AZULFIDINE) 500 mg EC tablet Take 200 mg by mouth in the morning and 200 mg at noon and 200 mg in the evening. 06/12/2022 ActiveStart: 06-12-2022 take 2 tablets by mouth in the morning, then take 2 tablets by mouth at bedtime sulfaSALAzine (AZULFIDINE) 500 mg EC tablet Take 2 tablets (1,000 mg total) by mouth in the morningand 2 tablets (1,000 mg total) before bedtime. 0 06/12/2022 ActiveStart: 03-12-2022 End: 21-70-7922aukj 1 g by mouth twice dailyStart: 86-92-8313qelx 1 g by mouth twice dailySulfasalazine Active 1 GM PO Twice daily 120 March 12, 2022 1:00amSulfasalazine 500 mg tablet,delayed release (DR/EC) (4 sources)Start: 00-00-2940jylc 1 g by mouth twice dailySulfasalazine 500 mg tablet,delayed release (DR/EC) Active 1 GM PO Twice daily 120 July 05 2:07pmStart: 05-05-2024 End: 73-55-7895qtuq 1 g by mouth twice dailySulfasalazine 500 mg tablet,delayed release (DR/EC) Discontinued 1 GM PO Twice daily 120 May 05, 2024 12:21pm July 05, 2024 2:08pmStart: 10-22-2023 End: 40-42-8117ngfr 1 g by mouth twice dailySulfasalazine 500 mg tablet,delayed release (DR/EC) Discontinued 1 GM PO Twice daily 120 September 11:04am May 05, 2024 12:29pmStart: 03-12-2022 End: 79-59-4519fpxg 1 g by mouth twice dailySulfasalazine 500 mg tablet,delayed release (DR/EC) Discontinued 1 GM PO Twice daily 120 March 12, 2022 1:00am October 22, 2023 11:05amTENS Unit (1 source)TENS Unit Use as directed. ActiveVitamin D3 (1 source)Vitamin D3 Active Completed/Discontinued Medications MedicationDrug Class(es)DatesSig (Normalized)Sig (Original)Apoaequorin (Prevagen) 10 MG capsule (20 sources) End: 25-04-2476Ubajodnyoen (Prevagen) 10 MG capsule Take by mouth 07/07/2024 Discontinued (Discontinued by anotherclinician)Apoaequorin (Prevagen) 10 MG capsule Take by mouth Activecalcium carbonate 1500 mg / cholecalciferol 0.01 mg oral tablet (6 sources)Vitamin DStart: 03-12-2022 End: 84-91-0664kjoa 1 tablet by mouth once dailyCalcium Carbonate-Vitamin D3 (Calcium 600 + D(3)) 600 mg-10 mcg (400 unit) Tablet Discontinued 1 TAB PO Daily March 12, 2022 1:00am September 05, 2023 2:03pmCalcium 600+D 600-800 MG-UNIT TABS take po as directed Quantity: 0 Refills: 0 Ordered: 26-Jul-2021 DO Active ipratropium bromide 0.042 mg/actuat metered dose nasal spray (13 sources)AnticholinergicStart: 10-20-2023 End: 38-74-4042mucm 2 spray(s) nasal route four times daily as needed for congestionipratropium (Atrovent) 0.06 % nasal spray Indications: Rhinorrhea Administer 2 sprays into each nostril 4 (four) times a day as needed for rhinitis (nasal congestion) 15 mL 1 10/20/2023 01/26/2024 Discontinued (Therapy completed)ketoconazole 20 mg/ml medicated shampoo (20 sources)Azole AntifungalStart: 01-26-2024 End: 17-92-2470rfiwtrwgzjuu (NIZOral) 2 % shampoo Indications: Contact dermatitis of scalp Apply topically 2 (two)times a week 120 mL 3 01/26/2024 10/19/2024 Discontinued (Duplicate order)ketoconazole (NIZOral) 2 % shampoo Apply topically 2 (two) times a week ActiveKetorolac (10 sources)Nonsteroidal Anti-inflammatory Drug, Cyclooxygenase InhibitorStart: 42-71-7272Hogtwyq per 15 mg Dec, 30 mgStart: 19-32-1024Dgpkwsm per 15 mg Dec, 30 mgloratadine 10 mg oral tablet (9 sources)Start: 03-12-2022 End: 61-04-6276wzns 1 tablet by mouth once dailyLoratadine 10 mg Tablet Discontinued 10 MG PO Daily March 12, 2022 1:00am September 05, 2023 2:02pm Loratadine Activemontelukast 10 mg oral tablet (10 sources)Leukotriene Receptor AntagonistStart: 09-05-2023 End: 28-40-3058lpif 1 tablet by mouth once dailyMontelukast 10 mg tablet Discontinued 10 MG PO Daily September 05, 2023 12:00am August 05, 2024 8:16amMulti Vitamin Oral Tablet (2 sources)take 1 tablet by mouth once dailyMulti Vitamin Oral Tablet take 1 tablet po daily Quantity: 0 Refills: 0 Ordered: 26-Jul-2021 DO ActiveNasacort AQ AERO (2 sources)Nasacort AQ AERO 10 GM; USE INTRANASALLY DIRECTED Quantity: 0 Refills: 0 Ordered: 26-Jul-2021 DO ActivePrevagen 10 MG Oral Capsule (2 sources)take 1 capsule by mouth once dailyPrevagen 10 MG Oral Capsule Take 1 capsule PO daily Quantity: 0 Refills: 0 Ordered: 26-Jul-2021 DO ActiveProstate CAPS (2 sources)take 1 capsule by mouth twice dailyProstate CAPS TAKE 1 CAPSULE po bid Quantity: 0 Refills: 0 Ordered: 26-Jul-2021 DO Activerivaroxaban 20 mg oral tablet (10 sources)Factor Xa InhibitorStart: 03-12-2022 End: 75-36-8228kuqz 1 tablet by mouth once dailyRivaroxaban (Xarelto) 20 mg tablet Discontinued 20 MG PO Daily March 12, 2022 1:00am September 05, 2023 2:01pmXarelto ActiveSaw-Vit E-Sod Siu-Qaf-Husm-Pyg (Prostate Health) 160-100-100 mg-unit-mcg Tablet (4 sources)Start: 03-12-2022 End: 14-62-7691amsy 1 tablet by mouth once dailySaw-Vit E-Sod Rfi-Luc-Udsb-Pyg (Prostate Health) 160-100-100 mg-unit-mcg Tablet Discontinued 1 TAB PO Daily March 12, 2022 1:00am September 05, 2023 2:01pmsertraline 50 mg oral tablet (2 sources)Serotonin Reuptake Inhibitortake 1 tablet by mouth once daily Sertraline HCl - 50 MG Oral Tablet TAKE 1 TABLET PO DAILY. Quantity: 30 Refills: 11 Ordered: 26-Jul-2021 DO ActiveSod Picosulf-Mag Ox-Citric Ac (4 sources)Start: 08-13-2023 End: 10-10-7111kisu 1 dose by mouth once dailySod Picosulf-Mag Ox-Citric Ac (Clenpiq) 10 mg-3.5 gram- 12 gram/175 mL solution Discontinued 175 MLPO Daily 350 0 August 13, 2023 12:00am September 19, 2023 10:41am take first dose at 3PM evening beforecolonoscopy; 2nd dose at 9pm the night before colonoscopyStart: 85-28-1705rwnc 1 dose by mouth once dailySod Picosulf-Mag Ox-Citric Ac (Clenpiq) 10 mg-3.5 gram- 12 gram/175 mL solution Active 175 ML PO Daily 350 0 August 13, 2023 12:00am take first dose at 3PM evening before colonoscopy; 2nd dose at 9pm the night before colonoscopytadalafil 20 mg oral tablet (13 sources)Phosphodiesterase 5 Inhibitor End: 13-08-0640lntxrzfjm (Cialis) 20 MG tablet 1 tablet Orally prn 01/26/2024 Discontinued (Therapy completed)Triamcinolone (5 sources)CorticosteroidStart: 44-30-2685NZIMMNJ - 10 mg 14 Dec, 2019 40 mg ubidecarenone 200 mg oral capsule (2 sources)CoQ10 200 MG Oral Capsule take po as directed Quantity: 0 Refills: 0 Ordered: 26-Jul-2021 DO Activevitamin b12 1 mg oral tablet (10 sources)Vitamin X06Ljmxv: 03-12-2022 End: 78-73-9750yrly 1 tablet by mouth once dailyCyanocobalamin (Vitamin B-12) (Vitamin B-12) 1,000 mcg Tablet Discontinued 1000 MCG PO Daily March 12, 2022 1:00am September 05, 2023 2:03pmVitamin B12 Activewarfarin sodium 5 mg oral tablet (3 sources)Vitamin K AntagonistStart: 81-16-7974qpyd 1-2 tablets by mouth once dailyWarfarin Sodium 5 MG Oral Tablet 1-2 tablets once daily or as directed by [facility] Quantity: 90 Refills:1 Ordered: 01-Mar-2021 Mat Gresham MD Start : 01-Mar-2021 Active Problems Active Problems Problem ClassificationProblemDateDocumented DateEpisodic/ChronicAbdominal pain (1 source)Unspecified abdominal painEpisodicAdjustment disorders (20 sources)Family tension; Translations: [Reaction to severe stress, unspecified]Onset: 638098-47-5962QngbenzUhfdzbc disorders (20 sources)Anxiety; Translations: [Anxiety disorder, unspecified]Onset: 099606-60-0698FqsajztZnrpfxl disorders (2 sources)Feeling irritable; Translations: [Irritability and anger]11-24-2024 EpisodicAortic; peripheral; and visceral artery aneurysms (20 sources)Abdominal aortic aneurysm without rupture; Translations: [Abdominal aortic aneurysm (AAA) without rupture]Onset: 222607-32-2173DggbsylFqhrag of prostate (20 sources)Malignant tumor of prostate; Translations: [Malignant neoplasm of prostate]Onset: 181520-93-4772ZoviomeFrwaoyx dysrhythmias (20 sources)Atrial fibrillation; Translations: [Atrial fibrillation]Onset: 06-10-2018 Resolved: 054777-47-9105RpdloyxXgnhruvd (20 sources)After-cataract of bilateral eyes; Translations: [Other secondary cataract, bilateral]Onset: 749955-53-3905HywqzycIyoqrmbvlp associated with dizziness or vertigo (1 source)Conditions associated with dizziness or vertigoOnset: 02-28-2024 Conduction disorders (20 sources)Right bundle branch block; Translations: [Right bundle branch block] Onset: 098166-76-3824ZnjhcczIzdcsybbgh and other anemia (1 source)Anemia, unspecified; Translations: [Anemia, unspecified type]Onset: 76-85-2198IyfkopxjWjcmbzqbzt and other anemia (4 sources)Anemia; Translations: [Anemia, unspecified]75-19-7198Spswlczq Delirium, dementia, and amnestic and other cognitive disorders (20 sources)Age-related cognitive decline; Translations: [Age-related cognitive decline]Onset: 705719-24-3268XfvchcoAlebsyxrt of lipid metabolism (20 sources)Hyperlipidemia; Translations: [Other and unspecified hyperlipidemia] Onset: 636756-69-7490IvmkfutDapphomvctowyc and diverticulitis (20 sources)Diverticular disease; Translations: [Diverticulosis of intestine, part unspecified, without perforation or abscess without bleeding]Onset: 303336-88-5993YedzkcvGqqtvgmexp disorders (20 sources)Gastroesophageal reflux disease; Translations: [Gastro-esophageal reflux disease without esophagitis]Onset: 212251-50-7587GravunlBdhxnzyzj hypertension (20 sources)Essential hypertension; Translations: [Essential (primary) hypertension]Onset: 313522-55-0229PhsuvmcSxlnj and electrolyte disorders (2 sources)Hypokalemia; Translations: [Hypokalemia]38-71-3094Pvxnwbam Gastrointestinal hemorrhage (6 sources)Rectal hemorrhage; Translations: [Hemorrhage of anus and rectum] Onset: 11-28-2021 Resolved: 56-74-9778IgvgiecwEzngryyj; including migraine (2 sources)Disorder of scalp; Translations: [Scalp pain]35-16-7098QjsevhoyQgsry valve disorders (15 sources)Heart murmur; Translations: [Cardiac murmur, unspecified]Onset: 433425-42-1431ZfqrixflJiap disorders (20 sources)Reactive depression (situational); Translations: [Major depressive disorder, single episode, unspecified]Onset: 453637-80-0127QernwjrPwykkj and vomiting (1 source)NauseaEpisodicNonspecific chest pain (20 sources)Chest pain; Translations: [Chest pain, unspecified]Onset: 11-06-2022 43-09-6829IfsrgghbFsvdvocoj or stenosis of precerebral arteries (20 sources)Carotid artery stenosis; Translations: [Occlusion and stenosis of carotid artery without mention ofcerebral infarction]Onset: ChronicOpen wounds of head; neck; and trunk (4 sources)Scalp laceration; Translations: [Open wound of scalp, without mention of complication]EpisodicOther aftercare (1 source)long-term (current) use of anticoagulants; Translations: [[facility] CURRNT USE ANTICOAGULANTS]Onset: 98-35-3955NcgutsacMqqkn aftercare (1 source)Other intermediate (current) drug therapy; Translations: [OTH [facility] CURRENT DRUG THERAPY]Onset: 23-50-3602NcbvgkstKgwam and ill-defined heart disease (20 sources)Cardiomegaly; Translations: [Cardiomegaly]Onset: 07-27-2018 09-45-8679HxvcswyMjyld connective tissue disease (2 sources)Ischial bursitis ; Translations: [Other bursitis of hip, right hip] 25-67-3504AuaurtwoRwnmc ear and sense organ disorders (20 sources)Sensorineural hearing loss, bilateral; Translations: [Sensorineural hearing loss, bilateral]Onset: 564503-55-1159KdvlzsnKxqgy gastrointestinal disorders (5 sources)H/O: gastrointestinal disease; Translations: [Personal history of other diseases of the digestive system]EpisodicOther gastrointestinal disorders (2 sources)Personal history of other diseases of the digestive systemOnset: 11-28-2021 Resolved: 61-83-5845DquvnrmpEpnvt gastrointestinal disorders (1 source)Diarrhea, unspecifiedEpisodicOther hereditary and degenerative nervous system conditions (20 sources)Mild cognitive impairment, so stated; Translations: [Mild cognitive impairment, so stated]Onset: 199886-63-5622GwmattvKcfpr injuries and conditions due to external causes (1 source)Unspecified foreign body in respiratory tract, part unspecified causing other injury, sequela; Translations: [Unspecified foreign body in respiratory tract, part unspecified causing other injury, sequela]Onset: 74-54-1918HisjflloQxagp injuries and conditions due to external causes (3 sources)Aspiration into respiratory tract; Translations: [Unspecified foreign body in respiratory tract, part unspecified causing other injury, sequela] Onset: 872100-97-1654MudoyaewGcpga lower respiratory disease (2 sources)Dyspnea; Translations: [Shortness of breath]36-94-1381ZlqqaawaElhfu nervous system disorders (20 sources)Right-sided piriformis syndrome; Translations: [Lesion of sciatic nerve, right lower limb]Onset: 984965-48-0595OgqfultNzwbz non-traumatic joint disorders (20 sources)Polyarthropathy; Translations: [Polyarthritis, unspecified]Onset: 191905-66-4168QuhexxgTdcud non-traumatic joint disorders (2 sources)Chronic pain of right upper limb; Translations: [Pain in right shoulder]62-16-3962JdfbdxogPrjsf nutritional; endocrine; and metabolic disorders (20 sources)Lipoprotein deficiency disorder; Translations: [Lipoprotein deficiency]Onset: 295085-83-7949FnavqseGaxig screening for suspected conditions (not mental disorders or infectious disease) (1 source)Abnormal findings on diagnostic imaging of other specified body structures; Translations: [Abnormalfindings on diagnostic imaging of other specified body structures]Onset: 93-82-1565HlhpfabLhmku screening for suspected conditions (not mental disorders or infectious disease) (3 sources)Electrocardiogram abnormal; Translations: [Nonspecific abnormal electrocardiogram [ECG] [EKG]]Onset: 69-66-6794NrduccadFjpxv upper respiratory disease (20 sources)Allergic rhinitis; Translations: [Allergic rhinitis, unspecified] Onset: 957462-95-3122PbxshsgVqqct upper respiratory disease (5 sources)Chronic rhinitis; Translations: [Chronic rhinitis]Onset: 11-26-2018 53-03-2771GedpretYxajw upper respiratory infections (1 source)Chronic sinusitis, unspecified; Translations: [CHRONIC SINUSITIS UNSPECIFIED]Onset: 93-53-0680EvqbrbkQdgdzhqlmv and visceral atherosclerosis (20 sources)Peripheral vascular disease, unspecified; Translations: [Peripheral vascular disease, unspecified]Onset: 982316-54-5789PxlfpcsHmjbcuif enteritis and ulcerative colitis (20 sources)Chronic ulcerative proctitis; Translations: [Ulcerative (chronic) proctitis without complications]Onset: 85-35-2692DzppodpJahsmivx codes; unclassified (1 source)Pain, unspecified; Translations: [Pain, unspecified]Onset: 12-17-2024 EpisodicSpondylosis; intervertebral disc disorders; other back problems (20 sources)Disseminated idiopathic skeletal hyperostosis; Translations: [Ankylosing hyperostosis [[place]], site unspecified]Onset: 12-15-2015 17-89-2119JsiqdjqHoqhubu and strains (1 source)Strain of muscle and tendon of front wall of thorax, initial encounter EpisodicUnclassified (3 sources)CONTACT W/AND (SUSP) EXPOS COVID-19; Translations: [CONTACT W/AND (SUSP) EXPOS COVID-19]Onset: 29-69-8843Vhtstbfwarrj (1 source)COUGH, UNSPECIFIED; Translations: [COUGH, UNSPECIFIED]Onset: 54-14-0953Dsgfthrzmsea (2 sources)Chronic pain of right upper yrmi51-88-1038Nnsjwlgicxbb (1 source)New PatientOnset: 98-92-9292Bmbps infection (4 sources)COVID-19; Translations: [COVID-19]Onset: 12-29-2020 Past or Other Problems Problem ClassificationProblemDateDocumented DateEpisodic/ChronicAnal and rectal conditions (1 source)Rectal painOnset: 00-13-1409FsmschgtJceonpcc of urinary tract (20 sources)Kidney stone; Translations: [Calculus of kidney]Onset: 03-14-2022 Resolved: 411853-58-1310IrlnzyycAeiwiyzfsr associated with dizziness or vertigo (20 sources)Lightheadedness; Translations: [Dizziness and giddiness]Onset: 272276-78-2636BmhdkyrrBhgryjpnkvm (20 sources)Unspecified hemorrhoids; Translations: [Hemorrhoids]Onset: 11-28-2021 Resolved: 63-96-4477TpdatbluUqclcoizydfky and screening for infectious disease (1 source)Encounter for immunization; Translations: [ENCOUNTER FOR IMMUNIZATION] Onset: 50-21-3060IwaoogadLfxgpasazlkf; infection of eye (except that caused by tuberculosis or sexually transmitteddisease) (20 sources)Blepharitis of upper and lower eyelids of bilateral eyes; Translations: [Unspecified blepharitis right eye, upper and lower eyelids]Onset: 09-03-2022 Resolved: 754388-30-6727YfppboclZtvwmvx and fatigue (1 source)Other fatigue; Translations: [OTHER FATIGUE]Onset: 69-79-5611Yrxrczjt Mood disorders (3 sources)Mood disordersOnset: 039306-32-8075Ydnla aftercare (20 sources)Long-term current use of anticoagulant; Translations: [long-term (current) use of anticoagulants]Onset: 07-02-2018 Resolved: 584121-35-4061SgwqnotfLnqst connective tissue disease (20 sources)Pain in buttock; Translations: [Myalgia, other site]Onset: 071680-77-7443NqofcttjPgsen diseases of kidney and ureters (20 sources)Cyst of kidney; Translations: [Cyst of kidney, acquired]Onset: 732190-88-8843LbhpjwjnOvpap eye disorders (20 sources)Dry eyes; Translations: [Dry eye syndrome of bilateral lacrimal glands]Onset: 281146-92-0939UtmjkecmJuvvw gastrointestinal disorders (2 sources)Constipation, unspecified; Translations: [Constipation, unspecified constipation type]Onset: 04-81-8877IsxxnhhaCgdcm lower respiratory disease (20 sources)Nodule of lung; Translations: [Solitary pulmonary nodule]Onset: 867044-66-2509DohnxaxrOsuab nervous system disorders (20 sources)Unsteady when standing; Translations: [Unsteadiness on feet]Onset: 10-27-2023 Resolved: 419571-61-9825PsssrckbDwzez non-epithelial cancer of skin (20 sources)Squamous cell carcinoma of skin; Translations: [Squamous cell carcinoma of skin, unspecified]Onset: 145084-58-4487TkrypqoeSgmrc non- traumatic joint disorders (20 sources)Pain in right knee; Translations: [Pain in joint, lower leg]Onset: 10-27-2023 Resolved: 434276-08-4868DxsowldgAaebz non-traumatic joint disorders (20 sources)Hip pain; Translations: [Pain in unspecified hip]Onset: 07-23-2022 85-59-0322ZakkqssiYijrh non-traumatic joint disorders (20 sources)Pain in right shoulder; Translations: [Pain in joint, shoulder region]Onset: 509397-27-5455YvmzbywaWijml nutritional; endocrine; and metabolic disorders (20 sources)Overweight; Translations: [Overweight]Onset: EpisodicOther upper respiratory infections (20 sources)Acute pharyngitis, unspecified; Translations: [Acute maxillary sinusitis]Onset: 03-20-2021 Resolved: 46-08-0599XdpsxuplLhqslubk codes; unclassified (2 sources)Amnesia; Translations: [Other amnesia]55-20-2905KvuvmvyeXhfgcclsghp failure; insufficiency; arrest (adult) (20 sources)Acute respiratory failure; Translations: [Acute respiratory failure with hypoxia]Onset: 11-02-2023 Resolved: 471278-78-0305GhaioaoaVsdxhjcbtrk; intervertebral disc disorders; other back problems (20 sources)Chronic low back pain; Translations: [Chronic low back pain]Onset: 07-23-2022 Resolved: 154159-06-0737BqrlkvasUrmgcsaaqmjk (1 source)CONTACT W/AND (SUSP) EXPOS COVID-19; Translations: [CONTACT W/AND (SUSP) EXPOS COVID-19]Onset: 13-28-8679Bqmayckgaqmt (3 sources)Onset: 217356-79-3204Knkhukgrqogx (2 sources)MCI (mild cognitive impairment) with memory zjzo77-97-0562Ktutn infection (20 sources)Disease caused by 2019-nCoV; Translations: [COVID-19]Onset: 11-02-2023 Resolved: 692595-46-4865Xdszomyl Results Test NameValueInterpretationReference RangeFacilityCT CHEST WO CONTon 12-20-2024 CT CHEST WO CONTCT CHEST WO CONT CT CHEST WO CONT CLINICAL INDICATION: Abnormal [...] patent. No pleural effusion or pneumothorax. No p neumonia. No suspicious pulmonary nodules. Benign intrafissural lymph [...] by Hemant Guido MD on 12/20/2024 1:42 [facility]C panel Auto (Bld)on 60-79-2290Vzybfswegtp distribution width (RBC) [Ratio]13 %11.0 - 15.0 %[facility]OM[facility] HealthcareHematocrit (Bld) [Volume fraction]36.7 % Low38.5 - 50.0 %[facility] HealthcareHemoglobin (Bld) [Mass/Vol]12.1 g/dLLow13.2 - 17.1 g/dLPerry County Memorial HospitalH (RBC) [Entitic mass]32.1 pg27.0 - 33.0 pgNOResearch Medical CenterHC (RBC) [Mass/Vol]33 g/dL32.0 - 36.0 g/dLJORD[facility] HealthcareComment on above:For adults, a slight decrease in the calculated MCHC value (in the range of 30 to 32 g/dL) is most likely not clinically significant; however, it should be interpreted with caution in correlation with other red cell parameters and the patient's clinical condition. MCV (RBC) [Entitic vol]97.3 fL80.0 - 100.0 fLJORDAN VALLEY [facility] HealthcarePlatelet mean volume (Bld) [Entitic vol]9.6 fL7.5 - 12.5 fLNOIL HealthcarePlatelets (Bld) [#/Vol]181 10*3/uLNOIL HealthcareRBC (Bld) [#/Vol]3.77 10*6/uLLowJ[facility] HealthcareWBC (Bld) [#/Vol]4.9 10*3/uLJORDAN [facility] HealthcareLaboratory - Chemistry and Chemistry - challengeon 73-30-7798Taoqfxk [Mass/Vol]4.3 g/dL3.6 - 5.1 g/dLUniversity Hospital Albumin/Globulin [Mass ratio]1.7 {ratio}[facility]OM[facility] HealthcareALP [Catalytic activity/Vol]61 U/L35 - 144 U/LNOMS HealthcareALT [Catalytic activity/Vol]15 U/L 9 - 46 U/LNOMS HealthcareAST [Catalytic activity/Vol]19 U/L10 - 35 U/LNOMS HealthcareBilirubin [Mass/Vol]0.6 mg/dL0.2 - 1.2 mg/dLJORD[facility] HealthcareCalcium [Mass/Vol]9.2 mg/dL8.6 - 10.3 mg/dLNOIL HealthcareChloride [Moles/Vol]105 mmol/L 98 - 110 mmol/LNOMS HealthcareCO2 [Moles/Vol]26 mmol/L20 - 32 mmol/LNOMS HealthcareCreatinine [Mass/Vol]0.79 mg/dL0.70 - 1.22 mg/dLNOIL HealthcareFree T4 [Mass/Vol]0.8 ng/dL0.8 - 1.8 ng/dLNOIL HealthcareGFR/1.73 sq M.predicted among non-blacks MDRD (S/P/Bld) [Vol rate/Area]86 mL/min/{1.73_m2}> OR = 60 mL/min/1.45s4RDNU HealthcareGlobulin (S) [Mass/Vol]2.5 g/dLNOEastern Missouri State Hospital Glucose [Mass/Vol]81 mg/dL65 - 99 mg/dLUniversity HospitalComment on above: Fasting reference interval Potassium [Moles/Vol]3.6 mmol/L3.5 - 5.3 mmol/LNOMS HealthcareProtein [Mass/Vol] 6.8 g/dL6.1 - 8.1 g/dLJ[facility] HealthcareSodium [Moles/Vol]139 mmol/L135 - 146 mmol/LNOMS HealthcareTroponin I.cardiac [Mass/Vol]6 ng/L< OR = 47[facility] Healthcare Comment on above: In accord with published recommendations, serial testing of troponin I at intervals of 2 to 4 hours for up to 12 to 24 hours is suggested in order to corroborate a single troponin I result. An elevated troponin alone is not sufficient to make the diagnosis of NV. TSH Qn3.28 m[IU]/LNOMS HealthcareUrea nitrogen [Mass/Vol]14 mg/dL7 - 25 mg/dL [facility] HealthcareUrea nitrogen/Creatinine [Mass ratio]SEE NOTE:[facility] Comment on above:Not Reported: BUN and Creatinine are within reference range. Laboratory - Coagulationon 15-79-5885Bnyunv D-dimer FEU (PPP) [Mass/Vol]0.64High [facility] HospitalComment on above:Elevated D-dimer levels are associated with DIC, malignancies, inflammation, sepsis, surgery, trauma, and . A D-dimer result less than 0.5 mcg/mL FEU, in conjunction with a non-high clinical pre-test probability assessment model, excludes deep vein thrombosis and pulmonary embolism. However, since D-dimer values increase with age, the [employer] recommends an age-adjusted cut-off value in patients older than 50. The calculation for an age adjusted cut-off value is age (years) x 0.01 mcg/mL FEU. For example, the cut-off for a 70-year-old patient would be 70 x 0.01 mcg/mL FEU. For additional information, please refer to http://education.Adan/faq/UNQ563 (This link is being provided for informational/educational purposes only.) Natriuretic peptide B [Mass/Vol]on 44-66-9036Llxglsuirwk peptide B (Bld) [Mass/Vol]77 pg/mLNINF - 100 pg/mLNOMS HealthcareComment on above: BNP levels increase with age in the general population with the highest values seen in individuals greater than 75 years of age. Reference: J. Am. Victor M. Cardiol. 2002; 40:976-982. No Panel Informationon 03-75-7438Gxdgkrnsnyrjix and review of laboratory results ChristianaCarePerforming Organization Information Site ID: QPT Name: [facility] Address: [address] [place] [id number] Director: Kam Bustos [facility] Panel Information Ordered By: Leonarda Nino on 77-62-2926QEYH HealthcareXR CHEST 2 VIEWSon 01-31-4069IC CHEST 2 VIEWSEXAMINATION: XR CHEST 2 VIEWS HISTORY: Left-sided chest [...] markings suggesting COPD. No acute osseous abnormality. IMPRESSION: No radiographic evidence of acute intrathoracic process. ELECTRONICALLY SIGNED BY: Michelle J Elisa, DONormalNot AvailableXR Chest 2 Views on 12-15-2024 No radiographic evidence of acute intrathoracic process. ELECTRONICALLY SIGNED BY: JAVI BelleMAGINGEXAMINATION: XR CHEST 2 VIEWS HISTORY: Left-sided chest [...] markings suggesting COPD. No acute osseous abnormality. IMAGINGSteffMichelle brown DO - 12/15/2024 EXAMINATION: XR CHEST 2 [...] markings suggesting COPD. No acute osseous abnormality. IMPRESSION: No radiographic evidence of acute intrathoracic process. ELECTRONICALLY SIGNED BY: Michelle Pérez DO [facility] HealthcareRadiology Study observation (narrative)[facility] HealthcareXR Chest 2 ViewsOrdered By: Michelle Pérez on 10-79-1357ZH[facility] Healthcare Work Phone: calprotectin, Fecalon 91-45-1779Pyjlolarnxrt, Fecal6 Normal0-120[facility] Physician GroupComment on above:Result Comment: Concentration Interpretation Follow-Up < 5 - 50 ug/g Normal None >50 -120 ug/g Borderline Re-evaluate in 4-6 weeks >120 ug/g Abnormal Repeat as clinically indicated Performed at: [facility] Lab[address] [id number] Shipping Hand: Deep Reid MD, Phone: [phone] PERFORMED BY: [address] [place] [address] PATHOLOGIST CASE REPAIRER PAOLA OLIVARES M.D.Performed By: #### CALPROTECT #### [facility] ,XR LUMBAR SPINE 4+ VIEWS WITH FLEXION EXTENSIONon 00-70-7225LZ LUMBAR SPINE 4+ VIEWS WITH FLEXION EXTENSIONEXAMINATION: XR LUMBAR SPINE 4+ VIEWS WITH FLEXION EXTENSION TECHNIQUE: 8 views of the lumbar spine. HISTORY: Low back pain COMPARISONS: None available. FINDINGS: Straightening of the lumbar lordosis. Lumbar vertebral body heights are maintained. Mild intervertebral height loss at L3-L4, L4-L5, and L5-S1. Facet arthropathy throughout the lumbar spine. Multilevel degenerative endplate spurs. No acute fracture. No spondylolysis or spondylolisthesis. Flexion/extension views demonstrate no additional abnormality. A thin metallic structure measuring approximately 2.5 cm in length appears to project within the right lung base, concerning for possible foreign body. IMPRESSION: No acute osseous abnormality. Degenerative changes of the lumbar spine. Findings concerning for possible thin metallic foreign body within the right lung base. ELECTRONICALLY SIGNED BY: Tara BellemalNot AvailableXR SHOULDER 2+ VIEWS RIGHTon [id number] SHOULDER 2+ VIEWS RIGHTExam: XR SHOULDER 2+ VIEWS RIGHT Reason for exam: Chronic right shoulder pain, no injury Prior comparative studies: None Findings: Widening of the acromioclavicular joint may be postprocedural or posttraumatic, age undetermined. Advanced sclerosis and osteophyte formation in the glenohumeral joint is present. There is sclerosis in the subacromial space and at the greater tuberosity. No fracture, malalignment or subluxation is apparent. Osseous density is normal. Impression: 1. No acute osseous abnormality identified. 2. Advanced degenerative appearance. 3. Widening at the AC joint as noted above. Dictated on: 08/24/2024 12:11 PM This report has been electronically signed and approved by the interpreting radiologist.NormalNot AvailableALL C REACTIVE PROTEINon [id number] [Mass/Vol] mg/LNINF - 0.50 mg/dLNOMS HealthcareCLINISYNCNOMS HealthcareVAS US AORTA ILIAC DUPLEX COMPLETEon [id number] US AORTA ILIAC DUPLEX COMPLETEEXAM: [facility] US AORTA ILIAC DUPLEX COMPLETE HISTORY: AAA. COMPARISON: Aorta ultrasound 07/30/2021 TECHNIQUE: Real-time grayscale, color and spectral Doppler ultrasound of the abdominal aorta and iliac arteries are performed. FINDINGS: The aorta measures 2.3 cm, 2.8 cm and 3.1 cm in its proximal, mid, and distal aspects, respectively. There is minimal plaque. There is a distal aortic aneurysm measuring 3.1 x 3.8 cm. 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 It demonstrated normal color and spectral Doppler flow. The right common iliac artery measures 1.6 cm and the left common iliac artery measures 2.0 cm. Proximal aorta: 60 cm/s Mid aorta: 72 cm/s Distal aorta: 91 cm/s Right BALDEV: 80 cm/s Left BALDEV: 93 cm/s IMPRESSION: 1. 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 Interpreted by: Electronically signed by JACY CONTRERAS II, MD, PHD at 13-Aug-2024 12:20:53 PM [facility] TeleradiologyNormalNot AvailableORANGE COUNTY G[facility] US CAROTID ARTERY DUPLEX BILATERALon [id number] US CAROTID ARTERY DUPLEX BILATERALEXAM: Carotid Artery Ultrasound: REASON FOR EXAM: Stenosis. [...] report is generated using voice recognition reporting (Breakere). On occasion, Moovwebcribe erroneously drops words from the report or replaces the spoken word with a similar sounding word. Please call with any questions/concerns regarding the report. Dictated and transcribed 08/03/2024/alex This report has been electronically signed and approved by the interpreting radiologist.NormalNot AvailableXR ABDOMEN AP 1 VWon [id number] ABDOMEN AP 1 VW XR ABDOMEN AP 1 VW Abdomen single view Clinical history:eval for stool ball vs obstruction abdominal pain Comparison: None. Findings: AP supine view of the abdomen. Nonobstructive bowel gas pattern. There is a mild to moderate amountof gas and stool seen throughout the colon. Degenerative change of the thoracolumbar spine. Degenerative changes of both hips. Impression: Mild to moderate amount of gas and stool seen throughout the colon. Nonobstructive bowel gas pattern. Finalized by David Lopez MD on 02/28/2024 11:02 AMNormalProMedica Mission Hospital of [facility] reactive protein [Mass/volume] in Serum or PlasmaOrdered By: Imad Asaad on [id number] [Mass/Vol]< 0.5 mg/dL0.0-0.5FUniversity Hospitals Cleveland Medical CenterCalprotectin [Mass/mass] in StoolOrdered By: Imad Asaad on 09-05-2023 Calprotectin (Stl) [Mass/Mass]<5 ug/g0-120[facility] Comment on above:Concentration Interpretation Follow-Up< 5 - 50 ug/g Normal None>50 -120 ug/g Borderline Re-evaluate in 4-6 weeks >120 ug/g Abnormal Repeat as clinically indicatedPerformed at: - Labco[address] [id number] Director: Deep Reid MD, Phone: [phone] [facility] [id number] HEALTHHNO ID: [id number] Author: Claudia Sharp V RT(R) Service: Radiology Author Type: Technologist Type: Allied Health Filed: 03/17/2023 2:35 AM Note Text: Radiology Service Progress Note PATIENT NAME: Jacy Navarro DATE OF SERVICE: March 17, 2023 TIME: [...] BY: RT Mike(R) March 17, 2023 2:35 AMNormalSt. Anthony'S HospitalBaour lady of [facility] metabolic 2000 panelon 26-80-4292Glyrj gap [Moles/Vol]8 mmol/LLow9-18Kingsland HospitalComment on above: Order Comment: Specimen Type: BLOOD SPECIMEN Ordering Facility: [facility] Address: [address] [place], [place] [address]Performed By: #### 01690-8 #### [facility] CLIA [id number] [address] [place] [address] [place] AMERICACalcium [Mass/Vol]9.5 mg/dLNormal 8.5-10.2Medcoahoma HospitalComment on above:Order Comment: Specimen Type: BLOOD SPECIMEN Ordering Facility: [facility] Address: [address] [place], [place] [address]Performed By: #### 82095-6 #### [facility] CLIA [id number] [address] [place] [address] [place] AMERICAChloride [Moles/Vol]104 mmol/LNormal 97-105Kingsland HospitalComment on above:Order Comment: Specimen Type: BLOOD SPECIMEN Ordering Facility: [facility] Address: [address] [place], [place] [address]Performed By: #### 78171-6 #### [facility] CLIA [id number] [address] [place] [address] [place] AMERICACO2 [Moles/Vol]27 mmol/HSbahnv33-52 [facility] HospitalComment on above:Order Comment: Specimen Type: BLOOD SPECIMEN Ordering Facility: [facility] Address: [address] [place], [place] [address]Performed By: #### 36566-6 #### [facility] CLIA [id number] [address] [place] [address] [place] AMERICACreatinine [Mass/Vol]0.76 mg/dLNormal 0.73-1.22St. Anthony'S HospitalComduane l. waters hospital on above:Order Comment: Specimen Type: BLOOD SPECIMEN Ordering Facility: [facility] Address: [address] [place], [place] [address]Performed By: #### 01980-1 #### [facility] CLIA [id number] [address] [place] [address] [place] AMERICACreatinine and Glomerular filtration rate.predicted panel (S/P/Bld)88 mL/min/1.73m???Normal>=60[facility] on above:Order Comment: Specimen Type: BLOOD SPECIMEN Ordering Facility: [facility] Address: [address] [place], [place] [address]Result Comment: Estimated Glomerular Filtration Rate (eGFR) is calculated using the 2020 CKD-EPI cre atinine equation. This equation utilizes serum creatinine, sex, and age as parameters. The creatinine assay has traceable calibration to isotope dilution- mass spectrometry. Refer to KDIGO guidelines for clinical interpretation. In patients with unstable renal function, e.g. those with acute kidney injury, the eGFR may not accurately reflect actual GFR.Performed By: #### 71770-9 #### [facility] CLIA [id number] [address] [place] [address] [place] AMERICAGlucose [Mass/Vol]107 mg/kANsdk07-17 [facility] on above:Order Comment: Specimen Type: BLOOD SPECIMEN Ordering Facility: [facility] Address: [address] [place], [place] [address]Result Comment: The [place] [employer] (ADA) provides guidance for cutoff [...] Standards of Medical Care in Diabetes 2016, [place] [employer]. Diabetes Care. 2016.39(Suppl 1).Performed By: #### 48298-7 #### [facility] CLIA [id number] [address] [place] [address] [place] AMERICAPotassium [Moles/Vol]3.5 mmol/LLow 3.7-5.1Medina HospitalComment on above:Order Comment: Specimen Type: BLOOD SPECIMEN Ordering Facility: [facility] Address: [address] [place], [place] [address]Performed By: #### 73968-0 #### [facility] CLIA [id number] [address] STATES OF [facility] MEDICAL CENTERSodium [Moles/Vol]139 mmol/LNormal 136-144Medi HospitalComment on above:Order Comment: Specimen Type: BLOOD SPECIMEN Ordering Facility: [facility] Address: [address] [place], [place] [address]Performed By: #### 43359-7 #### [facility] CLIA [id number] [address] STATES OF AMERICAUrea nitrogen [Mass/Vol]16 mg/dLNormal 9-24Medina HospitalComment on above:Order Comment: Specimen Type: BLOOD SPECIMEN Ordering Facility: [facility] Address: [address] [place], [place] [address]Performed By: #### 24741-7 #### [facility] CLIA [id number] [address] [place] [address] [place] AMERICACB W Auto Differential panel (Bld)on 29-97-9023Fbnnmmsbe (Bld) [#/Vol]0.04 10*3/uLNormal<0.11Medina HospitalComment on above:Order Comment: Specimen Type: BLOOD SPECIMEN Ordering Facility: [facility] Address: [address] [place], [place] [address]Performed By: #### 26362-5 #### [facility] CLIA [id number] [address] [place] [address] [place] AMERICABasophils/100 WBC (Bld)0.9 %Normal Kingsland HospitalComment on above:Order Comment: Specimen Type: BLOOD SPECIMEN Ordering Facility: [facility] Address: [address] [place], [place] [address]Performed By: #### 71252-3 #### [facility] CLIA [id number] [address] [place] [address] [place] AMERICADifferential cell count method Nom (Bld)AutoNormalKingsland HospitalComment on above:Order Comment: Specimen Type: BLOOD SPECIMEN Ordering Facility: [facility] Address: [address] [place], [place] [address]Performed By: #### 46959-8 #### [facility] CLIA [id number] [address] [place] [address] [place] AMERICAEosinophils (Bld) [#/Vol]0.08 10*3/uL Normal<0.46Kingsland HospitalComment on above:Order Comment: Specimen Type: BLOOD SPECIMEN Ordering Facility: [facility] Address: [address] [place], [place] [address]Performed By: #### 53132-1 #### [facility] CLIA [id number] [address] [place] [address] [place] AMERICAEosinophils/100 WBC (Bld)1.8 %Normal Kingsland HospitalComment on above:Order Comment: Specimen Type: BLOOD SPECIMEN Ordering Facility: [facility] Address: [address] [place], [place] [address]Performed By: #### 94496-3 #### [facility] CLIA [id number] [address] [place] [address] [place] AMERICAErythrocyte distribution width (RBC) [Ratio]12.5 %Yoifkd93.5-15.0Kingsland HospitalComment on above:Order Comment: Specimen Type: BLOOD SPECIMEN Ordering Facility: [facility] Address: [address] [place], [place] [address]Performed By: #### 44126-2 #### [facility] CLIA [id number] [address] [place] [address] [place] AMERICAHematocrit (Bld) [Volume fraction]32.2 %Low39.0-51.0Kingsland HospitalComment on above:Order Comment: Specimen Type: BLOOD SPECIMEN Ordering Facility: [facility] Address: [address] [place], [place] [address]Performed By: #### 23562-7 #### [facility] CLIA [id number] [address] [place] [address] [place] AMERICAHemoglobin (Bld) [Mass/Vol]11.0 g/dLLow 13.0-17.0Kingsland HospitalComment on above:Order Comment: Specimen Type: BLOOD SPECIMEN Ordering Facility: [facility] Address: [address] [place], [place] [address]Performed By: #### 73149-1 #### [facility] CLIA [id number] [address] [place] [address] [place] AMERICAImmature granulocytes (Bld) [#/Vol] 10*3/uLNormal<0.10Kingsland HospitalComment on above:Order Comment: Specimen Type: BLOOD SPECIMEN Ordering Facility: [facility] Address: [address] [place], [place] [address]Performed By: #### 97986-6 #### [facility] CLIA [id number] [address] [place] [address] [place] AMERICAImmature granulocytes/100 WBC (Bld)0.4 %NormalKingsland HospitalComment on above:Order Comment: Specimen Type: BLOOD SPECIMEN Ordering Facility: [facility] Address: [address] [place], [place] [address]Performed By: #### 45480-0 #### [facility] CLIA [id number] [address] [place] [address] [place] OF AMERICALymphocytes (Bld) [#/Vol]1.36 10*3/uL Normal1.00-4.00Kingsland HospitalComment on above:Order Comment: Specimen Type: BLOOD SPECIMEN Ordering Facility: [facility] Address: [address] [place], [place] [address]Performed By: #### 95547-5 #### [facility] CLIA [id number] [address] [place] [address] [place] AMERICALymphocytes/100 WBC (Bld)30.2 %Normal Kingsland HospitalComment on above:Order Comment: Specimen Type: BLOOD SPECIMEN Ordering Facility: [facility] Address: [address] [place], [place] [address]Performed By: #### 19124-7 #### [facility] CLIA [id number] [address] (RBC) [Entitic mass]32.7 pgNormal 26.0-34.0Kingsland HospitalComment on above:Order Comment: Specimen Type: BLOOD SPECIMEN Ordering Facility: [facility] Address: [address] [place], [place] [address]Performed By: #### 42534-2 #### [facility] CLIA [id number] [address] (RBC) [Mass/Vol]34.2 g/dLNormal 30.5-36.0Kingsland HospitalComment on above:Order Comment: Specimen Type: BLOOD SPECIMEN Ordering Facility: [facility] Address: [address] [place], [place] [address]Performed By: #### 25786-4 #### [facility] CLIA [id number] [address] (RBC) [Entitic vol]95.8 fLNormal 80.0-100.0Kingsland HospitalComment on above:Order Comment: Specimen Type: BLOOD SPECIMEN Ordering Facility: [facility] Address: [address] [place], [place] [address]Performed By: #### 86545-6 #### [facility] CLIA [id number] [address]ocytes (Bld) [#/Vol]0.67 10*3/uL Normal<0.87Kingsland HospitalComment on above:Order Comment: Specimen Type: BLOOD SPECIMEN Ordering Facility: [facility] Address: [address] [place], [place] [address]Performed By: #### 47583-4 #### [facility] CLIA [id number] [address] [place] [address] [place] AMERICAMonocytes/100 WBC (Bld)14.9 %Normal Kingsland HospitalComment on above:Order Comment: Specimen Type: BLOOD SPECIMEN Ordering Facility: [facility] Address: [address] [place], [place] [address]Performed By: #### 85025-5 #### [facility] CLIA [id number] [address] [place] [address] [place] AMERICANeutrophils (Bld) [#/Vol]2.33 10*3/uL Normal1.45-7.50Kingsland HospitalComment on above:Order Comment: Specimen Type: BLOOD SPECIMEN Ordering Facility: [facility] Address: [address] [place], [place] [address]Performed By: #### 43855-2 #### [facility] CLIA [id number] [address] [place] [address] [place] AMERICANeutrophils/100 WBC (Bld)51.8 %Normal Kingsland HospitalComment on above:Order Comment: Specimen Type: BLOOD SPECIMEN Ordering Facility: [facility] Address: [address] [place], [place] [address]Performed By: #### 18458-9 #### [facility] CLIA [id number] [address] [place] [address] [place] AMERICANucleated RBC (Bld) [#/Vol]10*3/uL Normal<0.01Kingsland HospitalComment on above:Order Comment: Specimen Type: BLOOD SPECIMEN Ordering Facility: [facility] Address: [address] [place], [place] [address]Performed By: #### 70115-2 #### [facility] CLIA [id number] [address] [place] [address] [place] AMERICANucleated RBC/100 WBC (Bld) [Ratio]0.0 /100 WBCNormalKingsland HospitalComment on above:Order Comment: Specimen Type: BLOOD SPECIMEN Ordering Facility: [facility] Address: [address] [place], [place] [address]Performed By: #### 18023-2 #### [facility] CLIA [id number] [address] [place] [address] [place] AMERICAPlatelet mean volume (Bld) [Entitic vol]9.4 fLNormal9.0-12.7Kingsland HospitalComment on above:Order Comment: Specimen Type: BLOOD SPECIMEN Ordering Facility: [facility] Address: [address] [place], [place] [address]Performed By: #### 17459-6 #### [facility] CLIA [id number] [address] [place] [address] [place] AMERICAPlatelets (Bld) [#/Vol]169 10*3/uL Bffpoh196-284Inhzeo HospitalComment on above:Order Comment: Specimen Type: BLOOD SPECIMEN Ordering Facility: [facility] Address: [address] [place], [place] [address]Performed By: #### 55898-3 #### [facility] CLIA [id number] [address] [place] [address] [place] AMERICARBC (Bld) [#/Vol]3.36 10*6/uLLow 4.20-6.00Kingsland HospitalComment on above:Order Comment: Specimen Type: BLOOD SPECIMEN Ordering Facility: [facility] Address: [address] [place], [place] [address]Performed By: #### 96306-9 #### [facility] CLIA [id number] [address]WBC (Bld) [#/Vol]4.50 10*3/uLNormal 3.70-11.00Kingsland HospitalComment on above:Order Comment: Specimen Type: BLOOD SPECIMEN Ordering Facility: [facility] Address: [address] [place], [place] [address]Performed By: #### 55869-6 #### [facility] CLIA [id number] [address] AMERICAED NOTEon [id number] NOTEHNO ID: [id number] Author: Silvina Spencer, ALISON Service: Nursing Author Type: Registered Nurse Type: ED Notes Filed: 03/17/2023 3:27 AM Note Text: Discharge instructions gone over with son and grandson, pt ambulated with steady gait with familyNormalMedina HospitalED PROV NOTEon [id number] ANISA MENDEZHNO ID: [id number] Author: Ledy Laguerre DO Service: Emergency Medicine Author Type: Physician Type: ED Provider Notes Filed: 03/17/2023 5:25 AM Note Text: ED Provider Note Patient Name: Jacy Navarro : 1935 SERVICE DATE: 03/17/23 History Patient presents with: Abdominal Pain: Started around 10:30pm, hasn't had a bowel mvment in 2 days. Attempted to go but unable to go. Jacy Navarro is an 87-year-old male that presents for [...] diarrhea before hand. He notes that his qonolkek-us-vkq gave him some other pills tonight to [...] and headaches. Hematological: Does not bruise/bleed easily. Psychiatric/Behavioral: Negative for confusion and sleep disturbance. Physical [...] as of 03/17/23 0524 Ledy Laguerre's Documentation FriMar 17, 2023 0254 Normal white count. Mild anemia with hemoglobin 11.0. BMP shows potassium 3.5 otherwise unremarkable. 0254 XR ABDOMEN 1V SUPINE Clinical Impressions as of 03/17/23 0524 Constipation, unspecified constipation type Anemia, unspecified type MDM / Disposition / Plan Course: Vital signs were reviewed. Triage records were reviewed. Medical records were reviewed. Nursing notes were reviewed and incorporated. Medical Decision Making: Jacy Navarro is an 87-year-old male that presents for abdominal pain and constipation. On exam, he is in no distress. Afebrile nontoxic-appearing. Heart is regular rate rhythm. Lungs are clear. Abdomen is soft and nondistended. He has mild epigastric pain on palpation without rigidity or guarding. (more content not included)...[facility] CampusXR ABDOMEN 1V SUPINEon 86-11-2630JW ABDOMEN 1V SUPINE* * *Final Report* * * DATE OF [...] IMPRESSION: Moderate to large volume colonic stool. 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: LAURA Transcribe Date/Time: Mar 17 2023 2:35A Dictated by : LINO GONZALEZ MD This examination was interpreted and the report reviewed and electronically signed by: LINO GONZALEZ MD on Mar 17 2023 2:39AM EST [id number] HospitalRAD EGD - documentation only do not orderon [id number] EGD - documentation only do not orderTemecula IKOTECH Other [id number]-[id number] SOFIAOrdered By: Adalberto Graves on 11-37-1257CRNJ-CoV+SARS-CoV-2 (COVID-19) Ag IA.rapid Ql (Resp)NegativeNegative [facility] HospitalComment on above:This is a duplicate Mirna SARS Antigen (MINH) result to be used for statistical tracking purpose only.No Panel InformationOrdered By: Adalberto Graves on 72-60-6684JHFQ Antigen (LFIA) [facility] HospitalComplete Blood Counton 06-71-9335Xzbvlbgofvf distribution width (RBC) [Ratio]13.3 %Fifett04.0-15.0[facility] SpecialistComment on above:Performed By: #### CMP, CBC #### [facility] [address] [place], [place] [id number] (Bld) [Volume fraction]38.4 %Low38.5-50.0NoCoshocton Regional Medical Center SpecialistComment on above:Performed By: #### CMP, CBC #### [facility] [address] [place], [place] [id number] (Bld) [Mass/Vol]12.6 g/dLLow13.0-17.1[facility]herTr[facility] SpecialistComment on above:Performed By: #### CMP, CBC #### [facility] [address] [place], [place] [id number] (RBC) [Entitic mass]30.5 arOapoij31.0-33.0NoCoshocton Regional Medical Center SpecialistComment on above:Performed By: #### CMP, CBC #### [facility] [address] [place], [place] [id number] (RBC) [Mass/Vol]32.8 g/vEZknuxs62.0-36.0NoCoshocton Regional Medical Center SpecialistComment on above:Performed By: #### CMP, CBC #### [facility] [address] [place], [place] [id number] (RBC) [Entitic vol]93 lANtxxxk70-991Yswtvvvy [place] [facility] SpecialistComment on above:Performed By: #### CMP, CBC #### [facility] [address] [place], [place] [id number] mean volume (Bld) [Entitic vol]9.70 fLNormal 7.50-12.50NoCoshocton Regional Medical Center SpecialistComment on above:Performed By: #### CMP, CBC #### [facility] [address] [place], [place] [id number] (Bld) [#/Vol]200 10*3/sEUqrsly787-099Gcydukgu [place] [facility] SpecialistComment on above:Performed By: #### CMP, CBC #### [facility] [address] [place], [place] [id number] (Bld) [#/Vol]4.13 10*6/uLLow4.20-5.80NoCoshocton Regional Medical Center SpecialistComment on above:Performed By: #### CMP, CBC #### [facility] [address] [place], [place] [id number]-YK12.5 nZYiqtxv71.0-50.0NoCoshocton Regional Medical Center Specialist Comment on above:Performed By: #### CMP, CBC #### [facility] [address] [place], [place] [id number] (Bld) [#/Vol]6.5 10*3/uLNormal3.8-11.0NoCoshocton Regional Medical Center SpecialistComment on above:Performed By: #### CMP, CBC #### [facility] [address] [place], [place] [id number] Metabolic Panelon 29-24-9939Jyrrcvj [Mass/Vol] 4.3 g/dLNormal3.6-5.1NorthOhio State [facility] Hospital SpecialistComment on above:Performed By: #### CMP, CBC #### [facility] [address] [place], [place] [id number]/Globulin [Mass ratio]1.6 {ratio}Normal1.0-2.5NoCoshocton Regional Medical Center SpecialistComment on above:Performed By: #### CMP, CBC #### [facility] [address] [place], [place] [id number] [Catalytic activity/Vol]82 U/JVkwhhx20-873Chqdwkdv [place] [facility] SpecialistComment on above:Performed By: #### CMP, CBC #### [facility] [address] [place], [place] [id number] [Catalytic activity/Vol]16 U/LNormal9-46NoCoshocton Regional Medical Center SpecialistComment on above:Result Comment: 02/21/2021 Female reference range changed.Performed By: #### CMP, CBC #### [facility] [address] [place], [place] [id number] gap [Moles/Vol]17 mmol/POpsfkr97-19Umawpcik [place] [facility] SpecialistComment on above:Result Comment: Effective 2019 reference range changed.Performed By: #### CMP, CBC #### [facility] [address] [place], [place] [id number] [Catalytic activity/Vol]18 U/BVfoezl89-09Fpuusure [place] [facility] SpecialistComment on above:Performed By: #### CMP, CBC #### [facility] [address] [place], [place] [id number] [Mass/Vol]0.71 mg/dLNormal0.30-1.20NortSt. Charles Hospital SpecialistComment on above:Performed By: #### CMP, CBC #### [facility] [address] [place], [place] [id number]/CREA14 RatioNormal6-22NoCoshocton Regional [facility] Center Specialist Comment on above:Performed By: #### CMP, CBC #### [facility] [address] [place], [place] [id number] [Mass/Vol]9.9 mg/dLNormal8.6-10.2[facility] SpecialistComment on above:Performed By: #### CMP, CBC #### [facility] [address] [place], [place] [id number] [Moles/Vol]103 mmol/RBtmula15-897Phwmcwzg [place] [facility] SpecialistComment on above:Performed By: #### CMP, CBC #### [facility] [address] [place], [place] [id number] [Moles/Vol]25 mmol/HScmbvx88-51Nszsrxqf [place] [facility] SpecialistComment on above:Performed By: #### CMP, CBC #### [facility] [address] [place], [place] [id number] [Mass/Vol]1.4 mg/dLNormal0.7-1.4NortSt. Charles Hospital SpecialistComment on above:Performed By: #### CMP, CBC #### [facility] [address] [place], [place] [id number] mL/min/1.78l7Zykmvn>60NoCoshocton Regional [facility] Center SpecialistComment on above:Performed By: #### CMP, CBC #### [facility] [address] [place], [place] [id number] mL/min/1.18h3Oom>60NortSt. Charles HospitalJoint Cutter Machine Comment on above:Performed By: #### CMP, CBC #### [facility] [address] [place], [place] [id number] (S) [Mass/Vol]2.7 g/dLNormal1.9-3.7NoCoshocton Regional [facility] Center SpecialistComment on above:Performed By: #### CMP, CBC #### [facility] [address] [place], [place] [id number] [Mass/Vol]110 mg/qGUihh17-96Sfulhoid [place] [facility] SpecialistComment on above:Result Comment: For FASTING Glucose --- ADA reference ranges: Normal 65-99 mg/dl Prediabetes 100-125 Diabetes >/= 126Performed By: #### CMP, CBC #### [facility] [address] [place], [place] [id number] [Moles/Vol]4.2 mmol/LNormal3.5-5.5NoCoshocton Regional [facility] Center SpecialistComment on above:Performed By: #### CMP, CBC #### [facility] [address] [place], [place] [id number] [Mass/Vol]7.0 g/dLNormal6.1-8.1[facility]herTr[facility] SpecialistComment on above:Performed By: #### CMP, CBC #### [facility] [address] [place], [place] [id number] [Moles/Vol]141 mmol/WRrjlzj643-323Itfagrrs [place] [facility] SpecialistComment on above:Performed By: #### CMP, CBC #### [facility] [address] [place], [place] [id number] nitrogen [Mass/Vol]19 mg/dLNormal7-25[facility] SpecialistComment on above:Performed By: #### CMP, CBC #### [facility] [address] [facility] [place] [id number]-55 PCR (CVDTB)on 16-79-4944DLDO-CoV-2 (COVID-19) RNA PEPE+probe Ql (Unsp spec)Not detectedNormalNOT DETECTEDThe [facility] Comment on above:Result Comment: When diagnostic testing is negative, the possibility of a false negative should be considered in the context of a patient's recent exposures and the presence of clinical signs and symptoms consistent with SARS-CoV-2. This test is not yet approved or cleared by the [place] Food and Drug Administration (FDA). This test was developed by [employer], [place], [place]. The performance characteristics of this test were validated by The [facility]. The results are not intended to be used as the sole means for clinical diagnosis or patient management decisions. The [facility] is authorized under Clinical Laboratory Improvement [...] for this test is supported by the [place] of Health and Human Service's declaration that circumstances exist to justify the emergency use of in vitro diagnostics for the detection and/or diagnosis of the virus that causes COVID-19. This EUA will remain in effect for the duration of the COVID-19 declaration justifying emergency of IVDs, unless it is terminated or revoked by the FDA (after which the test may no longer be used).Performed By: #### CVDTBH #### [facility] [address] [place] [address] [address] Dave GuzmánCovid-19 PCR (CVDTB)on 13-46-7780PHEW-CoV-2 (COVID-19) RNA PEPE+probe Ql (Unsp spec)DetectedCritically abnormalNOT DETECTEDThe [facility] Community HospitalComment on above:Result Comment: This test is not yet approved or cleared by the [place] FDA. When there are no FDA-approved or cleared tests available, and other criteria are met, FDA can make tests available under an emergency access mechanism called an Emergency Use Authorization (EUA). The EUA for this test is supported by the [place] of Health and Human Service's (HHS's) declaration [...] no longer be used). Performed By: #### CVDTBH #### [facility] [address] [place], [place] [address] Dr. Dave GuzmánOR[facility] Carotid Artery Duplex Ultrasounon 34-41-8824[facility] Carotid Artery Duplex UltrasounNorth [place] [facility] [address], [address], [place] [address] Vascular Lab Report Carotid Artery Duplex Ultrasound Patient Name: JACY NAVARRO Reading Physician: [id number] Jovan Wesley MD Study Date: 02/11/2020 Referring Physician: [id number] Elizabeth CNP MRN/PID: [id number] PCP: Beatriz Carson Accession/Order#: [id number] CC Report to: Date of : 1935 Technologist: Mahnaz Gutiérrez RDMS, RDCS, HECTOR Gender: M Technologist 2: Admission Status: Outpatient Location Performed: [facility] Diagnosis/ICD: O98-Ucstgttby and giddiness Indication: Lightheadedness, Afib, RBBB and Hyperlipidemia Procedure/CPT: 21888 Cerebrovascular Carotid Duplex scan complete-55368 CONCLUSIONS: Right Carotid: Findings are consistent with [...] 50% stenosis of the left proximal ICA. Laminarflow seen by color Doppler. Left external carotid [...] demonstrates calcified plaque. The distal right common carotidartery demonstrates calcified plaque. Left Plaque Morph: The [...] cm/s Right Left ICA/CCA Ratio 1.8 1.0 [id number] Jovan Wesley MD [facility]Cra[facility] Vital Signs Date TimeVital SignValuePerforming DhyiulqnjYckiizof38-93-5353 09:48-0400Body wdmabf904.9 cmSori Puga DO Work Phone: [facility] [employer] Fzxpbr89-91-1815 09:48-0400Body mass index (BMI) [Ratio]26.65 kg/l2RjhotcLina Puga DO Work Phone: [facility] Medical CenterUpdox10-02-2025 09:48-0400Body ceifgp34.13 kgLina Puga DO Work Phone: [facility] CenterPepperweed Consulting Wappcx16-95-9924 09:48-0400Diastolic blood ogmzufcs12 mm[Hg]Lina Baileyton DO Work Phone: [facility] [employer] Iemdfv09-11-2021 09:48-0400Heart rate 76 /minSori Puga DO Work Phone: [facility]10-02-2025 09:48-6786UoX7% (BldA) [Mass fraction]95 %Lina Puga DO Work Phone: [facility]10-02-2025 09:48-0400Systolic blood qpzixwvv351 mm[Hg]Lina Puga DO Work Phone: [facility]09-24-2025 10:42-0400Body zhejhf433.3 cmScarinloy Nancy HEART NURSE Work Phone: [facility] HospitalLnurvmskbd00-45-9783 10:42-0400Body mass index (BMI) [Ratio]27.95 kg/k8VbrwuetaBrianna Cruz NP Work Phone: [facility] HospitalJkbicgiznv12-47-0320 10:42-0400Body sblyfg00.9 kg Brianna Cruz NP Work Phone: [place] [address]Lzsyuaoiei48-55-8763 10:42-0400Diastolic blood sylojegh77 mm[Hg]Brianna Cruz NP Work Phone: [place] [address]Flmmlqxyyg28-64-5295 10:42-0400Heart rate81 /min Brianna Cruz HEART NURSE Work Phone: [facility] HospitalZbbhxdvqfm37-23-3650 10:42-2057NjO8% (BldA) [Mass fraction]97 %Brianna Cruz NP Work Phone: [place] [address]Vlvbtcdxqa15-91-6085 10:42-0400Systolic blood eniqfmmo442 mm[Hg]Brianna Cruz HEART NURSE Work Phone: [place] [address]Qcloarnela81-81-6065 08:36-0400Diastolic blood uqrthmnz47 mm[Hg]Gordo Lynn MD Work Phone: [place] [address]Lrjoauhvpm10-35-1325 08:36-0400Systolic blood fvsbogrt975 mm[Hg]Gordo Lynn MD Work Phone: [place] [address]Sbxisxxeob81-37-1397 08:10-0400Body mass index (BMI) [Ratio]27.95 kg/j5AxjxnpGordo Lynn MD Work Phone: [facility] HospitalEjkwcymfcd54-65-4426 08:10-0400Body dalwvy98.89 kgGordo Lynn MD Work Phone: noE[facility] HospitalJxnvicmdev63-26-0584 08:10-0400Heart rate78 /min Gordo Lynn MD Work Phone: [facility] HospitalArntyhdany87-55-7479 08:10-9721YmJ3% (BldA) [Mass fraction]96 %Gordo Lynn MD Work Phone: [facility] HospitalYqmtplhiqa99-20-4375 09:27-0400Body pwofuz731.3 cmMacie Patel MD Work Phone: [facility] HospitalJyyxvcsynz55-89-8285 09:27-0400Body mass index (BMI) [Ratio]27.87 kg/d7EuhzcjfMacie Patel MD Work Phone: [facility] HospitalNegsqsdyaa13-41-8351 09:27-0400Body udlzdb77.63 kgMacie Patel MD Work Phone: [facility] HospitalTrzeeufmzk31-23-6240 09:27-0400Diastolic blood nltaoszz09 mm[Hg]Macie Patel MD Work Phone: [facility] HospitalAmsrfdnukn04-20-1948 09:27-0400Respiratory rate18 /minMacie Patel MD Work Phone: [phone] HospitalAljpvyplqr46-34-1294 09:27-4299ZwH5% (BldA) [Mass fraction]98 %Macie Patel MD Work Phone: [facility] HospitalJapoznqxju06-23-9524 09:27-0400Systolic blood fhidhkjr737 mm[Hg]Macie Patel MD Work Phone: [facility] HospitalZpekswaams43-19-1239 14:51-0400Diastolic blood xrcqsnmo40 mm[Hg]Brianna Cruz NP Work Phone: [phone]07-29-2025 14:51-0400Systolic blood ffpukxtk809 mm[Hg]Brianna Cruz HEART NURSE Work Phone: [phone])[address] [place], [place] 3965307-29-2025 14:14-0400Body mass index (BMI) [Ratio]27.5 kg/n6RppdzxnlBrianna Cruz HEART NURSE Work Phone: 1(686)007-[address] [place], [place] [address]Jarsqgwcsw50-22-0351 14:14-0400Body .45 kgSajj Cruz HEART NURSE Work Phone: 1(036)590-[address] [place], [place] [address]Rjhnnoefqo82-01-0002 14:14-0400Heart rate96 /min Brianna Mcdonaldman HEART NURSE Work Phone: 1(171)[facility] [place], [place] [address]Ecfwujvwfz15-51-0793 16:25-0400Body mass index (BMI) [Ratio]27.48 kg/i6RgydgRena Caldwellceasar HEART NURSE Work Phone: [phone])[address] [place], [place] [address]Xbiakwsday16-36-2919 16:25-0400Body mzohdu06.36 kglacie Caldwellaltafshiv HEART NURSE Work Phone: 1(818)[address] [place], [place] [address]307-14-2025 16:25-0400Diastolic blood qebetqnk74 mm[Hg]Rena Caldwellaltafshiv HEART NURSE Work Phone: [phone])[address] [place], [place] [address]Zplufpvpdw97-06-4548 16:25-0400Heart rate77 /min Rena Rodriguez HEART NURSE Work Phone: [phone])290-[address] [place], [place] [address]Kerrazrytm80-09-1530 16:25-3864VvZ7% (BldA) [Mass fraction]95 %Rena Rodriguez HEART NURSE Work Phone: 1(433)[address]07-14-2025 16:25-0400Systolic blood tzjfgeno062 mm[Hg]Rena Caldwellaltafshiv HEART NURSE Work Phone: [phone])[address]05-30-2025 13:41-0400Body mass index (BMI) [Ratio]27.62 kg/k7Ccucqftiy Javier HEART NURSE Work Phone: 1(750)644-[address] [place], [place] [address]Gsxohxcmmo84-54-8936 13:41-0400Body dykcaf22.81 kgMarielena Herrera HEART NURSE Work Phone: [facility] HospitalBnxlkckikq39-34-2816 13:41-0400Diastolic blood ttsakrks50 mm[Hg]Marielena Herrera HEART NURSE Work Phone: [facility] HospitalKfjwlhdzyj92-50-1086 13:41-0400Heart rate72 /min Marielena Herrera HEART NURSE Work Phone: [facility] HospitalPaawkabkjs01-35-0221 13:41-0400Systolic blood mm[Hg]Marielena Herrera HEART NURSE Work Phone: [facility] HospitalUhurvuibkw75-96-1654 07:49-0400Body gdqwqy625.3 cmMacie Patel MD Work Phone: [facility] HospitalXmvecyiedk26-02-9236 07:49-0400Body mass index (BMI) [Ratio]27.62 kg/b9QcjcekoMacie Patel MD Work Phone: [phone] [place], [place] [address]Eoydilwquu92-71-8056 07:49-0400Body .81 kgMacie Patel MD Work Phone: [facility] HospitalIbytlzjkrx98-86-5111 07:49-0400Diastolic blood mqagghxk10 mm[Hg]Macie Patel MD Work Phone: [facility] HospitalQnusvqhsko93-31-1912 07:49-0400Systolic blood mm[Hg]Macie Patel MD Work Phone: [phone] [place], [place] [address]Fhjtjiyfck41-81-9663 08:13-0400Body .88 cmPromedica [facility] Hospital05-15-2025 08:13-0400Body mass index (BMI) [Ratio]26.7 kg/k9PtdbqccugPromedica Flower Hospital05-15-2025 08:13-0400Body .35 kgPromedica Flower Hospital05-15-2025 08:13-0400Diastolic blood mm[Hg][facility]05-15-2025 08:13-0400 Heart rate87 /minPromedica Flower Hospital05-15-2025 08:13-0400Systolic blood cjutljzo981 mm[Hg][facility]04-16-2025 08:36-0400 Body mass index (BMI) [Ratio]27.7 kg/b3StptuladmMarielena Herrera HEART NURSE Work Phone: [phone] [address]-16-2025 08:36-0400Body nzgcyz13.08 kgMarielena Herrera HEART NURSE Work Phone: 1(984)[address] [place] [address]-16-2025 08:36-0400Diastolic blood ddawixem95 mm[Hg]Marielena Herrera HEART NURSE Work Phone: 1(161)[address] [place] [address]-16-2025 08:36-0400Heart rate76 /min Marielena Herrera HEART NURSE Work Phone: 1([phone])[address] [place] [address]-16-2025 08:36-0400Systolic blood dtnqvruh180 mm[Hg]Marielena Herrera HEART NURSE Work Phone: 1(839)[address] [place], [place] [address]312-09-2024 08:33-0500Body ahmelp997.3 cmAmber Pump HEART NURSE Work Phone: [phone] [address] [place], [place] 3965312-09-2024 08:33-0500Body mass index (BMI) [Ratio]27.53 kg/u7Scwkc Pump HEART NURSE Work Phone: 1([phone] [place] [address]-09-2024 08:33-0500Body mecksd84.54 kgAmber Pump HEART NURSE Work Phone: [phone] [place] [address]-09-2024 08:33-0500Diastolic blood evvuzchc03 mm[Hg]Skye Pump HEART NURSE Work Phone: 1(404)[address] [place] [address]-09-2024 08:33-0500Heart rate76 /min Skye Pump HEART NURSE Work Phone: 1(027)[address] [place] [address]-09-2024 08:33-0500Systolic blood vvzjxtce640 mm[Hg]Skye Pump HEART NURSE Work Phone: [phone] [place] [address]-15-2024 14:53-0400Body mass index (BMI) [Ratio]27.73 kg/c6Jpmbxtzji Javier HEART NURSE Work Phone: 1(993)[address] [place] [address]-15-2024 14:53-0400Body cemles35.17 kgMarielena Herrera HEART NURSE Work Phone: [facility]tvg[facility]lsqhl97[facility]5989 14:53-0400Diastolic blood jjnninnt27 mm[Hg]Marielena Herrera HEART NURSE Work Phone: [facility] HospitalOdpmgjrnqi64-51-1577 14:53-0400Heart rate86 /min Marielena Herrera HEART NURSE Work Phone: [phone] HospitalBalbcbbari86-14-1171 14:53-1643VzU4% (BldA) [Mass fraction]96 %Marielena Herrera HEART NURSE Work Phone: [facility] HospitalMexhfneyrx33-44-9775 14:53-0400Systolic blood hpwrdusf598 mm[Hg]Marielena Herrera HEART NURSE Work Phone: [facility] HospitalNgsunwrmtg47-79-3696 11:02-0400Body .3 cmMacie Patel MD Work Phone: 1(908)0-[address] [place] [address]-26-2024 11:02-0400Body mass index (BMI) [Ratio]27.06 kg/l6SwouoggMacie Patel MD Work Phone: 1(576)4-[address] [place] [address]-26-2024 11:02-0400Body yeeikx75 kg Macie Patel MD Work Phone: 1(039)4-[address] [place] [address]-26-2024 11:02-0400Diastolic blood qhyrrnmn33 mm[Hg]Macie Patel MD Work Phone: 1(930)[facility] [place] [address]-26-2024 11:02-0400Systolic blood ujgauvzy473 mm[Hg]Macie Patel MD Work Phone: 1(712)9-[address] [place], [place] [address]Rkxydzftlh13-18-1519 10:11-0400Body mass index (BMI) [Ratio]26.81 kg/m2Beatriz Carson MD Work Phone: [place] [address]Ftcgfvlbai01-74-4737 10:11-0400Body .18 kgBeatriz Carson MD Work Phone: [place] [address]Nihnjsyyow02-56-1659 10:11-0400Diastolic blood psckakcj38 mm[Hg]Beatriz Carson MD Work Phone: [facility] HospitalMnrfzhzzuu88-75-9895 10:110400Heart rate76 /min Beatriz Carson MD Work Phone: [facility] HospitalGezvliubsy15-10-6473 10:110400Systolic blood ubqdtebh405 mm[Hg]Beatriz Carson MD Work Phone: [facility] HospitalJbsteynhqf87-91-7448 14:24-0400Diastolic blood jhpyoxva15 mm[Hg]MD Beatriz Carson Work Phone: 1(989)[address]06-28-2024 14:24-0400 Heart rate71 /minMD Beatriz Carson Work Phone: [phone])[address]06-28-2024 14:24-0400 Respiratory rate18 /minMD Beatriz Carson Work Phone: [phone])[address]06-28-2024 14:24-0400 SaO2% (BldA) [Mass fraction]95 %MD Beatriz Carson Work Phone: [phone])[address]06-28-2024 14:24-0400 Systolic blood bpueziet307 mm[Hg]MD Beatriz Carson Work Phone: [phone])[address]06-28-2024 10:35-0400 Body .88 cmMD Beatriz Carson Work Phone: [phone]06-28-2024 10:35-0400 Body uxexhv47.35 kgMD Beatriz Carson Work Phone: 1([phone])[address]05-22-2024 15:08-0400 Body .34 cmMD Beatriz Carson Work Phone: 1(104)[address]05-22-2024 15:08-0400 Body mass index (BMI) [Ratio]27.3 kg/m2MD Beatriz Carson Work Phone: 1(718)585-[address] [place], [place] 7578005-22-2024 15:08-0400 Body zkioxr71.9 kgMD Beatriz Carson Work Phone: [facility]10-25-2023 09:00-0400 Body .61 Claudiajohn Graves Other [employer] Other 10-25-2023 09:00-0400Body mass index (BMI) [Ratio] 26.87 kg/m5Mhmhmhon Nina Other [employer] Other 10-25-2023 09:00-0400Body arlgxz72.63 kgLawryoly DowningNina Other [employer] Other 10-25-2023 09:00-0400Diastolic blood xrkiwbyl63 mm[Hg] Adalberto Graves Other [employer] Other 10-25-2023 09:00-0400Systolic blood egilvrix336 mm[Hg] Adalberto Graves Other [employer] Other 04-25-2023 14:30-0400Body bnkuap663.61 Alejandrina Downingormack Other [employer] Other 04-25-2023 14:30-0400Body mass index (BMI) [Ratio]27.5 kg/m1Ebitsnas Nina Other [employer] Other 04-25-2023 14:30-0400Body qqcexi62.72 kgLawryoly DowningNina Other [employer] Other 12-13-2022 14:15-0500Body gvixlq015.61 Michellebon Downingormack Other [employer] Other 12-13-2022 14:15-0500Body mass index (BMI) [Ratio] 27.09 kg/z4Eqtrutgfshoaib Graves Other [employer] Other 12-13-2022 14:15-0500Body tberll39.36 kgLawryoly Graves Other [employer] Other 12-13-2022 14:15-0500Diastolic blood vahxqicm05 mm[Hg] Adalberto Graves Other [employer] Other 12-13-2022 14:15-0500Systolic blood gbahuqwk218 mm[Hg] Adalberto Graves Other [employer] Other 11-17-2022 10:35-0500Body .61 cmAluciana Petersen Other [employer] Other 11-17-2022 10:35-0500Body mass index (BMI) [Ratio]27.5 kg/b5OqnyeSkye Petersen Other [employer] Other 11-17-2022 10:35-0500Body cyeljfrvgit82.3 [degF]Skye Petersen Other [employer] Other 11-17-2022 10:35-0500Body obzkek28.72 kgSkye Petersen Other [employer] Other 11-17-2022 10:35-0500Diastolic blood afhzipak65 mm[Hg] Skye Petersen Other [employer] Other 11-17-2022 10:35-0500Respiratory rate18 /minAmber Nicola Other [employer] Other 11-17-2022 10:35-3446IoO9% (BldA) [Mass fraction]99 % Skye Petersen Other [employer] Other 11-17-2022 10:35-0500Systolic blood jmgetszh014 mm[Hg] Skye Petersen Other [employer] Other 09-07-2022 10:45-0400Body icasdk728.61 cmLawjohn Downingormack Other [employer] Other 09-07-2022 10:45-0400Body mass index (BMI) [Ratio]27.5 kg/r4Bylsbfpa Nina Other [employer] Other 09-07-2022 10:45-0400Body .72 kgLawryoly DowningNina Other [employer] Other Encounters Encounter DateEncounter TypeCare ProviderFacilityStart: 12-28-2024 End: 38-45-6798Vuwuuaskl encounterJeluis carlos Gil CMAProMedica Physicians CardiologyStart: 12-27-2024 End: 62-52-8985wssefqjflsKRHZOLUECleveland Clinic South Pointe Hospitaltart: 12-23-2024 End: 79-17-2723Qnirkw outpatient [facility] [address] [facility] hospitalLina Puga DO Work Phone: [facility] Pulmonary/Sleep MedicineComment on above:Aspiration of foreign body, sequela (Primary Dx)Start: 12-23-2024 End: 62-75-2566hosejlfkdoXLKDMJ M [facility] HOSPITALJENNAHarrison Community Hospital Ambulatory PPGStart: 12-20-2024 End: 17-81-7231ivgqywpdtiMBMUPS Esperanza DCNGOZIUniversity Hospitals E[facility] Center HospitalStart: 42-21-4209xxrvkndsmzTCAK B [facility] PPGStart: 12-16-2024 End: 86-86-5234Nmamqbevl encounterGordo Lynn MD Work Phone: noMS [facility] MedicineStart: 12-15-2024 End: 06-45-1537Fqttbpgmk encounterGordo Lynn MD Work Phone: [facility] MedicineStart: 12-15-2024 End: 35-46-8129nogtbhxbuoIHJOALPJ J HOFFMANNot AvailableStart: 12-15-2024 End: 09-70-2683Vymuvo outpatient visit 25 minutesBrianna Cruz NP Work Phone: [facility] MedicineComment on above:Other chest pain (Primary Dx); Alzheimer's dementia, unspecified dementia severity, unspecified timing of dementia onset, unspecified whether behavioral, psychotic, or mood disturbance or anxiety (HCC); Anxiety; Advanced age; Primary hypertension ; 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); Major depressive disorder, recurrent, mild ; Unspecified atrial fibrillation (HCC)Start: 12-15-2024 End: 89-02-9967jyxgtnlpgsMMLIJTSHTroy Hooper AvailableStart: 12-01-2024 End: 73-26-1421Ezpthu Nirav Lynn MD Work Phone: noMS [facility] MedicineStart: 12-01-2024 End: 19-42-7995Ymevfb Nirav Lynn MD Work Phone: noMS [facility] MedicineStart: 12-01-2024 End: 55-11-0653Rgcmks outpatient visit 15 minutesGordo Lynn MD Work Phone: noMS [facility] MedicineComment on above:Gluteal pain (Primary Dx); Ischial bursitis of right sideStart: 12-01-2024 End: 42-40-4905elatwvkmfdAJWOYV STALTERNot AvailableStart: 11-24-2024 End: 41-80-5420Mdodgd Meryl Patel MD Work Phone: noms NEUROLOGYStart: 11-24-2024 End: 13-63-0333Ssgwto Meryl Patel MD Work Phone: noms NEUROLOGYStart: 11-24-2024 End: 38-75-3121Xsblkh outpatient visit 25 minutesMacie Patel MD Work Phone: noms Wilver NeurologyComment on above:Alzheimer's dementia, unspecified dementia severity, unspecified timing of dementia onset, unspecified whether behavioral, psychotic, or mood disturbance or anxiety (HCC); Irritability; Age-related cognitive decline; MCI (mild cognitive impairment) with memory lossStart: 11-24-2024 End: 56-12-7569Tdpicri encounter procedureYesy Jarquin MD-Lab [facility] Work Phone: Start: 11-24-2024 End: 59-16-6922abxmifhwbkNeteJasmyne Carson MD Work Phone: [facility] Work Phone: Start: 10-19-2024 End: 42-46-2121Mzlays outpatient visit 25 minutesBrianna Cruz NP Work Phone: no[facility] MedicineComment on above:Scalp pain (Primary Dx); Murmur; Alzheimer's dementia, unspecified dementia severity, unspecified timing of dementia onset, unspecified whether behavioral, psychotic, or mood disturbance or anxiety (HCC); Advanced ageStart: 10-19-2024 End: 99-04-1055zhbtqarelpEXBUHDXN J HOFFMANNot AvailableStart: 10-19-2024 End: 75-44-7523Hzjxfr Harish Cruz NP Work Phone: noms [facility] MedicineStart: 10-19-2024 End: 65-47-1906Rpcjdh Harish Cruz HEART NURSE Work Phone: noms [facility] MedicineStart: 10-13-2024 End: 53-00-6715Kdpolnvfp encounterMelissa Duenas PT Work Phone: noms [facility] Physical TherapyComment on above:CX PT 10/18; pending call back to [facility] Jacque; Visited in person (He stopped in and noted that way he isfeeling, he is needing no more PT; both the [facility] doctor and he is happy w/ status & progress made.)Start: 10-05-2024 End: 32-91-8830uykadwxnptIPGCP KAMPFERNot AvailableStart: 10-04-2024 End: 45-22-1613Yqwhlx outpatient visit 15 minutesSalacie Rodriguez NP Work Phone: NOMS FNR FMComment on above:Chronic right shoulder pain (Primary Dx); Chronic bilateral low back pain with bilateral sciaticaStart: 10-04-2024 End: 44-32-4518plepxqausbQWDVX KAMPFERNot AvailableStart: 10-04-2024 End: 65-14-2571Cgqsqqazt encounterBeatriz Carson MD Other Phone: NODZ FNR FMStart: 09-08-2024 End: 37-59-7336Qheslo flowsNakia MANCILLA Work Phone: noms FB ORTHOPAEDICSStart: 09-08-2024 End: 12-85-6181Vkbxhz flowsNakia MANCILLA Work Phone: noms FB ORTHOPAEDICSStart: 09-08-2024 End: 11-01-4882Lkicjg outpatient visit 15 minutesMamert MANCILLA Work Phone: noms FB ORTHOPAEDICSComment on above:Acute pain of right shoulder (Primary Dx); Right shoulder pain, unspecified chronicityStart: 09-08-2024 End: 63-11-0269kjwekidcbrAAVCDJC J MEYERNot AvailableStart: 09-01-2024 End: 83-21-3901ErikwiTsagkcll J Hoffman HEART NURSE Work Phone: NOMS FNR FMComment on above:Hyperlipidemia, unspecified hyperlipidemia type (CMS/HCC)Start: 08-25-2024 End: 24-54-6335Arlcmy Livio RadioCassie Wolf PT Work Phone: NOMS CI PTStart: 08-25-2024 End: 82-27-1230Opvxxf flowsCassie Wolf PT Work Phone: NOMS CI PTStart: 08-25-2024 End: 06-71-4649iyrtthyalwXlmfri T Blackston PT Work Phone: noms CI PTComment on above:Piriformis syndrome of right side (Primary Dx); Pain in right buttock; Acute bilateral low back pain without sciatica; Acute pain of right shoulderStart: 08-24-2024 End: 89-08-9767rqtrdmeadjDONWNLIRI A GABELNot AvailableStart: 08-21-2024 End: 16-36-9579Wrjqiigxq encounterEliluisa Herrera HEART NURSE Work Phone: noms FNR FMStart: 08-20-2024 End: 85-19-3436Gduzygacb encounterClaire DILLARD Work Phone: NORWALEduard MCKEON AUDIOLOGYStart: 08-20-2024 End: 07-24-9832Fcovru outpatient visit 25 minutesEliluisa Herrera HEART NURSE Work Phone: noms FNR FMComment on above:Primary hypertension (CMS/HCC) (Primary Dx); Iliac artery aneurysm, left (CMS/HCC); Abdominal aortic aneurysm (AAA) without rupture, unspecified part (CMS/HCC); Peripheral arterial disease (CMS/HCC); Malignant neoplasm of prostate (CMS/HCC); Hyperlipidemia, unspecified hyperlipidemia type (CMS/HCC); Reactive depression (CMS/HCC); Atherosclerosis of aorta (CMS/HCC); Occlusion and stenosis of bilateral carotid arteries; Mild left ventricular hypertrophy; Gastroesophageal reflux disease, unspecified whether esophagitis present; Amnestic 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); Pulmonary nodule; Right bundle branch block; VertigoStart: 08-20-2024 End: 44-15-0021emuriyzwwtZOPHEIBBG A GABELNot AvailableStart: 08-19-2024 End: 66-74-5179Shojjr outpatient visit 25 minutesMacie Patel MD Work Phone: noms SWS NEURComment on above:MCI (mild cognitive impairment) with memory loss; Age-related cognitive declineStart: 08-19-2024 End: 50-57-5694ucyehakiprOOJSEWH W BAUERNot AvailableStart: 08-18-2024 End: 03-81-8458Hpomfn flowsheetShahbazremy T Blackston PT Work Phone: noMS CI PTStart: 08-18-2024 End: 56-16-3424Qupqlk flowsheetJeremy T Blackston PT Work Phone: noMS CI PTStart: 08-18-2024 End: 31-07-7686pwwrsmnxtoEohuii T Blackston PT Work Phone: NOMS CI PTComment on above:Piriformis syndrome of right side (Primary Dx); Pain in right buttock; Acute bilateral low back pain without sciatica; Acute pain of right shoulderStart: 08-13-2024 End: 89-29-3659bewyoweslyLCJRJEWJW A GABELNot AvailableStart: 08-11-2024 End: 09-11-3506Pugsyuljt Result EncounterGeneric External Data ProviderNOMS External Department UnsolicitedStart: 08-11-2024 End: 68-15-1127Parjtdydr Result EncounterGeneric External Data ProviderNOMS External Department UnsolicitedStart: 08-10-2024 End: 95-11-8631Ptwtws flowsTiffy T Blacksjenna PT Work Phone: noMS CI PTStart: 08-10-2024 End: 47-66-0258Trhepx flowsheetJeremy T Blackston PT Work Phone: noMS CI PTStart: 08-10-2024 End: 03-93-2446agkvybvqluFuuvmd T Blackston PT Work Phone: NOMS CI PTComment on above:Piriformis syndrome of right side (Primary Dx); Pain in right buttock; Acute bilateral low back pain without sciaticaStart: 08-05-2024 End: 69-26-5220rzfroigvvkCxqzpavgpCleveland Clinic Foundation Work Phone: Start: 08-05-2024 End: 07-92-1302Vvugxxi encounter [facility] Work Phone: Start: 08-02-2024 End: 75-18-3269Lrqtiv flowsbenitoShahbazclaire Aimee Wolf PT Work Phone: NOMS CI PTStart: 08-02-2024 End: 63-77-2564Kakevc jeimybenitoShahbazclaire Aimee Wolf PT Work Phone: NOMS CI PTStart: 08-02-2024 End: 46-63-9713hknlczpvvjHQBYNAHNH A GABELNot AvailableStart: 08-02-2024 End: 09-70-0693pyzcpdpzlxGcdozl Aimee Wolf PT Work Phone: NOMS CI PTComment on above:Piriformis syndrome of right side (Primary Dx); Pain in right buttock; Acute bilateral low back pain without sciaticaStart: 07-22-2024 End: 01-10-3667Bxurce ritaShahbazclaire Aimee Wolf PT Work Phone: NOMS CI PTStart: 07-22-2024 End: 15-66-0909Towrnj flowsbenitoShahbazclaire Aimee Wolf PT Work Phone: NOMS CI PTStart: 07-22-2024 End: 57-32-4553mjrbtdlbujJkmjfg Aimee Wolf PT Work Phone: NOMS CI PTComment on above:Piriformis syndrome of right side (Primary Dx); Pain in right buttockStart: 07-21-2024 End: 71-62-9356Anzbydlbz encounterMarielena Herrera HEART NURSE Work Phone: NOMS FNR FMStart: 07-18-2024 End: 12-71-2798XtsvucRlnikafeh A Gabel HEART NURSE Work Phone: noms FNR FMComment on above:Primary hypertension (CMS/HCC)Start: 07-14-2024 End: 85-54-5128mqphyhhrokVhkagw T Blackston PT Work Phone: noMS CI PTComment on above:Pain in right buttock (Primary Dx); Piriformis syndrome of right sideStart: 07-14-2024 End: 47-61-9958Wrvzmk flowsheetShraddha Wolf PT Work Phone: noMS CI PTStart: 07-14-2024 End: 61-54-3382Ckwvbw flowsheetShraddha Wolf PT Work Phone: noMS CI PTStart: 07-08-2024 End: 42-63-8366Ztzwzciiv encounterShraddha Wolf PT Work Phone: noMS CI PTComment on above:PT Initial Eval ($40.00 copay / Med Nec); Call BackStart: 07-07-2024 End: 21-84-4665Ctznyfxavi Herrera NP Work Phone: noms FNR FMStart: 07-07-2024 End: 66-60-8612Shcctcxavi Herrera HEART NURSE Work Phone: noms FNR FMStart: 07-07-2024 End: 78-12-2613Kesgqc outpatient visit 25 minutesEliluisa Herrera NP Work Phone: noms FNR FMComment on above:Primary hypertension (CMS/HCC) (Primary Dx); Iliac artery aneurysm, left (CMS/HCC); Abdominal aortic aneurysm (AAA) without rupture, unspecified part (CMS/HCC); Atherosclerosis of aorta (CMS/HCC); Peripheral arterial disease (CMS/HCC); Hyperlipidemia, unspecified hyperlipidemia type (CMS/HCC); Right bundle branch block; Occlusion and stenosis of bilateral carotid arteries; Piriformis syndrome of right side; Amnestic 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); Pulmonary nodule; Dizziness; Advanced ageStart: 07-07-2024 End: 87-06-5389zqmxlthphhUJTBDTGGJ A BEBAHiral AvailableStart: 05-24-2024 End: 09-89-7758Qdnkysqgj encounterBeatriz Carson MD Work Phone: NOTN FNR FMStart: 03-01-2024 End: 11-43-9874Lnenzk flowsheetAmber Pump HEART NURSE Work Phone: NOMS FNR FMStart: 03-01-2024 End: 94-54-6914Tnunvk flowsheetAmber Pump HEART NURSE Work Phone: NOIE FNR FMStart: 03-01-2024 End: 93-63-1012Pnapari encounter procedureAmber Pump HEART NURSE Work Phone: noms FNR FMComment on above:Medicare annual wellness visit, subsequent (Primary Dx); Alzheimer's dementia, unspecified [...] Malignant neoplasm of skin; Hypokalemia; Anemia, unspecified typeStart: 03-01-2024 End: 70-35-6707pndovsqbokDSCVF PUMPNot AvailableStart: 02-28-2024 End: 21-70-5014Qxlifcxrj department patient visitBEATRIZ VICTORIABarney Children's Medical Centertart: 01-30-2024 End: 83-24-3101OjhjacZrjzslxwk A Gabel NP Work Phone: noms FNR FMComment on above:Age-related cognitive declineStart: 01-26-2024 End: 80-81-7532Dzgzxjxavi Patel MD Work Phone: noms NEUROLOGYStart: 01-26-2024 End: 77-99-3211Hrqnjsxavi Patel MD Work Phone: noms BM NEUROLOGYStart: 01-26-2024 End: 38-33-1246Jdbufz outpatient visit 25 minutesMacie Patel MD Work Phone: noms SWS NEURComment on above:Alzheimer's dementia, unspecified dementia severity, unspecified timing of dementia onset, unspecified whether behavioral, psychotic, or mood disturbance or anxiety (CMS/HCC) (Primary Dx); MCI (mild cognitive impairment) with memory lossStart: 01-26-2024 End: 65-23-9417yeanvnkrnlBGKRKUT W BAUERNot AvailableStart: 01-09-2024 End: 61-12-6975FayjmsHiplEvie Carson MD Work Phone: noMS FNR FMComment on above:Primary hypertension (CMS/HCC)Start: 01-06-2024 End: 99-15-1712Oyfixk outpatient visit 25 minutesMarielena Herrera NP Work Phone: NOMS FNR FMComment on above:SOB (shortness of breath) (Primary Dx); Chest pain, unspecified type; Amnestic 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); Primary hypertension (CMS/HCC); Gastroesophageal reflux disease, unspecified whether esophagitis present; Advanced age; Dizziness; Anemia, unspecified typeStart: 01-06-2024 End: 07-87-5276rxwpmwbiesNHASXKMYF A GABELNot AvailableStart: 01-06-2024 End: 16-17-6488Zbxgil flowsheetMarielena Herrera HEART NURSE Work Phone: NOMS FNR FMStart: 01-06-2024 End: 64-73-3434Zofkoy flowsheetEliluisa Herrera HEART NURSE Work Phone: NOMS FNR FMStart: 11-17-2023 End: 69-37-6124Dajwam Meryl Patel MD Work Phone: noms NEUROLOGYStart: 11-17-2023 End: 76-12-9767Zblxio Meryl Patel MD Work Phone: noms NEUROLOGYStart: 11-17-2023 End: 81-38-2034Onztps outpatient new 45 minutesMacie Patel MD Work Phone: noms SWS NEURComment on above:MCI (mild cognitive impairment) with memory loss (Primary Dx); Memory loss; Amnestic 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)Start: 11-11-2023 End: 33-47-3511Tjrnxy Vera Carson MD Work Phone: NOMS FNR FMStart: 11-11-2023 End: 88-47-7526Xyauqk Vera Carson MD Work Phone: NOMS FNR FMStart: 11-11-2023 End: 81-54-8278Foroku outpatient visit 15 minutesBeatriz Carson MD Work Phone: NOMS FNR FMComment on above:COVID-19 (Primary Dx); Primary hypertension (CMS/HCC); Pain in right buttock; Age-related cognitive decline; Chronic rhinitisStart: 55-79-3949Faf-patient / Non-visitMD Beatriz Carson Work Phone: [facility] Work Phone: Start: 09-19-2023 End: 91-01-3438Jzlctwyzz to same day surgery centerMD Beatriz Carson Work Phone: [facility] Work Phone: Start: 09-19-2023 End: 29-82-4470vjyjgjbqsjGI Beatriz Carson Work Phone: [facility] Work Phone: Start: 09-05-2023 End: 18-72-8825daqvryhhuoRK Beatriz Carson Work Phone: [facility] Work Phone: Start: 09-05-2023 End: 26-66-5588Ptellhy encounter procedureMD Beatriz Carson Work Phone: [facility] [place] Work Phone: Start: 08-13-2023 End: 41-10-5453Aiccxao encounter procedureMD Beatriz Carson Work Phone: [facility] Work Phone: Start: 03-17-2023 End: 66-39-7797Bjvvwnwju department patient visitBEATRIZ CARSON Facility:[facility]tart: 29-54-6434Isozmpkjq encounterLisa Ester Torres Physicians CardiologyStart: 01-15-2023 End: 14-80-9458afsfhxbhstRqvtzbjd McCormack Other [place] [employer] Other Start: 60-23-1138Fwnjlu outpatient visit 15 minutes Adalberto Dale GastroenterologyStart: 07-16-2022 End: 75-57-4574wwxfoiauuxNrenpbim McCormack Other [employer] Other Start: 18-11-1376Tbutln outpatient visit 15 minutes Adalberto Dale GastroenterologyStart: 67-81-5559Ov Lorrie Eleazar Wonderly Work Phone: [phone]-[facility] [address] DO Work Phone: Start: 03-11-2022 End: 01-27-9690aqafpvjdxcLP Beatriz Carson Work Phone: [facility] Work Phone: Start: 03-11-2022 End: 93-05-2306Njijofd encounter procedureMD Beatriz Carson Work Phone: [facility] Xfs-Dhh-Uiypudbe Testing Start: 03-05-2022 End: 14-77-0345owrdikwkesOgpxwsuo McCormack Other [employer] Other Start: 31-51-3957Wfvcfw outpatient visit 25 minutes Adalberto Dale GastroenterologyStart: 02-07-2022 End: 29-81-3868fppktidabaHyhzo Keller Other [employer] Other Start: 68-60-8830Pampfq outpatient visit 15 minutes Skye [facility] ClydeStart: 11-28-2021 End: 72-12-7645adeddmvydsWfyahxrc McCormack Other [employer] Other Start: 65-96-6453Tvzdnu outpatient new 45 minutes Adalberto Dale GastroenterologyStart: 74-10-1702RMUZTPiii B Wonderly Work Phone: [phone]-Dpltk [facility] [address] DO Work Phone: Start: 03-20-2021 End: 34-36-5144omkdrjofltDA SANDY R SMITHFacility:G0Xrawm: 79-77-5664HKAQWKvrw B Wonderly Work Phone: [phone]-Gaher [facility] [address] DO Work Phone: Start: 12-29-2020 End: 30-93-5319xxvdmhmwqlOY BEATRIZ Eleazar WONDERLYFacility:Q3Jpmcf: 12-27-2020 End: 66-69-4312jrusokacdgMKYRFOLL HOFFMANFacility:X8Rzkme: 07-21-2017 End: 17-78-3274TonjckdojwAQXMBUK PHYSICIANFacility:[facility] Procedures DateProcedureProcedure DetailPerforming ClinicianStart: 89-61-2728Ktvdmtkkniujv metabolic panelSamanthloy Cruz HEART NURSE Work Phone: Start: 27-88-2805KRD C REACTIVE PROTEINGeneric External Data ProviderStart: 98-20-0604ZskczsmtpgmYH Beatriz Wonderly Work Phone: Start: 73-43-1221Wrqnh depression screening assessment Rocio Norman CMABiopsy of prostateMary B Wonderly Work Phone: Biopsy of skinMary B Wonderly Work Phone: Excision of basal cell carcinomaMary B Wonderly Work Phone: LaminectomyMary B Wonderly Work Phone: Renal lithotripsyMary B Wonderly Work Phone: SARS Antigen (LFIA)MD Henderson Wonderly Work Phone: Tonsillectomy and adenoidectomyMary B Wonderly Work Phone: Tooth extractionMary B Wonderly Work Phone: Total colonoscopyMary B Wonderly Work Phone: Plan of Treatment DateCare ActivityDetailAuthorStart: 09-49-0189EXkV,Tdap and Td Vaccines (4 - Td or Tdap)DTaP,Tdap and Td Vaccines (4 - Td or Tdap)[facility] HospitalFl[facility] Read[facility] SystemStart: [id number],Tdap and Td Vaccines (2 - Td or Tdap)DTaP,Tdap and Td Vaccines (2 - Td or Tdap)[facility] SystemStart: [id number] ScreeningTobacco ScreeningUniversity Hospitals [facility] SystemStart: 06-30-2025 End: [id number] encounter vunrsdsgy77/09/2026 9:45 AM EDT Office Visit [facility] [address] [place] [address] Lina Puga, DO [address] [facility] [address] [place], [place] [id number] [facility]Sleep MedicineStart: 03-25-2025 End: 41-98-0166NO Chest PA and LateralX-ray chest 2 views Imaging Routine Aspiration of foreign body, sequela Expected: 03/25/2025 (Approximate), Expires: 12/23/2025[facility] Work Phone: Comment on above:Expected: 03/25/2025 (Approximate), Expires: 12/23/2025Start: 03-03-2025 End: 68-20-4129Tdmsqiq encounter kxyzcnwbk68/11/2025 8:30 AM EST [facility] [address] [place] [address] Gordo Lynn MD [address] [place] [address] [facility] MedicineStart: 02-23-2025 End: 11-32-5153Zfkakbs encounter fyfgtppnw86/03/2025 9:30 AM EST Office Visit [facility] [address] [facility] [address] [place] [address] Macie Patel MD [address] [facility] [address] [place] [id number] [facility] NeurologyStart: 01-26-2025 End: 97-28-9575Sctusea encounter nnsooefcg29/05/2025 2:15 PM EST Office Visit [facility] [address] [place] [address] Hannah Luciano MD [address] [place] [address] [facility] CardiologyStart: 12-27-2024 End: 06-89-6510Ixyvytw encounter hqznhfrvy29/06/2025 10:00 AM EDT Appointment [facility] - Cardiovascular [address] [place] [address] [facility] Start: 12-15-2024 End: 12-23-3084Gmqagevk T.cardiac [Mass/volume] in Serum or PlasmaTroponin T Lab Routine Other chest pain Expected: 12/15/2024 (Approximate), Expires: 12/15/2025[facility] Work Phone: Comment on above:Expected: 12/15/2024 (Approximate), Expires: 12/15/2025Start: 12-15-2024 End: 60-52-6208Tnignqk encounter djhxvfozx01/24/2025 8:00 AM EDT Office Visit [facility] [address] [place] [address] Gordo Lynn MD [address] [place] [address] [facility]: 12-01-2024 End: 47-20-3988Cmzejry encounter procedureNOMorrill County Community Hospital MedicineComment on above:ArrivedStart: 11-24-2024 End: 77-22-0642Tqxtzcg encounter procedureNOOLIVE VIEW-[facility] NEURStart: 99-37-4731XJMIT-19 Vaccine ( season)COVID-19 Vaccine ()[facility] SystemStart: 81-36-4060Ckiuuwqdu vaccinationUniversity HospitalStart: 10-19-2024 End: 40-86-9813Aiezslp encounter jofkkhntu62/29/2025 2:30 PM EDT Office Visit [facility] Medicine [address] [place] [address] Brianna Cruz NP [address] [place], [place] [phone] [facility] CenterComment on above:Arrived Start: 10-04-2024 End: 31-00-3500YG Lumbar spine Views W flexion and W extensionXR lumbar spine 4+ views w flexion extension Imaging Routine Chronic bilateral low back pain with bilateral sciatica Expected: 10/04/2024, Expires: 10/04/2025[facility] Work Phone: Comment on above:Expected: 10/04/2024, Expires: 10/04/2025Start: 09-08-2024 End: 46-52-4081Cznzjmd encounter procedureNOIL FB ORTHOPAEDICSComment on above: Acute pain of right shoulder (Primary Dx); Right shoulder pain, unspecified chronicityStart: 08-25-2024 End: 19-43-3041xwkvxlelvuLMUC CI PTComment on above:ArrivedStart: 08-20-2024 End: 43-11-2684Vyqzyht encounter gyshhuesj19/30/2025 1:30 PM EDT Office Visit [facility] [address] [place] [address] Marielena Herrera NP [address] [place] [address] [facility]NR FMStart: 08-19-2024 End: 68-07-8324Pehotmp encounter rtytbglun98/29/2025 8:00 AM EDT Office Visit [facility] NEUR [address] [place] [address] Macie Patel MD [address] [place] [address] [facility] NEURStart: 08-18-2024 End: 55-85-2595szgqcopkqtEQDD CI PTComment on above:ArrivedStart: 08-13-2024 End: 07-27-8852Kdmcyppilnvr / ancillary services xetrdxvxyl39/23/2025 8:30 AM EDT Ancillary Procedure [facility] [address] [place] [address] [facility] ULTRASOUNDStart: 08-10-2024 End: 33-11-4901shusynlwpkRQOQ CI PTComment on above:ArrivedStart: 08-02-2024 End: 98-10-1056Rsgboeurhwzs / ancillary services managementNOMS FNR ULTRASOUND Start: 08-02-2024 End: 31-54-2996xvpayxiduc82/12/2025 8:30 AM EDT Treatment [facility] PT [address] [facility] [address] [place] [address] Shraddha Wolf, PT [address] [facility] [address] [place] [address] [facility] CI PTStart: 07-22-2024 End: 81-82-2529rhdsnqxiemJTRM CI PTComment on above:ArrivedStart: 07-14-2024 End: 87-44-6915zpgvfuyruvVYOU CI PTComment on above:Piriformis syndrome of right side; Pain in right buttockStart: 07-07-2024 End: 90-12-9763IB Chest WO contrastCT chest wo IV contrast Imaging Routine Pulmonary nodule Expected: 07/07/2024, Expires: 07/07/2025[facility] Work Phone: Comment on above:Expected: 07/07/2024, Expires: 07/07/2025Start: 07-07-2024 End: 65-09-5688CF Thoracic and abdominal aorta limitedUltrasound abdominal aorta limited Imaging Routine Abdominal aortic aneurysm (AAA) without rupture, unspecified part (CMS/HCC) Expected: 07/07/2024, Expires: 07/07/2025[facility] HealthcareComment on above:Expected: 07/07/2024, Expires: 07/07/2025Start: 07-07-2024 End: 36-48-3058ZN.doppler Carotid arteries - bilateralVascular US carotid artery duplex bilateral Imaging Routine Occlusion and stenosis of bilateral carotid arteries Expected: 07/07/2024, Expires: 07/07/2025[facility] HealthcareComment on above:Expected: 07/07/2024, Expires: 07/07/2025Start: 07-07-2024 End: 87-81-6050Inurmko encounter hfseinank44/16/2025 9:00 AM EDT Office Visit [facility] [address] [place] [address] Marielena Herrera NP [address] [place], [place] [phone] Primary hypertension (CMS/HCC) (Primary Dx); Iliac artery aneurysm, left (CMS/HCC); Atherosclerosis of aorta (CMS/HCC); Gastroesophageal reflux disease, unspecified whether esophagitis present; Malignantneoplasm of prostate (CMS/HCC); Piriformis syndrome of right side; Hyperlipidemia, unspecified hyper lipidemia type (CMS/HCC)[facility] FNR FMComment on above:Primary hypertension (CMS/HCC) (Primary Dx); Iliac artery aneurysm, left (CMS/HCC); Atherosclerosis of aorta (CMS/HCC); Gastroesophageal reflux disease, unspecified whether esophagitis present; Malignant neoplasm of prostate (CMS/HCC); Piriformis syndrome of right side; Hyperlipidemia, unspecified hyperlipidemia type (CMS/HCC)Start: 2024 End: 17-61-3347Pdrhwsz encounter yatqljiqg79/06/2025 9:00 AM EST Office Visit [facility] [address] [facility] [address] [place] [address] Macie Patel MD [address] [facility] [address] [place] [address] [facility] NEURStart: 87-43-4669Fjruf BMI ScreeningAdult BMI ScreeningProPremier Health Miami Valley Hospitaltart: 03-01-2024 End: 15-12-7670LQF W Auto Differential panel - BloodCBC and differential Lab Routine Medicare annual wellness visit, subsequent Primary hypertension (CM S/HCC) Anemia, unspecified type Expected: 03/01/2024 (Approximate), Expires: 03/01/2025[facility] HealthcareComment on above:Expected: 03/01/2024 (Approximate), Expires: 03/01/2025Start: 03-01-2024 End: 60-07-2246Fnsuhjrquliyu metabolic 2000 panel - Serum or PlasmaComprehensive metabolic panel Lab Routine Medicare annual wellness visit, subsequent Primary hypertension (CMS/HCC) Hypokalemia Expected: 03/01/2024 (Approximate), Expires: 03/01/2025[facility] HealthcareComment on above:Expected: 03/01/2024 (Approximate), Expires: 03/01/2025Start: 03-01-2024 End: 83-23-8979Nadtr 1996 panel - Serum or PlasmaLipid panel Lab Routine Medicare annual wellness visit, subsequent Hyperlipidemia, unspecified hyper lipidemia type (CMS/HCC) Expected: 03/01/2024 (Approximate), Expires: 03/01/2025 [facility] HealthcareComment on above:Expected: 03/01/2024 (Approximate), Expires: 03/01/2025Start: 03-01-2024 End: 24-33-7185Lnydtgdc specific Ag [Mass/volume] in Serum or PlasmaPSA Lab Routine Medicare annual wellness visit, subsequent Ulcerative proctitis with complication (CMS/HCC) Expected: 03/01/2024 (Approximate), Expires: 03/01/2025 [facility] Healthcare Work Phone: Comment on above:Expected: 03/01/2024 (Approximate), Expires: 03/01/2025Start: 03-01-2024 End: 83-05-1297Vnaedbc encounter procedureNOMS FNR FMComment on above:Arrived Start: 01-26-2024 End: 95-18-4960Pkdajud encounter procedureNOMS SWS NEURComment on above:Arrived Start: 01-06-2024 End: 21-75-2141Drljegx encounter tvyqaivwv65/15/2024 3:00 PM EDT Office Visit [facility] [address] [place] [address] Marielena Herrera NP [address] [place] [address] ArrivedNOMS FNR FMComment on above:ArrivedStart: 29-51-2856Tarovma Screening Tobacco ScreeningUniversity Hospitals [facility]ar[facility] SystemStart: 13-46-6022Upwlamkwj vaccination Influenza Vaccine (#1)[facility] HealthcareStart: 11-17-2023 End: 82-97-6666Oufovtv encounter procedureNOMS SWS NEURComment on above:Memory lossStart: 11-11-2023 End: 87-53-6424Youwuls encounter mvvgwvnig14/20/2024 10:30 AM EDT Office Visit [facility] [address] [place] [address] Beatriz Carson MD [address] [place] [address] ArrivedNOMS FNR FMComment on above:ArrivedStart: 44-34-1406Jypxsbnxad Screening Depression ScreeningUniversity Hospitals Samaritan Medical Center SystemStart: 88-28-1349ZrwlsbdsiMartin Memorial Hospitaltart: 85-00-7379XgdlkkaknMartin Memorial Hospitaltart: 03-18-2023 End: 68-21-6406Wuvmelc encounter ydmzmysoq49/26/2023 10:45 AM EST Office Visit [facility] [address] [place] [address] Felicitas Esquivel MD [address] [place], [place] [address] [facility] CardiologyStart: 56-82-5392Iyfhq BMI Follow Up PlanAdult BMI Follow Up PlanProOur Lady Of Mercy Hospital [facility] SystemStart: 31-12-2083YXRMQ-19 Vaccine ()COVID-19 Vaccine ( season)[facility] SystemStart: 16-52-4658JMM, Provider: Mat Gresham, Status: Pen, Time: 9:30 AMFUV, Provider: Mat Gresham, Status: Pen, Time: 9:30 AM[facility] [address] DO Work Phone: Start: 53-85-8548Liop Risk ScreeningFall Risk ScreeningProPremier Health Miami Valley Hospitaltart: 01-06-1938Medicare Annual Wellness Visit Medicare Annual Wellness VisitBlanchard Valley Health SystemPatient Education Hemorrhoids (DC) Diverticulosis (DC) Colon Polypectomy (DC) Know your Meds [facility] Work Phone: XR Lumbar spine Views W flexion and W extensionXR lumbar spine 4+ views w flexion extension Imaging Routine Chronic bilateral low back pain with bilateral sciatica 10/05/2024 8:35 AM EDPrime [facility] Immunizations Immunization DateImmunizationNotesCare PjgvczccLcirdhlt61-70-9260arzzmwifm, high dose seasonal, preservative-freeElizabeth Javier HEART NURSE Work Phone: University HospitalJrjjmyuujw20-95-8836qhblbeyop virus vaccine, unspecified formulationElizabeth Javier HEART NURSE Work Phone: noEastern Missouri State HospitalCpljxaytzp77-63-0682WHX, recombinant, protein subunit RSVpreF, adjuvant reconstitu, 120mcg/0.5mL, PF (Arexvy)Beatriz Carson MD Work Phone: University HospitalOwdtxjqqbj79-60-3873Zxqjgoagf, High-dose Seasonal, Quadrivalent, Preservative Dianne Carson MD Work Phone: noEastern Missouri State HospitalYaudasivkx01-97-8705sukvgzzaf virus vaccine, unspecified formulationBeatriz Carson MD Work Phone: University HospitalJqxcyijtli50-04-8541hvfrdi vaccine recombinant Beatriz Carson MD Work Phone: noEastern Missouri State HospitalXvzdkcrnfa59-70-2593Oobsoahqhpne Conjugate PCV 20 Macie Patel MD Work Phone: [place] [address]Cfgqjulngk37-35-4986emyjkml toxoid, reduced diphtheria toxoid, and acellular pertussis vaccine, adsorbedMacie Patel MD Work Phone: [place] [address]Copfmmtjbb30-07-6037sdcddt vaccine recombinant Beatriz Carson MD Work Phone: University HospitalFxurqtazyl64-98-5356Ucwtwhqsk, High-dose Seasonal, Quadrivalent, Preservative Dianne Carson MD Work Phone: [phone] HospitalYmfwruqdim17-54-7426Zrmzztkaq, High-dose Seasonal, Quadrivalent, Preservative Dianne Carson MD Work Phone: [place] [address]Kxzewvwwhj34-16-6786ksfxwla and diphtheria toxoids, adsorbed, preservative free, for adult use (5 Lf of tetanus toxoid and 2 Lf of diphtheria toxoid)Beatriz Carson MD Work Phone: University HospitalUeyrdvhqqx49-26-8656qdyqkairc, high dose seasonal, preservative-freeBeatriz Carson MD Work Phone: University HospitalMgluumndnp66-88-1363qwjpwiule, injectable, quadrivalent, preservative Dianne Carson MD Work Phone: [phone] [address]Qhjdpkgklv42-14-9786dkcuaecmj, injectable, quadrivalent, preservative Dianne Carson MD Work Phone: University HospitalOdbryizbts70-01-3742czdrqxres, high dose seasonal, preservative-freeBeatriz Carson MD Work Phone: [phone] HospitalSxlcpvpkog20-86-6161dvatboitx, high dose seasonal, preservative-freeBeatriz Carson MD Work Phone: [phone] [place], [place] [address]Dyopdeefpu25-21-1184dqglmpgylxim conjugate vaccine, 13 valentBeatriz Carson MD Work Phone: University HospitalMcyzlgqmpa17-67-3969ovojeofyy, seasonal, injectable, preservative Dianne Carson MD Work Phone: University HospitalReegcywvvm07-46-3678Tgabotsx, trivalent, recombinant, injectable influenza vaccine, preservative freeMacie Patel MD Work Phone: University HospitalQribctigoq45-93-3132jsudgjrsugeo vaccine, unspecified formulationMacie Patel MD Work Phone: University HospitalAhohtsyube77-12-5621zngexhrwyecp polysaccharide vaccine, 23 valentBeatriz Carson MD Work Phone: University HospitalJxmyavhtpi60-12-5374fxlrrii and diphtheria toxoids, adsorbed, preservative free, for adult use (2 Lf of tetanus toxoid and 2 Lf of diphtheria toxoid)Beatriz Carson MD Work Phone: [facility] Payers DatePayer CategoryPayerPolicy [id number] [id number] MEDICARE ADVANTAGE [id number] 2023Medicare [id number] 2023Medicare [facility] MEDICARE [id number] 2023Medicare [id number] [id number] [id number] [id number] [id number] [id number] 2.840.1.356858.3.57[id number] 2..1.299366.3.57[id number] 2..1.028443.3.579.2.820[id number] 2.0.1.340689.3.579.[id number] 2.0.1.342614.3.579.[id number] 2..1.035118.3.57[id number] 2..1.694539.3.579.2.445911-20-8305Hakxltr14413309 2.840.1.589718.3.579.2.599974-36-2252Tvixvzn12915590 2.0.1.250891.3.579.2.203941-92-1019Csrxatj20992193 2.840.1.737776.3.579.2.043567-04-9479Jqtceuv32324785 2.0.1.302925.3.579.2.693253-14-4119Ugitnwf44772861 2.16.840.1.472258.3.579.2.414694-91-6439Knnrxxz52139981 2.16.840.1.933257.3.579.2.775656-68-1902Pzcfupj77596743 2.16.840.1.270643.3.579.2.994382-62-2313Pwmlocx04732908 2.16840.1.649639.3.579.2.600106-40-3737Swwyvhm73356760 2.16840.1.545462.3.579.2.706326-47-3750Yfuajwq5206060 2.16840.1.456988.3.579.2.007418-48-2763Canedzq9472358 2.16840.1.127870.3.579.2.895577-33-4222Gvxkdmp5635219 2.16840.1.741069.3.579.2.905120-39-4692Zlkppzx6470767 2.16840.1.500426.3.579.2.568560-85-3290Rdrdsha6714315 2.16840.1.725810.3.579.2.835802-61-9143Wnkgcfd0835634 2.16840.1.956536.3.579.2.444862-90-5440Dmpeldv6357097 2.16840.1.708059.3.579.2.449727-85-2242Wftuudo2805200 2.16.840.1.607319.3.579.2.049257-85-7922Wasmqrx1522409 2.16.840.1.070142.3.579.2.197653-16-6744Jikfknt7574324 2.16840.1.168552.3.579.2.617303-26-1629Ptzqucd5726732 2.0.1.493574.3.579.2.577940-72-4243Omxzmmf6247403 2.840.1.024368.3.579.2.062307-99-2257Ssnqjfp9572335 2.840.1.635312.3.579.2.802319-43-6353Xbrkhdc715676718 2.840.1.737422.3.579.2.461020-19-8673Mnhwlzw058459323 2.840.1.183535.3.579.2.716417-40-9006Ptpczwk703694398 2.0.1.855778.3.579.2.011780-31-9862Gynkjxd30565093 2.0.1.132545.3.579.2.1286Private Health [id number] 2.0.1.606259.12BqucezyBlfcyiq49577068 2..1.633269.3.579.2.531 Social History DateTypeDetailFacilityStart: 11-06-2022 End: 44-85-2811Opzxr a smokerNever a smoker-[facility] DO Work Phone: Start: 11-06-2022 End: 11-72-2461Xkk Assigned At [facility] IKOTE[employer] Other Start: 25-93-5563Tza [facility] At [facility]: 09-05-2023 End: 68-50-5462Tudgisw smoking status NHISEx-smoker (finding)[facility] Hospitaltart: 08-22-2021 End: 78-44-3616Fenrrnm smoking status NHISNever smoked tobaccoSouthwestern Vermont Medical Centersourceasy SystemStart: 08-22-2021 End: 61-46-9600Cfrudks use and exposureSmokeless tobacco non-userUniversity Hospitals Samaritan Medical Center SystemStart: 11-17-2023 End: 63-34-4552Qlwrpjjcu beverage intakeCurrent drinker of alcohol (finding) [facility]olistart: 34-25-7931Ffd assigned at birthNot on file [facility] SystemHistory of tobacco usePassive smokerUniversity HospitalStart: 72-71-0077Gsbylaveh beverage intakeEx-drinker (finding)[facility] HealthcareDo you belong to any clubs or organizations such as orthodoxy groups, unions, fraTravelerCar or athletic groups, or school groups?YesProPrinceton Baptist Medical Center Health SystemAre you now , , , , never or living with a partner? MarriedUniversity Hospitals Samaritan Medical Center SystemHow often to you have a drink containing alcohol? Monthly or lessProOur Lady Of Mercy Hospital [facility] SystemHow many standard drinks containing alcohol do you have on a typical day?Patient does not drinkUniversity Hospitals Samaritan Medical Center SystemHow often do you have 6 or more drinks on 1 occasion?NeverProOur Lady Of Mercy Hospital [facility] SystemDo you feel stress - tense, restless, nervous, or anxious, or unable to sleep at night because yourmind is troubled all the time - these days [OSQ]Not at allUniversity Hospitals Samaritan Medical Center SystemStart: 98-80-1603Gbphlna CommentsocialMiami Valley Hospital SystemStart: 10-27-2014 End: 77-78-2463AjeQkcc (finding)Martin Memorial Hospitaltart: 98-16-9284Okdyqzv Comment1 beer once a monthWashington University Medical Center the hereO, BraveNewTalent, or water [employer] threatened to shut off services in your home in past 12MoNoProOur Lady Of Mercy Hospital [facility] System Goals DatePatient GoalDesired Activity/StatePersonal health goalComment on above: Evaluation of progress towards goal: safe transition from hospital to home with pt's and family support.Personal health goalComment on above: Evaluation of progress towards goal: feeling better, hopes to go DC today Clinical Notes 11-28-2021 to 12-28-2024 Note Date & IfnvDlzmBnocyiku98-70-5489 Miscellaneous Notes* Telephone Encounter - Radha Gil CMA - 12/28/2024 1:13 PM EDT Phoned pt and lm on to call office to schedule follow up appointment, pt was last seen on 12/16/2022 by SB. documented in this encounterBlanchard Valley Health System10-07-2025 Telephone encounter Note* Telephone Encounter - Radha Gil CMA - 12/28/2024 1:13 PM EDT Phoned pt and lm on to call office to schedule follow up appointment, pt was last seen on 12/16/2022 by SB. [facility]10-02-2025 History of Present illness Narrative* Lina Puga, - 12/23/2024 9:45 AM EDT Images from the original note were not included. [facility] Patient - Jacy Navarro Age - 89 y.o. - 1935 Referring physician: Dr. Lynn Reason for Consultation: Foreign benito HPI: Jacy Navarro is a 89 y.o. male with history of abdominal aortic aneurysm, paroxysmal atrial fibrillation, hypertension, Alzheimer's dementia who presents with incidental finding on chest x-ray earlier this month in November of metallic foreign body in the right lower lobe. Subsequent CT scan of the chest was obtained which did confirm that there appears to be a linear metallic foreign body at the end of the right lower lobe bronchus. Upon further review of imaging this is also seen back on October 2023 imaging but has not been seen in October of 2022 imaging. Foreign body is actuallybest seen on chest x-ray He denies any cough, wheeze, congestion, pain in the chest or pleuritic chest pain. No recent pneumonias over the last year. No mucus production. He denies any recent surgeries in the last 1-2 years.He did have a major dental procedure a little over a year ago which he reports as a major procedurewith significant teeth grinding. He does not recall an aspiration event. He does not particularly recall hanging any pictures where he would have had anything in his mouth. He is uncertain what this foreign body could be. No history of pulmonary disorder. No history of significant pneumonias, COPD, asthma. He does take Singulair for allergies. No inhaler use ASSESSMENT 1. Metallic linear foreign body right lower lobe distal bronchus, present since imaging October 2023 -asymptomatic 2. Alzheimer's 3. Paroxysmal atrial fibrillation PLAN I have personally reviewed the patient's most recent chest imaging and interpreted it independently. These findings were discussed with the patient. Chest x-ray imaging and CT imaging were discussed personally with radiologist. This was not evidenton chest x-ray in October of 2022 but is able to seen on post perspective analysis of chest x-ray October of 2023. It is a linear metallic foreign body in the distal right lower lobe bronchus. It is asymptomatic. This was also reviewed and discussed with thoracic surgery at [facility] Discussed options regarding lobectomy, robotic bronchoscopy and attempt to retrieve foreign body verses monitoring were reviewed with the patient. Given his overall health, asymptomatic status, he elects to continue with serial monitoring. If there is concern for migration, pneumonias that developed as a complication, we can revisit navigational robotic bronchoscopy and attempt retrieval. Otherwise risks associated with the attempted retrieval and potential complications currently outweigh benefit Repeat chest x-ray in 3 months. All questions answered Will see back in clinic in 6 months or earlier if needed. The patient was encouraged to call me with any concerns prior. Thank you for allowing me to participate in your patient's care. Past Medical History: Diagnosis Date AAA (abdominal aortic aneurysm) Abdominal aortic aneurysm (AAA) without rupture 08/13/2021 Allergic rhinitis Cataract Chronic low back pain 07/23/2022 Chronic rhinitis 11/26/2018 Diverticulitis ED (erectile dysfunction) Hip pain 07/23/2022 History of renal calculi HLD (hyperlipidemia) Hypertension Iliac artery aneurysm, left 08/13/2021 Mild left ventricular hypertrophy 07/27/2018 Paroxysmal atrial fibrillation ([facility]) 02/22/2022 Peripheral arterial disease 03/14/2022 Primary hypertension 03/14/2022 Prostate cancer ([facility]-HCC) Right bundle branch block 07/02/2018 SOB (shortness of breath) Visual impairment Past Surgical History: Procedure Laterality Date EGD 03/13/2022 LAMINECTOMY 1983 NEPHROSTOMY TRACT DILATATION W/ LITHOTRIPSY SIGMOIDOSCOPY TONSILLECTOMY Patient has no known allergies. Prior to Admission medications Medication Sig Start Date End Date Taking? Authorizing Provider acetaminophen (TYLENOL) 325 mg tablet Take 2 tablets (650 mg total) by mouth every 6 (six) hours asneeded for pain. Yes Not In System Ref Prov amLODIPine (NORVASC) 5 mg tablet Take 1 tablet (5 mg total) by mouth in the morning. Yes Not In System Ref Prov donepezil (ARICEPT) 5 mg tablet Take 2 tablets (10 mg total) by mouth nightly. Yes Not In System Ref Prov fluticasone propionate (FLONASE) 50 mcg/actuation nasal spray Administer 1 spray into each nostril in the morning. Yes Not In System Ref Prov M-17/NETTLE/PUMPK/SAW PALMET (PROSTATE THERAPY ORAL) Take by mouth. Yes Not In System Ref Prov montelukast (SINGULAIR) 10 mg tablet Take 1 tablet (10 mg total) by mouth nightly. Yes Not In System Ref Prov multivitamin (THERAGRAN) tablet Take 1 tablet by mouth in the morning. Yes Not In System Ref Prov rosuvastatin (CRESTOR) 5 mg tablet Take 1 tablet (5 mg total) by mouth in the morning. Yes Not In System Ref Prov sulfaSALAzine (AZULFIDINE) 500 mg EC tablet Take 200 mg by mouth in the morning and 200 mg at noon and 200 mg in the evening. 06/12/22 Yes Not In System Ref Prov reports that he has never smoked. He has never used smokeless tobacco. He reports current alcohol use. He reports that he does not use drugs. Family History Problem Relation Age of Onset No Known Problems Mother Dementia Father Review of Systems: All 11 systems have been reviewed and are negative except as mentioned in History of Present Illness. Exam: General: Alert, oriented, no acute distress, nontoxic HEENT: Moist mucosal membranes, no oral lesions or oral thrush, trachea midline Chest: Clear to auscultation bilaterally without any crackles, wheezes, rhonchi. Normal AP diameter. CV: Regular rate regular rhythm Abdomen: Soft, nontender, no guard Extremities: No edema, erythema, distal cyanosis, clubbing Integumentary: Warm and dry. No rash or lesion Neuro: Cranial nerves 2-11 grossly intact. No lateralizing deficits. VITALS BP 125/67 Pulse 76 Ht 182.9 cm (6') Wt 89.1 kg (196 lb 8 oz) SpO2 95% BMI 26.65 kg/m PFT Results: None Radiology CT CHEST WO CONT 12/20/24 CLINICAL INDICATION: Abnormal CXR COMPARISON: CT chest [...] of 08/28/2022. 2. Severe coronary artery calcifications. 11/02/2311/2024 Dr. Lina Puga DO. [facility] Office: [phone] documented in this encounterBl[facility] Telephone encounter Note* Telephone Encounter - Sammi Dicksondeni - 12/16/2024 4:54 PM EDT Geoff left at 4:33 My name is Jacy Navarro, phone number [phone]. And I want talk to somebody about what my procedure is going to be in the future. I do not have 1 has to have done with my lung program. Call me anytime. [id number] Miscellaneous Notes* Telephone Encounter - Sammi Dicksondeni - 12/16/2024 4:54 PM EDT Geoff left at 4:33 My name is Jacy Navarro, phone number [phone]. And I want talk to somebody about what my procedure is going to be in the future. I do not have 1 has to have done with my lung program. Call me anytime. documented in this encounterUniversity [id number] History of Present illness Narrative* Brianna Cruz NP - 12/15/2024 11:30 AM EDT Images from the original note were not included. Jacy Navarro is a 89 y.o. male presents with chief complaint of pain when breathing (On left side, comes and goes, for a few months. ) HPI: HPI History of Present Illness The patient is an 89-year-old male who presents for acute concerns. He experiences intermittent, mild left-sided chest pain that subsides with deep breathing. The painis not severe and does not occur daily. He reports no shortness of breath, feeling unwell, or persistent cough. He has no fever or body aches beyond his usual discomfort. His appetite remains unchanged. The chest pain is not constant and does not radiate to his jaw or arm. He is not under the care of a research professor and does not recall any previous consultations with one. He is not currently on any blood thinners. He occasionally feels anxious but this is not a frequent occurrence. He reports occasional alcohol consumption but does not smoke. He consumes an energy drink in the morning. SUBJECTIVE: MEDICATIONS: Current Outpatient Medications Medication Instructions acetaminophen (TYLENOL) 650 mg, Every 6 hours PRN amLODIPine (NORVASC) 5 mg, Oral, Daily azelastine (Astelin) 0.1 % nasal spray 1 spray, 2 times daily donepezil (ARICEPT) 10 mg, Oral, 2 times daily fluticasone (Flonase) 50 MCG/ACT nasal spray 2 sprays, Each Nostril, Daily, Shake gently. Before first use, prime pump. After use, clean tip and replace cap. hydrocortisone (Anusol-HC) 2.5 % rectal cream INSERT into the rectum FOUR TIMES DAILY NEEDED ketoconazole (NIZOral) 2 % shampoo 2 times weekly magnesium lactate CR (MAGTAB) 84 mg, Daily meclizine (ANTIVERT) 25 mg, 2 times daily PRN memantine (NAMENDA) 10 mg, Oral, 2 times daily Multiple Vitamin (Multi-Vitamin) tablet 1 tablet, Daily RT NON FORMULARY Prostate vitamin QUEtiapine (SEROQUEL) 12.5 mg, Oral, Nightly rosuvastatin (CRESTOR) 5 mg, Oral, Daily sulfaSALAzine (AZULFIDINE) 1,000 mg, 2 times daily ALLERGIES: No Known Allergies History: Past Medical History: Diagnosis Date A-fib ([facility]) Acute hypoxic respiratory failure (HCC) 11/02/2023 Acute maxillary sinusitis 11/06/2022 Backache 10/27/2023 Blepharitis of upper and lower eyelids of both eyes 09/03/2022 Calculus of kidney 03/14/2022 Cataract COVID-19 11/02/2023 Diverticulosis Hypercholesteremia Hypertension 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 term 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 07/02/2018 Paroxysmal atrial fibrillation (HCC) 06/10/2018 Prostate cancer ([facility]) Right knee pain 10/27/2023 Unsteadiness on feet 10/27/2023 Past Surgical History: Procedure Laterality Date CATARACT [...] Substance and Sexual Activity Alcohol use: Yes Alcohol/week: 0.0 - 1.0 standard drinks of alcohol Comment: 1 beer once a month Drug use: Never Sexual activity: Defer Other Topics Concern Not on file Social History Narrative Not on file Social Drivers of Health Financial Resource Strain: Low Risk (11/06/2022) [facility] Overall Financial Resource Strain (CARDIA) Difficulty of Paying Living Expenses: Not hard at all Food Insecurity: No Food Insecurity (02/28/2024) Received from [facility] [employer] Hunger Screening Within the past 12 months we worried whether our food would run out before we got money to buy more.: Never True Within the past 12 months the food we bought just didn't last and we didn't have money to get more.: Never True Transportation Needs: No Transportation Needs (11/02/2023) [facility] PRAPARE - Transportation Lack of Transportation (Medical): No Lack of Transportation (Non-Medical): No Physical Activity: Sufficiently Active (11/06/2022) Received from [employer] Exercise Vital Sign Days of Exercise per Week: 3 days Minutes of Exercise per Session: 90 min Stress: No Stress Concern Present (11/06/2022) Received from [employer] [facility] [place] [employer] - Occupational Stress Questionnaire Feeling of Stress : Not at all Social Connections: Socially Integrated (11/06/2022) [facility] Social Connection and Isolation Panel [NHANES] Frequency of Communication with Friends and Family: Three times a week Frequency of Social Gatherings with Friends and Family: Three times a week Attends Anglican Services: More than 4 times per year Active Member of Clubs or Organizations: Yes Attends Club or Organization Meetings: More than 4 times per year Marital Status: Intimate Partner Violence: Not on file Housing Stability: Low Risk (11/02/2023) [facility] Housing Instability Are you worried or concerned that in the next two months you may not have stable housing that you own, rent or stay in as a part of a household?: No I have reviewed and reconciled the history and medication list with the patient today. REVIEW OF SYMPTOMS: Review of Systems Constitutional: Negative for appetite change, chills, fatigue and fever. HENT: Negative. Respiratory: Negative for cough, shortness of breath and wheezing. Cardiovascular: Positive for chest pain (left side, occasionally). Negative for palpitations. Gastrointestinal: Negative for abdominal pain, constipation, diarrhea, nausea and vomiting. Musculoskeletal: Negative. Skin: Negative for color change, rash and wound. Psychiatric/Behavioral: Negative. OBJECTIVE: Results 10/04/2024 4:25 PM 10/19/2024 2:14 PM 10/19/2024 2:51 PM 11/24/2024 9:27 AM 12/01/2024 8:10 AM 12/01/2024 8:36 AM 12/15/2024 10:42 AM Vitals BMI 27.48 kg/m2 27.5 kg/m2 27.87 kg/m2 27.95 kg/m2 27.95 kg/m2 BSA (m2) 2.12 m2 2.12 m2 2.13 m2 2.13 m2 2.13 m2 Systolic 146 90 112 132 140 136 140 Diastolic 80 60 58 80 78 78 68 Heart Rate 77 96 78 81 SpO2 95 % 98 % 96 % 97 % Resp 18 Height (in) 5' 11 5' 11 Weight (lb) 197 197.2 199.8 200.38 200.4 Visit Report Report Report Report Report Report Report Report Physical Exam Constitutional: General: He is not in acute distress. Appearance: Normal appearance. He is not ill-appearing. Cardiovascular: Rate and Rhythm: Normal rate and regular rhythm. Pulmonary: Effort: No respiratory distress. Breath sounds: Normal breath sounds. No wheezing or rhonchi. Chest: Comments: Unable to reproduce pain Abdominal: General: Bowel sounds are normal. There is no distension. Palpations: Abdomen is soft. Tenderness: There is no abdominal tenderness. Musculoskeletal: Right lower leg: No edema. Left lower leg: No edema. Skin: General: Skin is warm and dry. Findings: No erythema or rash. Neurological: Mental Status: He is alert. Psychiatric: Mood and Affect: Mood normal. Thought Content: Thought content normal. Judgment: Judgment normal. 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 Chest pain: - He reports intermittent, mild chest pain on the left side that resolves with deep breathing. There is no associated shortness of breath, fever, or cough. The pain is not sharp and does not radiate to the jaw or arm. - Physical exam findings include normal breathing saturations at 97%. There is no pain upon palpation of the chest. - A chest x-ray will be performed today to rule out structural abnormalities or pneumonia. An EKG will be conducted at [facility] to assess cardiac rhythm and rule out a heart attack. Blood work will also be obtained today. - He is advised to follow up with his research professor at [facility] for annual check-ups dueto his history of atrial fibrillation. He is suppose to see cardiology. 2. Dementia. -He is forgetful, here alone today. Seeing neurology. 3.Afib. -Discussed with patient to follow up with cardiology regarding afib. 30 minutes spent reviewing chart, assessing patient and documenting. Given forgetfulness and general medical concerns, will see if he is a candidate for CCM. Follow up for Next scheduled follow-up as scheduled. documented in this encounterUniversity [id number] Telephone encounter Note* Telephone Encounter - Gordo Lynn MD - 12/15/2024 7:00 AM EDT Please contact this patient and advise him that I am not feeling well will not be able to see him in the office today. Please cancel my other patients as well, thank you [facility] Work Phone: [phone] Miscellaneous Notes* Telephone Encounter - Gordo Lynn MD - 12/15/2024 7:00 AM EDT Please contact this patient and advise him that I am not feeling well will not be able to see him in the office today. Please cancel my other patients as well, thank you documented in this encounterUniversity [id number] History of Present illness Narrative* Gordo Lynn MD - 12/01/2024 8:30 AM EDT Images from the original note were not included. Jacy Navarro is a 89 y.o. male presents with chief complaint of Rectal Pain (Pt states he has hadsymptoms of muscle and nerve pain on his buttocks, but not in the rectal area. Pt states he has been using a massager in the area. He has also been sitting on a heating pad that vibrates to help alleviate the pain. ) HPI: History of Present Illness The patient is an 89-year-old male who presents for evaluation of back pain, blood pressure management, and memory issues. He has been experiencing discomfort in his right buttock, which he believes may be nerve-related. The pain does not radiate down his leg. He also reports mild pain in his left buttock. The pain is currently mild but has been severe enough to disrupt his sleep at night. He has been using a massager on his knee, back, and buttock, which he finds beneficial. His granddaughter, an occupational therapist, provided him with a vibrating heat patch that he uses when the pain intensifies. This patch hasbeen effective in alleviating his pain. He maintains an active lifestyle, including regular exercise 2 to 3 times a week. He is unsure about his blood pressure readings today as he was quite active this morning. He continues to play golf and remains mobile. He is on Norvasc 5 mg. He has been taking memantine to help with his memory issues. Supplemental Information He was given some pills by Dr. Katz to help him sleep. He was also given some pills for his bowelsbecause he was having diarrhea. It firms up the bowels. If he gets up and moves a lot, he has to goto the bathroom. He takes magnesium and vitamins. SOCIAL HISTORY He retired at 74. 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 MEDICATIONS Memantine, sulfasalazine, Seroquel, amlodipine. SUBJECTIVE: MEDICATIONS: Current Outpatient Medications Medication Instructions acetaminophen (TYLENOL) 650 mg, Every 6 hours PRN amLODIPine (NORVASC) 5 mg, Oral, Daily azelastine (Astelin) 0.1 % nasal spray 1 spray, 2 times daily donepezil (ARICEPT) 10 mg, Oral, 2 times daily fluticasone (Flonase) 50 MCG/ACT nasal spray 2 sprays, Each Nostril, Daily, Shake gently. Before first use, prime pump. After use, clean tip and replace cap. hydrocortisone (Anusol-HC) 2.5 % rectal cream INSERT into the rectum FOUR TIMES DAILY NEEDED ketoconazole (NIZOral) 2 % shampoo 2 times weekly magnesium lactate CR (MAGTAB) 84 mg, Daily meclizine (ANTIVERT) 25 mg, 2 times daily PRN memantine (NAMENDA) 10 mg, Oral, 2 times daily Multiple Vitamin (Multi-Vitamin) tablet 1 tablet, Daily RT NON FORMULARY Prostate vitamin QUEtiapine (SEROQUEL) 12.5 mg, Oral, Nightly rosuvastatin (CRESTOR) 5 mg, Oral, Daily sulfaSALAzine (AZULFIDINE) 1,000 mg, 2 times daily ALLERGIES: No Known Allergies History: Past Medical History: Diagnosis Date A-fib ([facility]) Acute hypoxic respiratory failure (HCC) 11/02/2023 Acute maxillary sinusitis 11/06/2022 Backache 10/27/2023 Blepharitis of upper and lower eyelids of both eyes 09/03/2022 Calculus of kidney 03/14/2022 Cataract COVID-19 11/02/2023 Diverticulosis Hypercholesteremia Hypertension long-term current use of anticoagulant therapy 07/02/2018 Paroxysmal atrial fibrillation (HCC) 06/10/2018 Prostate cancer ([facility]) Right knee pain 10/27/2023 Unsteadiness on feet 10/27/2023 Past Surgical History: Procedure Laterality Date CATARACT [...] Substance and Sexual Activity Alcohol use: Yes Alcohol/week: 0.0 - 1.0 standard drinks of alcohol Comment: 1 beer once a month Drug use: Never Sexual activity: Defer Other Topics Concern Not on file Social History Narrative Not on file Social Drivers of Health Financial Resource Strain: Low Risk (11/06/2022) Received from [employer] Overall Financial Resource Strain (CARDIA) Difficulty of Paying Living Expenses: Not hard at all Food Insecurity: No Food Insecurity (02/28/2024) Received from [employer] Hunger Screening Within the past 12 months we worried whether our food would run out before we got money to buy more.: Never True Within the past 12 months the food we bought just didn't last and we didn't have money to get more.: Never True Transportation Needs: No Transportation Needs (11/02/2023) Received from [employer] PRAPARE - Transportation Lack of Transportation (Medical): No Lack of Transportation (Non-Medical): No Physical Activity: Sufficiently Active (11/06/2022) Received from [employer] Exercise Vital Sign Days of Exercise per Week: 3 days Minutes of Exercise per Session: 90 min Stress: No Stress Concern Present (11/06/2022) Received from [employer] [place] [employer] - Occupational Stress Questionnaire Feeling of Stress : Not at all Social Connections: Socially Integrated (11/06/2022) Received from [employer] Social Connection and Isolation Panel [NHANES] Frequency of Communication with Friends and Family: Three times a week Frequency of Social Gatherings with Friends and Family: Three times a week Attends Anglican Services: More than 4 times per year Active Member of Clubs or Organizations: Yes Attends Club or Organization Meetings: More than 4 times per year Marital Status: Intimate Partner Violence: Not on file Housing Stability: Low Risk (11/02/2023) Received from [employer] Housing Instability Are you worried or concerned that in the next two months you may not have stable housing that you own, rent or stay in as a part of a household?: No I have reviewed and reconciled the history and medication list with the patient today. REVIEW OF SYMPTOMS: Review of Systems Constitutional: Negative. HENT: Negative. Eyes: Negative. Respiratory: Negative. Gastrointestinal: Negative. Genitourinary: Negative. Musculoskeletal: Patient complains of tenderness in the right gluteal region. Skin: Negative. Neurological: Negative. Psychiatric/Behavioral: Negative. All other systems reviewed and are negative. Endocrine: Negative. Allergic/Immunologic: Negative. OBJECTIVE: Results 08/20/2024 1:41 PM 10/04/2024 4:25 PM 10/19/2024 2:14 PM 10/19/2024 2:51 PM 11/24/2024 9:27 AM 12/01/2024 8:10 AM 12/01/2024 8:36 AM Vitals BMI 27.62 kg/m2 27.48 kg/m2 27.5 kg/m2 27.87 kg/m2 27.95 kg/m2 BSA (m2) 2.12 m2 2.12 m2 2.12 m2 2.13 m2 2.13 m2 Systolic 130 146 90 112 132 140 136 Diastolic 66 80 60 58 80 78 78 Heart Rate 72 77 96 78 SpO2 95 % 98 % 96 % Resp 18 Height (in) 5' 11 Weight (lb) 198 197 197.2 199.8 200.38 Visit Report Report Report Report Report Report Report Report Physical Exam Vitals reviewed. Constitutional: General: He is not in acute distress. Appearance: Normal appearance. HENT: Head: Normocephalic and atraumatic. Eyes: General: Right eye: No discharge. Left eye: No discharge. Cardiovascular: Rate and Rhythm: Normal rate. Pulmonary: Effort: Pulmonary effort is normal. No respiratory distress. Musculoskeletal: General: Normal range of motion. Cervical back: Normal range of motion. No rigidity. Comments: Patient has mild tenderness at the right ischial spine. No tenderness in the lumbar spineor paravertebral muscles. Normal range of motion in the right hip without increase in pain with flexion and extension of the hip. Skin: General: Skin is warm and dry. Capillary Refill: Capillary refill takes less than 2 seconds. Neurological: General: No focal deficit present. Mental Status: He is alert. Psychiatric: Mood and Affect: Mood normal. Physical Exam Vital Signs Blood pressure reading is 136/78. ASSESSMENT AND PLAN: Assessment/Plan Assessment & Plan 1. Back pain. The back pain is likely due to irritation of the ischial tuberosity/ ischial bursitis. The condition appears to be improving. He was advised to continue with his current treatment regimen. If the pain worsens or disrupts his sleep, he should return for a steroid injection to reduce inflammation. 2. Blood pressure management. His blood pressure was slightly elevated at 136/78 mmHg. No changes to his current medication regimen are necessary at this time. 3. Memory issues. He is currently taking memantine for Alzheimer's disease. He should continue with this medication as prescribed. 4. Sleep issues. He is taking a generic form of Seroquel to help with sleep. He should continue with this medicationas prescribed. 5. Gastrointestinal issues. He is taking sulfasalazine to manage bowel issues, which has been effective in firming up his stools. He should continue with this medication as prescribed. No follow-ups on file. documented in this encounterUniversity [id number] History of Present illness Narrative* Macie Patel MD - 11/24/2024 9:20 AM EDT Images from the original note were not included. 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 At last appt, donepezil was increased to 10 mg BID, memantine was increased 10 mg BID, started Seroquel 25 mg-1/2 tablet at bed to help with mood and sleep. He is doing with medications. No side effects. Subjective Jacy Navarro is a 89 y.o. male who presents for memory loss History of Present Illness The patient is an 89-year-old male who presents for evaluation of buttock pain, memory issues, and anxiety. He reports experiencing pain in his buttocks, which is alleviated by a heat and vibration patch provided by his granddaughter, an occupational therapist. The pain does not extend to his legs but tends to worsen when sitting on hard surfaces, necessitating the use of a cushion. He also takes ibuprofen for pain management. Regarding his memory, he notes fluctuations with some days being better than others. Despite these memory issues, he continues to drive without any problems and manages his own medications independently. He is currently taking donepezil twice daily for memory support. He reports minimal anxiety or nervousness and takes Seroquel at bedtime to aid sleep. SOCIAL HISTORY: Marital Status: for 66 years Hobbies: Golf Sleep: Sleeps well except when laying on one side; uses Seroquel at bedtime MEDICATIONS CURRENT MEDS: Ibuprofen Oral Donepezil Oral Twice daily Review of Systems Const: Denies appetite change, fever, chills. Allergy: Denies medication reaction. Ocular: Denies visual acuity change. ENT: Denies hearing change. Endoc: Denies weight loss. Resp: Denies dyspnoea, wheezing. Cardiac: Denies angina, palpitations. GI: Denies nausea, vomiting. Haem: Denies bleeding. : Denies incontinence. MSK: Denies arthralgias, joint oedema. Derm: Denies rash, hair loss. Neuro: Denies ataxia, tremor. Also see HPI for elements of ROS documented therein and for details of positive findings, which shall supersede the foregoing. Objective Blood pressure 132/80, resp. rate 18, height 5' 11 , weight 199 lb 12.8 oz, SpO2 98%. Physical Exam Mental Status Examination Orientation: Oriented to time and place. Memory: Reports occasional forgetfulness of people from younger years. GENERAL EXAMINATION Appearance: in no acute distress, well developed, well nourished. Head: normocephalic, atraumatic. Eyes: pupils equal, round, reactive to light and accommodation. Ears: normal. Mouth: mucosa moist. Throat: clear. Neck: neck supple, full range of motion, no cervical lymphadenopathy. Skin: no suspicious lesions, warm and dry. Heart: no murmurs, regular rate and rhythm, S1, S2 normal. Lungs: clear to auscultation bilaterally. Abdomen: normal, bowel sounds present, soft, nontender, nondistended. Extremities: no clubbing, cyanosis, or edema. NEUROLOGICAL EXAMINATION Mental Status: The patient is alert and oriented to person, place, and time. Except as noted, thought content, form, and comprehension was normal. Phonation, articulation, resonance, and prosody are normal. Cranial Nerves: Pupils were 4.0 millimeters, equal, round, and reactive to light and accommodation,both directly and consensually. Visual valerio were full by confrontation. There was no ptosis; extra-ocular movements were full; and there was no nystagmus. Funduscopic exam is normal. Masseters are of normal strength. Facial movement is normal. Hearing is grossly intact. There is no dysarthria. The gag reflex is equal bilaterally. Sternocleidomastoids and trapezii are of normal strength. The tongue protrudes in the midline. Motor: Muscle testing was performed in all four extremities, including at least cognos architect, finger abductors, biceps, triceps, deltoid, toe flexors and extensors, tibialis anterior, triceps surae, quadriceps femoris, biceps femoris, and iliopsoases. Tone is normal. Muscle bulk is normal. Fasciculations are not seen . Pronator drift was not evident. Sensory: Sensation to touch, temperature, and vibration was normal in the arms, legs and face. Romberg is negative. Reflexes: Biceps, triceps, brachioradialis are 2/4 bilaterally. Patellar and Achilles reflexes are 2/4 bilaterally. Plantar responses were flexor bilaterally. Coordination: Dysmetria and dysdiadochokinesia are absent. Tremor is absent; dystonia is absent; chorea is absent. Gait And Station: Station and gait are normal. Apraxia and spasticity are not evident. Arm swing isnormal. Toe, heel, and tandem walking are performed without difficulty. Musculoskeletal: Trigger-point tenderness was absent. There is no spasm of the trapezii or paraspinals. Results Assessment & Plan 1. Buttock pain. The patient's buttock pain is likely due to muscle strain. He reports that the pain is alleviated by using a cushion while sitting and taking ibuprofen as needed. A prescription for Seroquel will be provided to help with sleep and muscle relaxation. The prescription will be sent to [facility] in [place]. 2. Memory issues. He experiences fluctuating memory, with good and bad days. He is currently taking donepezil twice aday. A refill for donepezil will be sent to ensure continuity of care. The prescription will be sent to [facility] in [place], [place], as he will be staying there for four months starting in March. 3. Anxiety. He reports occasional anxiety and irritability. A prescription for Seroquel will be provided to help manage these symptoms. The prescription will be sent to [facility] in [place]. 4. I will start donepezil (Aricept) 10 mg at bed to help treat memory loss and confusion It works by improving attention, memory, and the ability to engage in daily activities. 5. I will start the patient on memantine (Namenda) which is a medication primarily used to treat moderate to severe Alzheimer s disease. It works by regulating the activity of glutamate, a neurotransmitter involved in learning and memory. In Alzheimer s, excessive glutamate can overstimulate nerve cells, leading to damage. Namenda helps protect nerve cells by blocking NMDA receptors, which are activated by glutamate, potentially improving cognitive function and slowing the progression of symptoms in some patients. It is often used in combination with other Alzheimer s medications, like cholinesterase inhibitors. 6. Seroquel at bed for sleep restauration and irritibility. Follow-up A follow-up appointment is scheduled for February 2025. Follow up Continue donepezil 10 mg BID Continue memantine 10 mg BID Continue Seroquel 25 mg-0.5 tablet at bed. Follow up 3 months. This clinical note was created utilizing Emulate documentation system. All information has beenthoroughly reviewed, corrected as necessary, and authenticated by the provider to ensure accuracy and completeness. On occasion, Emulate documentation system erroneously drops words or replaces aspoken word with a similar sounding word. Please notify with any questions or concerns regarding this clinical note. documented in this encounterUniversity [id number] Telephone encounter Note* Telephone Encounter - Angela Yung - 10/20/2024 2:09 PM EDT CX referral due to not needed, per pt; happy with status. University [id number] Miscellaneous Notes* Telephone Encounter - Angela Yung - 10/20/2024 2:09 PM EDT CX referral due to not needed, per pt; happy with status. * Telephone Encounter - Angela Yung - 10/13/2024 10:07 AM EDT He called noting the need to cx PT Eval for 10/18; due to unable to make it. I recommended RS, [id number] or 3rd week into October as of now; he said once able he'll call back. documented in this encounterUniversity [id number] History of Present illness Narrative* Brianna Cruz, KATHARINE - 10/19/2024 2:30 PM EDT Images from the original note were not included. Jacy Navarro is a 89 y.o. male presents with chief complaint of Pain (Back of head) HPI: Pain Associated symptoms include headaches (pain to back side of head, resolved now). Pertinent negatives include no abdominal pain, chest pain, constipation, diarrhea, fatigue, fever, nausea, rash, shortness of breath, vomiting or wheezing. History of Present Illness The patient is an 89-year-old male who presents for evaluation of scalp pain. He experiences intermittent pain at the back of his head, which he manages with an fkvh-vyg-ldypobbljwy spray. The onset of this pain was approximately a month ago, and it has been recurring since then. He is uncertain if the pain is scalp- related or indicative of an internal headache. He reports no current discomfort. He has not made any recent changes to his shampoo, hair products, lotions, or laundry soaps. He continues to visit [place] and typically wears a hat while playing golf but most recently did not wear one. Denies having sunburn. He also mentions that he cuts his own hair but does not believe this is related to the pain. He is considering whether imaging might be necessary. 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 However, he has not experienced any issues since the surgery. Hebelieves he had annual dermatology check-ups in [place]. He is under the care of a research professor and performs deep breathing exercises as recommended. SUBJECTIVE: MEDICATIONS: Current Outpatient Medications Medication Instructions acetaminophen (TYLENOL) 650 mg, Every 6 hours PRN amLODIPine (NORVASC) 5 mg, Oral, Daily azelastine (Astelin) 0.1 % nasal spray 1 spray, 2 times daily donepezil (ARICEPT) 10 mg, Oral, 2 times daily fluticasone (Flonase) 50 MCG/ACT nasal spray 2 sprays, Each Nostril, Daily, Shake gently. Before first use, prime pump. After use, clean tip and replace cap. hydrocortisone (Anusol-HC) 2.5 % rectal cream INSERT into the rectum FOUR TIMES DAILY NEEDED ketoconazole (NIZOral) 2 % shampoo 2 times weekly magnesium lactate CR (MAGTAB) 84 mg, Daily meclizine (ANTIVERT) 25 mg, 2 times daily PRN memantine (NAMENDA) 10 mg, Oral, 2 times daily Multiple Vitamin (Multi-Vitamin) tablet 1 tablet, Daily RT NON FORMULARY Prostate vitamin QUEtiapine (SEROQUEL) 12.5 mg, Oral, Nightly rosuvastatin (CRESTOR) 5 mg, Oral, Daily sulfaSALAzine (AZULFIDINE) 1,000 mg, 2 times daily ALLERGIES: No Known Allergies History: Past Medical History: Diagnosis Date A-fib ([facility]) Acute hypoxic respiratory failure (HCC) 11/02/2023 Acute maxillary sinusitis 11/06/2022 Backache 10/27/2023 Blepharitis of upper and lower eyelids of both eyes 09/03/2022 Calculus of kidney 03/14/2022 Cataract COVID-19 11/02/2023 Diverticulosis Hypercholesteremia Hypertension long term 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 07/02/2018 Paroxysmal atrial fibrillation (HCC) 06/10/2018 Prostate cancer ([facility]) Right knee pain 10/27/2023 Unsteadiness on feet 10/27/2023 Past Surgical History: Procedure Laterality Date CATARACT [...] Substance and Sexual Activity Alcohol use: Yes Alcohol/week: 0.0 - 1.0 standard drinks of alcohol Comment: 1 beer once a month Drug use: Never Sexual activity: Defer Other Topics Concern Not on file Social History Narrative Not on file Social Drivers of Health Financial Resource Strain: Low Risk (11/06/2022) [facility] Overall Financial Resource Strain (CARDIA) Difficulty of Paying Living Expenses: Not hard at all Food Insecurity: No Food Insecurity (02/28/2024) [facility] Hunger Screening Within the past 12 months we worried whether our food would run out before we got money to buy more.: Never True Within the past 12 months the food we bought just didn't last and we didn't have money to get more.: Never True Transportation Needs: No Transportation Needs (11/02/2023) [facility] [employer] - Transportation Lack of Transportation (Medical): No Lack of Transportation (Non-Medical): No Physical Activity: Sufficiently Active (11/06/2022) [facility] Exercise Vital Sign Days of Exercise per Week: 3 days Minutes of Exercise per Session: 90 min Stress: No Stress Concern Present (11/06/2022) [facility] [employer] of Occupational Health - Occupational Stress Questionnaire Feeling of Stress : Not at all Social Connections: Socially Integrated (11/06/2022) Received from [facility] Social Connection and Isolation Panel [NHANES] Frequency of Communication with Friends and Family: Three times a week Frequency of Social Gatherings with Friends and Family: Three times a week Attends Anglican Services: More than 4 times per year Active Member of Clubs or Organizations: Yes Attends Club or Organization Meetings: More than 4 times per year Marital Status: Intimate Partner Violence: Not on file Housing Stability: Low Risk (11/02/2023) Received from [facility] Housing Instability Are you worried or concerned that in the next two months you may not have stable housing that you own, rent or stay in as a part of a household?: No I have reviewed and reconciled the history and medication list with the patient today. REVIEW OF SYMPTOMS: Review of Systems Constitutional: Negative for appetite change, chills, fatigue and fever. HENT: Negative. Respiratory: Negative for cough, shortness of breath and wheezing. Cardiovascular: Negative for chest pain and palpitations. Gastrointestinal: Negative for abdominal pain, constipation, diarrhea, nausea and vomiting. Musculoskeletal: Negative. Skin: Negative for color change, rash and wound. Neurological: Positive for headaches (pain to back side of head, resolved now). Psychiatric/Behavioral: Negative. OBJECTIVE: Results 03/01/2024 8:33 AM 07/07/2024 8:36 AM 08/19/2024 7:49 AM 08/20/2024 1:41 PM 10/04/2024 4:25 PM 10/19/2024 2:14 PM 10/19/2024 2:51 PM Vitals BMI 27.53 kg/m2 27.7 kg/m2 27.62 kg/m2 27.62 kg/m2 27.48 kg/m2 27.5 kg/m2 BSA (m2) 2.12 m2 2.12 m2 2.12 m2 2.12 m2 2.12 m2 2.12 m2 Systolic 128 124 110 130 146 90 112 Diastolic 70 70 60 66 80 60 58 Heart Rate 76 76 72 77 96 SpO2 95 % Height (in) 5' 11 5' 11 Weight (lb) 197.4 198.6 198 198 197 197.2 Visit Report Report Report Report Report Report Report Report Physical Exam Constitutional: General: He is not in acute distress. Appearance: Normal appearance. HENT: Head: Comments: No pain to back of head Cardiovascular: Rate and Rhythm: Normal rate and regular rhythm. Heart sounds: Murmur (slight) heard. Pulmonary: Effort: No respiratory distress. Breath sounds: Normal breath sounds. No wheezing or rhonchi. Abdominal: General: Bowel sounds are normal. There is no distension. Palpations: Abdomen is soft. Tenderness: There is no abdominal tenderness. Musculoskeletal: Right lower leg: No edema. Left lower leg: No edema. Skin: General: Skin is warm and dry. Findings: No erythema or rash. Comments: No areas of concern to back of head Neurological: Mental Status: He is alert. Psychiatric: Mood and Affect: Mood normal. Behavior: Behavior normal. Physical Exam ASSESSMENT AND PLAN: Assessment/Plan Diagnoses and all orders for this visit: Scalp pain Murmur Alzheimer's dementia, unspecified dementia severity, unspecified timing of dementia onset, unspecified whether behavioral, psychotic, or mood disturbance or anxiety (HCC) Advanced age Assessment & Plan 1. Scalp pain. - The scalp pain appears to be more topical than internal, as it subsides with the application of anti-itch spray. - There are no visible signs of redness or irritation on the scalp. - Advised to monitor the condition and seek a second opinion from a national sales. - If the pain persists or intensifies, a CT scan of the head will be considered or could also see dermatology. Pain is now resolved. 2. Heart murmur. - A heart murmur was detected during the examination, which is not new to the patient. - Advised to maintain regular annual check-ups with the research professor. - No immediate additional testing required due to ongoing research professor visits. 3. Alzheimer's - Seeing neurology. Follow-up: The patient will follow up for Medicare wellness exam before going back to [place]. 30 minutes spent reviewing chart, assessing patient and documenting. Follow up if symptoms worsen or fail to improve, for due for medicare wellness. documented in this encounterUniversity [id number] Telephone encounter Note* Telephone Encounter - Angela Yung - 10/13/2024 10:07 AM EDT He called noting the need to cx PT Eval for 10/18; due to unable to make it. I recommended RS, [id number] or 3rd week into October as of now; he said once able he'll call back. University [id number] History of Present illness Narrative* Rena Rodriguez NP - 10/04/2024 4:30 PM EDT Images from the original note were not included. Subjective Patient ID: Jacy Navarro is a 89 y.o. male who presents for Shoulder Pain and Pain. HPI History of Present Illness The patient presents for evaluation of right shoulder pain and back pain. He has been experiencing discomfort in his right shoulder, which he attributes to his golfing activities. Despite the pain, he wishes to continue playing golf. He has been under the care of an verifying specialist, Saul Ashraf, who conducted an x-ray examination. He has been managing the pain with daily exercises, which have proven beneficial. He also reports severe pain on the right side of his back, which he describes as more intense than the left side. The pain is so severe that it disrupts his sleep, often waking him up at night. He finds relief by lying on a pad. He is uncertain whether the pain is muscular or nerve-related. His granddaughter, an occupational therapist, provided him with heat and vibration patches, which have beensomewhat effective. However, the pain persists. He has sought help from a physical therapist at [facility], where he underwent a month-long treatment regimen that included various exercises and stretches.These interventions have been helpful, but without them, he experiences severe cramping. He recallsa previous visit to the hospital for pain management in 2022, which he found unhelpful. He was previously advised to consider injections for SI joint pain, but he declined. He maintains an active lifestyle, attending [employer] 3 to 4 times a week and playing golf with friends. He also spends allen in [place]. He carries a cushion with him for comfort when sitting, as hard chairs exacerbate the pain. Social History: Hobbies: Playing golf Sleep: Disrupted sleep due to pain Objective BP 146/80 (BP Location: Right arm, Patient Position: Sitting, BP Cuff Size: Small adult) Pulse 77 Wt 197 lb SpO2 95% BMI 27.48 kg/m Physical Exam Vitals reviewed. HENT: Head: Normocephalic and atraumatic. Nose: Nose normal. Mouth/Throat: Mouth: Mucous membranes are moist. Eyes: Pupils: Pupils are equal, round, and reactive to light. Cardiovascular: Rate and Rhythm: Normal rate and regular rhythm. Pulses: Normal pulses. Heart sounds: Normal heart sounds. Pulmonary: Effort: Pulmonary effort is normal. Breath sounds: Normal breath sounds. Musculoskeletal: Cervical back: Normal range of motion and neck supple. Comments: Right shoulder: full ROM, unable to reproduce his symptoms Lumbar Spine: full ROM, - B/L SLR Skin: General: Skin is warm and dry. Capillary Refill: Capillary refill takes less than 2 seconds. Findings: No rash. Neurological: General: No focal deficit present. Mental Status: He is alert and oriented to person, place, and time. Physical Exam Musculoskeletal: Tenderness in the right shoulder. Pain in the right side of the back. Assessment & Plan Assessment & Plan 1. Right shoulder pain. - Reports ongoing right shoulder pain, likely exacerbated by playing golf. - at risk specialist Saul Ashraf was concerned about a possible tear; previous x-ray was done, but MRI is needed for confirmation. - Continues exercises two to three times a day for relief. - MRI will be ordered, and follow-up with Saul Ashraf is advised for further evaluation and management. 2. Back pain. - Significant back pain, particularly on the right side, worsens when sitting on hard surfaces; uses cushions for relief. - Uses heat and vibration patches provided by his granddaughter, an occupational therapist, with partial relief. - Discussed possibility of stenosis contributing to nerve pain; x-rays of the back will be ordered to investigate further. - Referral to pain management will be made to explore additional options for pain control; advised to continue exercises and return to physical therapy. documented in this encounterUniversity [id number] Telephone encounter Note* Telephone Encounter - Chavo Steve - 10/04/2024 11:00 AM EDT Jacy called he has what he thinks is a pinched nerve - pain going down the rt side of his bottom. He said its continuous and would like a call back , w anything he can do - he's using Voltran Gel- and pain patch . Please call his Inés at [phone] University [id number] Miscellaneous Notes* Telephone Encounter - Chavo Steve - 10/04/2024 11:00 AM EDT Jacy called he has what he thinks is a pinched nerve - pain going down the rt side of his bottom. He said its continuous and would like a call back , w anything he can do - he's using Voltran Gel- and pain patch . Please call his Inés at [phone] documented in this encounterUniversity [id number] History of Present illness Narrative* LAURENT Pace - 09/08/2024 9:15 AM EDT Images from the original note were not included. Orthopedic Office note: NAME: Jacy Navarro : 1935 EST PT; RADHA HERRERA REFERRAL- RT SHOULDER PAIN ~6MO (03/2024- PT STATES HE WENT TO REACH FOR A DOOR WHILE IN [place]- NO TX UNTIL HE RETURNED HOME- RADHA HERRERA TX; XRAY/PT XRAY RT SHOULDER 08/24/24 EPIC PAIN LATERAL SHOULDER- PT STATES IF HE PUTS PRESSURE ON THAT AREA THE PAIN GOES AWAY- GOOD ROM- INCREASE PAIN WITH CERTAIN MOVEMENTS- +IBUPROFEN PRN/SALON PAS- PT STATES HE GOLF'S WITHOUT PAIN Shoulder Musculoskeletal Exam Inspection Right Right shoulder inspection is normal. Ecchymosis: none Peripheral edema: none Atrophy: none Deformity: AC joint prominence Masses: none Palpation Right Crepitus: no crepitus Increased warmth: none Tenderness: present Anterior shoulder: mild AC joint: none Lateral arm: mild Elbow: none Range of Motion Right Right shoulder range of motion is normal. Active ROM: normal and no pain. Passive ROM: normal and no pain. Right shoulder active abduction: + pain passing 90 degrees. Internal rotation: L2. Strength Right External rotation: 5/5. External rotation is not affected by pain. Internal rotation: 5/5. Internal rotation is not affected by pain. Abduction: 4+/5. Abduction is not affected by pain. Biceps: 5/5. Biceps are not affected by pain. Triceps: 5/5. Triceps are not affected by pain. Neurovascular Right Radial pulse: normal and 2+ Capillary refill: <3 sec Axillary nerve sensory distribution: normal Scapula Right Right shoulder scapula is normal. Position: normal Winging: none Special Tests Right Rotator Cuff Signs Neer's test: negative Herrera test: positive Painful arc test: positive Biceps/marv Signs Clicking/popping: positive Speed's test: negative General Constitutional: appears stated age Neurological: alert and oriented x3 No orders of the defined types were placed in this encounter. Procedures Results ICD-10-CM 1. Acute pain of right shoulder M25.511 Assessment & Plan Right shoulder pain The examination reveals very mild impingement symptoms, with trace weakness in the supraspinatus and the right rotator cuff. The impact of these symptoms on his daily activities was discussed. He reports significant improvement due to extensive physical therapy and feels he is functioning too well to require a cortisone injection at this time. He has full range of motion and does not experience difficulty sleeping. 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 He understands the potential presence of a partial tear in the rotator cuff and advanced osteolysis with AC joint arthritis but currently feels too well to consider surgical intervention. Treatment plan: He will continue with some activity modifications. If symptoms persist or worsen, he will contact us for reevaluation and potential injection. Questions answered in laymen terms at the bedside. The diagnosis, home exercise plan and any ongoing restrictions/ recommendations reviewed. If unable to be reached in office, I recommend evaluation at nearest Emergency Room if any symptoms worsened or new symptoms develop for requiring urgent evaluation. Visit was preformed using [employer] pilot flight instructor speech recognition. documented in this encounterUniversity [id number] Telephone encounter Note* Telephone Encounter - Brianna Cruz NP - 09/01/2024 1:04 PM EDT Year supply sent. University [id number] Miscellaneous Notes* Telephone Encounter - Brianna Cruz NP - 09/01/2024 1:04 PM EDT Year supply sent. * Telephone Encounter - Jenny Byers - 09/01/2024 1:00 PM EDT My name is Jacy Navarro GuillaumeCalvin, [place], [phone], and I am calling regarding a refill of R O S you VA S T A T. I. 5 mg. documented in this encounterUniversity [id number] Telephone encounter Note* Telephone Encounter - Jenny Byers - 09/01/2024 1:00 PM EDT My name is Guillaume MilliganCalvin, [place], [phone], and I am calling regarding a refill of R O S you VA S T A T. I. 5 mg. University [id number] History of Present illness Narrative* Shraddha Wolf, PT - 08/25/2024 8:00 AM EDT Images from the original note were not included. Physical Therapy Treatment Visit Patient Name: Jacy Navarro Today's Date: 08/25/2024 Encounter Diagnoses Name Primary? Piriformis syndrome of right side Yes Pain in right buttock Acute bilateral low back pain without sciatica Acute pain of right shoulder Visit number: 6 Timed Code Treatment Minutes: 40 minutes Total Treatment Time: 50 minutes Time In: 0750 Time Out: 0840 History: Pt. Presents to PT with c/c right piriformis syndrome which started 2 months ago. No LEONIDAS. Pt. Reports of increased pain at night. Denies N/T. Pt. Reports he works out 4x per week. Precautions: as tolerated Subjective: Pt. Reports his shoulder and buttock feel 98-99% better. Plans on golfing next week. Pain: 0/10 sacrum pain, 7/10 right shoulder pain. Objective: PT Evaluation (07/14/24) Lumbar ROM: WFL Hip ROM: decreased hip ER/IR Flexibility: moderate - piriformis muscle tightness, normal hamstring Strength: core 5/5, lateral hip 4/5, extension 4+/5 Palpation: TTP piriformis at sacrum Shoulder: Right shoulder AROM: flexion 150 deg with pain, abduction 150 degrees with pain Right shoulder strength: grossly 4/5 in all planes TTP: right posterior capular/AC joint Impingement syndrome Treatment: PT evaluation Education: HEP education with demonstration, Educated on Eval Findings and POC Manual Therapy: (24 minutes) supine: MFR to right shoulder, Myofascial Release, Muscle Energy Technique, Neural Mobilization, Myofascial Cupping, Dry Needling, IASTM, and Scar mobilization Therapeutic Exercise: (16 minutes) exercises in grid; Strength, Endurance, Flexibility, ROM, HEP, Neural Mobilization, Power, and Core Stability Therapeutic Activity: Exercises to improve dynamic activities, functional tasks, functional mobility to return to prior activity level Neuromuscular re-education: Balance Training, Muscle Facilitation, Dynamic Stability, Core Stabilization, and Blood Flow Restriction Training (BFRT) Modalities: (minutes) prone: IFC with MHP to lumbar spine; Heat, Ice, Electrical Stimulation, Ultrasound, Cervical Mechanical Traction, Lumbar Mechanical Traction, Iontophoresis, and Fluidotherapy DN: right shoulder, 4x needles with 10 minute rest. held Assessment: Pt. Has participated in 6 PT session with start of POC on 07/14/24 for piriformis muscle tightness.Pt. Will benefit from skilled PT services. Pt. Has met all PT goals and will be discharged/hold. Pt. Was instructed to call our office if he has questions. Outcome Measure: in chart Short Term Goal: To be met in 2 weeks Goal 1: Pt to be instructed in home exercise program. Twister Doffer Goals: To be met in 10 weeks Goal 1: Pt to report independence and compliance with home program. MET Goal 2: Pt. Will report of 0/10 right piriformis muscle pain while performing daily tasks. MET Goal 3: Pt. Will demonstrate normal piriformis muscle flexibility to help decrease pain. MET Goal 4: Pt. Will demonstrate 5/5 right lateral hip strength to help decrease pain. MET Plan: Pt. Will be placed on hold for up to 30 days. Pt. Is compliant with HEP. Pt will benefit from skilled PT for 1-2x/week from 07/14/24 to 09/22/24 to address the above impairments. I hereby deem this POC medically necessary. Please sign below. Date: documented in this encounterUniversity [id number] Telephone encounter Note* Telephone Encounter - Chavokurt Steve - 08/23/2024 1:34 PM EDT Jacy called asking about an MRI on his shoulder - or x-ray . He thought Radha was ordering one of them but hasn't heard anything . Please call Inés and let her know - [phone] University [id number] Miscellaneous Notes* Telephone Encounter - Chavo Power - 08/23/2024 1:34 PM EDT Jacy called asking about an MRI on his shoulder - or x-ray . He thought Radha was ordering one of them but hasn't heard anything . Please call Inés and let her know - [phone] * Telephone Encounter - Lidia Perez LPN - 08/23/2024 10:12 AM EDT I called pt left message to return call to clarify if pt is compliant with his rosuvastatin. * Telephone Encounter - Michell You - 08/21/2024 10:58 AM EDT Pt is calling, he said he thinks his meds are having interactions so he is stopping them and would like someone to call him Friday to discuss. documented in this encounterUniversity [id number] Telephone encounter Note* Telephone Encounter - Lidia Perez LPN - 08/23/2024 10:12 AM EDT I called pt left message to return call to clarify if pt is compliant with his rosuvastatin. University [id number] Telephone encounter Note* Telephone Encounter - Michell You - 08/21/2024 10:58 AM EDT Pt is calling, he said he thinks his meds are having interactions so he is stopping them and would like someone to call him Friday to discuss. NOMS [id number] History of Present illness Narrative* Marielena Herrera NP - 08/20/2024 1:30 PM EDT Images from the original note were not included. Subjective Patient ID: Jacy Navarro is a 89 y.o. male who presents for Follow-up (Pt is going to PT for his shoulder and it is feeling better, but pain is not resolved. ). HPI: As above. Shoulder has been bothering him for 2 months. Going to PT in [place] weekly, and it isgetting better. Pain 1-2 10. Using band at home. Using Georgette-heat therapy patch. Backed off on golfing r/t issue. Also doing stretches for buttocks, and goes to [employer] 3 times a week. Appetite is good. Bowels 4 times today. Taking Metamucil and Sulfasalazine per GI Dr Farah. Just saw him and he ordered lab and did stool sample-took it to [facility]- last week, but has not heard anything about results yet. Stools are better ie firm now. Not sure of when to F/U with GI-I enc pt/ to call to check on that. Saw Dr Macie Patel yesterday and per he increased some meds. She feels memory is worse and pt gets irritable. Pt feels issue is with short term memory,intermediate is fine. Dr Patel started Seroquel, F/U 3 months. Pt is taking Tylenol PM, rare plain Tylenol during the day. Uses Cortisone 10 and Calspray to head r/t it itches. Last Cardiology appt I see was 12/16/22.Pt/ unsure when he saw Vascular last Review of Systems Constitutional: Positive for activity change. Negative for appetite change, chills, fatigue and fever. HENT: Positive for congestion. Negative for postnasal drip and sinus pressure. Usual fuzzy feeling. Taking Nyquil Kids Cough and cold-it has Chlorpheneiramine maleate, Dextromethorphan in it Respiratory: Negative for chest tightness and shortness of breath. Cardiovascular: Negative for chest pain and leg swelling. Gastrointestinal: Negative for abdominal pain and constipation. Bowels moving well Genitourinary: Negative for difficulty urinating and dysuria. Musculoskeletal: Positive for arthralgias (R carolin-from golfing-uses Voltaren gel). See HPI. Has seen Saul Whitaker in the past-enc to call him for appt if needed Skin: Negative for rash (xkrwpfci-hfhqvrv-uxmnn Cortisone-10). Has not seen Derm for awhile, enc F/U Neurological: Negative for headaches. Usual fuzzy feeling in head Psychiatric/Behavioral: Sleep interupted by pain if lays on right side 11/11/2023 10:11 AM 11/17/2023 11:02 AM 01/06/2024 2:53 PM 03/01/2024 8:33 AM 07/07/2024 8:36 AM 08/19/2024 7:49 AM 08/20/2024 1:41 PM Vitals BMI 26.81 kg/m2 27.06 kg/m2 27.73 kg/m2 27.53 kg/m2 27.7 kg/m2 27.62 kg/m2 27.62 kg/m2 BSA (m2) 2.09 m2 2.1 m2 2.13 m2 2.12 m2 2.12 m2 2.12 m2 2.12 m2 Systolic 124 122 120 128 124 110 130 Diastolic 72 68 64 70 70 60 66 Heart Rate 76 86 76 76 72 SpO2 96 % Height (in) 5' 11 5' 11 Weight (lb) 192.2 194 198.8 197.4 198.6 198 198 Visit Report Report Report Report Report Report [...] rhinorrhea. Mouth/Throat: Mouth: Mucous membranes are moist. Pharynx: Oropharynx is clear. No posterior oropharyngeal erythema. Eyes: Extraocular Movements: Extraocular movements intact. Conjunctiva/sclera: Conjunctivae normal. Cardiovascular: Rate and Rhythm: Normal rate and regular rhythm. Heart sounds: No murmur heard. Comments: No edema Pulmonary: Effort: No respiratory distress. Breath sounds: Normal breath sounds. No wheezing or rales. Comments: No cough during appt Abdominal: General: There is no distension. Palpations: Abdomen is soft. Musculoskeletal: General: No swelling. Cervical back: Neck supple. Comments: Normal gait. Skin: General: Skin is warm and dry. Coloration: Skin is not jaundiced or pale. Comments: I do not see any rash or lesions on head. Discussed could try Head and shoulders, he is also using OTC products. Reminded pt/ he has Ketoconazole shampoo Rx Neurological: Mental Status: He is alert and oriented to person, place, and time. Mental status is at baseline. Psychiatric: Comments: Cooperative, well groomed. Occ gets up out of seat, repeats self, here with today I have reviewed and reconciled the history and medication list with the patient today. Assessment/Plan Diagnoses and all orders for this visit: Primary hypertension (CMS/HCC): Controlled Iliac artery aneurysm, left (CMS/HCC): Pt had U/S 08/13/24-stable. I gave pt/ copies of reports.He is unsure of when he saw Vascular last. I enc F/U appt, but he states not sure if he will go back, not sure he would do OR at his age. Since we did imaging-doesn't feel he needs to go right now. Ienc him to at least F/U with Cardiology. PVU and Abdominal aortic aneurysm (AAA) without rupture, unspecified part (CMS/HCC): See above Peripheral arterial disease (CMS/HCC): See above Malignant neoplasm of prostate (CMS/HCC) Hyperlipidemia, unspecified hyperlipidemia type (CMS/HCC) Reactive depression (CMS/HCC): Denies depression, but frustrated with getting older Atherosclerosis of aorta (CMS/HCC): See above . On statin Occlusion and stenosis of bilateral carotid arteries: Pt had U/S 08/02/14-no significant stenosis Mild left ventricular hypertrophy: Sees Cardiology. Enc them to call for an appt soon Gastroesophageal reflux disease, unspecified whether esophagitis present Comments: Denies GERD Amnestic 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): Seeing Dr Patel Pulmonary nodule: Last CT of chest 08/28/22. 2/8 mm noncalcified nodule RLL. I had ordered CT in June, but per criteria no routine F/U needed, so CT Cancelled Right bundle branch block: Sees Cardiology Vertigo: Per pt fuzzy feeling in head. He is seeing Neurology. F/U pr/ prefer 6 months for HTN/recheck, sooner if concerns. documented in this encounterUniversity [id number] Telephone encounter Note* Telephone Encounter - GILMA Herr - 08/20/2024 10:59 AM EDT HAP: Both hearing aids were dropped off in [place] office, stating they were not working. Na brought them over to me in the [place] office to look at them. Occlusive wax present in domes/wax guards.This was changed and aids were placed on our prescription eyeglass maker. Aids appear to be working well post cleaning.Will contact pt for warehouse order picker and verify warehouse order picker location. LM on patient's machine. Will plan to give aids to Na to take with her to [place] for FridayAugust 23. [facility] Work Phone: [phone] 888-623405-30-2025 Miscellaneous Notes* Telephone Encounter - GILMA Herr - 08/20/2024 10:59 AM EDT HAP: Both hearing aids were dropped off in [place] office, stating they were not working. Na brought them over to me in the [place] office to look at them. Occlusive wax present in domes/wax guards.This was changed and aids were placed on our prescription eyeglass maker. Aids appear to be working well post cleaning.Will contact pt for warehouse order picker and verify warehouse order picker location. LM on patient's machine. Will plan to give aids to Na to take with her to [place] for FridayAugust 23. documented in this encounterUniversity [id number] History of Present illness Narrative* Macie Patel MD - 08/19/2024 8:00 AM EDT Images from the original note were not included. CHIEF COMPLAINT REASON FOR VISIT: Follow up for memory loss HPI: Jacy Navarro is a 89 y.o. male who presents for a follow up for memory. He is present with . Per memory has gotten much worse and he is very irritable. Patient states he is trying to stay out of trouble. He states he works out 4 days a week. He states he usually sleeps well. But did not sleep well last night for some reason. He states that appetite is good. He is wanting to know if there is anything he can stop mediation vernon as his memory seems to be a little more fuzzy. He states he takes tylenol pm prn to help with sleep and once in a while for pain. States he does notice short-term memory loss being a little worse. He states he has drove and no issues with getting lost. He states he has drove to [facility] and [place]. He admits he is a little more irritable. I did inform him Dr. Patel called in Seroquel yesterday that can help with sleep and mood. They stated he has to go pick it up that they just got call from pharmacy. Denies any other concerns. CURRENT MEDICATIONS: ALLERGIES/DISCONTINUE MEDICATIONS Current Outpatient Medications Medication Instructions acetaminophen (TYLENOL) 650 mg, Every 6 hours PRN amLODIPine (NORVASC) 5 mg, Oral, Daily azelastine (Astelin) 0.1 % nasal spray 1 [...] tablet, Daily RT NON FORMULARY Prostate vitamin QUEtiapine (SEROQUEL) 12.5 mg, Oral, Nightly rosuvastatin (CRESTOR) 5 mg, Oral, Daily sulfaSALAzine (AZULFIDINE) 1,000 mg, 2 times daily No Known Allergies There are no discontinued medications. PAST MEDICAL HISTORY: SURGICAL/SOCIAL/FAMILY HISTORY DEPRESSION SCREEN: Past Medical History: Diagnosis Date A-fib ([facility]) Acute hypoxic respiratory failure ([facility]) 11/02/2023 Acute maxillary sinusitis 11/06/2022 Backache 10/27/2023 Blepharitis of upper and lower eyelids of both eyes 09/03/2022 Calculus of kidney 03/14/2022 Cataract COVID-19 11/02/2023 Diverticulosis Hypercholesteremia ([facility]) Hypertension ([facility]) long term 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 07/02/2018 Paroxysmal atrial fibrillation ([facility]) 06/10/2018 Prostate cancer ([facility]) Right knee pain 10/27/2023 Unsteadiness on feet 10/27/2023 Past Surgical History: Procedure Laterality Date CATARACT EXTRACTION COLONOSCOPY 09/19/[address] ANGIOGRAM ABDOMEN PELVIS 05/30/2021 CT ANGIOGRAM ABDOMEN PELVIS 05/30/2021 Social History Tobacco Use Smoking status: Never Passive exposure: Past Smokeless tobacco: Never Vaping Use Vaping status: Never Used Substance Use Topics Alcohol use: Yes Alcohol/week: 0.0 - 1.0 standard drinks of alcohol Drug use: Never Family History Problem Relation Name Age of Onset Cataracts Sister Heart attack Niece/Nephew Depression: Not at risk (03/01/2024) PHQ-2 PHQ-2 Score: 0 REVIEW OF SYMPTOMS: Review of Systems Constitutional: Negative for chills, diaphoresis, fatigue and fever. HENT: Negative for ear pain, tinnitus and trouble swallowing. Eyes: Negative for photophobia and visual disturbance. Respiratory: Negative for cough and shortness of breath. Cardiovascular: Negative for palpitations and leg swelling. Gastrointestinal: Negative for abdominal pain and nausea. Genitourinary: Negative for difficulty urinating and urgency. Musculoskeletal: Negative for arthralgias, back pain, myalgias, neck pain and neck stiffness. Neurological: Negative for tremors, weakness, light-headedness and numbness. Psychiatric/Behavioral: Positive for agitation, confusion and decreased concentration. Negative forsuicidal ideas. OBJECTIVE: 08/19/24-WT-198 lbs BP 110/60 08/19/2024 7:49 AM 07/07/2024 8:36 AM 03/01/2024 8:33 AM Vitals BMI 27.62 kg/m2 27.7 kg/m2 27.53 kg/m2 BSA (m2) 2.12 m2 2.12 m2 2.12 m2 Systolic 124 128 Diastolic 70 70 Heart Rate 76 76 Height (in) 5' 11 5' 11 Weight (lb) 198 198.6 197.4 Visit Report Report Report Report EXAM: Neurological Exam Mental Status Awake, alert and oriented to person, place and time. Oriented to person, place and time. Recent andremote memory are intact. Speech is normal. Language is fluent with no aphasia. Attention and concentration are normal. Cranial Nerves CN II: Visual acuity is [...] reflexes: Francoise's absent. Ankle clonus absent. Coordination Cmgxdy-ys-kqnu, rapid alternating movements and knmw-zj-hxhg normal bilaterally without dysmetria. Gait Normal casual, toe, heel and tandem gait. Romberg is absent. PROCEDURE: NONE ASSESSMENT AND PLAN: Jacy Navarro is a 89 y.o. male who presents with cognitive difficulty possibly due to a neurodegenerative process such as Alzheimer's disease or vascular dementia. Other considerations would be pseudodementia secondary to depression or an underlying sleep disorder. Diagnoses and all orders for this visit: MCI (mild cognitive impairment) with memory loss Age-related cognitive decline Increase donepezil 10 mg BID-to help treat memory loss and confusion It works by improving attention, memory, and the ability to engage in daily activities. Increase memantine 10 mg BID-primarily used to treat moderate to severe Alzheimer s disease. It works by regulating the activity of glutamate, a neurotransmitter involved in learning and memory. In Alzheimer s, excessive glutamate can overstimulate nerve cells, leading to damage. Namenda helps prote ct nerve cells by blocking NMDA receptors, which are activated by glutamate, potentially improving cognitive function and slowing the progression of symptoms in some patients. It is often used in combination with other Alzheimer s medications, like cholinesterase inhibitors. Start Seroquel 25 mg-Take 0.5 tablets (12.5 mg) by mouth at bedtime to help mood and sleep. Needs MOCA at next visit. I counseled the patient on the possible side effects and interactions of medications. Total time 30 minutes spent reviewing records, performing medically appropriate exam, counseling , education, ordering medication, tests, and/or procedures, documenting health information into the health record, communicating results to the patient, and coordinating care. Follow up 3 months. This note was scribed by RICHARD Ruiz acting under the direction of Macie Patel MD. The content has been reviewed and confirmed for accuracy by Macie Patel MD documented in this encounterUniversity [id number] History of Present illness Narrative* Shraddha Wolf, PT - 08/18/2024 8:00 AM EDT Images from the original note were not included. Physical Therapy Treatment Visit Patient Name: Jacy Navarro Today's Date: 08/18/2024 Encounter Diagnoses Name Primary? Piriformis syndrome of right side Yes Pain in right buttock Acute bilateral low back pain without sciatica Visit number: 5 Timed Code Treatment Minutes: 40 minutes Total Treatment Time: 50 minutes Time In: 0750 Time Out: 0840 History: Pt. Presents to PT with c/c right piriformis syndrome which started 2 months ago. No LEONIDAS. Pt. Reports of increased pain at night. Denies N/T. Pt. Reports he works out 4x per week. Precautions: as tolerated Subjective: Pt. Reports his buttock pain is feeling better. Pt is having increased right shoulder pain which is affecting his quality of life. Pain: 0/10 sacrum pain, 7/10 right shoulder pain. Objective: PT Evaluation (07/14/24) Lumbar ROM: WFL Hip ROM: decreased hip ER/IR Flexibility: moderate - piriformis muscle tightness, normal hamstring Strength: core 5/5, lateral hip 4/5, extension 4+/5 Palpation: TTP piriformis at sacrum Shoulder: Right shoulder AROM: flexion 150 deg with pain, abduction 150 degrees with pain Right shoulder strength: grossly 4/5 in all planes TTP: right posterior capular/AC joint Impingement syndrome Treatment: PT evaluation Education: HEP education with demonstration, Educated on Eval Findings and POC Manual Therapy: (24 minutes) supine: MFR to right shoulder, Myofascial Release, Muscle Energy Technique, Neural Mobilization, Myofascial Cupping, Dry Needling, IASTM, and Scar mobilization Therapeutic Exercise: (16 minutes) exercises in grid; Strength, Endurance, Flexibility, ROM, HEP, Neural Mobilization, Power, and Core Stability Therapeutic Activity: Exercises to improve dynamic activities, functional tasks, functional mobility to return to prior activity level Neuromuscular re-education: Balance Training, Muscle Facilitation, Dynamic Stability, Core Stabilization, and Blood Flow Restriction Training (BFRT) Modalities: (minutes) prone: IFC with MHP to lumbar spine; Heat, Ice, Electrical Stimulation, Ultrasound, Cervical Mechanical Traction, Lumbar Mechanical Traction, Iontophoresis, and Fluidotherapy DN: right shoulder, 4x needles with 10 minute rest. held Assessment: Pt. Has participated in 5 PT session with start of POC on 07/14/24 for piriformis muscle tightness.Pt. Will benefit from skilled PT services. Performed manual techniques to right shoulder to help decrease pain. Added band scapular exercises to HEP and POC today. Pt. Is having right shoulder impingement syndrome affecting his quality of life. Outcome Measure: in chart Short Term Goal: To be met in 2 weeks Goal 1: Pt to be instructed in home exercise program. Twister Doffer Goals: To be met in 10 weeks [...] Please sign below. Date: documented in this encounterUniversity [id number] History of Present illness Narrative* Shraddha Wolf, PT - 08/10/2024 9:30 AM EDT Images from the original note were not included. Physical Therapy Treatment Visit Patient Name: Jacy Navarro Today's Date: 08/10/2024 Encounter Diagnoses Name Primary? [...] to be instructed in home exercise program. Twister Doffer Goals: To be met in 10 weeks [...] Please sign below. Date: documented in this encounterUniversity [id number] History of Present illness Narrative* Shraddha Wolf, PT - 08/02/2024 8:30 AM EDT Images from the original note were not included. Physical Therapy Evaluation Visit Patient Name: Jacy Navarro Today's Date: 08/02/2024 Encounter Diagnoses Name Primary? [...] limiting his ability to play golf. Pain: 310 Objective: PT Evaluation (07/14/24) Lumbar ROM: WFL [...] Please sign below. Date: documented in this encounterUniversity [id number] Telephone encounter Note* Telephone Encounter - Marielena Herrera NP - [...] him and let us know. Inés thinks ruth annis due for an appt, I looked at her chart and her last appt was in Jan so she was due in June. Elaine call to set up an appt soon for herself University [id number] Miscellaneous Notes* Telephone Encounter - Marielena Herrera NP - 07/28/2024 6:15 PM EDT I tried to call pt and LM for pt that CT of chest was denied r/t nodule was small ie 2.[address] done09/13 -so per guideline no routine F/U needed. Will cancel CT. I then called his Inés to alessandraher. Pt does have open order for carotid U/S for him to do. I asked her if he has been back to Cardiology or Vascular, she didn't think he has, She said she is not sure he will do the U/S and not sure that he wants to go back to the specialists. She will talk to him and let us know. Inés thinks ruth annis due for an appt, I looked at [...] EDT CT of chest documented in this encounterUniversity [id number] Telephone encounter Note* Telephone Encounter - Maren Gibson MA - 07/23/2024 1:15 PM EDT In looking into this, the denial was based on the size of pt's nodule, and per the guidelines, it was too small to warrant a follow up. I spoke to Radha about this. University [id number] History of Present illness Narrative* Shraddha Wolf, PT - 07/22/2024 11:00 AM EDT Images from the original note were not included. Physical Therapy Evaluation Visit Patient Name: Jacy Navarro Today's Date: 07/22/2024 Encounter Diagnoses Name Primary? [...] with HEP. Pain: 0/10 Objective: PT Evaluation (04/23/25) Lumbar ROM: WFL Hip ROM: decreased hip [...] tightness.Pt. Will benefit from skilled PT services. Pt. [...] Please sign below. Date: documented in this [facility]04-30-2025 Telephone encounter Note* Telephone Encounter - Marielena Herrera NP - 07/21/2024 5:[address] of chest University HospitalJbsrieppcp80-07-1343 Telephone encounter Note* Telephone Encounter - Marielena Herrera NP - 07/19/2024 8:03 AM EDT Rx sent [place] [id number] Miscellaneous Notes* Telephone Encounter - Marielena Herrera NP - 07/19/2024 8:03 AM EDT Rx sent documented in this [facility]04-23-2025 History of Present illness Narrative* Shraddha Wolf, PT - 07/14/2024 3:00 PM EDT Images from the original note were not included. Physical Therapy Evaluation Visit Patient Name: Jacy Navarro Today's Date: 07/14/2024 Encounter Diagnoses Name Primary? [...] tightness.Pt. Will benefit from skilled PT services. Outcome Measure: in chart Short Term Goal: To be met in 2 weeks Goal 1: Pt to be instructed in home exercise program. Twister Doffer Goals: To be met in 10 weeks [...] Please sign below. Date: documented in this [address]17-2025 Telephone encounter Note* Telephone Encounter - Angela Yung - 07/08/2024 12:07 PM EDT Scheduled PT Eval 07/14/24 w/ Shraddha Wolf, PT. [address]Rtvqzqspse93-01-5257 Miscellaneous Notes* Telephone Encounter - Angela Yung - 07/08/2024 12:07 PM EDT Scheduled PT Eval 07/14/24 w/ Shraddha Wolf, PT. * Telephone Encounter - Angela Yung - 07/08/2024 11:40 AM EDT Tried to contact to schedule PT Eval for Piriformis syndrome of right side and Pain in right buttock; had to lm requesting a call back. documented in this [place] [id number] Telephone encounter Note* Telephone Encounter - Angela Yung - 07/08/2024 11:40 AM EDT Tried to contact to schedule PT Eval for Piriformis syndrome of right side and Pain in right buttock; had to lm requesting a call back. [place] [id number] History of Present illness Narrative* Marielena Herrera, HEART NURSE - 07/07/2024 9:00 AM EDT Images from the original note were not included. Subjective Patient ID: Jacy Navarro is a 89 y.o. male who presents for sciatica pain (Right side). HPI: Pt is having pain in right mid butt area , comes and goes, non radiating. Rates pain at 5/10 when flared. Pain has been present for approximate 1 year- still doing exercises he got from PT that he was given 1 year ago, Does workout 3 x per week at [employer] and plays golf once a week. Ptis taking Motrin 400 mg daily, and 2 Tylenol PM also to help sleep. Also has discomfort Sore in Rheel -07/01, using Voltaren gel relieves pain. Irritation on [...] gel). See HPI Skin: Negative for rash (xsqnfdjc-ciyrkmh-lwstb Cortisone-10). Has not seen Derm for awhile, [...] to call for appt Peripheral arterial disease (CMS/HCC): Enc F/U with vascular Hyperlipidemia, unspecified hyperlipidemia [...] or ice patches, rubs ie Tereso Blake, [place] Ava, Biofreeze, [place]an patches. Pt would like referral to [facility] in [place] Amnestic 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): Pt sees Dr Patel Neurlogy, has appt 08/19/24-enc to keep appt Pulmonary nodule: Last CT of chest 2022-pt agreeable to repeating it. Order put it. Pt will do all testing at [facility]. Dizziness Advanced Age F/U PRN if symptoms worsen or fail to improve. PVU documented in this encounterUniversity [id number] Telephone encounter Note* Telephone Encounter - Clemencia Carson - 05/24/2024 1:34 PM EST Patient calling to let you know that Abhijit went to the ER in [place] 3 days ago for shallow breathing. They took labs and chest xray. He feels perfectly fine today. She just wanted to speak with you. They will be home June 22. Inés [phone]. Thank you. University [id number] Miscellaneous Notes* Telephone Encounter - Clemencia Carson - 05/24/2024 1:34 PM EST Patient calling to let you know that Abhijit went to the ER in [place] 3 days ago for shallow breathing. They took labs and chest xray. He feels perfectly fine today. She just wanted to speak with you. They will be home June 22. Inés [phone]. Thank you. documented in this encounterUniversity [id number] History of Present illness Narrative* Skye Dyson, KATHARINE - 03/01/2024 8:30 AM EST Images from the original note were not included. Jacy Navarro is a 88 y.o. male presents with [...] myalgias (bilateral buttocks). Pertinent negatives include no abdominalpain, chest pain, congestion, coughing, fatigue, fever, nausea, rash or sore throat. Constipation Associated symptoms include back pain. Pertinent negatives include no abdominal pain, diarrhea, fever or nausea. As above. He follows with neurology, has seen ENT and ortho, and cardiology. He states he sees Dr. Graves an Amad for GI too but it's been a while. He has seen PT and has in home stretches to do for his muscle pain and back. He states he gets fuzzy in his head when he takes his medicine. He states he is using his Flonase 5+ times a day for his sinus problems. He is leaving for [place] in March. He sees the dentist regularly [...] History: Past Medical History: Diagnosis Date A-fib ([facility]) Acute hypoxic respiratory failure ([facility]/HCC) 11/02/2023 Cataract Diverticulosis Hypercholesteremia ([facility]/HCC) Hypertension ([facility]/HCC) long term 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 07/02/2018 Paroxysmal atrial fibrillation ([facility]/HCC) 06/10/2018 Prostate cancer ([facility]) Past Surgical History: Procedure Laterality Date CATARACT [...] Resource Strain: Low Risk (11/06/2022) Received from [facility], [facility] Overall Financial Resource Strain (CARDIA) Difficulty of Paying Living Expenses: Not hard at all Food Insecurity: No Food Insecurity (02/28/2024) Received from [facility] Hunger Screening Within the past 12 months we worried whether our food would run out before we got money to buy more.: Never True Within the past 12 months the food we bought just didn't last and we didn't have money to get more.: Never True Transportation Needs: No Transportation Needs (11/02/2023) Received from [facility] PRAPARE - Transportation Lack of Transportation (Medical): No Lack of Transportation (Non-Medical): No Physical Activity: Sufficiently Active (11/06/2022) Received from [facility], [facility] Exercise Vital Sign Days of Exercise per Week: 3 days Minutes of Exercise per Session: 90 min Stress: No Stress Concern Present (11/06/2022) Received from [facility], [facility] [place] [employer] - Occupational Stress Questionnaire Feeling of Stress : Not at all Social Connections: Socially Integrated (11/06/2022) Received from [facility], [facility] Social Connection and Isolation Panel [NHANES] Frequency of Communication with Friends and Family: Three times a week Frequency of Social Gatherings with Friends and Family: Three times a week Attends Anglican Services: More than 4 times per year Active Member of Clubs or Organizations: Yes Attends Club or Organization Meetings: More than 4 times per year Marital Status: Intimate Partner Violence: Not on file Housing Stability: Low Risk (11/02/2023) Received from [employer] Housing Instability Are you worried or concerned [...] rhinorrhea. Negative for congestion, ear discharge, ear pain,sinus pressure, sinus pain, sneezing, sore throat and [...] with things like his sinuses and his musclepain. He is impulsive with his actions as [...] behavioral, psychotic, or mood disturbance or anxiety ([facility]/HCC) Follows with neurology. Treated with Namenda and Aricept. He was recently started on Namendsa 5 mg twice daily. He follows with neurology Mar 29. Iliac artery aneurysm, left ([facility]/HCC) Was referred to vascular, has never followed up. Peripheral arterial disease ([facility]/HCC) See above. Stable. Atherosclerosis of aorta ([facility]/HCC) See above. Will check labs including lipid panel. Primary hypertension ([facility]/HCC) Controlled on current medication regimen. - CBC and differential; Future - Comprehensive metabolic panel; Future Ulcerative proctitis with complication ([facility]) Discussed following up with GI. He has stopped his sulfalazine. Discussed restarting it 1 twice a day and following up with GI. - PSA; Future Malignant neoplasm of prostate ([facility]) Will check PSA. 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 Hyperlipidemia, unspecified hyperlipidemia type ([facility]) Will check labs. Discussed diet. With his mental status and alzheimer's, it is difficult for him tounderstand and retain information. - Lipid panel; Future Right bundle branch block Follows with cardiology. Due for an appointment Hemorrhoids, unspecified hemorrhoid type Stable. Last scope was in September this year. Mild left ventricular hypertrophy Follows with cardiology. Due for an appointment. Abdominal aortic aneurysm (AAA) without rupture, unspecified part ([facility]) Has not followed up with vascular. On [...] Flonase 5+times a day. Was recently started onNemenda per neuro. Sees them in Mar. Piriformis syndrome of right side Following with ortho. Stress at home Discussed his stress and his and kids want them to move to [place] closer to them. States they are selling their condo in [place] and their home in [place]. Malignant neoplasm of skin Hypokalemia K+ was [...] another family member accompany him as his comprehensionand memory is too impaired to do an appointment alone. He cannot remember doctors, appointments, medical dx, etc. documented in this encounterNOEastern Missouri State [id number] Telephone encounter Note* Telephone Encounter - Marielena Herrera NP - 01/31/2024 8:52 AM EST Rx sent [facility] [id number] Miscellaneous Notes* Telephone Encounter - Marielena Herrera NP - 01/31/2024 8:52 AM EST Rx sent documented in this encounterUniversity [id number] History of Present illness Narrative* Macie Patel MD - 01/26/2024 9:00 AM EST Images from the original note were not included. CHIEF COMPLAINT REASON FOR VISIT : Follow up HPI: Jacy Navarro is a 88 y.o. male who presents for memory loss. He presents to appointment with . They are having to make list due to short memory loss. He has hearing aids but does not wear them.Family notices behavior changes and agitation. He gets [...] SCREEN: Past Medical History: Diagnosis Date A-fib ([facility]) Acute hypoxic respiratory failure ([facility]) 11/02/2023 Cataract Diverticulosis Hypercholesteremia ([facility]/HCC) Hypertension ([facility]) long term 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 07/02/2018 Paroxysmal atrial fibrillation ([facility]) 06/10/2018 Prostate cancer ([facility]) Past Surgical History: Procedure Laterality Date CATARACT [...] Depression: Not at risk (11/06/2022) Received from [facility], [facility] PHQ-2 Total Score: 0 REVIEW OF SYMPTOMS: [...] reflexes: Francoise's absent. Ankle clonus absent. Coordination Pgdatl-tw-zbwg, rapid alternating movements and kxek-lj-gsng normal bilaterally without dysmetria. Gait Normal casual, toe, heel and tandem gait. Romberg is absent. PROCEDURE: NONE ASSESSMENT AND PLAN: Diagnoses and all orders for this visit: Alzheimer's dementia, unspecified dementia severity, unspecified timing of dementia onset, unspecified whether behavioral, psychotic, or mood disturbance or anxiety ([facility]): -Continue Aricept 10 at bedtime -Added Namenda 5 mg po BID will increase to 10 mg po BID. -I will order neuropsychiatric testing as this is essential for a patient with cognitive impairmentto objectively assess the severity and nature of [...] and interactions of medications. documented in this encounterUniversity [id number] Telephone encounter Note* Telephone Encounter - Marielena Herrera NP - 01/12/2024 1:03 PM EDT Rx sent University [id number] Miscellaneous Notes* Telephone Encounter - Marielena Herrera NP - 01/12/2024 1:03 PM EDT Rx sent documented in this encounterUniversity [id number] History of Present illness Narrative* Marielena Herrera NP - 01/06/2024 3:00 PM EDT Images from the original note were not included. Subjective Patient ID: Jacy Navarro is a 88 y.o. male who presents for ER Follow-up (SOB). ER Follow-up Associated symptoms include fatigue and headaches. Pertinent negatives include no abdominal pain, chest pain, chills, coughing or fever. HPI: Friday went to get out of bed, felt like crap . Couldn't get a deep breath/SOB, positive leftsided chest pain. No cough. No fever or chills. No headache Went to the ER. Had been working in yard with son trimming [employer], does not recall any injury. Pox 95-97% in ER. Flu and covid neg. EKG and CXR were done. They thought pt was anxious. Pt uses heating pad occ , no rub to chest. Pt is feeling better today. Sees Dr Jazmin TARANGO and he put him on medication (Sulfasalazine). Dizzy all the time,saw Dr Patel. They added Memantidine HCL 5mg 2 Am and in 1 PM. [place] foggy, so was told could just take 1 at HS for 1 week then go to the dose he suggested. Also on Donipezil 10mg. Had headache the oth er night posterior, now ok. Review of Systems [...] Likes to travel, wants to go [facility] and [facility], doesn't want to go- that upsets me . Plansto drive to [place] by himself. We discussed this is not a good idea, he may get tired, mixed up on the route. Enc him to have someone go with him if he goes ie one of his children or a friend. Familywants pt/ to move closer to them. Objective [...] status is at baseline. Comments: Oritented to [facility], year 2023, president Rosa, Her with first [...] Skye in Dec. Do not eat that morning,so lab that is due can be done documented in this encounterUniversity [id number] History of Present illness Narrative* Macie Patel MD - 11/17/2023 11:00 AM EDT Images from the original note were not included. CHIEF COMPLAINT REASON FOR VISIT : Consultation for Memory Loss HPI: Jacy Navarro is a 88 y.o. male who presents [...] 2 times daily, Use in each nostril asdirected donepezil (ARICEPT) 10 mg, Oral, Nightly fluticasone [...] SCREEN: Past Medical History: Diagnosis Date A-fib ([facility]) Acute hypoxic respiratory failure ([facility]) 11/02/2023 Cataract Diverticulosis Hypercholesteremia ([facility]) Hypertension ([facility]) long-term current use of anticoagulant therapy 07/02/2018 Paroxysmal atrial fibrillation ([facility]) 06/10/2018 Prostate cancer ([facility]) Past Surgical History: Procedure Laterality Date CATARACT [...] Depression: Not at risk (11/06/2022) Received from [facility], [facility] PHQ-2 Total Score: 0 REVIEW OF SYMPTOMS: [...] reflexes: Francoise's absent. Ankle clonus absent. Coordination Nlwago-et-hojg, rapid alternating movements and qlbb-ok-clqq normal bilaterally without dysmetria. Gait Normal casual, toe, heel and tandem gait. Romberg is absent. PROCEDURE: NONE ASSESSMENT AND PLAN: Diagnoses and all orders for this visit: MCI (mild cognitive impairment) with memory loss - memantine (Namenda) 5 MG tablet; Take 1 tablet (5 mg) by mouth in the morning and 1 tablet (5 mg)before bedtime. Memory loss - Ambulatory referral to Neurology Amnestic 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): Jacy Navarro is a 88 y.o. year old maler who presents with cognitive difficulty possibly due to aneurodegenerative process such as Alzheimer's disease or vascular [...] for behavior and memory documented in this encounterUniversity [id number] History of Present illness Narrative* Beatriz Carson MD - 11/11/2023 10:30 AM EDT Images from the original note were not included. Jacy Navarro is a 88 y.o. male presents with [...] 2 times daily, Use in each nostril asdirected donepezil (ARICEPT) 10 mg, Oral, Nightly fluticasone [...] History: Past Medical History: Diagnosis Date A-fib (CMS/HCC) Cataract Diverticulosis Hypercholesteremia (CMS/HCC) Hypertension ([facility]/HCC) long term 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 07/02/2018 Paroxysmal atrial fibrillation ([facility]/HCC) 06/10/2018 Prostate cancer ([facility]) Past Surgical History: Procedure Laterality Date CATARACT [...] Resource Strain: Low Risk (11/06/2022) Received from [facility], [facility] Overall Financial Resource Strain (CARDIA) Difficulty of Paying Living Expenses: Not hard at all Food Insecurity: No Food Insecurity (11/02/2023) Received from [facility] Hunger Screening Within the past 12 months we worried whether our food would run out before we got money to buy more.: Never True Within the past 12 months the food we bought just didn't last and we didn't have money to get more.: Never True Transportation Needs: No Transportation Needs (11/02/2023) Received from [facility] PRAPARE - Transportation Lack of Transportation (Medical): No Lack of Transportation (Non-Medical): No Physical Activity: Sufficiently Active (11/06/2022) Received from [facility], [facility] Exercise Vital Sign Days of Exercise per Week: 3 days Minutes of Exercise per Session: 90 min Stress: No Stress Concern Present (11/06/2022) Received from [facility], [employer] [facility] [place] [employer] - Occupational Stress Questionnaire Feeling of Stress : Not at all Social Connections: Socially Integrated (11/06/2022) Received from [facility], [facility] [facility] Social Connection and Isolation Panel [NHANES] Frequency of Communication with Friends and Family: Three times a week Frequency of Social Gatherings with Friends and Family: Three times a week Attends Anglican Services: More than 4 times per year Active Member of Clubs or Organizations: Yes Attends Club or Organization Meetings: More than 4 times per year Marital Status: Intimate Partner Violence: Not on file Housing Stability: Low Risk (11/02/2023) Received from [facility] [employer] Housing Instability Are you worried or concerned [...] 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 Patient reports controlled symptoms with sulfasalazine. Colonoscopy on 09/19/2023 showed colonic polyps(tubular adenomas), diverticulosis, internal hemorrhoids otherwise mucosa appeared normal. CRP and fecal calprotectin in 08/2023 were normal. 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 Patient reports controlled symptoms with sulfasalazine. Will evaluate disease activity, will check CRP fecal calprotectin arrange for colonoscopy. After testing will discuss with the patient the option to switch to mesalamine [facility] Work Phone: 1(388) 622-296812-22-2023 Miscellaneous Notes* Telephone Encounter - Rocio Norman CMA - 03/14/2023 8:58 AM EST Left message for patient to remind them to bring their most current medication list with them to their appointment. documented in this encounterBlanchard Valley Health System12-22-2023 Telephone encounter Note* Telephone Encounter - Rocio Norman CMA - 03/14/2023 8:58 AM EST Left message for patient to remind them to bring their most current medication list with them to their appointment. 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)Continue Sulfasalazine without change Follow up in 6 months [facility] Other 12-13-2022 Evaluation note* Encounter Date Diagnosis Assessment Notes Treatment Notes Treatment Clinical Notes Feb, History of diverticulosis (ICD-1 0 - Z87.19) Feb,Hemorrhoids (ICD-10 - K64.9) Feb,Nausea (ICD-10 - R11.0)START PRILOSEC OTC DAILY Feb,bdominal pain (ICD-10 - R10.9) Feb,iarrhea (ICD-10 - R19.7)PT TO DO 2 FLEET ENEMAS BEFORE ARRIVING AT [facility] FOR FLEX SIG [facility] Other 11-17-2022 Evaluation note* Encounter Date Diagnosis Assessment Notes Treatment Notes Treatment Clinical Notes Jan, Pectoralis muscle strain, initia l encounter (ICD-10 - S29.011A) Discussed diagnosis with [...] understanding and is agreeable to treatment plan Jan,therMuscle strain material was printed [facility] Other 09-07-2022 Evaluation note* Encounter Date Diagnosis Assessment Notes Treatment Notes Treatment Clinical Notes Nov, History of diverticulosis (ICD-1 0 - Z87.19) Nov,ectal bleeding (ICD-10 - K62.5) 07 Sep, 2022Hemorrhoids (ICD-10 - K64.9)patient has been using OTC medication to help this. recommended OTC recticare [facility] Other Evaluation noteNo assessment information available [facility] Work Phone: Evaluation note* Diagnosis SOB [...] psychotic, or mood disturbance or anxiety (CMS/HCC) Iliac artery aneurysm, left (CMS/HCC) Aneurysm of iliac artery Peripheral arterial disease (CMS/HCC) Unspecified peripheral vascular disease Atherosclerosis of aorta (CMS/HCC) Atherosclerosis of aorta Primary hypertension ([facility]/HCC) Unspecified essential hypertension Ulcerative proctitis with complication (CMS/HCC) Malignant neoplasm of prostate (CMS/HCC) Malignant neoplasm of prostate Lipoprotein deficiency disorder (CMS/HCC) Lipoprotein deficiencies Reactive depression (CMS/HCC) Hyperlipidemia, unspecified hyperlipidemia type (CMS/HCC) Right bundle [...] Acute bilateral low back pain without sciatica Acute pain of right shoulder [facility] Diagnosis Primary hypertension (CMS/HCC)- Primary Unspecified essential hypertension Iliac artery aneurysm, left (CMS/HCC) Aneurysm of iliac artery Abdominal aortic aneurysm (AAA) without rupture, unspecified part (CMS/HCC) Peripheral arterial disease (CMS/HCC) Unspecified peripheral vascular disease Malignant neoplasm of prostate (CMS/HCC) Malignant neoplasm of prostate Hyperlipidemia, unspecified hyperlipidemia type (CMS/HCC) Reactive depression (CMS/HCC) Atherosclerosis of aorta (CMS/HCC) Atherosclerosis of aorta 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 Gastroesophageal reflux disease, unspecified whether esophagitis present Amnestic 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) Mild cognitive impairment, so stated Pulmonary nodule Other diseases of lung, not elsewhere classified Right bundle branch block Vertigo Dizziness and giddiness documented in this encounter [facility]* Diagnosis Hyperlipidemia, unspecified hyperlipidemia type (CMS/HCC) documented [facility]* Diagnosis MCI (mild cognitive impairment) with memory loss Mild cognitive impairment, so stated Age-related cognitive decline Memory loss documented [facility]* Diagnosis Piriformis syndrome of right side- Primary Pain in right buttock Unspecified myalgia and myositis Acute bilateral low back pain without sciatica Acute pain of right shoulder [facility]* Diagnosis Acute pain of right shoulder- Primary Right shoulder pain, unspecified chronicity documented [facility] this [facility]* Diagnosis Chronic right shoulder pain- Primary Pain in joint, shoulder region Chronic bilateral low back pain with bilateral sciatica documented [facility]* Diagnosis Scalp pain- Primary Murmur Undiagnosed cardiac murmurs Alzheimer's dementia, unspecified dementia severity, unspecified timing of dementia onset, unspecified whether behavioral, psychotic, or mood disturbance or anxiety (HCC) Advanced age documented in this encounter [facility]* Diagnosis Alzheimer's dementia, unspecified dementia severity, unspecified timing of dementia onset, unspecified whether behavioral, psychotic, or mood disturbance or anxiety (HCC) Irritability Age-related cognitive decline Memory loss MCI (mild cognitive impairment) with memory loss Mild cognitive impairment, so stated [facility] Diagnosis Gluteal pain- Primary Ischial bursitis of right side documented in this encounter [facility]* Diagnosis Aspiration of foreign body, sequela- Primary [facility] Diagnosis Other chest pain- Primary Alzheimer's dementia, unspecified dementia severity, unspecified timing of dementia onset, unspecified whether behavioral, psychotic, or mood disturbance or anxiety (HCC) Anxiety Anxiety state, unspecified Advanced age Primary hypertension Unspecified essential hypertension 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, recurrent, mild Major depressive disorder, recurrent episode, mild Unspecified atrial fibrillation (HCC) Other chest pain documented in this encounter [facility] Author Yesy Jarquin [facility] September 19, 2023 1:17pmNote Date/TimeJune 2023 1:17[place] [address] Gastroenterology H&P Signed Patient: Jacy Navarro MR#: [id number] : 1935 Acct:[id number] Age/Sex: 88 / M Adm Date: 4 Loc: Room: Type: [facility] Attending Dr: Yesy Jarquin MD Copies to: MD Beatriz Finch MD~ Date of Service: 09/19/2023 HISTORY & PHYSICAL: Patient's history with special attention to the cardiovascular, pulmonary systems and the current problem was reviewed with the patient immediately prior to the procedure. Present medications and doses reviewed in the EMR. Allergies and pertinent laboratory tests were also re viewedat this time in the EMR. The physical [...] Jarquin M.D. Documented By: Yesy Jarquin MD 09/19/231316 Signed By: <Electronically signed by Yesy Jarquin MD> 09/19/23 [address] [facility] Work Phone: History general Narrative - Reported* Type Description Date Medical History prostate cancer Medical HistoryA flutterMedical HistoryhypercholesterolemiaMedical HistoryBrain cancerSurgical Historyprostate biopsyHospitalization Historysee above Hospitalization HistoryA fib [facility] Other InstructionsNot on filedocumented in this encounter [facility]Not on filedocumented in this encounter [facility] SystemInstructionsNot on filedocumented in this encounter [facility] SystemReason for referral (narrative)No reason for referral information availablePromedica [facility] Work Phone: Reason for visit NarrativeREFERRED BY MARIELENA HERRERA FOR HX OF DIVERTICULOSIS, (REFERRAL NOTE RECEIVED)[facility] Other Reason for visit Narrative* Consultation (Routine) - ClosedSpecialtyDiagnoses / ProceduresReferred By ContactReferred To Contact Neurology Diagnoses Memory loss Procedures [place] OFFICE/OUTPATIENT NEW [facility] MDM 60 MINUTES Beatriz Carson MD [address] [place] [address] Macie Patel MD [address] [facility] [facility] [address] [place] [address] Referral IDStatusReasonStart DateExpiration DateVisits RequestedVisits [id number] Specialty Services Required / [facility] HealthcareReason for visit Narrative* Rehabilitation - Outpatient (Routine) - AuthorizedSpecialtyDiagnoses / ProceduresReferred By ContactReferred To ContactPhysical Therapy Diagnoses Piriformis syndrome of right side Pain in right buttock Procedures [place] OFFICE/OUTPATIENT [facility] MDM 60 MINUTES Marielena Herrera NP [address] [place] [address] Phone: tel: fax: Shraddha Wolf, PT [address] [address] Phone: tel: fax: Referral IDStatusReasonStart DateExpiration DateVisits RequestedVisits [id number] Specialty Services Required / [facility] HealthcareReason for visit Narrative* Rehabilitation - Outpatient (Routine) - AuthorizedSpecialtyDiagnoses / ProceduresReferred By ContactReferred To ContactPhysical Therapy Diagnoses Piriformis syndrome of right side Pain in right buttock Procedures [place] OFFICE/OUTPATIENT [facility] MDM 60 MINUTES Marielena Herrera NP [address] [place] [address] Phone: tel: fax: Shraddha Wolf, PT [address] [address] Phone: tel: fax: Referral IDStatusReasonStart DateExpiration DateVisits RequestedVisits [id number] Specialty Services Required 999 [facility] HealthcareReason for visit Narrative* Rehabilitation - Outpatient (Routine) - AuthorizedSpecialtyDiagnoses / ProceduresReferred By ContactReferred To ContactPhysical Therapy Diagnoses Piriformis syndrome of right side Pain in right buttock Procedures [place] OFFICE/OUTPATIENT NEW [facility] MDM 60 MINUTES Marielena Herrera NP fax: Shraddha Wolf, PT [address] [address] Phone: tel: fax: Referral IDStatusLindseyStart DateExpiration DateVisits RequestedVisits [id number] Specialty Services Required [facility] Healthcare Summary Purpose Family History Unknown Family Member Name Dates Details : Mother, Father Status:ActiveFamily history of cardiac disorder: Mother(V17.49, Z82.49) Status:Active Relationship Condition Age at Onset Recorded Date/T dave father Dementia Unknown DeceasedUnknownNot SpecifiedDeceasedUnknown Relationship Condition Age at Onset Recorded Date/T dave father Dementia Unknown DeceasedUnknownmotherDeceasedUnknown Advance Directives Advance Directive Response Recorded Date/ Time Advance Directives No September 12 1:58pm Advance Directive Response Recorded Date/ Time Advance Directives No September 12 2:58pm Code StatusDate ActivatedDate InactivatedCommentsFull Code11/06/2022 11:46 AM 11/07/2022 5:30 PMDate ActivatedDate InactivatedComments11/03/2023 9:21 AM 11/04/2023 3:18 PMDate ActivatedDate InactivatedComments11/06/2022 11:46 AM 11/07/2022 5:30 PM Chief Complaint and Reason for Visit Chief Complaint abd pain, nausea, di arrhea Chief Complaint 1 YR FOLLOW UP-ULCER ATIVE PROCTOTIS k51.20Reason for VisitUlcerative proctitis Chief Complaint 1 YR FOLLOW UP-ULCER ATIVE PROCTOTIS k51.20 ulcerative proctitis ulcerative proctitisReason for VisitUlcerative proctitis Chief Complaint Admit Date Over do Follow up August 05, 2024 8:11a m Reason for Visit Admit Date Ulcerative proctitis August 05, 2024 8:11 am Chief Complaint Admit Date K51.20 November 24, 2024 8:59am Additional Source Comments (unrecognized sect ion and content) No Status Records FoundNo Status Records FoundNo Status Records FoundNo Status Records FoundNo Status Records FoundNo Status Records FoundNo Status Records FoundNo Status Records FoundNo Status Records Found INFORMATION SOURCE (unrecogn ized section and content) DATE CREATED AUTHOR 09/11/2017 [facility] DATE CREATED AUTHOR AUTHOR'S ORGANIZ ATION 02/12/2020 [facility] DATE CREATED AUTHOR AUTHOR'S ORGANIZ ATION 05/12/2021 [facility] DATE CREATED AUTHOR AUTHOR'S ORGANIZ ATION 08/18/2021 [facility] DATE CREATED AUTHOR AUTHOR'S ORGANIZ ATION 03/19/2023 [facility] DATE CREATED AUTHOR AUTHOR'S ORGANIZ ATION 11/28/2024 [facility] DATE CREATED AUTHOR AUTHOR'S ORGANIZ ATION 12/24/2024 [facility] DATE CREATED AUTHOR AUTHOR'S ORGANIZ ATION 12/25/2024 [facility] DATE CREATED AUTHOR AUTHOR'S ORGANIZ ATION 12/29/2024 [facility] REASON FOR VISIT (unrecogniz ed section and content) ReasonCommentsER Follow-upSOBReasonCommentsMed RefillReasonCommentsMedicare Annual Wellness Visit SubsequentDizzinessFeeling very dizzy this morning. ConstipationWent to ER a few days ago for abdominal pain and could not pass BM. Was given fleets enema - was able to get some rock like BM out. Stopped Sulfasalazine because he thinks this caused the constipationNasal Congestion ReasonCommentsFollow-upAppetite is up and down. Feels like he is doing a lot better. Still feels fuzzy - severity depends on the dayReasonCommentssciatica painRight sideReasonOnset DateCommentsPT Initial Eval07/08/2024$40.00 copay / Med NecCall Back07/08/2024ReasonCommentsFollow-upPt is going to PT for his shoulder and it is feeling better, but pain is not resolved.ReasonCommentsPain SpecialtyDiagnoses / ProceduresReferred By ContactReferred To ContactOrthopaedic Surgery Diagnoses Right shoulder pain, unspecified chronicity Marielena Herrera, KATHARINE fax: Jr. James Kat, DO [address] [place] [address] Phone: tel: fax: Referral IDStatusReasonStart DateExpiration DateVisits RequestedVisits [id number] Specialty Services Required [id number] PainPainReasonCommentsPainBack of headReasonOnset DateCommentsCX PT 10/18; pending call back to Eval10/13/2024 Visited in [email or web address]/20/2024He stopped in and noted that way he is feeling, he is needing no more PT; both [facility] and heis happy w/ status & progress made.ReasonCommentsRectal PainPt states he has had symptoms of muscle and nerve pain on his buttocks, but not in the rectal area.Pt states he has been using a massager in the area. He has also been sitting on a heating pad that vibrates to help alleviate the pain.ReasonCommentsNew PatientIschial bursitis of right side/Other chest painCT: 12/20/2024XR: 12/15/2024SpecialtyDiagnoses / ProceduresReferred By ContactReferred To ContactPulmonary Disease Diagnoses Other chest pain Ischial bursitis of right side Procedures [place] OFFICE OUTPATIENT VISIT 60-74 MINS [facility] [id number] (SNOMED CT) - AMB REFERRAL TO PULMONOLOGY Brianna Cruz APRN-TELEPHONE MECHANIC [address] [place] [address] Phone: tel: fax: Lina Pgua, DO [address] [address] Phone: tel: fax: Referral IDStatusReasonStart DateExpiration DateVisits RequestedVisits [id number] 1ReasonCommentspain when breathingOn left side, comes and goes, for a few months. Care Teams (unrecognized sec tion and content) Team Status: Inactive Member Role Status Dates Adalberto Graves MD Attending Provider Active Betina Shrestha Care ProviderActive Team Status: Active Member Role Status Juaquin Carson MD Primary Care Provider Active Team Status: Inactive Member Role Status Juaquin Carson MD Primary Care Provider Active Start: August 13, 2023 End: August 13, 2023ImaNoemi Demarco ProviderActiveStart: August 13, 2023 End: August 13, 2023 Team Status: Inactive Member Role Status Juaquin Carson MD Primary Care Provider Active Start: September 05, 2023 End: September 05, 2023ImaNoemi Demarco ProviderActiveStart: September 05, 2023 End: September 05, 2023 Team Status: Inactive Member Role Status Juaquin Carson MD Primary Care Provider Active Start: September 19, 2023 End: September 19, 2023ImaNoemi Demarco ProviderActiveStart: September 19, 2023 End: September 19, 2023 Team Status: Active Member Role Status Juaquin Carson MD Primary Care Provider Active Start: September 19, 2023 ImNoemi Prescott Provider, Other ProviderActiveStart: September 19, 2023 Team MemberRelationshipSpecialtyStart DateEnd Date Beatriz Carson MD [address] [place] [address] PCP - [employer]03/24/22 Beatriz Carson MD [address] [place] [address] PCP - [facility] Medicine08/23/22Team MemberRelationshipSpecialtyStart DateEnd Beatriz Lara MD [address] [place] [address] PCP - [employer]03/24/22 Beatriz Carson MD [address] [place] [address] PCP - Generalmily Medicine08/23/22Team MemberRelationshipSpecialtyStart DateEnd Date Beatriz Carson MD [address] [place] [address] PCP - [employer]03/24/22 Beatriz Carson MD [address] [place] [address] PCP - Generalmi Medicine08/23/22Team MemberRelationshipSpecialtyStart DateEnd Date Beatriz Carson MD [address] [place] [address] PCP - [employer]03/24/22 Beatriz Carson MD [address] [place] [address] PCP - Generalmily Medicine08/23/22Te MemberRelationshipSpecialtyStart DateEnd Date Beatriz Carson MD [address] [place] [address] PCP - [employer]03/24/22 Beatriz Carson MD [address] [place] [address] PCP - Generalmily Medicine08/23/22Team MemberRelationshipSpecialtyStart DateEnd Date Beatriz Carson MD [address] [place] [address] PCP - [employer]03/24/22 Beatriz Carson MD [address] [place] [address] PCP - Generalmily Medicine08/23/22Team MemberRelationshipSpecialtyStart DateEnd Date Beatriz Carson MD [address] [place] [address] PCP - [employer]03/24/22 Beatriz Carson MD [address] [place] [address] PCP - Generalmi Medicine08/23/22Team MemberRelationshipSpecialtyStart DateEnd Date Beatriz Carson MD [address] [place] [address] PCP - [employer]03/24/22 Beatriz Carson MD [address] [place] [address] PCP - Generalmily Medicine08/23/22Te MemberRelationshipSpecialtyStart DateEnd Date Beatriz Carson MD [address] [place] [address] PCP - [employer]03/24/22 Beatriz Carson MD [address] [place] [address] PCP - Generalmily Medicine08/23/22Team MemberRelationshipSpecialtyStart DateEnd Date Beatriz Carson MD [address] [place] [address] PCP - [employer]03/24/22 Beatriz Carson MD [address] [place] [address] PCP - GeneralFamily Medicine08/23/22Team MemberRelationshipSpecialtyStart DateEnd Date Beatriz Carson MD [address] [place] [address] PCP - GeneralFamily Medicine10/15/21Team MemberRelationshipSpecialtyStart DateEnd Date Beatriz Carson MD [address] [place] [address] PCP - [employer]03/24/22 Beatriz Carson MD [address] [place] [address] PCP - Generalmily Medicine08/23/22Team MemberRelationshipSpecialtyStart DateEnd Date Beatriz Carson MD [address] [place] [address] PCP - [employer]03/24/22 Beatriz Carson MD [address] [place] [address] PCP - Generalmily Medicine08/23/22Team MemberRelationshipSpecialtyStart DateEnd Date Beatriz Carson MD [address] [place] [address] PCP - [employer]03/24/22 Beatriz Carson MD [address] [place] [address] PCP - [facility] Medicine08/23/22Team MemberRelationshipSpecialtyStart DateEnd Date Beatriz Carson MD [address] [place] [address] PCP - [employer]03/24/22 Beatriz Carson MD [address] [place] [address] PCP - [facility] Medicine08/23/22Te MemberRelationshipSpecialtyStart DateEnd Date Beatriz Carson MD [address] [place] [address] PCP - [employer]03/24/22 Beatriz Carson MD [address] [place] [address] PCP - [facility] Medicine08/23/22Te MemberRelationshipSpecialtyStart DateEnd Date Beatriz Carson MD [address] [place] [address] PCP - [employer]03/24/22 Beatriz Carson MD [address] [place] [address] PCP - [facility] Medicine08/23/22Te MemberRelationshipSpecialtyStart DateEnd Date Beatriz Carson MD [address] [place] [address] PCP - [employer]03/24/22 Beatriz Carson MD [address] [place] [address] PCP - [facility]08/23/22Team MemberRelationshipSpecialtyStart DateEnd Date Beatriz Carson MD [address] [place] [address] PCP - Aet03/24/22 Beatriz Carson MD [address] [place] [address] PCP - [facility]08/23/22Team MemberRelationshipSpecialtyStart DateEnd Date Beatriz Carson MD [address] [place] [address] PCP - [facility]03/24/22 Beatriz Carson MD [address] [place] [address] PCP - [facility]08/23/22Team MemberRelationshipSpecialtyStart DateEnd Beatriz Carson MD [address] [place] [address] PCP - [facility]03/24/22 Beatriz Carson MD [address] [place] [address] PCP - [facility]08/23/22 Team Status: Inactive Member Role Status Dates Beatriz Carson MD Primary Care Provider Active Start: August 05, 2024 End: August 05, 2024Imanate Jarquin MDAtterick ProviderActiveStart: August 05, 2024 End: August 05, 2024Team MemberRelationshipSpecialtyStart DateEnd Date Beatriz Carson MD [address] [place] [address] PCP - [employer]03/24/22 Beatriz Carson MD [address] [place] [address] PCP - GeneralFamily Medicine08/23/22Team MemberRelationshipSpecialtyStart DateEnd Date Beatriz Carson MD [address] [place] [address] PCP - [employer]03/24/22 Beatriz Carson MD [address] [place] [address] PCP - GeneralFamily Medicine08/23/22Team MemberRelationshipSpecialtyStart DateEnd Date Beatriz Carson MD [address] [place] [address] PCP - [employer]03/24/22 Beatriz Carson MD [address] [place] [address] PCP - GeneralFamily Medicine08/23/22Team MemberRelationshipSpecialtyStart DateEnd Date Beatriz Carson MD PCP - [employer]03/24/22 Beatriz Carson MD PCP - GeneralFamily Medicine08/23/22Team MemberRelationshipSpecialtyStart DateEnd Date Beatriz Carson MD PCP - [employer]03/24/22 Beatriz Carson MD PCP - [facility]08/23/22Team MemberRelationshipSpecialtyStart DateEnd Date WonderBeatriz tracy MD PCP - [employer]03/24/22 WonderBeatriz tracy MD PCP - [facility]08/23/22Team MemberRelationshipSpecialtyStart DateEnd Date WonderBeatriz tracy MD PCP - [employer]03/24/22 WonderBeatriz tracy MD PCP - [facility] Medicine08/23/22Team MemberRelationshipSpecialtyStart DateEnd Date WonderBeatriz tracy MD PCP - [employer]03/24/22 WonderBeatriz tracy MD PCP - [facility]08/23/22Team MemberRelationshipSpecialtyStart DateEnd Date WonderBeatriz tracy MD PCP - [employer]03/24/22Team MemberRelationshipSpecialtyStart DateEnd Date WonderBeatriz tracy MD PCP - [employer]03/24/22Team MemberRelationshipSpecialtyStart DateEnd Date WonderBeatriz tracy MD PCP - [employer]03/24/22Team MemberRelationshipSpecialtyStart DateEnd Date WonderBeatriz tracy MD PCP - [employer]03/24/22Team MemberRelationshipSpecialtyStart DateEnd Date WonderBeatriz tracy MD PCP - [employer]03/24/22Team MemberRelationshipSpecialtyStart DateEnd Date Beatriz Carson MD PCP - [employer]03/24/22Team MemberRelationshipSpecialtyStart DateEnd Date Beatriz Carson MD PCP - [employer]03/24/22Team MemberRelationshipSpecialtyStart DateEnd Date Beatriz Carson MD PCP - [employer]03/24/22 Beatriz Carson MD PCP - [facility]08/23/22 Team Status: Inactive Member Role Status Dates Beatriz Carson MD Primary Care Provider Active Start: November 24, 2024 End: November 24, 2024Imanate Jarquin MDAtterick ProviderActiveStart: November 24, 2024 End: November 24, 2024Team MemberRelationshipSpecialtyStart DateEnd Date Beatriz Carson MD PCP - [employer]03/24/22 Beatriz Carson MD PCP - [facility] MedicineTeam MemberRelationshipSpecialtyStart DateEnd Date Beatriz Carson MD PCP - [employer]03/24/22 Gordo Lynn MD [address] [facility] [place] [address] PCP - [facility]11/25/24Team MemberRelationshipSpecialtyStart DateEnd Date Beatriz Carson MD PCP - [employer]03/24/22 Gordo Lynn MD [address] [facility] [place] [address] PCP - GeneralFamily Medicine11/25/24Team MemberRelationshipSpecialtyStart DateEnd Date Beatriz Carson MD [facility] - [facility]03/24/22 Gordo Lynn MD [address] [facility] [place] [address] PCP - [facility]11/25/24Team MemberRelationshipSpecialtyStart DateEnd Date Beatriz Carson MD [address] [facility] [place] [address] PCP - [facility]10/15/21Team MemberRelationshipSpecialtyStart DateEnd Date Beatriz Carson MD [facility] - [facility]03/24/22 Gordo Lynn MD [address] [facility] [place] [address] PCP - [facility]11/25/24Team MemberRelationshipSpecialtyStart DateEnd Date Beatriz Carson MD [facility] - [facility]10/15/21 Goals (unrecognized section and content) Goals may [...] BE BASED ON THE PRIMARY CLINICAL RECORDS. [facility]. provides no warranty or guarantee of the accuracy or completeness of information in this document.
[2025-01-12 06:58] VITALS: BP 149/80; PULSE 65
[2025-01-12 07:00] VITALS: PULSE 70; O2SAT 94
--- NOTE | 2025-01-12 07:08 | ECG_ITS ---
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 Measurements Intervals [place] Rate: 56 P: 13 HI: 204 QRS: -79 QRSD: 150 T: 5 QT: 462 QTc: 454 Interpretive Statements 1100 Sinus rhythm 1108 Marked sinus arrhythmia 2450 Right bundle branch block 2630 Left anterior fascicular block 9150 abnormal ECG Compared to ECG 01/05/2024 01:08:42 No significant changes Electronically Signed On 01-12-2025 7:43:01 EDT by JEANIE ALEXIS M.D.
[2025-01-12 07:15] LABS: Hematocrit 34.4 % (42.0-54.0); Hemoglobin 11.9 g/dL (14.0-18.0); Immature Granulocytes Abs Auto 0.02 10^3/uL (0.00-0.03); Immature Granulocytes Pct Auto 0.4 % (0.0-0.5); Lymphocytes Absolute Auto 1.6 10^3/uL (1.2-3.8); Mean Corpuscular HGB Conc 34.6 g/dL (29.9-35.2); Mean Corpuscular Hemoglobin 33.0 pg (25.9-34.0); Mean Corpuscular Volume 95.3 fL (80.0-94.0); Platelet Count 177 10^3/uL (150-450); Red Blood Count 3.61 10^6/uL (4.70-6.10); White Blood Count 4.6 10^3/uL (4.0-11.0)
--- NOTE | 2025-01-12 07:18 | ED.GENADUL1 ---
HPI HPI - General Adult General Chief complaint: Chest Pain Stated complaint: CHEST PAIN Time Seen by Provider: 01/12/25 07:08 Source: patient Mode of arrival: ambulance Limitations: no limitations History of Present Illness HPI narrative: 89-year-old male presents to the emergency department for chest pain. It began when he woke up today about 6 AM and it was sharp and on the left side of his chest. It is much better now, almost gone. No palpitations or fever. The pain did not radiate and he is not short of breath. He is a poor historian. Related Data Home Medications ?Medication ?Instructions ?Recorded ?Confirmed amlodipine 5 mg tablet 5 mg PO DAILY 01/05/24 01/05/24 donepezil 10 mg tablet 10 mg PO BEDTIME 01/05/24 01/05/24 fluticasone propionate 50 2 spray intranasal DAILY 01/05/24 01/05/24 mcg/actuation nasal spray,suspension ketoconazole 2 % shampoo 1 applic topical Q14D 01/05/24 01/05/24 memantine 5 mg tablet 5 mg PO BID 01/05/24 01/05/24 rosuvastatin 5 mg tablet 5 mg PO DAILY 01/05/24 01/05/24 sulfasalazine 500 mg 0.5 g PO Q12H 01/05/24 01/05/24 tablet,delayed release Allergies Allergy/AdvReac Type Severity Reaction Status Date / Time No Known Drug Allergies Allergy Verified 01/12/25 06:55 Review of Systems ROS Narrative A ten point review of systems is negative except as noted above. PFSH PFSH Social History Little interest or pleasure in doing things: not at all Feeling down, depressed, or hopeless: not at all Exam Narrative Exam Narrative: Nurses note and vital signs reviewed General:The patient appears well and in no apparent distress.Patient is resting comfortably on cart. Skin:Warm, dry, no pallor noted.There is no rash noted. Head:Normocephalic, atraumatic Eye: Normal conjunctiva, no drainage Ears, Nose, Mouth, and Throat: oral mucosa is moist. Nares patent. Cardiovascular:Regular Rate and Rhythm Respiratory:Patient is in no distress, no accessory muscle use, lungs are clear to auscultation, no wheezing, rales or rhonchi Back:non-tender GI: Soft and nontender Musculoskeletal: The patient has no evidence of calf tenderness, no pitting edema, symmetrical pulses noted bilaterally Neurological: Awake and alert Psychiatric:Cooperative Constitutional Vital Signs, click to edit/add: Last Vital Signs Temp 98.1 F 01/12/25 06:52 Pulse 60 01/12/25 08:00 Resp 16 01/12/25 08:00 BP 149/80 H 01/12/25 06:58 Pulse Ox 96 01/12/25 08:00 O2 Del Method Room Air 01/12/25 06:52 Course Vital Signs Vital signs: Vital Signs Pulse Rate 62 01/12/25 06:50 Respiratory Rate 20 01/12/25 06:50 Pulse Oximetry 94 L 01/12/25 06:50 Temperature 98.1 F 01/12/25 06:52 Pulse Rate 60 01/12/25 08:00 Respiratory Rate 16 01/12/25 08:00 Blood Pressure 149/80 H 01/12/25 06:58 Pulse Oximetry 96 01/12/25 08:00 Oxygen Delivery Method Room Air 01/12/25 06:52 Medical Decision Making [facility] Narrative Medical decision making narrative: His workup including 2 sets of troponin and a D-dimer is negative. He will be discharged home and will follow-up with his doctor if needed. At this point I do not suspect acute coronary syndrome. Treatment diagnosis and follow-up were discussed with the patient. Differential Diagnosis Differential Diagnosis: Myocardial infarction, PE, pneumothorax, chest wall pain Lab Data Lab results reviewed: Yes I reviewed the patient's lab results Labs: Lab Results 01/12/25 01/12/25 Range/Units 07:00 08:16 WBC 4.6 (4.0-11.0) 10^3/uL RBC 3.61 L (4.70-6.10) 10^6/uL Hgb 11.9 L (14.0-18.0) g/dL Hct 34.4 L (42.0-54.0) % MCV 95.3 H (80.0-94.0) fL MCH 33.0 (25.9-34.0) pg MCHC 34.6 (29.9-35.2) g/dL RDW 12.7 (11.0-15.0) % Plt Count 177 (150-450) 10^3/uL MPV 9.6 (9.5-13.5) fL Neut % (Auto) 46.4 (43.0-75.0) % Lymph % (Auto) 35.6 (20.5-60.0) % Ramsey % (Auto) 13.9 H (1.7-12.0) % Eos % (Auto) 2.6 (0.9-7.0) % Baso % (Auto) 1.1 (0.2-2.0) % Neut # (Auto) 2.1 (1.4-6.5) 10^3/uL Lymph # (Auto) 1.6 (1.2-3.8) 10^3/uL Ramsey # (Auto) 0.6 (0.3-0.8) 10^3/uL Eos # (Auto) 0.1 (0.0-0.7) 10^3/uL Baso # (Auto) 0.1 (0.0-0.1) 10^3/uL Abs Immat Gran (auto) 0.02 (0.00-0.03) 10^3/uL Imm/Tot Granulo (auto) 0.4 (0.0-0.5) % D-Dimer 0.58 (<=0.59) mg/L FEU Sodium 142 (136-145) mmol/L Potassium 3.6 (3.5-5.1) mmol/L Chloride 106 (98-107) mmol/L Carbon Dioxide 22.7 (21.0-32.0) mmol/L Anion Gap 16.9 BUN 16.0 (7.0-18.0) mg/dL Creatinine 0.69 L (0.70-1.30) mg/dL Est GFR ( Amer) >60 (>=60 mL/min/1.73m^2) Est GFR (Non-Af Amer) >60 (>=60 mL/min/1.73m^2) BUN/Creatinine Ratio 23.2 Glucose 107 H (74-106) mg/dL Calcium 8.8 (8.5-10.1) mg/dL Troponin I High Sens 8.9 9.2 (4.0-76.1) pg/mL Imaging Data Chest x-ray: Radiologist's impression: ITS Impressions Chest X-Ray 01/12/25 07:20 IMPRESSION: No acute cardiopulmonary pathology. Impression dictated by: Camilo Stewart M.D. 01/12/2025 8:11 AM Dictation Location[facility]now [facility]) Electronically authenticated by: [id number] Y Date: 01/12/2025 08:11 ECG Data Attestation: I personally reviewed and interpreted this ECG as follows: (EKG on my interpretation shows sinus rhythm without acute change) Discharge Plan Discharge Chief Complaint: Chest Pain Clinical Impression: Chest pain Patient Disposition: Home, Self-Care Time of Disposition Decision: 08:43 Condition: Good Mode of Transportation: Private Vehicle Prescriptions / Home Meds: No Action amlodipine 5 mg tablet 5 mg PO DAILY donepezil 10 mg tablet 10 mg PO BEDTIME fluticasone propionate 50 mcg/actuation spray,suspension 2 spray INTRANASAL DAILY ketoconazole 2 % shampoo 1 applic TOPICAL Q14D memantine 5 mg tablet 5 mg PO BID rosuvastatin 5 mg tablet 5 mg PO DAILY sulfasalazine 500 mg tablet,delayed release (DR/EC) 0.5 g PO Q12H Print Language: [place] Zealander Instructions: Chest Pain (ED) Referrals: MAYA CARSON [Primary Care Provider, Family Practice] - 1 week
--- NOTE | 2025-01-12 07:20 | XR_ITS ---
[place] [id number] Patient Name: JACY NAVARRO MRN: [id number] date: 1935 Sex: M Assigned Patient Location: ER Current Patient Location: ER Accession/Order Number: [id number] Exam Date: 01/12/2025 07:15 Report Date: 01/12/2025 08:11 At the request of: PRANAV SAPP MD Procedure: XR chest 1V XR chest 1V 01/12/2025 7:25 AM SIGNS AND SYMPTOMS: ^CP ^Y PROTOCOL: Frontal radiograph of the chest COMPARISON: 01/05/2024 FINDINGS: The trachea is midline. The heart and mediastinal structures are within normal limits. The lung parenchyma is clear. The bony thorax is intact. Degenerative changes are noted in the shoulders and thoracic spine. XR/XR chest 1V IMPRESSION: No acute cardiopulmonary pathology. Impression dictated by: Camilo Stewart M.D. 01/12/2025 8:11 AM Dictation Location: [place] [address] Electronically authenticated by: [id number] Y Date: 01/12/2025 08:11
[2025-01-12 07:30] VITALS: PULSE 66; O2SAT 94
[2025-01-12 07:31] LABS: Anion Gap 16.9; Blood Urea Nitrogen 16.0 mg/dL (7.0-18.0); Calcium 8.8 mg/dL (8.5-10.1); Carbon Dioxide 22.7 mmol/L (21.0-32.0); Chloride 106 mmol/L (98-107); Estimated GFR (African America >60 (>=60 mL/min/1.73m^2); Estimated GFR (Non-African Ame >60 (>=60 mL/min/1.73m^2); Glucose 107 mg/dL (74-106); Potassium 3.6 mmol/L (3.5-5.1); Sodium 142 mmol/L (136-145)
[2025-01-12 08:00] VITALS: PULSE 60; O2SAT 96
== END 2025-01-12 09:01 | disposition home or self-care (01) ==
PROVIDERS: Emergency Provider Emergency Medicine; PCP Family Medicine
DX: R07.9 Chest pain, unspecified (principal)
CPT/HCPCS: 36415; 71045; 80048; 84484; 85025; 85378; 93005; 99285